=== PATIENT | male | born 1955 | race Caucasian/White ===

== ENCOUNTER 2020-06-08 10:58 | Observation (INO) | payer OTHER, SELFPAY ==
[2020-06-08] VITALS (17 sets, daily range): BP systolic 143–186; BP diastolic 96–122; PULSE 74–101; RESP 15–30; TEMP 35.9–36.4; O2SAT 100
--- NOTE | ~2020-06-08 | US_ITS ---
EXAMINATION: US carotid duplex BI DATE: 06/09/2020 14:24 INDICATION: Left frontal lobe infarct. TECHNIQUE: Grayscale, color Doppler, and pulsed Doppler images of the cervical carotid arteries were obtained. The degree of vessel stenosis is placed in one of the following categories: normal, <50%, 5 0-69%, >=70% but less than near-occlusion, near-occlusion, or total occlusion. Note that percent sten osis relative to normal distal artery lumen diameter is indirectly measured from velocity measurement s as described by Christopher, et al. Radiology 2003; 229:340-346. COMPARISON: Ultrasound 03/27/2013 FINDINGS: RIGHT: The right common carotid artery (CCA) peak systolic velocity (PSV) is 49 cm/s. The right internal car otid artery (ICA) PSV is 62 cm/s. The right ICA end-diastolic velocity (EDV) is 13 cm/s. The right IC A/CCA PSV ratio is 1.3. Grayscale and color Doppler images yield an estimate of <50% diameter reducti on from plaque in the ICA. There is antegrade flow in the right vertebral artery. LEFT: The left CCA PSV is 59 cm/s. The left ICA PSV is 51 cm/s. The left ICA EDV is 13 cm/s. The left ICA/C CA PSV ratio is 0.9. Grayscale and color Doppler images yield an estimate of <50% diameter reduction from plaque in the ICA. There is antegrade flow in the left vertebral artery. IMPRESSION: 1. <50% stenosis in the right internal carotid artery. 2. <50% stenosis in the left internal carotid artery. Reviewed, dictated and finalized at location A.
--- NOTE | ~2020-06-08 | XR_ITS ---
EXAMINATION: XR chest 1V portable INDICATION: Altered mental status TECHNIQUE: Portable AP chest at 1205 hours COMPARISON: 12/15/2015 FINDINGS: The lungs are free of acute opacities. There is a 3.6 cm right perihilar mass without signi ficant change since the comparison examination. There is no pleural effusion or pneumothorax. The car diomediastinal silhouette is normal. The visualized bones and soft tissues are unremarkable. Calcifie d left carotid artery atherosclerosis is noted. IMPRESSION: 1. No acute cardiopulmonary abnormality. 2. Right perihilar mass without significant change, consistent with treated metastatic disease. Reviewed, dictated and finalized at location B. IMPRESSION: 1. No acute cardiopulmonary abnormality. 2. Right perihilar mass without significant change, consistent with treated met astatic disease.
--- NOTE | ~2020-06-08 | US_ITS ---
EXAMINATION: US right upper quadrant DATE: 06/10/2020 09:05 INDICATION: Elevated liver function tests TECHNIQUE: Multiple grayscale and Doppler ultrasound images of the abdomen were obtained. COMPARISON: CT, 03/26/2015 FINDINGS: The head and body of the pancreas are normal. The pancreatic tail is obscured by bowel gas. The liver is normal with normal echogenicity and echotexture. No surface nodularity. Normal hepatope eduard flow in the main portal vein. The gallbladder is normal with no abnormal wall thickening, pericho lecystic fluid or stones. The normal common bile duct measures 5 mm. There was no sonographic Dean sign. IMPRESSION: 1. No sonographic correlate for the patient's symptoms. Reviewed, dictated and finalized at location B.
--- NOTE | ~2020-06-08 | CT_ITS ---
EXAMINATION: CT brain wo con DATE: 06/08/2020 12:16 INDICATION: Altered mental status. TECHNIQUE: Computed tomography (CT) of the head was performed without intravenous contrast. The mA wa s adjusted according to patient size. Iterative reconstruction technique was employed. The dose-lengt h product was 605.33 mGy-cm. COMPARISON: Head CT 10/01/2016 FINDINGS: There are scattered areas of low attenuation in the cerebral white matter. There are old la cunar infarcts in the bilateral basal ganglia. There is chronic encephalomalacia in the anterior-infe rior frontal lobes, left worse than right. There is chronic encephalomalacia in right frontal opercul um and right temporal lobe. There is no intracranial hemorrhage, acute infarction, or abnormal intrac ranial mass lesion. There is expected dilatation of temporal horn right lateral ventricle. There is m ild mucosal thickening in the ethmoid sinuses. The mastoid air cells are normal. The orbits are geena l. There are changes of right-sided craniotomy. IMPRESSION: 1. Chronic encephalomalacia involving the frontal lobes and right temporal lobe. 2. Old lacunar infarcts in the bilateral basal ganglia. 3. Worsened extensive nonspecific cerebral white matter disease, which likely represents chronic smal l vessel ischemic disease. Reviewed, dictated and finalized at location A. IMPRESSION: 1. Chronic encephalomalacia involving the frontal lobes and right temporal lobe . 2. Old lacunar infarcts in the bilateral basal ganglia. 3. Worsened extensive nonspecific cerebral white matter disease, which likely r epresents chronic small vessel ischemic disease.
--- NOTE | ~2020-06-08 | MR_ITS ---
EXAMINATION: MR brain/brain stem wo/w con EXAM DATE: 06/09/2020 13:53 INDICATION: History of lung cancer, brain surgery. Confusion. TECHNIQUE: Magnetic resonance imaging (MRI) of the brain/brain stem obtained without contrast. Sagit eduard T1, axial diffusion, gradient echo (T2*), T1, T2, FLAIR sequences obtained. Patient was then inj ected with 14 cc intravenous Multihance contrast. Axial and coronal postcontrast T1 weighted sequence s obtained. Comparison is made to prior examination from 03/24/2013. FINDINGS: Previous MRI 2013 had an enhancing lesion in the right temporal lobe, likely was resected g iven the overlying right temporal craniotomy with underlying encephalomalacia. The postcontrast image s have some limitations due to patient motion on the exam. There is diffuse thin-walled enhancement o f the resection bed without focal nodular region to specifically suggest recurrence. This could be no rmal postoperative enhancement but follow-up MR should be obtained to exclude local recurrence (kalli valenzuela likely has been having follow-up scans at the institution that treated him for this). There is an old small to moderate-sized left frontal lobe infarction. There are no areas of restricte d diffusion to suggest acute infarction. There is no acute hemorrhage seen on the T2*, a hemosiderin sensitive sequence. Significant interval progression in the extensive white matter hyperintensity, c ould be old brain radiation treatment related change an/or progression of microangiopathy. Could rojelio elate for history of radiation. There is moderate prominence of the sulci and ventricles related to c erebral atrophy. These age-related findings have progressed compared to 2014. There are no extra-axi al collections. Flow voids are seen in the cerebral arteries on the T2-weighted sequences consistent with their expected patency. The orbits are unremarkable. Soft tissue is unremarkable. IMPRESSION: 1. No acute intracranial findings. 2. Surgical changes from right temporal lesion resection with enhancement in the surgical bed which could be postoperative scarring but only follow-up MR can exclude recurrence. 3. Extensive white matter hyperintensity, whole brain radiation versus microangiopathy. 4. Small to moderate old left frontal lobe infarction. Reviewed, dictated and finalized at location A. IMPRESSION: 1. No acute intracranial findings. 2. Surgical changes from right temporal lesion resection with enhancement in t he surgical bed which could be postoperative scarring but only follow-up MR can exclude recurrence. 3. Extensive white matter hyperintensity, whole brain radiation versus microan giopathy. 4. Small to moderate old left frontal lobe infarction.
--- NOTE | 2020-06-08 11:06 | ECG_ITS ---
Measurements Intervals [place] Rate: 93 P: 52 [place]: 120 QRS: -13 QRSD: 101 T: 51 QT: 388 QTc: 483 Interpretive Statements SINUS RHYTHM BORDERLINE ST ABNORMALITY- ANTEROLAT/INF LEADS BASELINE ARTIFACT- I, II, III, AVR, AVL, AVF, V2-V6 BORDERLINE ECG Electronically Signed On 06-08-2020 16:50:01 CDT by Aman Kyle D.O.
--- NOTE | 2020-06-08 11:28 | ED.AMS ---
HPI - Altered Mental Status General Chief Complaint: Altered Mental Status Stated Complaint: altered mental status Time Seen by Provider: 06/08/20 11:09 History of Present Illness HPI narrative: Patient is a 65-year-old male who presents ER with altered mental status. Increased over the last 3 days and not moving at home. reports she had a fall on 21 April and since then he has had a significant decline in his function ability to walk and perform daily activities. Patient has history of lung cancer is in remission since 2013. He had had brain surgery as well. He also has history of CVA. She has not noticed any lateralizing weakness. 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 Denies any blood thinners but he does take a baby aspirin. Related Data Home Medications Medication Instructions Recorded Confirmed diltiazem HCl 120 mg 120 mg PO DAILY 01/06/19 capsule,extended release 24 hr rcbarn-flglzkgj-zefzarm 1 cap PO TID 01/06/19 24,000-76,000-120,000 unit capsule,delayed rel pregabalin 100 mg capsule 100 mg PO BID 01/06/19 tramadol 50 mg tablet 50 mg PO Q6H PRN 01/06/19 omega-3 fatty acids 1,000 mg 2,000 mg PO BID cap 01/20/19 capsule aspirin 81 mg tablet,delayed 81 mg PO DAILY 07/07/19 release mecobalamin (vitamin B12) 1,000 1,000 mcg SUBLINGUAL DAILY 07/07/19 mcg disintegrating tablet,sublingual Allergies Allergy/AdvReac Type Severity Reaction Status Date / Time No Known Allergies Allergy Verified 07/07/19 13:07 Review of Systems Review of Systems: ROS unobtainable: Yes unobtainable due to mental status [facility] Past Medical History Medical History (Updated 06/08/20 @ 16:02 by Alex Hong MD) Benign essential hypertension BMI 22.0-22.9, adult BMI 23.0-23.9, adult BPH (benign prostatic hyperplasia) Colon cancer screening COPD (chronic obstructive pulmonary disease) Encounter for routine adult health examination without abnormal findings Encounter for special screening examination for neoplasm of prostate GERD (gastroesophageal reflux disease) Hep C w/o coma, chronic History of CVA (cerebrovascular accident) Impaired functional mobility, balance, gait, and endurance Metastatic lung cancer (metastasis from lung to other site) Nicotine abuse 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 HEAD: Normocephalic, atraumatic. EYES: PERRL and EOMI. ENT: Dry mucous membranes. CHEST: Clear to auscultation. No respiratory distress. HEART: Tachycardic and regular. Normal peripheral pulses. ABDOMEN: Soft, nontender, nondistended. EXTREMITIES: Patient diffusely weak but moves all extremities. He has some scabbing over the knuckles of his fingers. SKIN: Warm, dry, no rash. NEURO: Alert and oriented x1-2. Course Course Emergency Course: There is no singular lab finding that explains patient's current condition. Seems to be a progressive debility that may have resulted from a CVA. He will be admitted to the hospital. You may obtain MRI. Patient will need fluid hydration and PT/OT. Vital Signs Vital signs: Vital Signs Temperature 97.6 F 06/08/20 10:58 Pulse Rate 96 06/08/20 10:58 Respiratory Rate 21 H 06/08/20 10:58 Blood Pressure 143/114 H 06/08/20 10:58 Pulse Oximetry 100 06/08/20 10:58 Temperature 97.6 F 06/08/20 10:58 Pulse Rate 75 06/08/20 14:46 Respiratory Rate 30 H 06/08/20 14:46 Blood Pressure 164/118 H 06/08/20 14:46 Pulse Oximetry 100 06/08/20 14:46 MDM - Altered Mental Status Lab Data Result diagrams: 06/08/20
[2020-06-08 11:53] LABS: Ammonia 14 umol/L (9-30)
[2020-06-08] MEDS: SODIUM CHLORIDE 0.9% IV 1,000 ML 999 ML IV CONT (12:05)
[2020-06-08 12:11] LABS: Basophils Absolute Auto 0.2 K/mm3 (0.0-0.1); Basophils Percent Auto 1.3 % (0.2-1.2); Eosinophils Absolute Auto 0.1 K/mm3 (0-0.3); Eosinophils Percent Auto 0.8 % (0-4.4); Hematocrit 51.3 % (42.0-52.0); Immature Granulocyte Absolute 0.07 K/mm3 (0.00-0.031); Immature Granulocyte Percent A 0.6 % (0-0.5); Lymphocytes Absolute Auto 1.37 K/mm3 (0.9-3.2); Lymphocytes Percent Auto 12.1 % (18.3-44.2); Mean Corpuscular HGB Conc 33.1 g/dl (32-36); Mean Corpuscular Hemoglobin 28.7 pg (26-34); Mean Corpuscular Volume 86.7 fl (80-100); Mean Platelet Volume 9.8 fl (7.4-10.4); Monocytes Absolute Auto 0.7 K/mm3 (0.1-0.6); Monocytes Percent Auto 6.4 % (2.6-8.5); Neutrophils Absolute Auto 8.9 K/mm3 (1.3-6.7); Neutrophils Percent Auto 78.8 % (45.5-73.1); Platelet Count Result 258 k/mm3 (150-375); Red Blood Count 5.92 M/mm3 (4.6-6.20); Red Cell Distribution Width 23.9 % (11.5-14.5); White Blood Count 11.3 K/mm3 (4.5-10.0)
[2020-06-08 12:21] LABS: INR 1.1; Partial Thromboplastin Time 28.6 SECONDS (22.3-36.8); Prothrombin Time 14.5 Seconds (11.1-14.7)
[2020-06-08 12:26] LABS: Lactic Acid Reflex 2.9 mmol/L (0.7-2.1)
[2020-06-08 12:29] LABS: Add Urine Microscopic? YES; Appearance Urine Clear (Clear); Bilirubin Urine Negative (Negative); Blood Urine Negative (Negative); Color Urine Amber (Yellow); Glucose Urine UA Negative (Negative); Ketones Urine Trace mg/dL (Negative); Leukocyte Esterase Ur Negative LEU/UL (Negative); Nitrate Urine Negative (Negative); Protein Urine 3+ mg/dL (Negative); RBC Urine 0-2 /hpf (0-2); Specific Grav Ur 1.026 (1.001-1.035); WBC Urine 0-3 /hpf
--- NOTE | 2020-06-08 12:49 | PC.NURSE ---
Reported to RN that blood hemolyzed. Tech on phlebotomy stuck pt, unsuccessful. RN to try.
[2020-06-08 14:14] LABS: Alanine Aminotransferase 111 U/L (4-50); Albumin Level 5.2 g/dL (3.5-5.1); Alkaline Phosphatase 101 U/L (38-126); Anion Gap 22 mmol/L (8-16); Aspartate Amino Transferase 115 U/L (17-59); Bilirubin,Total 1.3 mg/dL (0.2-1.3); Blood Urea Nitrogen 46 mg/dL (9-20); Calcium 11.2 mg/dL (8.4-10.2); Carbon Dioxide 14 mmol/L (22-30); Chloride 108 mmol/L (98-107); Creatine Kinase 28 U/L (55-170); Estimated Glomerular Filt Rate 36; Glucose 110 mg/dL (75-110); Potassium 4.4 mmol/L (3.4-5.0); Sodium 144 mmol/L (137-145)
[2020-06-08 14:24] LABS: Troponin I < 0.012 ng/mL (0.000-0.034)
[2020-06-08 15:09] LABS: Reflex Lactic Acid Yes or No Add Lactic
--- NOTE | 2020-06-08 16:19 | PC.NURSE ---
Report was called. Bed dirty. Floor will notify when clean and available.
--- NOTE | 2020-06-08 17:21 | PC.NURSE ---
Called floor to follow up with room for pt, still dirty per RN. Floor will reach out when room is clean.
--- NOTE | 2020-06-08 18:19 | ADMGEN ---
This patient, Jovany Robbins, was admitted to Medical Room 344-01. Patient/family oriented to hospital policies and general routines including ID bracelet, bed and alarms, visiting hours, pain management, procedures, bathroom and other care routines, personal items, smoking policy, room service/diet, and visiting hours. Information on how to activate the Rapid Response Team has been discussed. Patient/Family are encouraged to report perceived risks to care and to ask questions if they do not understand what they are told or what they should do.
--- NOTE | 2020-06-08 18:38 | PC.NURSE ---
stated patient is adopted and unaware of family history.
[2020-06-08] MEDS: SODIUM CHLORIDE 0.9% IV 1,000 ML 125 ML IV CONT (18:59)
--- NOTE | 2020-06-08 20:13 | PM.IMHP ---
H&P: HPI History of Present Illness Date/Time: 06/08/20 20:13Thiivan is a 65-year-old male patient who has had previous metastatic melanoma resection. He has also had a history of a CVA. He has a history of alcohol abuse. Has a history of chronic renal failure. The patient had a fall on April 21 and has scabbed up knuckles. The patient has not been back to his normal self since then. The patient has history of lung cancer and is in remission since 2013. He has had brain surgery as well. The patient denies any blood thinners but he does take a baby aspirin. The patient appears very dry and was started on IV fluids. Head CT was read as chronic encephalomalacia involving the frontal lobes and right temporal lobe. Old lacunar infarcts in the bilateral basal ganglia worsened extensive nonspecific cerebral white matter disease which likely represents chronic small vessel ischemic disease. Chest x-ray was read as no acute cardiopulmonary abnormality right perihilar mass without significant change consistent with treated metastatic disease. His PET scan 1 year ago showed that there is no recurrence of his cancer. It was felt that the patient's confusion weakness was related to his dehydration he was started on IV fluids. When I 1st question the patient he did not realize that he was in the hospital. He was answering the questions the best of his knowledge. Patient is being admitted to observation status on the date of service of 06/08/2020. Chief Complaint: Altered mental status Review of Systems Review of Systems: All systems reviewed & are unremarkable except as noted in HPI and below Constitutional: Constitutional: Reports as per HPI and Reports no additional constitutional complaints Eyes: Eyes: Reports as per HPI and Reports no additional eye complaints ENT: Reports system reviewed and no additional complaints, except as documented and Reports Normal hearing present Cardiovascular: Cardiovascular: Reports no additional cardiovascular complaints Respiratory: Respiratory: Reports no additional respiratory complaints and Reports no additional respiratory complaints Gastrointestinal: Gastrointestinal: Reports as per HPI and Reports no additional gastrointestinal complaints Musculoskeletal: Musculoskeletal: Reports no additional musculoskeletal complaints Integumentary/Breasts: Skin/Breast: Reports system reviewed and no additional complaints, except as docu and Reports as per HPI Neurologic: Reports system reviewed and no additional complaints, except as documented, Reports as per HPI and Reports Normal hearing present Psychiatric: Psychiatric: Reports no additional psychiatric complaints and Reports as per HPI Endocrine: Endocrine: Reports no additional endocrine complaints Hematologic/Lymphatic: Hematologic/Lymphatic: Reports no additional hematologic/lymphatic complaints Allergic/Immunologic: Allergic/Immunologic: Reports no additional allergic/immunologic complaints [facility] Past Medical History Medical History (Updated 06/08/20 @ 20:33 by Ramya Acosta NP) Anxiety Benign essential hypertension BMI 22.0-22.9, adult BMI 23.0-23.9, adult BPH (benign prostatic hyperplasia) Colon cancer screening COPD (chronic obstructive pulmonary disease) Encounter for routine adult health examination without abnormal findings Encounter for special screening examination for neoplasm of prostate GERD (gastroesophageal reflux disease) Hep C w/o coma, chronic History of CVA (cerebrovascular accident) Impaired functional mobility, balance, gait, and endurance Metastatic lung cancer (metastasis from lung to other site) Nicotine abuse 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
[2020-06-08 21:06] LABS: Lactic Acid 1.7 mmol/L (0.7-2.1)
[2020-06-08] MEDS: PANTOPRAZOLE 40 MG TABLET PO (23:16)
[2020-06-08] MEDS: levETIRAcetam 500 MG TABLET PO (23:16)
[2020-06-09] VITALS (10 sets, daily range): BP systolic 161–169; BP diastolic 88–96; PULSE 62–85; RESP 16–18; TEMP 35.8–36.4; O2SAT 98–100
--- NOTE | 2020-06-09 | ECHO_ITS ---
Patient Info Name: Jovany Robbins Age: 65 years : 1955 Gender: Male Ht: 72 in Wt: 155 lbs BSA: 1.88 m2 HR: 65 bpm BP: 155 / 76 mmHg Technical Quality: Fair Exam Date: 06/09/2020 11:27 AM Exam Location: [facility] Patient Status: Inpatient Admit Date: 06/08/2020 Staff Ordering Physician: Ramya Acosta NP Collator Hand: Davide Dean RDCS, RT Attending Provider: Jayesh Hernandez MD Referring Physician: Dave HASTINGS; Exam Type: CA echo doppler color flow Study Info Indications R27.8 - Other lack of coordination Complete two-dimensional, color flow and Doppler transthoracic echocardiogram is performed. Summary 1. Complete two-dimensional, color flow and Doppler transthoracic echocardiogram is performed. 2. Technically suboptimal study due to poor sonographic images. Parasternal images were obtain from subcostal probe position. 3. Left ventricular chamber dimension is normal. 4. Left ventricular systolic function is normal, estimated at 55-60%. 5. There is mildly increased left ventricular wall thickness. 6. The left ventricular diastolic function is grade I diastolic dysfunction. 7. E/e' 9 is minimally elevated. Left Ventricle E/e' 9 is minimally elevated. Technically suboptimal study due to poor sonographic images. Parasternal images were obtain from subcostal probe position. Left ventricular chamber dimension is normal. Left ventricular systolic function is normal, estimated at 55-60%. There is mildly increased left ventricular wall thickness. The left ventricular diastolic function is grade I diastolic dysfunction. Right Ventricle Right ventricular chamber dimension is normal. Right ventricular systolic function is normal. Left Atria Left atrial chamber dimension is normal. Right Atria Right atrial chamber dimension is normal. Aortic Valve The aortic valve is trileaflet. There is no aortic valve stenosis. There is no aortic valve regurgitation. Pulmonic Valve There is no pulmonic regurgitation. Mitral Valve There is no mitral valve stenosis. There is no mitral valve regurgitation. Tricuspid Valve There is no tricuspid valve regurgitation. Pericardium/Pleural There is no pericardial effusion. Inferior Vena Cava Normal inferior vena cava with >50% collapse upon inspiration consistent with normal right atrial pressure, 5 mmHg. Aorta The aortic root size at the sinus of Valsalva is normal. Left Ventricular Outflow Tract Name Value Normal LVOT 2D LVOT Diameter 2.0 cm LVOT Doppler LVOT Peak Gradient 1 mmHg LVOT Mean Gradient 1 mmHg LVOT VTI 12 cm LVOT VTI/AV VTI Ratio 0.9 LVOT Stroke Volume 35 ml LVOT CO 2.3 l/min LVOT CI 1.2 l/min/m2 Mitral Valve Name Value Normal
[2020-06-09] MEDS: SODIUM CHLORIDE 0.9% IV 1,000 ML 125 ML IV CONT (02:57)
[2020-06-09] MEDS: SUCRALFATE 1 GM TABLET 2 GM PO ×2 (05:32→16:44)
[2020-06-09 06:04] LABS: Basophils Absolute Auto 0.1 K/mm3 (0.0-0.1); Basophils Percent Auto 0.9 % (0.2-1.2); Eosinophils Absolute Auto 0.2 K/mm3 (0-0.3); Eosinophils Percent Auto 1.5 % (0-4.4); Hematocrit 52.2 % (42.0-52.0); Hemoglobin 16.3 g/dL (14.0-18.0); Immature Granulocyte Absolute 0.05 K/mm3 (0.00-0.031); Immature Granulocyte Percent A 0.5 % (0-0.5); Lymphocytes Absolute Auto 1.11 K/mm3 (0.9-3.2); Lymphocytes Percent Auto 11.2 % (18.3-44.2); Mean Corpuscular HGB Conc 31.2 g/dl (32-36); Mean Corpuscular Hemoglobin 28.7 pg (26-34); Mean Corpuscular Volume 91.9 fl (80-100); Mean Platelet Volume 10.2 fl (7.4-10.4); Monocytes Absolute Auto 0.6 K/mm3 (0.1-0.6); Monocytes Percent Auto 5.6 % (2.6-8.5); Neutrophils Percent Auto 80.3 % (45.5-73.1); Platelet Count Result 203 k/mm3 (150-375); Red Blood Count 5.68 M/mm3 (4.6-6.20); Red Cell Distribution Width 23.9 % (11.5-14.5); White Blood Count 9.9 K/mm3 (4.5-10.0)
[2020-06-09 07:26] LABS: Alanine Aminotransferase 86 U/L (4-50); Albumin Level 4.5 g/dL (3.5-5.1); Alkaline Phosphatase 76 U/L (38-126); Anion Gap 19 mmol/L (8-16); Aspartate Amino Transferase 86 U/L (17-59); Blood Urea Nitrogen 35 mg/dL (9-20); Calcium 9.7 mg/dL (8.4-10.2); Carbon Dioxide 13 mmol/L (22-30); Chloride 115 mmol/L (98-107); Estimated Glomerular Filt Rate 55; Glucose 80 mg/dL (75-110); Magnesium 1.8 mg/dL (1.6-2.3); Potassium 4.9 mmol/L (3.4-5.0); Sodium 147 mmol/L (137-145)
--- NOTE | 2020-06-09 07:53 | PC.NURSE ---
Phone calls to both numbers listed to get consent for MRI's as patient is confused and can't sign for himself. Will continue to try and reach Keila his spouse.
[2020-06-09] MEDS: CALCIUM CARBONATE (OSCAL) 500 MG TABLET PO (08:12)
[2020-06-09] MEDS: PANTOPRAZOLE 40 MG TABLET PO ×2 (08:12→20:20)
[2020-06-09] MEDS: levETIRAcetam 500 MG TABLET PO ×2 (08:12→20:21)
[2020-06-09] MEDS: TAMSULOSIN HCL 0.4 MG CAPSULE PO (08:12)
[2020-06-09] MEDS: OMEGA 3 POLYUNSAT FATTY ACIDS 1 GM CAP PO (08:12)
[2020-06-09] MEDS: ASPIRIN 81 MG ENTERIC TABLET PO (08:12)
[2020-06-09] MEDS: PREGABALIN (*CRX) 50 MG CAPSULE 100 MG PO (08:12)
--- NOTE | 2020-06-09 10:35 | PM.IMPN ---
Progress Note: A&P Assessment and Plan (1) Altered mental status: Code(s): R41.82 - Altered mental status, unspecified <SUSANNAH Webb - Last Filed: 06/09/20 12:07> Status: Acute <SUSANNAH Webb - Last Filed: 06/09/20 12:07> Assessment and Plan: Suspect 2/2 dehydration WBC improved Hx of lung ca with brain mets s/p surgery PET scan showed no recurrence of his cancer [address] scan as mentioned above shows chronic encephalomalacia and an old lacunar infarction CXR-->no acute changes Continue with IVF PT/OT to evaluate MRI of the brain pending Carotids pending ECHO pending <SUSANNAH Webb - Last Filed: 06/09/20 12:07> (2) VIVIANE (acute kidney injury): Code(s): N17.9 - Acute kidney failure, unspecified <SUSANNAH Webb - Last Filed: 06/09/20 12:07> Status: Acute <SUSANNAH Webb - Last Filed: 06/09/20 12:07> Assessment and Plan: Cr 1.9-->1.3 today, baseline is anywhere from 1.3-2.2 Avoid any nephrotoxic medications D/c IVF when po intake sufficinet <SUSANNAH Webb - Last Filed: 06/09/20 12:07> (3) History of CVA (cerebrovascular accident): Code(s): Z86.73 - Personal history of transient ischemic attack (TIA), and cerebral infarction without residual deficits <SUSANNAH Webb - Last Filed: 06/09/20 12:07> Status: Acute <SUSANNAH Webb - Last Filed: 06/09/20 12:07> Assessment and Plan: Patient has no residual effect Continue ASA <SUSANNAH Webb - Last Filed: 06/09/20 12:07> (4) Nicotine abuse: Code(s): Z72.0 - Tobacco use <SUSANNAH Webb - Last Filed: 06/09/20 12:07> Status: Acute <SUSANNAH Webb - Last Filed: 06/09/20 12:07> Assessment and Plan: Cessation advised Packet given, counseled <SUSANNAH Webb - Last Filed: 06/09/20 12:07> (5) COPD (chronic obstructive pulmonary disease): Qualifiers: COPD type: unspecified COPD Qualified Code(s): J44.9 - Chronic obstructive pulmonary disease, unspecified <SUSANNAH Webb - Last Filed: 06/09/20 12:07> Code(s): J44.9 - Chronic obstructive pulmonary disease, unspecified <SUSANNAH Webb - Last Filed: 06/09/20 12:07> Status: Acute <SUSANNAH Webb - Last Filed: 06/09/20 12:07> Assessment and Plan: Continue with rescue inhaler <SUSANNAH Webb - Last Filed: 06/09/20 12:07> (6) Hep C w/o coma, chronic: Code(s): B18.2 - Chronic viral hepatitis C <SUSANNAH Webb - Last Filed: 06/09/20 12:07> Status: Acute <SUSANNAH Webb - Last Filed: 06/09/20 12:07> (7) Benign essential hypertension: Code(s): I10 - Essential (primary) hypertension <SUSANNAH Webb - Last Filed: 06/09/20 12:07> Status: Acute <SUSANNAH Webb - Last Filed: 06/09/20 12:07> Assessment and Plan: continue with diltiazem <SUSANNAH Webb - Last Filed: 06/09/20 12:07> (8) Anxiety: Code(s): F41.9 - Anxiety disorder, unspecified <SUSANNAH Webb - Last Filed: 06/09/20 12:07> Status: Chronic <SUSANNAH Webb - Last Filed: 06/09/20 12:07> Assessment and Plan: continue with Xanax <SUSANNAH Webb - Last Filed: 06/09/20 12:07> Subjective Date/time seen: 06/09/20 10:35 Pt seen and evaluated; labs; VS and diagnostic results reviewed; pt is alert to self and states he's ready to go home; denies any complaints <SUSANNAH Webb - Last Filed: 06/09/20 12:07> Review of Systems Review of Systems: All systems reviewed & are unremarkable except as noted in HPI and below <SUSANNAH Webb - Last Filed:
--- NOTE | 2020-06-09 11:24 | PC.NURSE ---
Patient became unresponsive in chair while working with PT. This nurse was called into the room to assess the patient. Vital signs were 160/99 and oxygen was 100% on room air. Patient seemed alert and oriented and was able to answer questions and follow directions. Patient was able to raise both arms at the same time. Patient was able to squeeze my hands with both of his hands. Patient eyes rolled back and became unresponsive. Romelia stedy was used to place patient back in bed. Two attempts to call hospitalist were made by this nurse with no answer each time. Will continue to try and reach hospitalist to update on patient status.
--- NOTE | 2020-06-09 13:15 | PC.NURSE ---
Patient to MRI via hospital stretcher.
[2020-06-09 21:01] LABS: Alveolar/Arterial O2 Gradient 43.6 mmHg; Base Excess ABG -10.3 mEq/l (+/-2.0); Fractional Inspired Oxygen 21 %; HCO3 ABG 12.6 mEq/l (22.0-26.0); Oxygen Saturation ABG 95.8 % (95.0-100.0); Oxyhemoglobin 92.5 % THb (90.0-100.0); PO2 ABG 79.7 mmHg (80.0-100.0); Total Hemoglobin 14.6 g/dL (12.0-18.0); pH ABG 7.374 (7.350-7.450)
[2020-06-09 21:04] LABS: Device ROOM AIR; PCO2 ABG 22.1 mmHg (35.0-45.0); Site Drawn RIGHT BRACHIAL
[2020-06-09] MEDS: SODIUM BICARBONATE 8.4% 100 MEQ in DEXTROSE 5% 1,000 ML 1,000 ML IV CONT (21:25)
[2020-06-10] VITALS (9 sets, daily range): BP systolic 91–137; BP diastolic 64–97; PULSE 60–78; RESP 16; TEMP 35.3–36.4; O2SAT 99–100; BMI 22.2
[2020-06-10] MEDS: SUCRALFATE 1 GM TABLET 2 GM PO (05:38)
[2020-06-10 05:51] LABS: Alanine Aminotransferase 64 U/L (4-50); Alkaline Phosphatase 63 U/L (38-126); Anion Gap 11 mmol/L (8-16); Aspartate Amino Transferase 49 U/L (17-59); Bilirubin,Total 0.8 mg/dL (0.2-1.3); Blood Urea Nitrogen 20 mg/dL (9-20); Calcium 8.8 mg/dL (8.4-10.2); Carbon Dioxide 21 mmol/L (22-30); Chloride 110 mmol/L (98-107); Estimated Glomerular Filt Rate > 60; Glucose 145 mg/dL (75-110); Potassium 3.6 mmol/L (3.4-5.0); Sodium 142 mmol/L (137-145)
[2020-06-10] MEDS: SODIUM BICARBONATE 8.4% 100 MEQ in DEXTROSE 5% 1,000 ML 1,000 ML IV CONT (09:27)
[2020-06-10] MEDS: OMEGA 3 POLYUNSAT FATTY ACIDS 1 GM CAP PO (09:31)
[2020-06-10] MEDS: levETIRAcetam 500 MG TABLET PO ×2 (09:34→20:04)
[2020-06-10] MEDS: TAMSULOSIN HCL 0.4 MG CAPSULE PO (09:43)
[2020-06-10] MEDS: PANTOPRAZOLE 40 MG TABLET PO ×2 (09:43→20:04)
[2020-06-10] MEDS: CALCIUM CARBONATE (OSCAL) 500 MG TABLET PO (09:43)
[2020-06-10] MEDS: CYANOCOBALAMIN 250 MCG TABLET PO (09:43)
[2020-06-10] MEDS: ASPIRIN 81 MG ENTERIC TABLET PO (09:43)
[2020-06-10] MEDS: PREGABALIN (*CRX) 50 MG CAPSULE 100 MG PO (09:54)
--- NOTE | 2020-06-10 11:38 | PCDIET ---
Recommend liberalizing diet to regular. Agree with Ensure Clear (240kcal, 8g protein) BID. Patient may also benefit from multivitamin/minerals daily. Will continue to monitor and provide additional recommendations, as needed.
--- NOTE | 2020-06-10 12:40 | PM.IMPN ---
Progress Note: A&P Assessment and Plan (1) Altered mental status: Code(s): R41.82 - Altered mental status, unspecified Status: Acute Assessment and Plan: Suspect 2/2 dehydration WBC improved Hx of lung ca with brain mets s/p surgery PET scan showed no recurrence of his cancer [address] scan as mentioned above shows chronic encephalomalacia and an old lacunar infarction CXR-->no acute changes Continue with IVF PT/OT ST Will likely require rehab MRI with no acute findings Carotids-->. <50% stenosis in the right and left internal carotid artery ECHO pending-->preserved EF 55-60%;mildly increased left ventricular wall thickness;grade I diastolic dysfunction (2) VIVIANE (acute kidney injury): Code(s): N17.9 - Acute kidney failure, unspecified Status: Acute Assessment and Plan: Resolved Cr 1.9-->1.3-->1.1 today, baseline is anywhere from 1.3-2.2 Avoid any nephrotoxic medications S/p IVF Monitor (3) History of CVA (cerebrovascular accident): Code(s): Z86.73 - Personal history of transient ischemic attack (TIA), and cerebral infarction without residual deficits Status: Acute Assessment and Plan: Patient has no residual effect Continue ASA (4) Nicotine abuse: Code(s): Z72.0 - Tobacco use Status: Acute Assessment and Plan: Cessation advised Packet given, counseled (5) COPD (chronic obstructive pulmonary disease): Qualifiers: COPD type: unspecified COPD Qualified Code(s): J44.9 - Chronic obstructive pulmonary disease, unspecified Code(s): J44.9 - Chronic obstructive pulmonary disease, unspecified Status: Acute Assessment and Plan: Continue with rescue inhaler (6) Hep C w/o coma, chronic: Code(s): B18.2 - Chronic viral hepatitis C Status: Acute (7) Benign essential hypertension: Code(s): I10 - Essential (primary) hypertension Status: Acute Assessment and Plan: continue with diltiazem (8) Anxiety: Code(s): F41.9 - Anxiety disorder, unspecified Status: Chronic Assessment and Plan: continue with Xanax Subjective Date/time seen: 06/10/20 12:40 Pt states he feels find;alert to self; PT at the bedside; diagnostic results reviewed Review of Systems Review of Systems: All systems reviewed & are unremarkable except as noted in HPI and below Exam Const: General: cooperative, healthy appearing, comfortable, no acute distress, well developed, alert, awake and Physically active Nutritional Appearance: average body habitus and thin Orientation/consciousness: oriented to person Limitations: no limitations HENMT: Head: normal to inspection, No palpable skull fracture present, normocephalic, atraumatic and abrasion Ears: hearing grossly normal bilaterally and external ears normal General nose exam: Normal external nose present, Normal nares present and No nasal polyps present Mouth: Yes dry mucous membranes Throat: posterior oropharynx normal Eyes: General: appearance normal, both eyes and all related structures Alignment and Position: alignment normal Periorbital: periorbital findings normal Eyelids: eyelids normal Conjunctivae: conjunctivae normal Sclera: sclerae normal Cornea: corneas normal Pupils: Equal, round and reactive pupils present EOM: EOMs intact bilaterally Neck: Neck: normal visual inspection, full ROM and no lymphadenopathy Thyroid: thyroid normal Carotids: normal carotid upstroke Lymphatic: no lymphadenopathy noted Chest: Chest palpation & inspection: normal inspection of the chest Resp: Effort & Inspection: normal respiratory effort Auscultation: clear to auscultation bilaterally Percussion: percussion normal Cardio: Palpation: normal PMI Rate: regular rate Rhythm: regular rhythm Heart sounds: S1 normal heart sound present and S2 normal heart sound present Peripheral pulses: Peripheral pulses 2+ throughout GI: Inspection: no
--- NOTE | 2020-06-10 13:24 | PCSTNOTE ---
Please refer to the Bedside Swallow Evaluation in the EMR. Please note, silent aspiration cannot be ruled out at bedside.
--- NOTE | 2020-06-10 14:25 | PCOTNOTE ---
Attempted to see patient this pm, however patient was unable to be aroused. Per MEDICAL SAFETY DIRECTOR, patient did not wake for vitals or lunch.
[2020-06-10 18:34] LABS: Anion Gap 7 mmol/L (8-16); Blood Urea Nitrogen 16 mg/dL (9-20); Calcium 8.3 mg/dL (8.4-10.2); Carbon Dioxide 26 mmol/L (22-30); Chloride 103 mmol/L (98-107); Estimated CRCL calculation 64 ml/min; Estimated Glomerular Filt Rate > 60; Glucose 168 mg/dL (75-110); Potassium 2.8 mmol/L (3.4-5.0); Sodium 136 mmol/L (137-145)
[2020-06-10] MEDS: ONDANSETRON INJ 4 MG/2 ML VIAL IV PUSH (23:56)
[2020-06-11] VITALS: PULSE 63
[2020-06-11 04:00] VITALS: PULSE 64
[2020-06-11 05:51] VITALS: BP 113/67; PULSE 73; RESP 16; O2SAT 96
[2020-06-11 05:55] LABS: Hematocrit 38.2 % (42.0-52.0); Hemoglobin 12.5 g/dL (14.0-18.0); Mean Corpuscular HGB Conc 32.7 g/dl (32-36); Mean Corpuscular Volume 85.7 fl (80-100); Mean Platelet Volume 10.5 fl (7.4-10.4); Platelet Count Result 128 k/mm3 (150-375); Red Blood Count 4.46 M/mm3 (4.6-6.20); Red Cell Distribution Width 22.5 % (11.5-14.5); White Blood Count 10.3 K/mm3 (4.5-10.0)
[2020-06-11 06:10] LABS: Anion Gap 7 mmol/L (8-16); Blood Urea Nitrogen 14 mg/dL (9-20); Calcium 8.3 mg/dL (8.4-10.2); Carbon Dioxide 22 mmol/L (22-30); Chloride 105 mmol/L (98-107); Estimated CRCL calculation 64 ml/min; Estimated Glomerular Filt Rate > 60; Glucose 107 mg/dL (75-110); Potassium 3.3 mmol/L (3.4-5.0); Sodium 134 mmol/L (137-145)
[2020-06-11] MEDS: SUCRALFATE 1 GM TABLET 2 GM PO ×2 (06:17→16:25)
[2020-06-11 06:25] VITALS: TEMP 35.6
--- NOTE | 2020-06-11 06:35 | PC.NURSE ---
RN initially was told patient had not spoken to staff and was mostly unresponsive in the afternoon and evening yesterday (06/10/2020). Patient has been talking to RN and BIOMEDICAL MANAGER the entire night custodian. RN asked patient why he was not talking to day shift yesterday and he stated maybe I just like you guys more. RN had multiple talks with patient throughout the night where conversation flowed naturally and he was alert, oriented, and responsive.
[2020-06-11 08:00] VITALS: PULSE 65
[2020-06-11] MEDS: PREGABALIN (*CRX) 50 MG CAPSULE 100 MG PO (09:29)
[2020-06-11] MEDS: PANTOPRAZOLE 40 MG TABLET PO ×2 (09:30→20:12)
[2020-06-11] MEDS: TAMSULOSIN HCL 0.4 MG CAPSULE PO (09:30)
[2020-06-11] MEDS: levETIRAcetam 500 MG TABLET PO ×2 (09:30→20:12)
[2020-06-11] MEDS: OMEGA 3 POLYUNSAT FATTY ACIDS 1 GM CAP PO (09:30)
[2020-06-11] MEDS: ASPIRIN 81 MG ENTERIC TABLET PO (09:30)
[2020-06-11] MEDS: CALCIUM CARBONATE (OSCAL) 500 MG TABLET PO (09:30)
[2020-06-11] MEDS: CYANOCOBALAMIN 250 MCG TABLET PO (09:30)
--- NOTE | 2020-06-11 12:04 | PM.DS ---
DS: Admitting Diagnosis Admitting Diagnosis Admitting Diagnosis: altered mental status DS: Discharge Diagnosis Discharge Diagnosis (1) Altered mental status: Code(s): R41.82 - Altered mental status, unspecified Status: Acute (2) VIVIANE (acute kidney injury): Code(s): N17.9 - Acute kidney failure, unspecified Status: Acute (3) History of CVA (cerebrovascular accident): Code(s): Z86.73 - Personal history of transient ischemic attack (TIA), and cerebral infarction without residual deficits Status: Acute (4) Nicotine abuse: Code(s): Z72.0 - Tobacco use Status: Acute (5) COPD (chronic obstructive pulmonary disease): Qualifiers: COPD type: unspecified COPD Qualified Code(s): J44.9 - Chronic obstructive pulmonary disease, unspecified Code(s): J44.9 - Chronic obstructive pulmonary disease, unspecified Status: Acute (6) Hep C w/o coma, chronic: Code(s): B18.2 - Chronic viral hepatitis C Status: Acute (7) Benign essential hypertension: Code(s): I10 - Essential (primary) hypertension Status: Acute (8) Anxiety: Code(s): F41.9 - Anxiety disorder, unspecified Status: Chronic (9) Metastatic lung cancer (metastasis from lung to other site): Qualifiers: Laterality: unspecified laterality Qualified Code(s): C34.90 - Malignant neoplasm of unspecified part of unspecified bronchus or lung Code(s): C34.90 - Malignant neoplasm of unspecified part of unspecified bronchus or lung Status: Acute (10) Metabolic acidosis: Code(s): E87.2 - Acidosis Status: Acute (11) Elevated liver enzymes: Code(s): R74.8 - Abnormal levels of other serum enzymes Status: Acute (12) Hypercalcemia: Code(s): E83.52 - Hypercalcemia Status: Acute DS: Summary Hospital Course Reason for hospitalization: 65yo male with hx of seizure, CVA, lung cancer and brain surgery here for altered mental status. please see H&P for details Hospital Course: Patient presented to the ED with complaints of altered mental status for the past 3 days. Hemoglobin was elevated at 17. Lactic acid was 2.9. Chest x-ray showed right perihilar mass felt to be chronic from his previously treated lung cancer. Brain CT showed chronic encephalomalacia and old CVAs. His creatinine was 1.9. His calcium was 11.2. He has significant metabolic acidosis with an anion gap 22. His AST and ALT were elevated with a total protein of 10. Urinalysis was negative. Troponin was negative. EKG showed borderline anterior lateral ST T wave changes. patient was admitted started on IV fluids. IV fluids were changed to add bicarb. His metabolic acidosis improved. Anion gap closed. Echocardiogram showed EF of 55-60% with grade 1 diastolic dysfunction. Brain MRI showed no acute findings. Please see report for details. Carotid ultrasound showed less than 50% stenosis in the bilateral internal carotid arteries. Upper quadrant ultrasound showed no acute findings. He was maintained on telemetry without significant findings there either. As his biochemical markers improved, patient's mental status improved. Became more awake and alert. He is more talkative. His LFTs are trending downward. His kidney function has improved with a creatinine of 1.0 today. Hemoglobin is down to 12. Patient overall did well was a be discharged to a rehab facility on 06/11/2020. Status at Discharge Cognitive/behavioral status at discharge: Stable Time Spent with Patient Time attestation: Total time spent providing and/or coordinating discharge services: 35 minutes Time spent: Greater than 30 minutes Specific discharge activities: spoke with and she was updated with plan Exam Narrative: Exam Narrative: AF 96.0 113/67 73 16 96% ra Gen - NARD Chest - CTA bilaterally, nml RR CV - RRR S1/S2.Telemetry showing no significant dysrhythmias Abd - Soft,
[2020-06-11 14:00] VITALS: BP 108/60; PULSE 76; RESP 18; TEMP 36.1; O2SAT 99
[2020-06-11 19:39] LABS: SARS-CoV-2 RNA PCR Negative
--- NOTE | 2020-06-15 08:28 | PC.NURSE ---
COVID is negative. Dr. Avina aware.
== END 2020-06-11 20:38 ==
LOC: ANHED 11:43 → ANH3MED 16:02
PROVIDERS: Nurse Practitioner; Nurse Practitioner Adult Health; Admitting Provider Family Medicine; Emergency Provider Emergency Medicine; PCP Internal Medicine; Visit Provider Internal Medicine
DX: R41.82 Altered mental status, unspecified (principal); N17.9 Acute kidney failure, unspecified; E86.0 Dehydration; E83.52 Hypercalcemia; I65.23 Occlusion and stenosis of bilateral carotid arteries; R74.8 Abnormal levels of other serum enzymes; E87.2 Acidosis; E88.09 Other disorders of plasma-protein metabolism, not elsewhere classified; G93.89 Other specified disorders of brain; J44.9 Chronic obstructive pulmonary disease, unspecified; R27.8 Other lack of coordination; Z91.81 History of falling; G40.909 Epilepsy, unspecified, not intractable, without status epilepticus; I10 Essential (primary) hypertension; N40.0 Benign prostatic hyperplasia without lower urinary tract symptoms; K21.9 Gastro-esophageal reflux disease without esophagitis; B18.2 Chronic viral hepatitis C; R53.81 Other malaise; F41.9 Anxiety disorder, unspecified; F17.210 Nicotine dependence, cigarettes, uncomplicated; Z20.822 Contact with and (suspected) exposure to COVID-19; Z85.118 Personal history of other malignant neoplasm of bronchus and lung; Z79.51 Long term (current) use of inhaled steroids; Z85.820 Personal history of malignant melanoma of skin; Z86.73 Personal history of transient ischemic attack (TIA), and cerebral infarction without residual deficits; Z79.82 Long term (current) use of aspirin
CPT/HCPCS: 36415; 36600; 70450; 70553; 71045; 76705; 80048; 80053; 80076; 81001; 82140; 82550; 82805; 83605; 83735; 84443; 84484; 85025; 85027; 85610; 85730; 92610; 93005; 93306; 93880; 94762; 96360; 96361; 96365; 96366; 96367; 96375; 96376; 97110; 97162; 97166; 97530; 99285; A9270; A9577; C9803; G0378; J2405; J3480; J7030; J7070; U0003; U0005

== ENCOUNTER 2020-06-19 21:43 | Inpatient (IN) | payer MEDICARE, OTHER, SELFPAY ==
--- NOTE | ~2020-06-19 | XR_ITS ---
EXAMINATION: XR chest 1V portable EXAM DATE: 06/21/2020 11:00 INDICATION: Aspiration pneumonia. TECHNIQUE: Portable AP upright frontal chest x-ray was obtained. Comparison is made to prior examinat ion from 06/19/2020. FINDINGS: Patient is rotated to the right. There is been progression of right middle and lower lobe a cute airspace disease, now involving multiple segments, probably combination of infection and atelect asis. There has been development of small to moderate right pleural effusion. No pneumothorax. There are old left rib fractures. IMPRESSION: 1. Progression of multi segmental right basilar opacity likely atelectasis and infection. 2. Development of small to moderate right pleural effusion. Reviewed, dictated and finalized at location A.
--- NOTE | ~2020-06-19 | US_ITS ---
EXAMINATION: US abdomen limited EXAM DATE: 06/21/2020 11:34 INDICATION: Suspected pancreatitis. TECHNIQUE: Multiple grayscale and Doppler images of the abdomen right upper quadrant were obtained (mercy y a technologist who performed the scan) and subsequently reviewed. There is no prior study for nahid richardson. FINDINGS: The pancreatic head and body are normal in appearance. The pancreatic tail is not visualized. Please note uncomplicated pancreatitis typically does not have ultrasound findings. The liver has normal ec hogenicity and contour. There are no focal liver lesions identified. There is no evidence of intra hepatic biliary duct dilation. Portal venous flow was seen in the hepatopedal, normal direction and has normal Doppler waveform. No right-sided hydronephrosis. Common bile duct measures 4 mm, which is normal. Probable mild gallbladder wall thickening for amount of distention, measuring 3.3 mm. No sonographic evidence of pericholecystic fluid. There is no cho lelithiases. Technologist performing exam reports patient did not demonstrate sonographic Dean's si gn. Please note that this sign is less reliable in patients who have received pain medication. IMPRESSION: 1. Mildly thickened gallbladder wall, most likely reactive. Reviewed, dictated and finalized at location A.
--- NOTE | ~2020-06-19 | CT_ITS ---
EXAMINATION: CT brain wo con DATE: 06/19/2020 23:29 INDICATION: Confusion. Altered mental status. TECHNIQUE: Computed tomography (CT) of the head was performed without intravenous contrast. The mA wa s adjusted according to patient size. Iterative reconstruction technique was employed. The dose-lengt h product was 681.00 mGy-cm. COMPARISON: Head CT 06/08/2020 FINDINGS: There are scattered areas of low attenuation in the cerebral white matter. There are old la cunar infarcts in the bilateral basal ganglia. There is chronic encephalomalacia in the anteroinferio r frontal lobes, left worse than right. There is chronic encephalomalacia in right frontal operculum and right temporal lobe. There is no intracranial hemorrhage, acute infarction, or abnormal intracran ial mass lesion. There is ex vacuo dilatation of temporal horn of right lateral ventricle. Dental dis ease is noted. The mastoid air cells are normal. The orbits are normal. The paranasal sinuses are shannon ar. There are changes of right-sided craniotomy. IMPRESSION: 1. Chronic encephalomalacia involving the frontal lobes and right temporal lobe. 2. Old lacunar infarcts in the bilateral basal ganglia. 3. Stable extensive nonspecific cerebral white matter disease, which likely represents chronic small vessel ischemic disease. Reviewed, dictated and finalized at location A. IMPRESSION: 1. Chronic encephalomalacia involving the frontal lobes and right temporal lobe . 2. Old lacunar infarcts in the bilateral basal ganglia. 3. Stable extensive nonspecific cerebral white matter disease, which likely rep resents chronic small vessel ischemic disease.
--- NOTE | ~2020-06-19 | US_ITS ---
EXAMINATION:US venous doppler LE BI INDICATION:Leg pain TECHNIQUE: Multiple grayscale, color flow and Doppler images of the right and left lower extremity de ep venous systems were obtained and reviewed. COMPARISON:No prior studies for comparison. FINDINGS: The common femoral, superficial femoral and popliteal veins demonstrate normal respiratory variation, augmentation and compressibility. Color flow is also seen within the posterior tibial, pe roneal, greater saphenous and profunda veins. IMPRESSION: 1: No lower extremity deep venous thrombosis. Reviewed, dictated and finalized at location B.
--- NOTE | ~2020-06-19 | XR_ITS ---
EXAMINATION: XR chest 1V portable DATE: 06/19/2020 22:54 INDICATION: Cough. Transient alteration of awareness. TECHNIQUE: A single frontal view of the chest was obtained. COMPARISON: Chest single view 06/08/2020, CT abdomen and pelvis 06/19/2020, chest CT 03/26/2015 FINDINGS: There are patchy airspace opacities in right mid and lower lung zones and left lower lung z one. No pleural effusion or pneumothorax. The heart size is normal. IMPRESSION: 1. Patchy airspace opacities in right mid and lower lung zones and left lower lung zone, consistent w ith pneumonia and right middle lobe malignancy and treatment changes. Reviewed, dictated and finalized at location A. IMPRESSION: 1. Patchy airspace opacities in right mid and lower lung zones and left lower l shari zone, consistent with pneumonia and right middle lobe malignancy and treatm ent changes.
--- NOTE | ~2020-06-19 | XR_ITS ---
EXAMINATION: XR chest 1V portable DATE: 06/22/2020 05:45 INDICATION: Aspiration pneumonia. TECHNIQUE: A single frontal view of the chest was obtained. COMPARISON: Chest single view 06/21/2020, CT abdomen and pelvis 06/19/2020 FINDINGS: There are airspace opacities in right perihilar region and at the lung bases. No pleural ef fusion or pneumothorax. The heart size is normal. There are old healed left rib fractures. IMPRESSION: 1. Airspace opacities in right perihilar region and at the lung bases with improvement on the right, consistent with a perihilar malignancy and treatment changes and basilar atelectasis versus pneumonia . Reviewed, dictated and finalized at location A. IMPRESSION: 1. Airspace opacities in right perihilar region and at the lung bases with impr ovement on the right, consistent with a perihilar malignancy and treatment cardenas ges and basilar atelectasis versus pneumonia.
--- NOTE | ~2020-06-19 | XR_ITS ---
EXAMINATION: XR chest 1V portable DATE: 06/23/2020 05:52 INDICATION: Pneumonia. TECHNIQUE: A single frontal view of the chest was obtained. COMPARISON: Chest single view 06/22/2020 FINDINGS: The patient is rotated to his left. There are airspace opacities in right lower lung zone a nd right perihilar region. No pleural effusion or pneumothorax. The heart size is normal. IMPRESSION: 1. Stable airspace opacities in right lower lung zone and right perihilar region, consistent with per ihilar malignancy and treatment changes and basilar atelectasis versus pneumonia. Reviewed, dictated and finalized at location A. IMPRESSION: 1. Stable airspace opacities in right lower lung zone and right perihilar regio n, consistent with perihilar malignancy and treatment changes and basilar atele ctasis versus pneumonia.
--- NOTE | ~2020-06-19 | XR_ITS ---
EXAMINATION: XR barium swallow modified EXAM DATE: 06/23/2020 14:04 INDICATION: Dysphagia. TECHNIQUE: Modified barium esophagram was performed by speech pathologist with radiologist Dr. Doc Caputo present to administered fluoroscopy. Speech pathologist administered barium in varying consis tencies as per speech pathologist documentation. This was recorded on tape. There was total fluorosc opic time of 1.9. The DAP for this procedure was 1.3 Gycm2. A total of 2 images obtained for the ex am. FINDINGS: Oral stage: Uncoordinated. Delayed swallow trigger. Pharyngeal phase: Premature spillage into piriform sinus. Laryngeal penetration: Demonstrated. Aspiration: Demonstrated during solid trial. Laryngeal sensitivity: Inconsistent. IMPRESSION: Aspiration demonstrated; Please refer to speech pathologist findings and specific feedi ng recommendations. Reviewed, dictated and finalized at location A. IMPRESSION: Aspiration demonstrated; Please refer to speech pathologist findi ngs and specific feeding recommendations.
--- NOTE | ~2020-06-19 | MR_ITS ---
EXAMINATION: MR brain/brain stem wo con EXAM DATE: 06/23/2020 16:37 INDICATION: Altered mental status, dysphagia Seizure. History of lung cancer, brain surgery. TECHNIQUE: Magnetic resonance imaging (MRI) of the brain/brain stem obtained without contrast. Rk al T1, axial diffusion, gradient echo (T2*), T1, T2, FLAIR sequences obtained. Comparison is made to prior examination from 06/09/2020. FINDINGS: There is right temporal craniotomy with underlying encephalomalacia. There is an old small to moderate-sized left frontal lobe infarction. There are no areas of restricted diffusion to suggest acute infarction. There is no acute hemorrhage seen on the T2*, a hemosiderin sensitive sequence. There is extensive white matter hyperintensity, could be old brain radiation treatment related change and/or microangiopathy. Could correlate for history of radiation. There is moderate prominence of th e sulci and ventricles related to cerebral atrophy. There are no extra-axial collections. Flow void s are seen in the cerebral arteries on the T2-weighted sequences consistent with their expected paten cy. The orbits are unremarkable. Soft tissue is unremarkable. There is no significant interval mery nge compared to 2 weeks earlier exam. IMPRESSION: 1. No acute intracranial findings. 2. Surgical changes from right temporal lesion resection. 3. Extensive white matter hyperintensity, whole brain radiation versus microangiopathy. 4. Small to moderate old left frontal lobe infarction. Reviewed, dictated and finalized at location A. IMPRESSION: 1. No acute intracranial findings. 2. Surgical changes from right temporal lesion resection. 3. Extensive white matter hyperintensity, whole brain radiation versus microan giopathy. 4. Small to moderate old left frontal lobe infarction.
--- NOTE | ~2020-06-19 | CT_ITS ---
EXAMINATION: CT brain wo con DATE: 06/21/2020 11:13 INDICATION: Altered mental status. Seizure. TECHNIQUE: Computed tomography (CT) of the head was performed without intravenous contrast. The mA wa s adjusted according to patient size. Iterative reconstruction technique was employed. The dose-lengt h product was 605.33 mGy-cm. COMPARISON: Head CT 06/19/2020 FINDINGS: There is chronic encephalomalacia in the anteroinferior aspects of the frontal lobes. There is chronic encephalomalacia in right frontal operculum and right temporal lobe. There are scattered areas of low attenuation in the cerebral white matter. There are old lacunar infarcts in the bilatera l basal ganglia. There is no intracranial hemorrhage, acute infarction, or abnormal intracranial mass lesion. There is ex vacuo dilatation of temporal horn right lateral ventricle. There is mild mucosal thickening in the paranasal sinuses. The orbits are normal. The mastoid air cells are normal. There are changes of right-sided craniotomy. IMPRESSION: 1. Chronic encephalomalacia involving the frontal lobes and right temporal lobe. 2. Old lacunar infarcts in the bilateral basal ganglia. 3. Stable extensive nonspecific cerebral white matter disease, which likely represents chronic small vessel ischemic disease. Reviewed, dictated and finalized at location A. IMPRESSION: 1. Chronic encephalomalacia involving the frontal lobes and right temporal lobe . 2. Old lacunar infarcts in the bilateral basal ganglia. 3. Stable extensive nonspecific cerebral white matter disease, which likely rep resents chronic small vessel ischemic disease.
--- NOTE | ~2020-06-19 | CT_ITS ---
EXAMINATION: CT abdomen pelvis wo con DATE: 06/19/2020 23:29 INDICATION: Abdominal pain. Nausea and vomiting. TECHNIQUE: Computed tomography (CT) of the abdomen and pelvis was performed without intravenous contr ast. Automated exposure control and iterative reconstruction technique were employed. The dose-length product was 631.35 mGy-cm. COMPARISON: CT abdomen and pelvis 03/26/2015 FINDINGS: The visualized portions of the lung bases demonstrate airspace opacities in right perihilar region and right middle lobe with volume loss. There is an 8 mm nodule in anterior segment right upp er lobe, decreased from 18 mm on 03/26/2015. There are patchy groundglass opacities in the lower lobes , right worse than left. There is mucous plugging in left lower lobe. There are trace pleural effusio ns. The heart size is normal. There are coronary artery calcifications. No pericardial effusion. The liver demonstrates hypertrophy of left lateral segment and surface nodularity, consistent with cirrho sis. The gallbladder is normal in size. Gallbladder wall thickening is likely secondary to chronic li curry disease. There is fat stranding around the gallbladder and pancreas. The spleen, adrenal glands, and kidneys are normal. Stool distends the rectum. The appendix is normal. There is a small sliding h iatal hernia. There are no pathologically enlarged lymph nodes. There is no free intraperitoneal flui d. The bladder is distended. There is calcified atherosclerosis of the aorta and many of the other ar teries. There is severe lumbar spondylosis. IMPRESSION: 1. Patchy groundglass opacities in the lower lobes, consistent with pneumonia. 2. Improved right lung upper lobe nodule, consistent with metastatic disease. Right middle lobe airsp edmar opacities and volume loss, likely radiation pneumonitis. 3. Cirrhosis of the liver. 4. Fat stranding around the gallbladder and pancreas, which may be interstitial edema or inflammation such as acute interstitial pancreatitis. Correlate with lipase. 5. Stool distends the rectum. Reviewed, dictated and finalized at location A. IMPRESSION: 1. Patchy groundglass opacities in the lower lobes, consistent with pneumonia. 2. Improved right lung upper lobe nodule, consistent with metastatic disease. R ight middle lobe airspace opacities and volume loss, likely radiation pneumonit is. 3. Cirrhosis of the liver. 4. Fat stranding around the gallbladder and pancreas, which may be interstitial edema or inflammation such as acute interstitial pancreatitis. Correlate with lipase. 5. Stool distends the rectum.
[2020-06-19 21:41] VITALS: BP 131/92; PULSE 99; RESP 24; TEMP 36.4; O2SAT 92
[2020-06-19 21:47] VITALS: BP 136/87; PULSE 97; RESP 24; RESP 26; TEMP 36.5; O2SAT 95; O2SAT 96
--- NOTE | 2020-06-19 21:53 | ECG_ITS ---
Measurements Intervals [place] Rate: 89 P: 64 MA: 184 QRS: 50 QRSD: 78 T: 69 QT: 363 QTc: 443 Interpretive Statements SINUS RHYTHM LOW QRS VOLTAGE IN LIMB LEADS BORDERLINE ST-T WAVE ABNORMALITY- ANTEROLAT/INF LEADS BASELINE ARTIFACT- I, II, III, AVR, AVF, V4-V6 BORDERLINE ECG Electronically Signed On 06-20-2020 7:30:15 CDT by Aman Kyle D.O.
--- NOTE | 2020-06-19 21:53 | PC.NURSE ---
Pt presents to ED with EMS with complaints of AMS that onset earlier tonight. Pt noted to have x2 episode of emesis while in bed and became confused shortly after. Pt noted to be a/o x2 at baseline. Pt able to communicate with staff. Pt denies all pain and discomfort at this time. Pt noted to be having difficulty clearing secretions. Placed on 2 liters of O2 for support and tolerating well. O2 saturation improved from 91% on room air to 96% on 2liters. Pt arrived in a brief with an episode of incontinent urine and stool. Skin is dry and flaky, knuckles of 2nd, 3rd digit to left hand and third digit of right hand noted with large scabbed areas that are dry. Mild erythema noted to left lower extremity. Moderate swelling noted to bilateral feet. Pt alert and oriented to baseline x2. Vitals are stable and pt in no obvious distress. Per EMS, pt en route to ED.
[2020-06-19 22:11] LABS: Alveolar/Arterial O2 Gradient 82.2 mmHg; Base Excess ABG 0.1 mEq/l (+/-2.0); Fractional Inspired Oxygen 28 %; HCO3 ABG 22.9 mEq/l (22.0-26.0); Oxygen Content ABG 17.9 %vol (16.0-22.0); Oxygen Saturation ABG 96.6 % (95.0-100.0); PCO2 ABG 31.8 mmHg (35.0-45.0); PO2 ABG 79.9 mmHg (80.0-100.0); PO2 FiO2 Ratio Arterial Blood 2.85 %; Site Drawn LEFT RADIAL; Total Hemoglobin 13.4 g/dL (12.0-18.0); pH ABG 7.476 (7.350-7.450)
[2020-06-19 22:12] LABS: Device NASAL CANNULA; Modified Allen's Test Unable to perform
--- NOTE | 2020-06-19 22:35 | ED.GENADULT ---
HPI - General Adult General Chief complaint: Altered Mental Status Stated complaint: ams Time Seen by Provider: 06/19/20 21:51 History of Present Illness HPI narrative: Patient is 65-year-old gentleman who presents to emergency department with chief complaint of shortness of breath and altered mental status. The patient is a resident of a local group home and had an episode last night of nausea and vomiting. Afterwards the patient has had increasing shortness of breath and has had crackles and the family has noticed that she has more confused than normal. Patient normally is alert and oriented x2 per EMS patient is back to his baseline neurological status. Currently the patient has no complaints but does report that he is coughing. Related Data Home Medications Medication Instructions Recorded Confirmed diltiazem HCl 120 mg 120 mg PO DAILY 01/06/19 06/08/20 capsule,extended release 24 hr pregabalin 100 mg capsule 100 mg PO DAILY 01/06/19 06/08/20 omega-3 fatty acids 1,000 mg 2,000 mg PO BID cap 01/20/19 06/08/20 capsule aspirin 81 mg tablet,delayed 81 mg PO DAILY 07/07/19 06/08/20 release Fish Oil 1,000 mg PO DAILY 06/08/20 06/08/20 calcium carbonate 500 mg PO DAILY 06/08/20 06/08/20 cyanocobalamin (vitamin B-12) 100 mcg PO DAILY 06/08/20 06/08/20 ondansetron HCl 4 mg PO TID PRN 06/08/20 06/08/20 pantoprazole 40 mg PO BID 06/08/20 06/08/20 tamsulosin [Flomax] 0.4 mg PO DAILY 06/08/20 06/08/20 Allergies Allergy/AdvReac Type Severity Reaction Status Date / Time No Known Allergies Allergy Verified 06/08/20 18:39 Review of Systems Review of Systems: Narrative: A 10 system review of systems was completed on the patient and is negative except for what is stated in the HPI. Nursing and ancillary documentation was reviewed. [facility] Past Medical History Medical History (Updated 06/20/20 @ 07:02 by Dandy Faria MD) Anxiety Benign essential hypertension BMI 22.0-22.9, adult BMI 23.0-23.9, adult BPH (benign prostatic hyperplasia) Colon cancer screening COPD (chronic obstructive pulmonary disease) Encounter for routine adult health examination without abnormal findings Encounter for special screening examination for neoplasm of prostate GERD (gastroesophageal reflux disease) Hep C w/o coma, chronic History of CVA (cerebrovascular accident) Impaired functional mobility, balance, gait, and endurance Metastatic lung cancer (metastasis from lung to other site) Nicotine abuse On [facility] drug therapy Seizure disorder Testicular hypofunction Vitamin D deficiency Surgical History Surgical History H/O brain surgery Family History Family History Father Diabetes mellitus Mother Lung cancer Social History Social History Social History: the patient tells me that has no children. The patient stated that he was in the [place]. He states that he still smokes about 3/4 of a pack a cigarettes a day. 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 He is a full code. The patient is listed as disabled. Smoking packs per day: 1 Smoking cigarettes per day: 20.0 Years smoked: 40 Smoking pack-years: 40.00 Smoking status: Current every day smoker Tobacco type: cigarettes Alcohol intake: current Substance use: never Gender identity (if verbalized by the patient): Male Spiritual care concerns: No Exam Narrative: Exam Narrative: GENERAL: Well-appearing, well-nourished, and in no acute distress. HEAD: Normocephalic, atraumatic. EYES: PERRLA and EOMI. ENT: Nares clear, no rhinorrhea or epistaxis. Mucous membranes moist. NECK: Supple. CHEST: Crackles present bilaterally. No respiratory distress. HEART: Regular rate and rhythm. No murmur heard. Normal peripheral pulses. ABDOMEN: Soft, nontender, nondis
[2020-06-19 22:37] LABS: Hematocrit 40.6 % (42.0-52.0); Hemoglobin 13.5 g/dL (14.0-18.0); Immature Platelet Fraction Pct 9.8 % (0.9-11.2); Mean Corpuscular HGB Conc 33.3 g/dl (32-36); Mean Corpuscular Volume 87.3 fl (80-100); Platelet Count Result 140 k/mm3 (150-375); Red Blood Count 4.65 M/mm3 (4.6-6.20); Red Cell Distribution Width 24.2 % (11.5-14.5); White Blood Count 11.3 K/mm3 (4.5-10.0)
[2020-06-19 22:41] LABS: Alanine Aminotransferase 126 U/L (4-50); Albumin Level 3.7 g/dL (3.5-5.1); Alkaline Phosphatase 174 U/L (38-126); Anion Gap 8 mmol/L (8-16); Aspartate Amino Transferase 113 U/L (17-59); Bilirubin,Total 0.6 mg/dL (0.2-1.3); Blood Urea Nitrogen 28 mg/dL (9-20); Calcium 9.8 mg/dL (8.4-10.2); Carbon Dioxide 26 mmol/L (22-30); Chloride 111 mmol/L (98-107); Estimated CRCL calculation 47 ml/min; Estimated Glomerular Filt Rate 55; Glucose 94 mg/dL (75-110); Potassium 4.2 mmol/L (3.4-5.0); Sodium 145 mmol/L (137-145)
--- NOTE | 2020-06-19 22:47 | PC.NURSE ---
CXR completed at bedside.
[2020-06-19 22:52] LABS: Troponin I < 0.012 ng/mL (0.000-0.034)
[2020-06-19 22:58] LABS: Band Neutrophils Percent 12 % (0-6); Eosinophils Absolute Manual 0.11 K/mm3 (0.02-0.5); Eosinophils Percent Manual 1 % (0-4); Lymphocytes Absolute Manual 0.67 K/mm3 (1.1-4.5); Monocytes Absolute Manual 0.56 K/mm3 (0.1-0.90); Monocytes Percent Manual 5 % (3-9); Neutrophils Absolute Manual 9.94 K/mm3 (1.3-6.7); Neutrophils Percent Manual 76 % (46-73); Platelet Estimate Adequate (Adequate); Total Cells Counted 100
--- NOTE | 2020-06-19 23:04 | PC.NURSE ---
pt to radiology via cart.
--- NOTE | 2020-06-19 23:45 | PC.NURSE ---
Pt noted to soil himself and was incontinent of urine and stool. Laura area cleansed, linens changed and pt repositioned for comfort. Call button and personal items within reach. Pt advised to press call button for assistance. Oral cavity suction due to expelling of secretions.
[2020-06-20] VITALS (16 sets, daily range): BP systolic 112–148; BP diastolic 74–91; PULSE 67–90; RESP 16–34; TEMP 35.8–36.6; O2SAT 93–100; BMI 22.3
[2020-06-20 00:11] LABS: Add Urine Microscopic? YES; Appearance Urine Clear (Clear); Bilirubin Urine Negative (Negative); Blood Urine Negative (Negative); Color Urine Yellow (Yellow); Glucose Urine UA Negative (Negative); Ketones Urine Negative (Negative); Leukocyte Esterase Ur Negative LEU/UL (Negative); Nitrate Urine Negative (Negative); Protein Urine 1+ mg/dL (Negative); RBC Urine 0-2 /hpf (0-2); Specific Grav Ur 1.019 (1.001-1.035); Urobilinogen Urine Negative mg/dL (<2.0); WBC Urine 0-3 /hpf
[2020-06-20] MEDS: IPRATROPIUM BR 0.02% INH SOLN 0.5 MG/2.5 ML VIAL INHALATION ×4 (00:36→19:44)
[2020-06-20] MEDS: ALBUTEROL SULFATE NEB 2.5 MG/0.5 ML INH 5 MG INHALATION ×4 (00:36→19:43)
--- NOTE | 2020-06-20 02:10 | PM.IMHP ---
H&P: HPI History of Present Illness Date/Time: 06/20/20 02:10 Chief Complaint: acute altered mental status and shortness of breath Narrative: This is a 65 year old male with known history of metastatic melanoma, COPD, chronic dysphagia, seizure disorder, and previous CVA normally AO x 2 among many other comorbidities who [facility] the [facility] to acute altered mental status and shortness of breath. Apparently the patient had an episode of nausea and vomiting last night. The patient was sent to the hospital for evaluation after he was found to be more confused and short of breath. In the ER tonight the patient seems to only be oriented to himself and sounds gurgly. He has thick secretions and has been suctioned multiple times in the ER. The patient denies any recent nausea, vomiting, shortness of breath or other symptoms. He is clearly confused and not reliable to answer any of my questions. CXR obtained in the ER showed a R sided infiltrate. CT brain was unremarkable for acute pathology. The patient has been started on IV antibiotics and we have been asked to admit him for further care. Review of Systems Review of Systems: ROS unobtainable: Yes unobtainable due to medical condition and unobtainable due to mental status PMFSH Past Medical History Medical History Anxiety Benign essential hypertension BMI 22.0-22.9, adult BMI 23.0-23.9, adult BPH (benign prostatic hyperplasia) Colon cancer screening COPD (chronic obstructive pulmonary disease) Encounter for routine adult health examination without abnormal findings Encounter for special screening examination for neoplasm of prostate GERD (gastroesophageal reflux disease) Hep C w/o coma, chronic History of CVA (cerebrovascular accident) Impaired functional mobility, balance, gait, and endurance Metastatic lung cancer (metastasis from lung to other site) Nicotine abuse 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 The patient stated that he was in the [place]. He states that he still smokes about 3/4 of a pack a cigarettes a day. He tells me that his is the durable power transactional attorney for healthcare. He is a full code. The patient is listed as disabled. Smoking packs per day: 1 Smoking cigarettes per day: 20.0 Years smoked: 40 Smoking pack-years: 40.00 Smoking status: Current every day smoker Tobacco type: cigarettes Alcohol intake: current Substance use: never Gender identity (if verbalized by the patient): Male Spiritual care concerns: No Meds Home Medications and Allergies Home Medications Medication Instructions Recorded Confirmed Type diltiazem HCl 120 mg 120 mg PO DAILY 01/06/19 06/20/20 History capsule,extended release 24 hr pregabalin 100 mg capsule 100 mg PO DAILY 01/06/19 06/20/20 History omega-3 fatty acids 1,000 mg 2,000 mg PO BID cap 01/20/19 06/20/20 History capsule aspirin 81 mg tablet,delayed 81 mg PO DAILY 07/07/19 06/20/20 History release sucralfate 1 gram tablet 2 gm PO BID #120 tablet 08/28/19 06/20/20 Rx calcium carbonate 500 mg PO DAILY 06/08/20 06/20/20 History cyanocobalamin (vitamin B-12) 100 mcg PO DAILY 06/08/20 06/20/20 History ondansetron HCl 4 mg PO TID PRN 06/08/20 06/20/20 History pantoprazole 40 mg PO BID 06/08/20 06/20/20 History tamsulosin [Flomax] 0.4 mg PO DAILY 06/08/20 06/20/20 History acetaminophen [Mapap 650 mg PO Q4H PRN #10 tablet 06/11/20 06/20/20 Rx (acetaminophen)] alprazolam 0.25 mg PO T
[2020-06-20] MEDS: SODIUM CHLORIDE 0.9% IV 1,000 ML 125 ML IV CONT (02:25)
[2020-06-20] MEDS: AMPICILLIN SULB 3 GM/NS 100 ML 3 GM/100 ML VIAL IVPB ×4 (02:25→21:29)
--- NOTE | 2020-06-20 02:29 | PC.NURSE ---
Pt on cart resting persistently coughing up sputum and pt being suctioned to clear. Pt remains alert and responsive to baseline with stable vitals. Call button and personal items within reach.
--- NOTE | 2020-06-20 03:02 | PC.NURSE ---
Attempted to call report. Advised that nurse is in with another pt and will call back.
--- NOTE | 2020-06-20 03:16 | PC.NURSE ---
Report called to James. garcia to send pt to floor.
--- NOTE | 2020-06-20 04:41 | ADMGEN ---
This patient, Jovany Robbins, was admitted to [facility] Surg Room 317-01. Patient/family oriented to hospital policies and general routines including ID bracelet, bed and alarms, visiting hours, pain management, procedures, bathroom and other care routines, personal items, smoking policy, room service/diet, and visiting hours. Information on how to activate the Rapid Response Team has been discussed. Patient/Family are encouraged to report perceived risks to care and to ask questions if they do not understand what they are told or what they should do.
[2020-06-20] MEDS: ENOXAPARIN 40 MG/0.4 ML SYRINGE SUB-Q (07:59)
[2020-06-20] MEDS: PANTOPRAZOLE SODIUM IV 40 MG VIAL IV PUSH (07:59)
[2020-06-20] MEDS: levETIRAcetam 500MG/NACL 100ML 500 MG/100 ML BAG 400 MG IVPB ×2 (08:01→20:05)
[2020-06-20 11:28] LABS: Lipase 1914 U/L (23-300)
--- NOTE | 2020-06-20 11:36 | PM.IMPN ---
Progress Note: A&P Assessment and Plan (1) Aspiration pneumonia: Qualifiers: Aspiration pneumonia type: due to vomit Laterality: bilateral Lung location: unspecified part of lung Qualified Code(s): J69.0 - Pneumonitis due to inhalation of food and vomit Code(s): J69.0 - Pneumonitis due to inhalation of food and vomit Status: Acute Assessment and Plan: [facility], then sounded gurgly with increased shortness of breath and confusion. Imaging, history and exam consistent with pneumonia. Continue IV Unasyn (day 1) for coverage of aspiration, continue bronchodilators. He remains NPO for speech therapy bedside evaluation in addition to possible pancreatitis. (2) Acute respiratory failure with hypoxia: Code(s): J96.01 - Acute respiratory failure with hypoxia Status: Acute Assessment and Plan: Secondary to above. Tolerating 2 L today. Continue supplemental O2 and wean to keep oxygen saturations > 90%. (3) Acute pancreatitis: Qualifiers: Pancreatitis type: unspecified pancreatitis type Acute pancreatitis complication: unspecified Qualified Code(s): K85.90 - Acute pancreatitis without necrosis or infection, unspecified Code(s): K85.90 - Acute pancreatitis without necrosis or infection, unspecified Status: Acute Assessment and Plan: Suspected on the basis of Lipase 1914, fat stranding surrounding the gallbladder and pancreas on CT. Elevated LFTs similar to last admission seem to fluctuate, also with known history of liver disease. Monitor lipase and hepatic panel. NPO, IV fluids, analgesics as needed. (4) Altered mental status: Qualifiers: Altered mental status type: unspecified Qualified Code(s): R41.82 - Altered mental status, unspecified Code(s): R41.82 - Altered mental status, unspecified Status: Acute Assessment and Plan: Acute altered mental status may be related to acute conditions above superimposed on dementia. Reportedly baseline is A&Ox2. Oriented to self and knows he is in the hospital. CT brain without acute intracranial findings. Monitor. (5) Thrombocytopenia: Code(s): D69.6 - Thrombocytopenia, unspecified Status: Chronic Assessment and Plan: Likely secondary to known liver disease. The patient has a history of alcoholism. Monitor platelets. (6) Chronic anemia: Code(s): D64.9 - Anemia, unspecified Status: Chronic Assessment and Plan: Hgb low but stable. No evidence of acute bleeding. Monitor CBC. (7) COPD (chronic obstructive pulmonary disease): Qualifiers: COPD type: unspecified COPD Qualified Code(s): J44.9 - Chronic obstructive pulmonary disease, unspecified Code(s): J44.9 - Chronic obstructive pulmonary disease, unspecified Status: Chronic Assessment and Plan: No evidence of respiratory distress at present. Continue bronchodilators. (8) Benign essential hypertension: Code(s): I10 - Essential (primary) hypertension Status: Chronic Assessment and Plan: Stable, last 131/74. Monitor blood pressure. PRN IV hydralazine w/ parameters. (9) Hep C w/o coma, chronic: Code(s): B18.2 - Chronic viral hepatitis C Status: Chronic Assessment and Plan: Monitor LFTs. (10) Seizure disorder: Code(s): G40.909 - Epilepsy, unspecified, not intractable, without status epilepticus Status: Chronic Assessment and Plan: Keppra IV BID.
[2020-06-20] MEDS: SODIUM CHLORIDE 0.9% IV 1,000 ML 100 ML IV CONT (12:42)
--- NOTE | 2020-06-20 14:51 | PCSTNOTE ---
Please refer to the Bedside Swallow Evaluation in the EMR. Please note, silent aspiration cannot be ruled out at bedside.
[2020-06-20] MEDS: MORPHINE SULFATE (*CRX) 2 MG/ML INJ 1 MG IV PUSH (18:55)
[2020-06-21] VITALS (30 sets, daily range): BP systolic 110–147; BP diastolic 71–86; PULSE 72–102; RESP 16–33; TEMP 35.4–37.4; O2SAT 91–100
[2020-06-21] MEDS: ALBUTEROL SULFATE NEB 2.5 MG/0.5 ML INH 5 MG INHALATION ×4 (01:12→19:22)
[2020-06-21] MEDS: IPRATROPIUM BR 0.02% INH SOLN 0.5 MG/2.5 ML VIAL INHALATION ×4 (01:13→19:24)
[2020-06-21] MEDS: SODIUM CHLORIDE 0.9% IV 1,000 ML 100 ML IV CONT (01:25)
[2020-06-21] MEDS: AMPICILLIN SULB 3 GM/NS 100 ML 3 GM/100 ML VIAL IVPB ×3 (05:34→22:30)
[2020-06-21 06:18] LABS: Basophils Absolute Auto 0.1 K/mm3 (0.0-0.1); Basophils Percent Auto 0.5 % (0.2-1.2); Eosinophils Absolute Auto 0.1 K/mm3 (0-0.3); Eosinophils Percent Auto 1.2 % (0-4.4); Hematocrit 38.5 % (42.0-52.0); Hemoglobin 12.6 g/dL (14.0-18.0); Immature Granulocyte Absolute 0.04 K/mm3 (0.00-0.031); Immature Granulocyte Percent A 0.4 % (0-0.5); Immature Platelet Fraction Pct 7.5 % (0.9-11.2); Lymphocytes Absolute Auto 0.38 K/mm3 (0.9-3.2); Mean Corpuscular HGB Conc 32.7 g/dl (32-36); Mean Corpuscular Hemoglobin 28.4 pg (26-34); Mean Corpuscular Volume 86.9 fl (80-100); Mean Platelet Volume 10.5 fl (7.4-10.4); Monocytes Absolute Auto 0.5 K/mm3 (0.1-0.6); Monocytes Percent Auto 4.7 % (2.6-8.5); Neutrophils Absolute Auto 8.5 K/mm3 (1.3-6.7); Neutrophils Percent Auto 89.2 % (45.5-73.1); Platelet Count Result 112 k/mm3 (150-375); Red Blood Count 4.43 M/mm3 (4.6-6.20); Red Cell Distribution Width 24.6 % (11.5-14.5); White Blood Count 9.5 K/mm3 (4.5-10.0)
[2020-06-21 06:33] LABS: Alanine Aminotransferase 63 U/L (4-50); Albumin Level 3.2 g/dL (3.5-5.1); Alkaline Phosphatase 131 U/L (38-126); Anion Gap 10 mmol/L (8-16); Aspartate Amino Transferase 38 U/L (17-59); Bilirubin,Total 0.6 mg/dL (0.2-1.3); Blood Urea Nitrogen 26 mg/dL (9-20); Calcium 8.5 mg/dL (8.4-10.2); Carbon Dioxide 20 mmol/L (22-30); Chloride 117 mmol/L (98-107); Estimated CRCL calculation 49 ml/min; Estimated Glomerular Filt Rate > 60; Glucose 89 mg/dL (75-110); Lipase 744 U/L (23-300); Magnesium 1.6 mg/dL (1.6-2.3); Potassium 3.2 mmol/L (3.4-5.0); Sodium 147 mmol/L (137-145)
[2020-06-21] MEDS: levETIRAcetam 500MG/NACL 100ML 500 MG/100 ML BAG 400 MG IVPB (09:20)
[2020-06-21] MEDS: PANTOPRAZOLE SODIUM IV 40 MG VIAL IV PUSH (09:22)
[2020-06-21] MEDS: ENOXAPARIN 40 MG/0.4 ML SYRINGE SUB-Q (09:22)
[2020-06-21 09:30] LABS: Creatine Kinase 106 U/L (55-170); Lactate Dehydrogenase 336 U/L (313-618)
[2020-06-21 10:02] LABS: CRP 32.3 mg/dL (<1.0)
[2020-06-21 10:15] LABS: Alveolar/Arterial O2 Gradient 77.4 mmHg; Base Excess ABG -4.5 mEq/l (+/-2.0); Fractional Inspired Oxygen 28 %; HCO3 ABG 18.5 mEq/l (22.0-26.0); Methemoglobin ABG 0.1 %THb (0-1.5); Oxygen Content ABG 16.7 %vol (16.0-22.0); Oxygen Saturation ABG 97.2 % (95.0-100.0); Oxyhemoglobin 95.5 % THb (90.0-100.0); PCO2 ABG 28.2 mmHg (35.0-45.0); PO2 FiO2 Ratio Arterial Blood 3.18 %; Reduced Hemoglobin 4.4 %THb (0-5.0); Total Hemoglobin 12.4 g/dL (12.0-18.0); pH ABG 7.435 (7.350-7.450)
[2020-06-21 10:17] LABS: Device NASAL CANNULA; Modified Allen's Test Pass; Site Drawn RIGHT RADIAL
[2020-06-21] MEDS: NALOXONE HCL 0.4 MG/ML VIAL IV PUSH ×2 (10:21→10:35)
[2020-06-21] MEDS: DEXTROSE 5%/0.45% SOD CHL 1,000 ML 100 ML IV CONT (10:21)
[2020-06-21] MEDS: MAGNESIUM SULF 2 GM/WATER 50ML 2 GM/50 ML BAG IVPB (10:30)
--- NOTE | 2020-06-21 10:45 | PM.IMPN ---
Progress Note: A&P Assessment and Plan (1) Altered mental status: Qualifiers: Altered mental status type: unspecified Qualified Code(s): R41.82 - Altered mental status, unspecified <Swati Zapata PA-C - Last Filed: 06/21/20 16:34> Code(s): R41.82 - Altered mental status, unspecified <Swati Zapata PA-C - Last Filed: 06/21/20 16:34> Status: Acute <Swati Zapata PA-C - Last Filed: 06/21/20 16:34> Assessment and Plan: Patient with decreased responsiveness this morning compared to yesterday. Minimally responsive only to painful stimuli. 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 Ammonia normal. Lactic acid 1.6. ABG 7.435/28.2/89.0 on 2L NC. Differential includes postictal state from possible unwitnessed seizure, sepsis from pulmonary vs pancreatitis, pain medications. Narcan x 2 without much improvement. Only narcotic was 1mg morphine given around 7pm last night. Hold narcotics. Collaborating physician and [employer] present at the bedside for assessment. Appreciate [employer] consultation. Decision made to increase Keppra to 750mg q8 IV and move to ICU. <Swati Zapata PA-C - Last Filed: 06/21/20 16:34> (2) Aspiration pneumonia: Qualifiers: Aspiration pneumonia type: due to vomit Laterality: bilateral Lung location: unspecified part of lung Qualified Code(s): J69.0 - Pneumonitis due to inhalation of food and vomit <Swati Zapata PA-C - Last Filed: 06/21/20 16:34> Code(s): J69.0 - Pneumonitis due to inhalation of food and vomit <Swati Zapata PA-C - Last Filed: 06/21/20 16:34> Status: Acute <Swati Zapata PA-C - Last Filed: 06/21/20 16:34> Assessment and Plan: Patient was noted to have nausea/vomiting at the detention, then sounded gurgly with increased shortness of breath and confusion. Continue IV Unasyn (day 2) for coverage of aspiration, continue bronchodilators. NPO yesterday for ST eval and due to elevated lipase; keep NPO for now given mental status. <Swati Zapata PA-C - Last Filed: 06/21/20 16:34> (3) Acute respiratory failure with hypoxia: Code(s): J96.01 - Acute respiratory failure with hypoxia <Swati Zapata PA-C - Last Filed: 06/21/20 16:34> Status: Acute <Swati Zapata PA-C - Last Filed: 06/21/20 16:34> Assessment and Plan: Secondary to above. Tolerating 2 L today. Continue supplemental O2 and wean to keep oxygen saturations > 90%. <Swati Zapata PA-C - Last Filed: 06/21/20 16:34> (4) Acute pancreatitis: Qualifiers: Acute pancreatitis complication: unspecified Pancreatitis type: unspecified pancreatitis type Qualified Code(s): K85.90 - Acute pancreatitis without necrosis or infection, unspecified <Swati Zapata PA-C - Last Filed: 06/21/20 16:34> Code(s): K85.90 - Acute pancreatitis without necrosis or infection, unspecified <Swati Zapata PA-C - Last Filed: 06/21/20 16:34> Status: Acute <Swati Zapata PA-C - Last Filed: 06/21/20 16:34> Assessment and Plan: Suspected on the basis of Lipase 1914 (improved to 744 today), fat stranding surrounding the gallbladder and pancreas on CT. Elevated LFTs similar to last admission are improved today and seem to fluctuate - bili is normal, also with known history of liver disease. Monitor lipase and hepatic panel. NPO, IV fluids, analgesics as needed. <Swati Zapata PA-C - Last Filed: 06/21/20 16:34> (5) Seizure disorder: Code(s): G40.909 - Epilepsy, unspecified, not intractable, without status epilepticus <Swati Zapata PA-C - Last Filed: 06/21/20 16:34> Status:
[2020-06-21 10:51] LABS: Lactic Acid Reflex 1.6 mmol/L (0.7-2.1)
[2020-06-21 10:54] LABS: INR 1.4; Prothrombin Time 18.1 Seconds (11.1-14.7)
[2020-06-21 10:56] LABS: Partial Thromboplastin Time 82.5 SECONDS (22.3-36.8)
--- NOTE | 2020-06-21 10:56 | PC.NURSE ---
This patient, Jovany Robbins, was transferred to [facility] THEN [[facility]] on 06/21/20 at 1100. Personal belongings sent with patient. Report given to [Hallie]. Appropriate documentation sent with patient.
[2020-06-21 11:07] LABS: Ammonia < 9 umol/L (9-30)
--- NOTE | 2020-06-21 12:04 | PC.NURSE ---
This patient, Jovany Robbins, was received from [ [id number]] on 06/21/20 at 1130. Patient/family oriented to unit policies and routines
--- NOTE | 2020-06-21 12:33 | WPDCNINT ---
Assessment and Plan Assessment and plan (1) Altered mental status: Qualifiers: Altered mental status type: unspecified Qualified Code(s): R41.82 - Altered mental status, unspecified Code(s): R41.82 - Altered mental status, unspecified Status: Acute Assessment and Plan: Altered mental status could be multifactorial, seizures, sepsis from pancreatitis, pain medication, related to liver disease, -ammonia level < 9. -patient was given Narcan x2 with some improvement, will hold all opioids -will treat pain with Tylenol -lactic acid is 1.6 -CT scan of the brain did not show any acute intracranial abnormality (2) Acute pancreatitis: Qualifiers: Pancreatitis type: unspecified pancreatitis type Acute pancreatitis complication: unspecified Qualified Code(s): K85.90 - Acute pancreatitis without necrosis or infection, unspecified Code(s): K85.90 - Acute pancreatitis without necrosis or infection, unspecified Status: Acute Assessment and Plan: Patient with acute pancreatitis, head nausea, vomiting. Lipase levels have been elevated and trending down -continue maintenance IV fluids -trend lipase -continue antiemetics -blood cultures negative x2 (3) Aspiration pneumonia: Qualifiers: Aspiration pneumonia type: unspecified Laterality: right Lung location: unspecified part of lung Qualified Code(s): J69.0 - Pneumonitis due to inhalation of food and vomit Code(s): J69.0 - Pneumonitis due to inhalation of food and vomit Status: Acute Assessment and Plan: Patient with chronic dysphagia, [facility] and vomiting at the [facility], likely aspiration -continue Unasyn (4) Seizure disorder: Code(s): G40.909 - Epilepsy, unspecified, not intractable, without status epilepticus Status: Chronic Assessment and Plan: Altered mental started could be seizure activity, -increased Keppra to 750 mg IV q.8 hours -will have Neurology evaluate the patient -he was in all the episode of decreased responsiveness would obtain EEG Additional Plan Code status: Full code Critical care time spent: 47 minutes This dictation may have been done utilizing a voice recognition system. Attempts have been made to correct errors. However, there may be uncorrected grammatical, spelling, and recognition errors present. Due to a high probability of clinically significant, life threatening deterioration, the patient required my highest level of preparedness to intervene emergently and I personally spent this critical care time directly and personally managing the patient. This critical care time included obtaining a history; examining the patient; pulse oximetry; ordering and review of studies; arranging urgent treatment with development of a management plan; evaluation of patient's response to treatment; frequent reassessment; and discussions with other providers. It was exclusive of separately billable procedures and treating other patients and teaching time. Please see Assessment and Plan section and the rest of the note for further information on patient assessment and treatment Crime Scene Analyst Consult Note Consult date: 06/21/20 Time Seen: 10:35 Reason for consult: Encephalopathy, decreased responsiveness, acute pancreatitis, aspiration pneumonia HPI: Jovany Robbins is a 65 year old male essential hypertension, BPH, COPD, GERD, hepatitis C, history of CVA, metastatic lung cancer, nicotine abuse, seizure disorder, chronic dysphagia presented [facility] with episodes of nausea and vomiting after which he had increasing shortness of breath along with confusion which was more than his normal. Patient is normally alert and oriented x2 per medical records. Patient is also complaining of some cough. Chest x-ray showed right-sided infiltrates, CT scan of the brain was unremarkable for acute pathology. Patient was started on antibiotics and transferred to the [facility]
--- NOTE | 2020-06-21 14:32 | PCOTNOTE ---
Patient from [facility] to ICU. Hold today per nursing. Check with RN/Physician tomorrow. Patient will need to be re-assessed by OT prior to continuing skilled therapy services
--- NOTE | 2020-06-21 14:56 | PCPTNOTE ---
Pt transferred to ICU. RN stated to hold therapy today. Will check w/ Dr tomorrow regarding resume therapy.
[2020-06-21] MEDS: levETIRAcetam IV 750 MG in DEXTROSE 5% 100 ML 430 MG IVPB (17:36)
[2020-06-22] VITALS (19 sets, daily range): BP systolic 126–153; BP diastolic 68–85; PULSE 76–95; RESP 18–32; TEMP 35.9–37; O2SAT 91–100
[2020-06-22] MEDS: IPRATROPIUM BR 0.02% INH SOLN 0.5 MG/2.5 ML VIAL INHALATION ×4 (01:47→20:28)
[2020-06-22] MEDS: ALBUTEROL SULFATE NEB 2.5 MG/0.5 ML INH 5 MG INHALATION ×4 (01:47→20:28)
[2020-06-22] MEDS: levETIRAcetam IV 750 MG in DEXTROSE 5% 100 ML 430 MG IVPB ×3 (02:30→17:36)
[2020-06-22 04:32] LABS: Alveolar/Arterial O2 Gradient 55.9 mmHg; Base Excess ABG -2.9 mEq/l (+/-2.0); Fractional Inspired Oxygen 21 %; HCO3 ABG 19.4 mEq/l (22.0-26.0); Oxygen Saturation ABG 92.9 % (95.0-100.0); PCO2 ABG 27.8 mmHg (35.0-45.0); PO2 ABG 60.5 mmHg (80.0-100.0); PO2 FiO2 Ratio Arterial Blood 2.88 %; pH ABG 7.461 (7.350-7.450)
[2020-06-22 04:33] LABS: Device ROOM AIR; Modified Allen's Test Pass; Site Drawn LEFT RADIAL
[2020-06-22 04:57] LABS: Basophils Absolute Auto 0.1 K/mm3 (0.0-0.1); Basophils Percent Auto 0.7 % (0.2-1.2); Eosinophils Absolute Auto 0.2 K/mm3 (0-0.3); Eosinophils Percent Auto 1.9 % (0-4.4); Hematocrit 34.3 % (42.0-52.0); Hemoglobin 11.2 g/dL (14.0-18.0); Immature Granulocyte Absolute 0.06 K/mm3 (0.00-0.031); Immature Granulocyte Percent A 0.7 % (0-0.5); Immature Platelet Fraction Pct 7.7 % (0.9-11.2); Mean Corpuscular HGB Conc 32.7 g/dl (32-36); Mean Corpuscular Volume 85.8 fl (80-100); Mean Platelet Volume 11.3 fl (7.4-10.4); Monocytes Absolute Auto 0.3 K/mm3 (0.1-0.6); Monocytes Percent Auto 3.2 % (2.6-8.5); Neutrophils Absolute Auto 7.3 K/mm3 (1.3-6.7); Neutrophils Percent Auto 87.5 % (45.5-73.1); Platelet Count Result 98 k/mm3 (150-375); Red Cell Distribution Width 24.7 % (11.5-14.5); White Blood Count 8.4 K/mm3 (4.5-10.0)
[2020-06-22 05:10] LABS: Lactic Acid Reflex 1.7 mmol/L (0.7-2.1)
[2020-06-22 05:14] LABS: Alanine Aminotransferase 48 U/L (4-50); Alkaline Phosphatase 135 U/L (38-126); Anion Gap 8 mmol/L (8-16); Aspartate Amino Transferase 30 U/L (17-59); Bilirubin,Total 0.6 mg/dL (0.2-1.3); Blood Urea Nitrogen 19 mg/dL (9-20); Calcium 8.4 mg/dL (8.4-10.2); Carbon Dioxide 20 mmol/L (22-30); Chloride 116 mmol/L (98-107); Estimated CRCL calculation 46 ml/min; Estimated Glomerular Filt Rate 55; Glucose 128 mg/dL (75-110); Lipase 439 U/L (23-300); Magnesium 1.8 mg/dL (1.6-2.3); Potassium 3.1 mmol/L (3.4-5.0); Sodium 144 mmol/L (137-145)
[2020-06-22 05:41] LABS: CRP 32.8 mg/dL (<1.0)
[2020-06-22] MEDS: DEXTROSE 5%/0.45% SOD CHL 1,000 ML 100 ML IV CONT ×2 (06:28→13:54)
[2020-06-22] MEDS: AMPICILLIN SULB 3 GM/NS 100 ML 3 GM/100 ML VIAL IVPB ×3 (06:30→22:10)
[2020-06-22] MEDS: MAGNESIUM SULF 2 GM/WATER 50ML 2 GM/50 ML BAG IVPB (08:06)
[2020-06-22] MEDS: PANTOPRAZOLE SODIUM IV 40 MG VIAL IV PUSH (08:07)
--- NOTE | 2020-06-22 08:43 | WPDINTPN ---
Progress Note: A&P Assessment and Plan (1) Altered mental status: Qualifiers: Altered mental status type: unspecified Qualified Code(s): R41.82 - Altered mental status, unspecified Code(s): R41.82 - Altered mental status, unspecified Status: Acute Assessment and Plan: -mental status much improved this morning as compared to 06/21 when he was admitted to the ICU -Altered mental status could be multifactorial, seizures, sepsis from pancreatitis, pain medication, related to liver disease, -ammonia level < 9. -patient was given Narcan x2 with some improvement, opioids on hold -will treat pain with Tylenol -lactic acid is 1.7 -CT scan of the brain did not show any acute intracranial abnormality (2) Acute pancreatitis: Qualifiers: Pancreatitis type: unspecified pancreatitis type Acute pancreatitis complication: unspecified Qualified Code(s): K85.90 - Acute pancreatitis without necrosis or infection, unspecified Code(s): K85.90 - Acute pancreatitis without necrosis or infection, unspecified Status: Acute Assessment and Plan: Patient with acute pancreatitis, head nausea, vomiting. Lipase levels have been elevated and trending down -continue maintenance IV fluids Lipase down to 439 (1914 on admission) -continue antiemetics -blood cultures negative x2 (3) Aspiration pneumonia: Qualifiers: Aspiration pneumonia type: unspecified Laterality: right Lung location: unspecified part of lung Qualified Code(s): J69.0 - Pneumonitis due to inhalation of food and vomit Code(s): J69.0 - Pneumonitis due to inhalation of food and vomit Status: Acute Assessment and Plan: Patient with chronic dysphagia, nausea and vomiting at the halfway, likely aspiration -continue Unasyn -will obtain sputum cultures (4) Seizure disorder: Code(s): G40.909 - Epilepsy, unspecified, not intractable, without status epilepticus Status: Chronic Assessment and Plan: Altered mental started could be seizure activity, -increased Keppra to 750 mg IV q.8 hours -will have Neurology evaluate the patient -EEG was performed on 06/21, await results Additional Plan Discussed with and updated with patient's condition and plan of care. Code status: No intubation, okay with CPR Critical care time spent: 34 minutes This dictation may have been done utilizing a voice recognition system. Attempts have been made to correct errors. However, there may be uncorrected grammatical, spelling, and recognition errors present. Due to a high probability of clinically significant, life threatening deterioration, the patient required my highest level of preparedness to intervene emergently and I personally spent this critical care time directly and personally managing the patient. This critical care time included obtaining a history; examining the patient; pulse oximetry; ordering and review of studies; arranging urgent treatment with development of a management plan; evaluation of patient's response to treatment; frequent reassessment; and discussions with other providers. It was exclusive of separately billable procedures and treating other patients and teaching time. Please see Assessment and Plan section and the rest of the note for further information on patient assessment and treatment Subjective Date/time seen: 06/22/20 08:43 Interval history: Reason for consult: Encephalopathy, decreased responsiveness, acute pancreatitis, aspiration pneumonia 06/22/2020: Patient more awake this morning. Oriented to his name and place. Did not know the ER on the natural resource officer. Patient denies any chest pain, shortness of breath, abdominal pain, nausea vomiting. He does complain of bilateral lower extremity pain Review of Systems Review of Systems: All systems reviewed & are unremarkable except as noted in HPI and below Exam Const: General: comfortable and no a
--- NOTE | 2020-06-22 08:52 | PCPTNOTE ---
Spoke w/ Dr Sandoval. He stated to hold therapy on pt.
--- NOTE | 2020-06-22 09:50 | WPDNEUROLOGY ---
Neurology EEG Report General Information Date of Study: 06/21/20 TEST eeg DIAGNOSIS Altered mental status and seizures CONDITION OF RECORDING drowsy and sleep EEG NUMBER [id number] CLINICAL HISTORY no particular history was available at the time of tracing but patient was brought to the hospital with change in the mental status and history of seizure. EEG DESCRIPTION Background rhythm consists of medium to high-voltage 3 to 4 hertz per 2nd delta admixed with 5 to 7 hertz per 2nd theta activity bilateral symmetrical sleep activity seen admixed with medium voltage 3 to 4 hertz per 2nd delta activity bilaterally. Hyperventilation not done. Photic stimulation not done. Non paroxysmal. Nonfocal. Nonlateralizing. IMPRESSION Abnormal record due to the presence of bihemispheric theta and delta activity and absence of the normal background rhythm. This tracing is compatible with organic or metabolic encephalopathy or postictal state. Clinical correlation recommended
--- NOTE | 2020-06-22 11:10 | WPDNEURCNPN ---
Assessment and Plan Assessment and plan (1) Seizure disorder: Code(s): G40.909 - Epilepsy, unspecified, not intractable, without status epilepticus Status: Chronic Additional Plan documented chronic encephalomalacia, with abnormal EEG but no evidence of paroxysmal activity to account for the unresponsiveness but the damage is self from the CT scan is quite consistent with the neurological deficit but we are finding on the clinical examination on supportive care will be suggest the family has any question I will be glad to discuss with Consult date: 06/22/20 Time Seen: 11:00 HPI: Jovany Robbins is a 65 year old male has been admitted to the hospital for the complaints of change in the mental status CT scan of the brain did not reveal any intracranial abnormalities. Patient does have underlying acute pancreatitis with aspiration pneumonia and the family has given the information not to intubate except the CPR neurology consultation has been obtained for the change in the mental status. Pertinent investigations include the CT scan of the head on 06/21 which documented chronic encephalomalacia involving the frontal lobes and right temporal lobe in addition to old lacunar infarct and bilateral basal ganglia carotid Doppler studies on 06/09 were negative with less than 50% stenosis and closure CT scan was also abnormal Review of Systems Review of Systems: All systems reviewed & are unremarkable except as noted in HPI and below PMFSH Past Medical History Medical History Anxiety Benign essential hypertension BMI 22.0-22.9, adult BMI 23.0-23.9, adult BPH (benign prostatic hyperplasia) Colon cancer screening COPD (chronic obstructive pulmonary disease) Encounter for routine adult health examination without abnormal findings Encounter for special screening examination for neoplasm of prostate GERD (gastroesophageal reflux disease) Hep C w/o coma, chronic History of CVA (cerebrovascular accident) Impaired functional mobility, balance, gait, and endurance Metastatic lung cancer (metastasis from lung to other site) Nicotine abuse 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 The patient stated that he was in the [place]. He states that he still smokes about 3/4 of a pack a cigarettes a day. He tells me that his is the durable power erisa attorney for healthcare. He is a full code. The patient is listed as disabled. Smoking packs per day: 1 Smoking cigarettes per day: 20.0 Years smoked: 40 Smoking pack-years: 40.00 Smoking status: Current every day smoker Tobacco type: cigarettes Alcohol intake: current Substance use: never Gender identity (if verbalized by the patient): Male Spiritual care concerns: No Meds Home Medications and Allergies Home Medications Medication Instructions Recorded Confirmed Type diltiazem HCl 120 mg 120 mg PO DAILY 01/06/19 06/20/20 History capsule,extended release 24 hr pregabalin 100 mg capsule 100 mg PO DAILY 01/06/19 06/20/20 History omega-3 fatty acids 1,000 mg 2,000 mg PO BID cap 01/20/19 06/20/20 History capsule aspirin 81 mg tablet,delayed 81 mg PO DAILY 07/07/19 06/20/20 History release sucralfate 1 gram tablet 2 gm PO BID #120 tablet 08/28/19 06/20/20 Rx calcium carbonate 500 mg PO DAILY 06/08/20 06/20/20 History cyanocobalamin (vitamin B-12) 100 mcg PO DAILY 06/08/20 06/20/20 History ondansetron HCl 4 mg PO TID PRN 06/08/20 06/20/20 History pantoprazole 40 mg PO BID 06/08/20 06/20/20 History
--- NOTE | 2020-06-22 11:46 | P.PNIM_ITS ---
Progress Note: A&P Assessment and Plan (1) Altered mental status: Qualifiers: Altered mental status type: unspecified Qualified Code(s): R41.82 - Altered mental status, unspecified Code(s): R41.82 - Altered mental status, unspecified Status: Acute Assessment and Plan: * Patient with decreased responsiveness from baseline. 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 Ammonia normal. Lactic acid 1.6. * Differential includes postictal state from possible unwitnessed seizure, sepsis from pulmonary vs pancreatitis; Pain medications as the etiology less likely. * EEG showing abnormal record due to the presence of bihemispheric theta and delta activity and absence of the normal background rhythm. This tracing is compatible with organic or metabolic encephalopathy or postictal state. * Appreciate scraper meat and neurologist input. Spoke with by phone and she was updated. (2) Aspiration pneumonia: Qualifiers: Aspiration pneumonia type: due to vomit Laterality: bilateral Lung location: unspecified part of lung Qualified Code(s): J69.0 - Pneumonitis due to inhalation of food and vomit Code(s): J69.0 - Pneumonitis due to inhalation of food and vomit Status: Acute Assessment and Plan: * Patient was noted to have nausea/vomiting at the skilled nursing, then sounded gurgly with increased shortness of breath and confusion. * No fevers and WBC normal but CRP 33 which could be from the pancretitis. * Continue IV Unasyn (day 3) for coverage of aspiration. Continue bronchodilators. Patient remains NPO (3) Acute respiratory failure with hypoxia: Code(s): J96.01 - Acute respiratory failure with hypoxia Status: Acute Assessment and Plan: * Secondary to above. Weaned to room air * Continue nebulizer treatments and use supplemental O2 to keep oxygen saturations > 90%. (4) Acute pancreatitis: Qualifiers: Acute pancreatitis complication: unspecified Pancreatitis type: unspecified pancreatitis type Qualified Code(s): K85.90 - Acute pancreatitis without necrosis or infection, unspecified Code(s): K85.90 - Acute pancreatitis without necrosis or infection, unspecified Status: Acute Assessment and Plan: * Suspected on the basis of Lipase [address] scan showing fat stranding surrounding the gallbladder and pancreas. Passed stone? * Elevated LFTs similar to last admission. LFTs normal now. * Monitor lipase and hepatic panel. * NPO, IV fluids, analgesics as needed. Check TG. Consider HIDA. (5) Seizure disorder: Code(s): G40.909 - Epilepsy, unspecified, not intractable, without status epilepticus Status: Chronic Assessment and Plan: * Has been on his home dose of Keppra 500mg Q12H. Given his change in status, Keppra increased to 750mg q8hr IV per scraper meat recommendation. * EEG as mentioned above. * Appreciate Neurology and intensivst input (6) Thrombocytopenia: Code(s): D69.6 - Thrombocytopenia, unspecified Status: Chronic Assessment and Plan: * Likely secondary to known liver disease/Cirrhosis. The patient has a history of alcoholism. Monitor platelets. (7) Chronic anemia: Code(s): D64.9 - Anemia, unspecified Status: Chronic
--- NOTE | 2020-06-22 11:46 | PM.IMPN ---
Progress Note: A&P Assessment and Plan (1) Altered mental status: Qualifiers: Altered mental status type: unspecified Qualified Code(s): R41.82 - Altered mental status, unspecified Code(s): R41.82 - Altered mental status, unspecified Status: Acute Assessment and Plan: Patient with decreased responsiveness from baseline. 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 Ammonia normal. Lactic acid 1.6. Differential includes postictal state from possible unwitnessed seizure, sepsis from pulmonary vs pancreatitis; Pain medications as the etiology less likely. EEG showing abnormal record due to the presence of bihemispheric theta and delta activity and absence of the normal background rhythm. This tracing is compatible with organic or metabolic encephalopathy or postictal state. Appreciate cloth layer and neurologist input. Spoke with by phone and she was updated. (2) Aspiration pneumonia: Qualifiers: Aspiration pneumonia type: due to vomit Laterality: bilateral Lung location: unspecified part of lung Qualified Code(s): J69.0 - Pneumonitis due to inhalation of food and vomit Code(s): J69.0 - Pneumonitis due to inhalation of food and vomit Status: Acute Assessment and Plan: Patient was noted to have nausea/vomiting at the [facility], then sounded gurgly with increased shortness of breath and confusion. No fevers and WBC normal but CRP 33 which could be from the pancretitis. Continue IV Unasyn (day 3) for coverage of aspiration. Continue bronchodilators. Patient remains NPO (3) Acute respiratory failure with hypoxia: Code(s): J96.01 - Acute respiratory failure with hypoxia Status: Acute Assessment and Plan: Secondary to above. Weaned to room air Continue nebulizer treatments and use supplemental O2 to keep oxygen saturations > 90%. (4) Acute pancreatitis: Qualifiers: Acute pancreatitis complication: unspecified Pancreatitis type: unspecified pancreatitis type Qualified Code(s): K85.90 - Acute pancreatitis without necrosis or infection, unspecified Code(s): K85.90 - Acute pancreatitis without necrosis or infection, unspecified Status: Acute Assessment and Plan: Suspected on the basis of Lipase [address] scan showing fat stranding surrounding the gallbladder and pancreas. Passed stone? Elevated LFTs similar to last admission. LFTs normal now. Monitor lipase and hepatic panel. NPO, IV fluids, analgesics as needed. Check TG. Consider HIDA. (5) Seizure disorder: Code(s): G40.909 - Epilepsy, unspecified, not intractable, without status epilepticus Status: Chronic Assessment and Plan: Has been on his home dose of Keppra 500mg Q12H. Given his change in status, Keppra increased to 750mg q8hr IV per cloth layer recommendation. EEG as mentioned above. Appreciate Neurology and intensivst input (6) Thrombocytopenia: Code(s): D69.6 - Thrombocytopenia, unspecified Status: Chronic Assessment and Plan: Likely secondary to known liver disease/Cirrhosis. The patient has a history of alcoholism. Monitor platelets. (7) Chronic anemia: Code(s): D64.9 - Anemia, unspecified Status: Chronic Assessment and Plan: Hgb low but stable. No evidence of acute bleeding. Monitor CBC. (8) COPD (chronic obstructive pulmonary disease): Qualifiers: COPD type: unspecified COPD Qualified Code(s): J44.9 - Chronic obstructive pulmonary disease, unspecified Code(s): J44.9 - Chronic obstructive pulmonary disease, unspe
--- NOTE | 2020-06-22 13:01 | PCOTNOTE ---
Patient held for therapy today, will re-assess tomorrow and continue plan of care.
[2020-06-23] VITALS (21 sets, daily range): BP systolic 127–169; BP diastolic 64–91; PULSE 79–103; RESP 20–36; TEMP 36.1–37; O2SAT 91–100
[2020-06-23] MEDS: IPRATROPIUM BR 0.02% INH SOLN 0.5 MG/2.5 ML VIAL INHALATION ×4 (01:33→20:35)
[2020-06-23] MEDS: ALBUTEROL SULFATE NEB 2.5 MG/0.5 ML INH 5 MG INHALATION ×4 (01:33→20:35)
[2020-06-23] MEDS: DEXTROSE 5%/0.45% SOD CHL 1,000 ML 100 ML IV CONT (02:00)
[2020-06-23] MEDS: levETIRAcetam IV 750 MG in DEXTROSE 5% 100 ML 100 MG IVPB (02:15)
[2020-06-23 04:43] LABS: Basophils Absolute Auto 0.1 K/mm3 (0.0-0.1); Eosinophils Absolute Auto 0.2 K/mm3 (0-0.3); Eosinophils Percent Auto 2.4 % (0-4.4); Hematocrit 35.7 % (42.0-52.0); Hemoglobin 11.4 g/dL (14.0-18.0); Immature Granulocyte Absolute 0.17 K/mm3 (0.00-0.031); Immature Granulocyte Percent A 2.2 % (0-0.5); Immature Platelet Fraction Pct 6.2 % (0.9-11.2); Lymphocytes Absolute Auto 0.46 K/mm3 (0.9-3.2); Lymphocytes Percent Auto 5.8 % (18.3-44.2); Mean Corpuscular HGB Conc 31.9 g/dl (32-36); Mean Corpuscular Hemoglobin 29.1 pg (26-34); Mean Corpuscular Volume 91.1 fl (80-100); Mean Platelet Volume 10.9 fl (7.4-10.4); Monocytes Absolute Auto 0.3 K/mm3 (0.1-0.6); Monocytes Percent Auto 4.1 % (2.6-8.5); Neutrophils Absolute Auto 6.7 K/mm3 (1.3-6.7); Neutrophils Percent Auto 84.5 % (45.5-73.1); Platelet Count Result 95 k/mm3 (150-375); Red Blood Count 3.92 M/mm3 (4.6-6.20); White Blood Count 7.9 K/mm3 (4.5-10.0)
[2020-06-23] MEDS: hydrALAZINE HCL 20 MG/ML VIAL 10 MG IV PUSH (05:01)
[2020-06-23 05:07] LABS: LDL Cholesterol Direct 47 mg/dL
[2020-06-23 05:14] LABS: Alanine Aminotransferase 41 U/L (4-50); Alkaline Phosphatase 146 U/L (38-126); Anion Gap 7 mmol/L (8-16); Aspartate Amino Transferase 37 U/L (17-59); Bilirubin,Total 0.7 mg/dL (0.2-1.3); Blood Urea Nitrogen 13 mg/dL (9-20); CRP 23.8 mg/dL (<1.0); Calcium 8.3 mg/dL (8.4-10.2); Carbon Dioxide 15 mmol/L (22-30); Chloride 118 mmol/L (98-107); Cholesterol 105 mg/dL (0-200); Estimated CRCL calculation 46 ml/min; Estimated Glomerular Filt Rate 55; Glucose 122 mg/dL (75-110); HDL Direct 30 mg/dL; Magnesium 2.3 mg/dL (1.6-2.3); Potassium 3.7 mmol/L (3.4-5.0); Sodium 140 mmol/L (137-145); Triglycerides 82 mg/dL (<150)
[2020-06-23] MEDS: AMPICILLIN SULB 3 GM/NS 100 ML 3 GM/100 ML VIAL IVPB ×3 (05:45→21:15)
[2020-06-23] MEDS: ENOXAPARIN 40 MG/0.4 ML SYRINGE SUB-Q (08:09)
[2020-06-23] MEDS: PANTOPRAZOLE SODIUM IV 40 MG VIAL IV PUSH (08:10)
--- NOTE | 2020-06-23 08:59 | PM.IMPN ---
Progress Note: A&P Assessment and Plan (1) Altered mental status: Qualifiers: Altered mental status type: unspecified Qualified Code(s): R41.82 - Altered mental status, unspecified Code(s): R41.82 - Altered mental status, unspecified Status: Acute Assessment and Plan: Patient with decreased responsiveness from baseline. 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 Ammonia normal. Lactic acid 1.6. Differential includes postictal state from possible unwitnessed seizure, sepsis from pulmonary and/or pancreatitis; Pain medications as the etiology less likely. EEG showing abnormal record due to the presence of bihemispheric theta and delta activity and absence of the normal background rhythm. This tracing is compatible with organic or metabolic encephalopathy or postictal state. Check MRI brain. No with metabolic nongap acidosis. No diarrhea. Check lactic acid and urine ketones. Change fluids to add bicarb but consider PPN today if unable to swallow safely. (2) Aspiration pneumonia: Qualifiers: Aspiration pneumonia type: due to vomit Laterality: bilateral Lung location: unspecified part of lung Qualified Code(s): J69.0 - Pneumonitis due to inhalation of food and vomit Code(s): J69.0 - Pneumonitis due to inhalation of food and vomit Status: Acute Assessment and Plan: Patient was noted to have nausea/vomiting at the group home, then sounded gurgly with increased shortness of breath and confusion. No fevers and WBC normal but CRP trending down which could be from the pancreatitis and/or PNA. Continue IV Unasyn (day 4) for coverage of aspiration. Continue bronchodilators. Patient remains NPO Patient more alert so will check swallow evaluation. Remove nasal trumpet ST stated patient had aspirated with solids and abnormally holds contents in his mouth and required maximum verbal cues to swallow. Did not aspirate with thin liquids. Recommended puree diet and regular liquids. (3) Acute respiratory failure with hypoxia: Code(s): J96.01 - Acute respiratory failure with hypoxia Status: Acute Assessment and Plan: Secondary to above. Weaned to room air Continue nebulizer treatments and use supplemental O2 to keep oxygen saturations > 90%. (4) Acute pancreatitis: Qualifiers: Acute pancreatitis complication: unspecified Pancreatitis type: unspecified pancreatitis type Qualified Code(s): K85.90 - Acute pancreatitis without necrosis or infection, unspecified Code(s): K85.90 - Acute pancreatitis without necrosis or infection, unspecified Status: Acute Assessment and Plan: Suspected on the basis of Lipase [address] scan showing fat stranding surrounding the gallbladder and pancreas. Right UQ US showing mildly thickened GB wall most likely reactive but no cholelithiasis. Passed stone? LFTs normal now and Lipase trending down. TG normal. Monitor lipase and hepatic panel. NPO, IV fluids, analgesics as needed. HIDA scan? Will consult GenSurg to see if CCY would be appropriate. Also may need feeding tube (5) Seizure disorder: Code(s): G40.909 - Epilepsy, unspecified, not intractable, without status epilepticus Status: Chronic Assessment and Plan: Has been on his home dose of Keppra 500mg Q12H. Given his change in status, Keppra increased to 750mg q8hr IV. EEG as mentioned above. Appreciate Neurology input (6) Thrombocytopenia: Code(s): D69.6 - Thrombocytopenia, unspecified Status: Chronic Assessment and Plan: Likely secondary to known liver disease/Cirrhosis. The patient has a history of alcoholism as well. Plt coun
[2020-06-23 10:43] LABS: Lactic Acid Reflex 1.4 mmol/L (0.7-2.1)
[2020-06-23] MEDS: SODIUM BICARBONATE 8.4% 100 MEQ in DEXTROSE 5% 1,000 ML 1,000 ML 50 MEQ IV CONT (11:13)
[2020-06-23] MEDS: levETIRAcetam IV 750 MG in DEXTROSE 5% 100 ML 430 MG IVPB ×2 (11:18→17:43)
[2020-06-23 11:30] LABS: Add Urine Microscopic? YES; Appearance Urine Clear (Clear); Bacteria Urine Trace /hpf; Bilirubin Urine Negative (Negative); Blood Urine 2+ (Negative); Color Urine Straw (Yellow); Glucose Urine UA Negative (Negative); Ketones Urine Negative (Negative); Leukocyte Esterase Ur Negative LEU/UL (NEGATIVE); Mucus Urine Rare /lpf; Nitrate Urine Negative (Negative); Protein Urine Negative (Negative); RBC Urine 51-75 /hpf (0-2); Specific Grav Ur 1.009 (1.001-1.035); Urobilinogen Urine Negative mg/dL (<2.0)
--- NOTE | 2020-06-23 14:55 | PM.CNGS ---
Assessment and Plan Assessment and plan (1) Acute pancreatitis: Qualifiers: Pancreatitis type: unspecified pancreatitis type Acute pancreatitis complication: unspecified Qualified Code(s): K85.90 - Acute pancreatitis without necrosis or infection, unspecified Code(s): K85.90 - Acute pancreatitis without necrosis or infection, unspecified Status: Acute Assessment and Plan: Findings of interstitial pancreatitis on the CT scan that was supported by an elevated lipase. This has been managed medically with IV fluids and bowel rest. He seems to have clinically improved and his lipase yesterday was down in the 400's. The etiology of his pancreatitis is unclear. Triglycerides are normal. Both the CT and ultrasound of the abdomen do not have any evidence of cholelithiasis or biliary ductal dilatation. He has a significant history of alcohol abuse up until 4 weeks ago (I gathered this information from his ). This could be a potential cause. LFTs are nearly normal and his WBC count is normal. He is no longer having any abdominal pain or tenderness. He does not have any evidence of acute cholecystitis and seems to be clinically improving with the current treatment. No need to further evaluate his gallbladder with a HIDA scan at this point. Due to the patient's multiple co-morbidities, liver cirrhosis, and other acute issues, he would be a high risk surgical candidate. Without clear evidence of cholelithiasis being the cause for his pancreatitis, we would not recommend proceeding with a cholecystectomy at this time. If he had any issues with recurrent pancreatitis in the future, then we could re-evaluate at that time. For now, we would closely monitor the patient and continue to treat his interstitial pancreatitis with supportive medical treatment. I discussed this with the patient and also his over the phone. All questions were answered. Thank you for allowing us to see the patient in consultation and we will continue to follow along with you. (2) Dysphagia: Code(s): R13.10 - Dysphagia, unspecified Status: Acute Assessment and Plan: Patient presented with aspiration pneumonia and concern of dysphagia, which may be chronic. Modified Barium Swallow study today, which showed he was able to tolerate pureed food and regular liquids. He had difficulty with swallowing solids. Therefore, he will be started on a diet per the Hospitalist. Okay from our standpoint to initiate a diet at this point. (3) Aspiration pneumonia: Qualifiers: Aspiration pneumonia type: unspecified Laterality: right Lung location: unspecified part of lung Qualified Code(s): J69.0 - Pneumonitis due to inhalation of food and vomit Code(s): J69.0 - Pneumonitis due to inhalation of food and vomit Status: Acute Assessment and Plan: Continue IV antibiotics and management per Hospitalist. (4) Elevated liver enzymes: Code(s): R74.8 - Abnormal levels of other serum enzymes Status: Chronic Assessment and Plan: Could be related to his liver cirrhosis. All LFTs nearly normal today with the exception of a slightly elevated alk phos. Low suspicion that his elevated LFTs were from biliary obstruction or passing of one single stone. (5) Altered mental status: Qualifiers: Altered mental status type: unspecified Qualified Code(s): R41.82 - Altered mental status, unspecified Code(s): R41.82 - Altered mental status, unspecified Status: Acute (6) Seizure disorder: Code(s): G40.909 - Epilepsy, unspecified, not intractable, without status epilepticus Status: Chronic (7) History of CVA (cerebrovascular accident): Code(s): Z86.73 - Personal history of transient ischemic attack (TIA), and cerebral infarction without residual deficits Status: Acute (8) COPD (chronic obstructive pulmonary disease): Qualifiers: COPD type: unspecified COPD Qualified Code(s
--- NOTE | 2020-06-23 15:17 | PC.NURSE ---
Notified [facility] of Speech therapy that Dr. lira would like patient to continue to be followed by speech therapy.
[2020-06-24] VITALS (21 sets, daily range): BP systolic 134–139; BP diastolic 58–86; PULSE 62–98; RESP 16–22; TEMP 36.3–37.7; O2SAT 94–99
[2020-06-24] MEDS: levETIRAcetam IV 750 MG in DEXTROSE 5% 100 ML 430 MG IVPB ×2 (01:22→08:56)
[2020-06-24] MEDS: IPRATROPIUM BR 0.02% INH SOLN 0.5 MG/2.5 ML VIAL INHALATION ×4 (02:33→20:20)
[2020-06-24] MEDS: ALBUTEROL SULFATE NEB 2.5 MG/0.5 ML INH 5 MG INHALATION ×4 (02:33→20:20)
[2020-06-24] MEDS: AMPICILLIN SULB 3 GM/NS 100 ML 3 GM/100 ML VIAL IVPB (05:16)
[2020-06-24 06:22] LABS: Hematocrit 34.5 % (42.0-52.0); Hemoglobin 11.4 g/dL (14.0-18.0); Immature Platelet Fraction Pct 8.1 % (0.9-11.2); Mean Corpuscular Hemoglobin 28.7 pg (26-34); Mean Corpuscular Volume 86.9 fl (80-100); Mean Platelet Volume 10.3 fl (7.4-10.4); Platelet Count Result 80 k/mm3 (150-375); Red Blood Count 3.97 M/mm3 (4.6-6.20); Red Cell Distribution Width 24.4 % (11.5-14.5); White Blood Count 9.4 K/mm3 (4.5-10.0)
[2020-06-24 06:49] LABS: Anion Gap 10 mmol/L (8-16); Blood Urea Nitrogen 12 mg/dL (9-20); Calcium 8.4 mg/dL (8.4-10.2); Carbon Dioxide 19 mmol/L (22-30); Chloride 115 mmol/L (98-107); Estimated CRCL calculation 43 ml/min; Estimated Glomerular Filt Rate 51; Glucose 90 mg/dL (75-110); Potassium 3.6 mmol/L (3.4-5.0); Sodium 144 mmol/L (137-145)
[2020-06-24] MEDS: SODIUM BICARBONATE 8.4% 100 MEQ in DEXTROSE 5% 1,000 ML 1,000 ML 50 MEQ IV CONT (08:55)
[2020-06-24] MEDS: PANTOPRAZOLE SODIUM IV 40 MG VIAL IV PUSH (08:56)
[2020-06-24] MEDS: levoFLOXacin 500 MG/D5W 100 ML 500 MG/100 ML BAG 100 MG IVPB (10:26)
--- NOTE | 2020-06-24 10:56 | PM.PNGS ---
Progress Note: A&P Assessment and Plan (1) Acute pancreatitis: Qualifiers: Pancreatitis type: unspecified pancreatitis type Acute pancreatitis complication: unspecified Qualified Code(s): K85.90 - Acute pancreatitis without necrosis or infection, unspecified Code(s): K85.90 - Acute pancreatitis without necrosis or infection, unspecified Status: Acute Assessment and Plan: [place] that this was most likely caused by his chronic alcohol abuse. No evidence of gallstones on any imaging. Clinically improving with medical treatment. Tolerating a diet. No abdominal pain and abdominal exam is benign. Lipase repeated today, and if this continues to trend towards normal, then we will plan on signing off. Only follow-up as needed. If there are any surgical needs in the future, please let us know. (2) Dysphagia: Code(s): R13.10 - Dysphagia, unspecified Status: Acute Assessment and Plan: Patient presented with aspiration pneumonia and concern of dysphagia. Modified Barium Swallow showed difficulty with solids, now on pureed diet and thin liquids. He seems to be tolerating this well. (3) Aspiration pneumonia: Qualifiers: Aspiration pneumonia type: unspecified Laterality: right Lung location: unspecified part of lung Qualified Code(s): J69.0 - Pneumonitis due to inhalation of food and vomit Code(s): J69.0 - Pneumonitis due to inhalation of food and vomit Status: Acute Assessment and Plan: Continue IV antibiotics and management per Hospitalist. (4) Altered mental status: Qualifiers: Altered mental status type: unspecified Qualified Code(s): R41.82 - Altered mental status, unspecified Code(s): R41.82 - Altered mental status, unspecified Status: Acute Assessment and Plan: More alert and able to converse some today. (5) Seizure disorder: Code(s): G40.909 - Epilepsy, unspecified, not intractable, without status epilepticus Status: Chronic (6) COPD (chronic obstructive pulmonary disease): Qualifiers: COPD type: unspecified COPD Qualified Code(s): J44.9 - Chronic obstructive pulmonary disease, unspecified Code(s): J44.9 - Chronic obstructive pulmonary disease, unspecified Status: Chronic (7) Hep C w/o coma, chronic: Code(s): B18.2 - Chronic viral hepatitis C Status: Chronic (8) Metastatic melanoma: Code(s): C79.9 - Secondary malignant neoplasm of unspecified site Status: Acute Additional Plan Discussed the plan with Dr. Silverio. Subjective Subjective Date/Time Seen: 06/24/20 10:56 Patient reports: no new complaints Interval history: More alert today and answers my questions. He denies abdominal pain or nausea. He is sitting up eating a tray on my exam this morning and seems to be doing well with this. No vomiting per the nurse. Lipase pending. Review of Systems Constitutional: Constitutional: Reports no additional constitutional complaints and Denies fever(s) Gastrointestinal: Gastrointestinal: Reports as per HPI, Reports no additional gastrointestinal complaints, Denies abdominal pain and Denies vomiting Exam Const: General: comfortable, no acute distress and alert Orientation/consciousness: No oriented to place and No oriented to time GI: Inspection: normal to inspection and non-distended GI Palp: Yes Soft to palpation, No Tenderness to palpation present (GI), No Guarding due to palpation present (GI) and No Rebound tenderness present Auscultation: normal bowel sounds Psych: Insight: Poor insight present (Psych) Judgement: Limited judgement present (Psych) Objective Data Vital Signs Vital Signs: Vital Signs - 24 hr 06/23/20 12:00 06/23/20 14:00 06/23/20 14:19 Temperature 96.9 F L Pulse Rate 87 102 H 96 Respiratory Rate 24 H 20 Blood Pressure 127/64 Pulse Oximetry 91 06/23/20 14:41 06/23/20 16:00 06/23/20 18:07 Temperature 97.5 F L P
[2020-06-24 11:40] LABS: Lipase 365 U/L (23-300)
--- NOTE | 2020-06-24 12:11 | P.PNIM_ITS ---
Progress Note: A&P Assessment and Plan (1) Altered mental status: Qualifiers: Altered mental status type: unspecified Qualified Code(s): R41.82 - Altered mental status, unspecified Code(s): R41.82 - Altered mental status, unspecified Status: Acute Assessment and Plan: * Patient with decreased responsiveness from baseline. 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 Ammonia normal. Lactic acid 1.6. * Differential includes postictal state from possible unwitnessed seizure, sepsis from pulmonary and/or pancreatitis; Pain medications as the etiology less likely. * EEG showing abnormal record due to the presence of bihemispheric theta and delta activity and absence of the normal background rhythm. This tracing is compatible with organic or metabolic encephalopathy or postictal state. * MRI brain showing no acute intracranial findings. * Now with metabolic nongap acidosis. No diarrhea. Repeat lactic acid level normal. Urine ketones negative. Bicarb in IVF added. Bicarb better today (2) Aspiration pneumonia: Qualifiers: Aspiration pneumonia type: due to vomit Laterality: bilateral Lung location: unspecified part of lung Qualified Code(s): J69.0 - Pneumonitis due to inhalation of food and vomit Code(s): J69.0 - Pneumonitis due to inhalation of food and vomit Status: Acute Assessment and Plan: * Patient was noted to have nausea/vomiting at the fpc, then sounded gurgly with increased shortness of breath and confusion. * No fevers and WBC normal but CRP elevated which could be from the pancreatitis and/or PNA; CRP trending down * Currently on IV Unasyn (day 5) for coverage of aspiration but sputum growing EColi. Continue bronchodilators. Change to Levaquin. * Swallow evaluation by ST stated patient had aspiration with solids and abnormally holds contents in his mouth and required maximum verbal cues to swallow. Did not aspirate with thin liquids. Recommended puree diet and regular liquids which was stared. (3) Acute respiratory failure with hypoxia: Code(s): J96.01 - Acute respiratory failure with hypoxia Status: Acute Assessment and Plan: * Secondary to above. Weaned to room air * Continue nebulizer treatments and use supplemental O2 to keep oxygen saturations > 90%. (4) Acute pancreatitis: Qualifiers: Acute pancreatitis complication: unspecified Pancreatitis type: unspecified pancreatitis type Qualified Code(s): K85.90 - Acute pancreatitis without necrosis or infection, unspecified Code(s): K85.90 - Acute pancreatitis without necrosis or infection, unspecified Status: Acute Assessment and Plan: * Suspected on the basis of Lipase [address] scan showing fat stranding surrounding the gallbladder and pancreas. * Right UQ US showing mildly thickened GB wall most likely reactive but no cholelithiasis. * LFTs normal now and Lipase trending down. TG normal. * Monitor lipase and hepatic panel periodically. * Appreciate GenSurg input. Patient toelratinjosep current diet (5) Seizure disorder: Code(s): G40.909 - Epilepsy, unspecified, not intractable, without status epilepticus Status: Chronic Assessment and Plan: * Has been on his home dose of Keppra 500mg Q12H. Given his change in status, Keppra increased to 750mg q8hr IV. * EEG as mentioned above. *
--- NOTE | 2020-06-24 12:11 | PM.IMPN ---
Progress Note: A&P Assessment and Plan (1) Altered mental status: Qualifiers: Altered mental status type: unspecified Qualified Code(s): R41.82 - Altered mental status, unspecified Code(s): R41.82 - Altered mental status, unspecified Status: Acute Assessment and Plan: Patient with decreased responsiveness from baseline. 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 Ammonia normal. Lactic acid 1.6. Differential includes postictal state from possible unwitnessed seizure, sepsis from pulmonary and/or pancreatitis; Pain medications as the etiology less likely. EEG showing abnormal record due to the presence of bihemispheric theta and delta activity and absence of the normal background rhythm. This tracing is compatible with organic or metabolic encephalopathy or postictal state. MRI brain showing no acute intracranial findings. Now with metabolic nongap acidosis. No diarrhea. Repeat lactic acid level normal. Urine ketones negative. Bicarb in IVF added. Bicarb better today (2) Aspiration pneumonia: Qualifiers: Aspiration pneumonia type: due to vomit Laterality: bilateral Lung location: unspecified part of lung Qualified Code(s): J69.0 - Pneumonitis due to inhalation of food and vomit Code(s): J69.0 - Pneumonitis due to inhalation of food and vomit Status: Acute Assessment and Plan: Patient was noted to have nausea/vomiting at the long term, then sounded gurgly with increased shortness of breath and confusion. No fevers and WBC normal but CRP elevated which could be from the pancreatitis and/or PNA; CRP trending down Currently on IV Unasyn (day 5) for coverage of aspiration but sputum growing EColi. Continue bronchodilators. Change to Levaquin. Swallow evaluation by ST stated patient had aspiration with solids and abnormally holds contents in his mouth and required maximum verbal cues to swallow. Did not aspirate with thin liquids. Recommended puree diet and regular liquids which was stared. (3) Acute respiratory failure with hypoxia: Code(s): J96.01 - Acute respiratory failure with hypoxia Status: Acute Assessment and Plan: Secondary to above. Weaned to room air Continue nebulizer treatments and use supplemental O2 to keep oxygen saturations > 90%. (4) Acute pancreatitis: Qualifiers: Acute pancreatitis complication: unspecified Pancreatitis type: unspecified pancreatitis type Qualified Code(s): K85.90 - Acute pancreatitis without necrosis or infection, unspecified Code(s): K85.90 - Acute pancreatitis without necrosis or infection, unspecified Status: Acute Assessment and Plan: Suspected on the basis of Lipase [address] scan showing fat stranding surrounding the gallbladder and pancreas. Right UQ US showing mildly thickened GB wall most likely reactive but no cholelithiasis. LFTs normal now and Lipase trending down. TG normal. Monitor lipase and hepatic panel periodically. Appreciate GenSurg input. Patient toelratinig current diet (5) Seizure disorder: Code(s): G40.909 - Epilepsy, unspecified, not intractable, without status epilepticus Status: Chronic Assessment and Plan: Has been on his home dose of Keppra 500mg Q12H. Given his change in status, Keppra increased to 750mg q8hr IV. EEG as mentioned above. Appreciate Neurology input After discussing with neuro, will change to oral Keppra 750mg Q12 (6) Thrombocytopenia: Code(s): D69.6 - Thrombocytopenia, unspecified Status: Chronic Assessment and Plan: Likely secondary to known liver disease/Cirrhosis. The patient has a history of alcoholism as well
[2020-06-24] MEDS: TAMSULOSIN HCL 0.4 MG CAPSULE PO (15:03)
[2020-06-24 16:21] LABS: Add Urine Microscopic? YES; Appearance Urine Clear (Clear); Bilirubin Urine Negative (Negative); Blood Urine 2+ (Negative); Color Urine Yellow (Yellow); Glucose Urine UA Negative (Negative); Ketones Urine Negative (Negative); Leukocyte Esterase Ur Negative LEU/UL (NEGATIVE); Mucus Urine Rare /lpf; Nitrate Urine Negative (Negative); Protein Urine 1+ mg/dL (Negative); RBC Urine 21-50 /hpf (0-2); Specific Grav Ur 1.009 (1.001-1.035); Urobilinogen Urine Negative mg/dL (<2.0)
[2020-06-24] MEDS: levETIRAcetam ORAL SOL 500 MG/5 ML UDC 750 MG PO (21:42)
[2020-06-25] VITALS (20 sets, daily range): BP systolic 104–161; BP diastolic 52–103; PULSE 73–99; RESP 18–24; TEMP 35.7–37.1; O2SAT 93–100
[2020-06-25 01:26] LABS: IFOB Positive Control Positive; Immunochemical Fecal Occult Bl Positive (N)
[2020-06-25] MEDS: IPRATROPIUM BR 0.02% INH SOLN 0.5 MG/2.5 ML VIAL INHALATION ×4 (02:26→19:51)
[2020-06-25] MEDS: ALBUTEROL SULFATE NEB 2.5 MG/0.5 ML INH 5 MG INHALATION ×4 (02:26→19:51)
[2020-06-25 08:06] LABS: Hematocrit 34.4 % (42.0-52.0); Hemoglobin 11.2 g/dL (14.0-18.0); Immature Platelet Fraction Pct 9.9 % (0.9-11.2); Mean Corpuscular HGB Conc 32.6 g/dl (32-36); Mean Corpuscular Hemoglobin 28.8 pg (26-34); Mean Corpuscular Volume 88.4 fl (80-100); Mean Platelet Volume 10.8 fl (7.4-10.4); Platelet Count Result 79 k/mm3 (150-375); Red Blood Count 3.89 M/mm3 (4.6-6.20); Red Cell Distribution Width 23.9 % (11.5-14.5); White Blood Count 8.7 K/mm3 (4.5-10.0)
[2020-06-25] MEDS: SODIUM BICARBONATE 8.4% 100 MEQ in DEXTROSE 5% 1,000 ML 1,000 ML 50 MEQ IV CONT (08:06)
[2020-06-25] MEDS: TAMSULOSIN HCL 0.4 MG CAPSULE PO (08:06)
[2020-06-25] MEDS: ASPIRIN 81 MG ENTERIC TABLET PO (08:06)
[2020-06-25] MEDS: levETIRAcetam ORAL SOL 500 MG/5 ML UDC 750 MG PO (08:06)
[2020-06-25] MEDS: PANTOPRAZOLE SODIUM IV 40 MG VIAL IV PUSH (08:07)
[2020-06-25] MEDS: levoFLOXacin 500 MG/D5W 100 ML 500 MG/100 ML BAG 100 MG IVPB (08:08)
--- NOTE | 2020-06-25 08:40 | PCCCNOTE ---
Per Care Coordination: pt will need a Covid test within 48 hours of discharge.
[2020-06-25 08:49] LABS: Anion Gap 9 mmol/L (8-16); Blood Urea Nitrogen 10 mg/dL (9-20); Carbon Dioxide 24 mmol/L (22-30); Chloride 112 mmol/L (98-107); Estimated CRCL calculation 43 ml/min; Estimated Glomerular Filt Rate 51; Glucose 81 mg/dL (75-110); Potassium 3.4 mmol/L (3.4-5.0); Sodium 145 mmol/L (137-145)
[2020-06-25 09:14] LABS: CRP 19.8 mg/dL (<1.0)
--- NOTE | 2020-06-25 12:58 | P.PNIM_ITS ---
Progress Note: A&P Assessment and Plan (1) Altered mental status: Qualifiers: Altered mental status type: unspecified Qualified Code(s): R41.82 - Altered mental status, unspecified Code(s): R41.82 - Altered mental status, unspecified Status: Acute Assessment and Plan: * Patient with decreased responsiveness from baseline. 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 Ammonia normal. Lactic acid 1.6. * Differential includes postictal state from possible unwitnessed seizure, sepsis from pulmonary and/or pancreatitis; Pain medications as the etiology less likely. * EEG showing abnormal record due to the presence of bihemispheric theta and delta activity and absence of the normal background rhythm. This tracing is compatible with organic or metabolic encephalopathy or postictal state. * MRI brain showing no acute intracranial findings. * Now with metabolic nongap acidosis for unclear reasons treated with IV fluids with bicarb. No diarrhea. Repeat lactic acid level normal. Urine ketones negative. Serum Bicarb better today. Change to oral bicarb. (2) Aspiration pneumonia: Qualifiers: Aspiration pneumonia type: due to vomit Laterality: bilateral Lung location: unspecified part of lung Qualified Code(s): J69.0 - Pneumonitis due to inhalation of food and vomit Code(s): J69.0 - Pneumonitis due to inhalation of food and vomit Status: Acute Assessment and Plan: * Patient was noted to have nausea/vomiting at the [facility], then sounded gurgly with increased shortness of breath and confusion. * No fevers and WBC normal but CRP elevated which could be from the pancreatitis and/or PNA; CRP trending down * Treated with IV Unasyn but sputum growing EColi so changed to Levaquin (Abx Day 6). Continue bronchodilators but decrease frequency. * Swallow evaluation by ST stated patient had aspiration with solids and abnormally holds contents in his mouth and required maximum verbal cues to swallow. Did not aspirate with thin liquids. Recommended puree diet and regular liquids which was stared. (3) Acute respiratory failure with hypoxia: Code(s): J96.01 - Acute respiratory failure with hypoxia Status: Acute Assessment and Plan: * Secondary to above. Weaned to room air * Continue nebulizer treatments but begin to wean; use supplemental O2 to keep oxygen saturations > 90%. (4) Acute pancreatitis: Qualifiers: Acute pancreatitis complication: unspecified Pancreatitis type: unspecified pancreatitis type Qualified Code(s): K85.90 - Acute pancreatitis without necrosis or infection, unspecified Code(s): K85.90 - Acute pancreatitis without necrosis or infection, unspecified Status: Acute Assessment and Plan: * Suspected on the basis of Lipase [address] scan showing fat stranding surrounding the gallbladder and pancreas. * Right UQ US showing mildly thickened GB wall most likely reactive but no cholelithiasis. * LFTs normal now and Lipase trending down. TG normal. * Monitor lipase and hepatic panel periodically. * Appreciate GenSurg input. Patient toelratinig current diet (5) Seizure disorder: Code(s): G40.909 - Epilepsy, unspecified, not intractable, without status epilepticus Status: Chronic Assessment and Plan: * Has been on his home dose of Keppra 500mg Q12H. Given his change i
--- NOTE | 2020-06-25 12:58 | PM.IMPN ---
Progress Note: A&P Assessment and Plan (1) Altered mental status: Qualifiers: Altered mental status type: unspecified Qualified Code(s): R41.82 - Altered mental status, unspecified Code(s): R41.82 - Altered mental status, unspecified Status: Acute Assessment and Plan: Patient with decreased responsiveness from baseline. 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 Ammonia normal. Lactic acid 1.6. Differential includes postictal state from possible unwitnessed seizure, sepsis from pulmonary and/or pancreatitis; Pain medications as the etiology less likely. EEG showing abnormal record due to the presence of bihemispheric theta and delta activity and absence of the normal background rhythm. This tracing is compatible with organic or metabolic encephalopathy or postictal state. MRI brain showing no acute intracranial findings. Now with metabolic nongap acidosis for unclear reasons treated with IV fluids with bicarb. No diarrhea. Repeat lactic acid level normal. Urine ketones negative. Serum Bicarb better today. Change to oral bicarb. (2) Aspiration pneumonia: Qualifiers: Aspiration pneumonia type: due to vomit Laterality: bilateral Lung location: unspecified part of lung Qualified Code(s): J69.0 - Pneumonitis due to inhalation of food and vomit Code(s): J69.0 - Pneumonitis due to inhalation of food and vomit Status: Acute Assessment and Plan: Patient was noted to have nausea/vomiting at the custodial, then sounded gurgly with increased shortness of breath and confusion. No fevers and WBC normal but CRP elevated which could be from the pancreatitis and/or PNA; CRP trending down Treated with IV Unasyn but sputum growing EColi so changed to Levaquin (Abx Day 6). Continue bronchodilators but decrease frequency. Swallow evaluation by ST stated patient had aspiration with solids and abnormally holds contents in his mouth and required maximum verbal cues to swallow. Did not aspirate with thin liquids. Recommended puree diet and regular liquids which was stared. (3) Acute respiratory failure with hypoxia: Code(s): J96.01 - Acute respiratory failure with hypoxia Status: Acute Assessment and Plan: Secondary to above. Weaned to room air Continue nebulizer treatments but begin to wean; use supplemental O2 to keep oxygen saturations > 90%. (4) Acute pancreatitis: Qualifiers: Acute pancreatitis complication: unspecified Pancreatitis type: unspecified pancreatitis type Qualified Code(s): K85.90 - Acute pancreatitis without necrosis or infection, unspecified Code(s): K85.90 - Acute pancreatitis without necrosis or infection, unspecified Status: Acute Assessment and Plan: Suspected on the basis of Lipase [address] scan showing fat stranding surrounding the gallbladder and pancreas. Right UQ US showing mildly thickened GB wall most likely reactive but no cholelithiasis. LFTs normal now and Lipase trending down. TG normal. Monitor lipase and hepatic panel periodically. Appreciate GenSurg input. Patient toelratinig current diet (5) Seizure disorder: Code(s): G40.909 - Epilepsy, unspecified, not intractable, without status epilepticus Status: Chronic Assessment and Plan: Has been on his home dose of Keppra 500mg Q12H. Given his change in status, Keppra increased to 750mg q8hr IV. EEG as mentioned above. Appreciate Neurology input After discussing with neuro, we changed to oral Keppra 750mg Q12 (6) Thrombocytopenia: Code(s): D69.6 - Thrombocytopenia, unspecified Status: Chronic Assessment and Plan: Likely secondary
--- NOTE | 2020-06-25 15:24 | PC.NURSE ---
This patient, Jovany Robbins, was transferred to [ [id number]] on 06/25/20 at 1524. Personal belongings sent with patient. Report given to [MEHRDAD Betancourt @ [phone] ]. Appropriate documentation sent with patient.
--- NOTE | 2020-06-25 15:53 | PC.NURSE ---
This patient, Jovany Robbins, was received from [imu] on 06/25/20 at 1535. Patient/family oriented to unit policies and routines
[2020-06-25] MEDS: SODIUM BICARBONATE TAB 325 MG TABLET PO (17:59)
[2020-06-25] MEDS: ALPRAZolam (*CRX) 0.25 MG TABLET PO (20:21)
[2020-06-25] MEDS: levETIRAcetam Tablet 250 MG, levETIRAcetam Tablet 500 MG 750 MG PO (20:21)
[2020-06-26 06:00] VITALS: BP 159/95; PULSE 95; RESP 20; TEMP 36.5; O2SAT 95
[2020-06-26 06:20] LABS: Hematocrit 33.9 % (42.0-52.0); Hemoglobin 11.1 g/dL (14.0-18.0); Immature Platelet Fraction Pct 10.7 % (0.9-11.2); Mean Corpuscular HGB Conc 32.7 g/dl (32-36); Mean Corpuscular Hemoglobin 28.2 pg (26-34); Mean Corpuscular Volume 86.3 fl (80-100); Mean Platelet Volume 11.4 fl (7.4-10.4); Platelet Count Result 80 k/mm3 (150-375); Red Blood Count 3.93 M/mm3 (4.6-6.20); Red Cell Distribution Width 23.2 % (11.5-14.5); White Blood Count 8.7 K/mm3 (4.5-10.0)
[2020-06-26 06:30] LABS: Anion Gap 12 mmol/L (8-16); Blood Urea Nitrogen 9 mg/dL (9-20); Calcium 9.1 mg/dL (8.4-10.2); Carbon Dioxide 19 mmol/L (22-30); Chloride 111 mmol/L (98-107); Estimated CRCL calculation 33 ml/min; Estimated Glomerular Filt Rate 47; Glucose 63 mg/dL (75-110); Potassium 3.2 mmol/L (3.4-5.0); Sodium 142 mmol/L (137-145)
[2020-06-26] MEDS: levoFLOXacin 500 MG/D5W 100 ML 500 MG/100 ML BAG 100 MG IVPB (08:17)
[2020-06-26] MEDS: ASPIRIN 81 MG ENTERIC TABLET PO (08:18)
[2020-06-26] MEDS: BACITRACIN OINTMENT 15 GM TUBE 1 APPLIC TOPICAL (08:19)
[2020-06-26] MEDS: CYANOCOBALAMIN 1,000 MCG TABLET 1000 MCG PO (08:19)
[2020-06-26] MEDS: POTASSIUM CHLORIDE 20 MEQ TABLET 40 MEQ PO (08:19)
[2020-06-26] MEDS: PANTOPRAZOLE SODIUM IV 40 MG VIAL IV PUSH (08:20)
[2020-06-26] MEDS: levETIRAcetam Tablet 250 MG, levETIRAcetam Tablet 500 MG 750 MG PO (08:20)
[2020-06-26] MEDS: TAMSULOSIN HCL 0.4 MG CAPSULE PO (08:20)
[2020-06-26 08:24] VITALS: PULSE 80; RESP 18; O2SAT 97
[2020-06-26] MEDS: IPRATROPIUM BR 0.02% INH SOLN 0.5 MG/2.5 ML VIAL INHALATION ×2 (08:24→13:47)
[2020-06-26] MEDS: ALBUTEROL SULFATE NEB 2.5 MG/0.5 ML INH 5 MG INHALATION ×2 (08:24→13:46)
[2020-06-26 08:35] VITALS: PULSE 84; RESP 20
[2020-06-26] MEDS: SODIUM BICARBONATE TAB 650 MG TABLET PO (08:52)
[2020-06-26 13:47] VITALS: PULSE 80; RESP 18
--- NOTE | 2020-06-26 13:53 | P.DS_ITS ---
DS: Admitting Diagnosis Admitting Diagnosis Admitting Diagnosis: altered mental status DS: Discharge Diagnosis Discharge Diagnosis (1) Altered mental status: Qualifiers: Altered mental status type: unspecified Qualified Code(s): R41.82 - Altered mental status, unspecified Code(s): R41.82 - Altered mental status, unspecified Status: Acute Assessment and Plan: * Patient presented with decreased responsiveness from baseline. 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 Ammonia normal. Lactic acid 1.6. * Differential includes postictal state from possible unwitnessed seizure, sepsis from pulmonary and/or pancreatitis; Pain medications as the etiology less likely. * Neurology consulted; EEG showing abnormal record due to the presence of bihemispheric theta and delta activity and absence of the normal background rhythm. This tracing is compatible with organic or metabolic encephalopathy or postictal state. * MRI brain showing no acute intracranial findings. * Now with metabolic nongap acidosis for unclear reasons possibly related to his CKD; treated with bicarb. (2) Aspiration pneumonia: Qualifiers: Aspiration pneumonia type: due to vomit Laterality: bilateral Lung location: unspecified part of lung Qualified Code(s): J69.0 - Pneumonitis due to inhalation of food and vomit Code(s): J69.0 - Pneumonitis due to inhalation of food and vomit Status: Acute Assessment and Plan: * Patient was noted to have nausea/vomiting at the [facility], then sounded gurgly with increased shortness of breath and confusion. * No fevers and WBC normal but CRP elevated which could be from the pancreatitis and/or PNA; CRP trended down * Treated with IV Unasyn but sputum growing EColi so changed to Levaquin. * Swallow evaluation by ST stated patient had aspiration with solids and abnormally holds contents in his mouth and required maximum verbal cues to swallow. Did not aspirate with thin liquids. Recommended puree diet and regular liquids which was stared. (3) Acute respiratory failure with hypoxia: Code(s): J96.01 - Acute respiratory failure with hypoxia Status: Acute Assessment and Plan: * Secondary to above. He was weaned to room air * Use supplemental O2 to keep oxygen saturations > 90%. (4) Acute pancreatitis: Qualifiers: Pancreatitis type: unspecified pancreatitis type Acute pancreatitis complication: unspecified Qualified Code(s): K85.90 - Acute pancreatitis without necrosis or infection, unspecified Code(s): K85.90 - Acute pancreatitis without necrosis or infection, unspecified Status: Acute Assessment and Plan: * Suspected on the basis of Lipase [address] scan showing fat stranding surrounding the gallbladder and pancreas. * Right UQ US showing mildly thickened GB wall most likely reactive but no cholelithiasis. * LFTs normal now and Lipase trending down. TG normal. * GenSurg did not have any further recommendations. Patient started on oral intake and he toelrated this well (5) Seizure disorder: Code(s): G40.909 - Epilepsy, unspecified, not intractable, without status epilepticus Status: Chronic Assessment and Plan: * Has been on his home dose of Keppra 500mg Q12H. Given his change in status, Keppra increased to 750mg q8hr IV. * EEG as mentione
--- NOTE | 2020-06-26 13:53 | PM.DS ---
DS: Admitting Diagnosis Admitting Diagnosis Admitting Diagnosis: altered mental status DS: Discharge Diagnosis Discharge Diagnosis (1) Altered mental status: Qualifiers: Altered mental status type: unspecified Qualified Code(s): R41.82 - Altered mental status, unspecified Code(s): R41.82 - Altered mental status, unspecified Status: Acute Assessment and Plan: Patient presented with decreased responsiveness from baseline. 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 Ammonia normal. Lactic acid 1.6. Differential includes postictal state from possible unwitnessed seizure, sepsis from pulmonary and/or pancreatitis; Pain medications as the etiology less likely. Neurology consulted; EEG showing abnormal record due to the presence of bihemispheric theta and delta activity and absence of the normal background rhythm. This tracing is compatible with organic or metabolic encephalopathy or postictal state. MRI brain showing no acute intracranial findings. Now with metabolic nongap acidosis for unclear reasons possibly related to his CKD; treated with bicarb. (2) Aspiration pneumonia: Qualifiers: Aspiration pneumonia type: due to vomit Laterality: bilateral Lung location: unspecified part of lung Qualified Code(s): J69.0 - Pneumonitis due to inhalation of food and vomit Code(s): J69.0 - Pneumonitis due to inhalation of food and vomit Status: Acute Assessment and Plan: Patient was noted to have nausea/vomiting at the [facility], then sounded gurgly with increased shortness of breath and confusion. No fevers and WBC normal but CRP elevated which could be from the pancreatitis and/or PNA; CRP trended down Treated with IV Unasyn but sputum growing EColi so changed to Levaquin. Swallow evaluation by ST stated patient had aspiration with solids and abnormally holds contents in his mouth and required maximum verbal cues to swallow. Did not aspirate with thin liquids. Recommended puree diet and regular liquids which was stared. (3) Acute respiratory failure with hypoxia: Code(s): J96.01 - Acute respiratory failure with hypoxia Status: Acute Assessment and Plan: Secondary to above. He was weaned to room air Use supplemental O2 to keep oxygen saturations > 90%. (4) Acute pancreatitis: Qualifiers: Pancreatitis type: unspecified pancreatitis type Acute pancreatitis complication: unspecified Qualified Code(s): K85.90 - Acute pancreatitis without necrosis or infection, unspecified Code(s): K85.90 - Acute pancreatitis without necrosis or infection, unspecified Status: Acute Assessment and Plan: Suspected on the basis of Lipase [address] scan showing fat stranding surrounding the gallbladder and pancreas. Right UQ US showing mildly thickened GB wall most likely reactive but no cholelithiasis. LFTs normal now and Lipase trending down. TG normal. GenSurg did not have any further recommendations. Patient started on oral intake and he toelrated this well (5) Seizure disorder: Code(s): G40.909 - Epilepsy, unspecified, not intractable, without status epilepticus Status: Chronic Assessment and Plan: Has been on his home dose of Keppra 500mg Q12H. Given his change in status, Keppra increased to 750mg q8hr IV. EEG as mentioned above. Appreciate Neurology input After discussing with neuro, we changed to oral Keppra 750mg Q12h (6) Thrombocytopenia: Code(s): D69.6 - Thrombocytopenia, unspecified Status: Chronic Assessment and Plan: Likely secondary to known liver disease/Cirrhosis. The patient has a history of alcoholism as well
[2020-06-26 13:57] VITALS: PULSE 76; RESP 20
[2020-06-26 14:00] VITALS: BP 143/72; PULSE 82; RESP 20; TEMP 36.2; O2SAT 100
[2020-06-26 14:30] VITALS: BMI 10.0
--- NOTE | 2020-06-26 16:18 | PCOTNOTE ---
Pt unable to be seen today for OT session. Will continue per POC duration/frequency tomorrow.
== END 2020-06-26 18:19 | DRG 177 ==
LOC: ANHED 06-20 01:28 → ANH3MEDSUR 06-20 02:17 → ANHICU 06-21 13:38 → ANH3MEDSUR 06-26 14:11 → ANHICU 07-01 09:51 → ANHIMU 07-01 09:51
PROVIDERS: Internal Medicine; Nurse Practitioner Family; Physician Assistant; Admitting Provider Family Medicine; Emergency Provider Emergency Medicine; PCP Internal Medicine; Visit Provider Internal Medicine
DX: J69.0 Pneumonitis due to inhalation of food and vomit (principal); J96.01 Acute respiratory failure with hypoxia; G93.41 Metabolic encephalopathy; K85.80 Other acute pancreatitis without necrosis or infection; B96.20 Unspecified Escherichia coli [E. coli] as the cause of diseases classified elsewhere; G40.909 Epilepsy, unspecified, not intractable, without status epilepticus; D69.59 Other secondary thrombocytopenia; J44.9 Chronic obstructive pulmonary disease, unspecified; I12.9 Hypertensive chronic kidney disease with stage 1 through stage 4 chronic kidney disease, or unspecified chronic kidney disease; N18.9 Chronic kidney disease, unspecified; B18.2 Chronic viral hepatitis C; R13.10 Dysphagia, unspecified; N40.0 Benign prostatic hyperplasia without lower urinary tract symptoms; I69.398 Other sequelae of cerebral infarction; R26.89 Other abnormalities of gait and mobility; F41.9 Anxiety disorder, unspecified; D63.8 Anemia in other chronic diseases classified elsewhere; K21.9 Gastro-esophageal reflux disease without esophagitis; E55.9 Vitamin D deficiency, unspecified; F17.210 Nicotine dependence, cigarettes, uncomplicated; Z85.820 Personal history of malignant melanoma of skin; Z85.118 Personal history of other malignant neoplasm of bronchus and lung
CPT/HCPCS: 36415; 36600; 70450; 70551; 71045; 74176; 76705; 80048; 80053; 80061; 81001; 82140; 82274; 82375; 82550; 82728; 82805; 83050; 83605; 83615; 83690; 83735; 84100; 84484; 85025; 85027; 85055; 85610; 85730; 86140; 87040; 87070; 87077; 87186; 87205; 92526; 92610; 92611; 93005; 93970; 94640; 95816; 96361; 96365; 97110; 97161; 97166; 97530; 99285; A9270; C9113; G0378; J0131; J0295; J0360; J1650; J1953; J1956; J2270; J2310; J3475; J3480; J7030; J7070

== ENCOUNTER 2020-06-30 15:13 | Inpatient (IN) | payer MEDICARE, OTHER, SELFPAY ==
[2020-06-30] VITALS (16 sets, daily range): BP systolic 129–156; BP diastolic 80–106; PULSE 89–104; RESP 16–20; TEMP 36.1–36.9; O2SAT 95–100; BMI 18.3
--- NOTE | ~2020-06-30 | XR_ITS ---
MODIFIED ESOPHAGRAM HISTORY: Dysphagia. TECHNIQUE: Modified barium esophagram was performed on 07/12/2020. I administered fluoroscopy and perf ormed the exam with speech pathologist. Patient was seated for lateral fluoroscopic imaging for hetal stion of thin liquids, pudding, solids and quantified amounts, followed by thin liquids in uncontroll ed amounts. This was recorded on tape. A single fluoroscopic spot image was also recorded. The DAP fo r this procedure was 4.077 Gycm2. The amount of fluoroscopy time used during this procedure was 4.9 m inutes. FINDINGS: Oral stage: Adequate function. Pharyngeal stage: Oropharyngeal dysphagia with reduced dorsal elevation and abduction, reduced tongue base retraction and reduced pharyngeal squeeze. Laryngeal penetration and aspiration was noted with thin liquids which elicited a cough reflex. Cervical/esophageal stage: Adequate function. IMPRESSION: Oropharyngeal dysphagia with laryngeal penetration and aspiration with thin liquids. Ple ase correlate with speech pathologist findings and specific feeding recommendations. Reviewed, dictated and finalized at location A. IMPRESSION: Oropharyngeal dysphagia with laryngeal penetration and aspiration w ith thin liquids. Please correlate with speech pathologist findings and specif ic feeding recommendations.
--- NOTE | ~2020-06-30 | CT_ITS ---
EXAMINATION: CT diagnostic chest wo con EXAM DATE: 07/01/2020 12:13 INDICATION: Pneumonia, mass . TECHNIQUE: Spiral CT of the chest without contrast. Axial, coronal and sagittal images of the chest were reviewed. Coronal maximum intensity pixel images of chest reviewed. The dose-length product ( DLP) for this examination was 173.00 mGy-cm. The exposure was tailored according to patient size (au to mA exposure control), and iterative reconstruction (ASIR) was used as additional dose reduction te chnique. Comparison is made to prior examination from 03/26/2015. FINDINGS: There is right middle lobe bronchiectasis, with perihilar volume loss, partial collapse li chely treated lung cancer. There was large amount of soft tissue density on prior exam, and volume los s is new. Decrease in size or resolution of most of the previously seen pulmonary nodules likely meta static disease. Largest discrete residual is in the left upper lobe, with punctate calcification, eloise suring 8 mm. Suspect that patient had superimposed acute pneumonia on chest x-ray from 06/21/2020, which has since resolved. There are no pleural or pericardial effusions. Tracheobronchial tree is patent. There i s no mediastinal, hilar or axillary lymphadenopathy. There is no pneumothorax. Heart normal in si ze. There is moderate coronary arterial calcification, arterial sclerosis. There is moderate emphys billy and hyperinflation. Liver surface undulations, possible cirrhosis. There is mild thoracic spond ylosis without osteoblastic or osteolytic lesions identified. There are old left rib fractures. IMPRESSION: 1. Resolution of pneumonia identified last month on chest x-ray. 2. Right middle lobe, perihilar bronchiectasis, scarring, likely treated cancer. 3. Scattered nodules likely treated pulmonary metastases. 4. Moderate emphysema and hyperinflation. Reviewed, dictated and finalized at location B. IMPRESSION: 1. Resolution of pneumonia identified last month on chest x-ray. 2. Right middle lobe, perihilar bronchiectasis, scarring, likely treated cance r. 3. Scattered nodules likely treated pulmonary metastases. 4. Moderate emphysema and hyperinflation.
--- NOTE | ~2020-06-30 | XR_ITS ---
EXAMINATION: XR chest 1V portable DATE: 06/30/2020 16:14 INDICATION: Cough. TECHNIQUE: A single frontal view of the chest was obtained on 2 radiographs. COMPARISON: Chest single view 06/23/2020, CT abdomen and pelvis 06/19/2020, chest CT 03/26/2015 FINDINGS: There is a chronic mass in right perihilar region. No pleural effusion or pneumothorax. The heart size is normal. There are old healed left rib fractures. IMPRESSION: 1. Chronic mass in right perihilar region, likely malignancy and treatment changes. Reviewed, dictated and finalized at location A. IMPRESSION: 1. Chronic mass in right perihilar region, likely malignancy and treatment cardenas ges.
--- NOTE | 2020-06-30 15:18 | ECG_ITS ---
Measurements Intervals [place] Rate: 101 P: 5 AR: 107 QRS: 30 QRSD: 86 T: 70 QT: 411 QTc: 535 Interpretive Statements SINUS TACHYCARDIA WITH SHORT AR INTERVAL BORDERLINE ST-T WAVE ABNORMALITY- DIFFUSE LEADS ABNORMAL ECG Electronically Signed On 06-30-2020 15:59:59 CDT by Aman Kyle D.O.
--- NOTE | 2020-06-30 15:38 | ED.GENADULT ---
HPI - General Adult General Chief complaint: Unspecified Stated complaint: Wont take his pills for his pneumonia Time Seen by Provider: 06/30/20 15:26 Source: RN notes reviewed History of Present Illness HPI narrative: Patient presents emergency department from [facility] for refusing to take his medications. Patient recently been admitted to the hospital and discharged with aspiration pneumonia was possibly starting his first day of oral Levaquin today per the med nursing staff the patient has been refusing to eat or drink and had has not been taking his medication patient currently is awake alert and states he does not know why he is at the emergency department he denies any chest pain shortness of breath or abdominal pain at this time. Related Data Home Medications Medication Instructions Recorded Confirmed aspirin 81 mg tablet,delayed 81 mg PO DAILY 07/07/19 06/20/20 release cyanocobalamin (vitamin B-12) 100 mcg PO DAILY 06/08/20 06/20/20 ondansetron HCl 4 mg PO TID PRN 06/08/20 06/20/20 pantoprazole 40 mg PO BID 06/08/20 06/20/20 tamsulosin [Flomax] 0.4 mg PO DAILY 06/08/20 06/20/20 Allergies Allergy/AdvReac Type Severity Reaction Status Date / Time No Known Allergies Allergy Unverified 06/30/20 15:09 Review of Systems Review of Systems: Narrative: Gen.: Denies fevers or chills ENT: Denies congestion Respiratory: Reports aspiration pneumonia CV: Denies chest pain or palpitations GI: Denies abdominal pain nausea, emesis or diarrhea Musculoskeletal: Denies back pain or muscle pain Neuro: Denies numbness, tingling, weakness or focal weakness Skin: Denies rash Except as documented, all other systems reviewed and negative [facility] Past Medical History Medical History Anxiety Benign essential hypertension BPH (benign prostatic hyperplasia) Colon cancer screening COPD (chronic obstructive pulmonary disease) GERD (gastroesophageal reflux disease) Hep C w/o coma, chronic History of CVA (cerebrovascular accident) Impaired functional mobility, balance, gait, and endurance Following CVA Metastatic lung cancer (metastasis from lung to other site) Nicotine abuse 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 The patient stated that he was in the [place]. He states that he still smokes about 3/4 of a pack a cigarettes a day. He tells me that his is the durable power commonwealth attorney for healthcare. He is a full code. The patient is listed as disabled. Smoking packs per day: 1 Smoking cigarettes per day: 20.0 Years smoked: 40 Smoking pack-years: 40.00 Smoking status: Current every day smoker Tobacco type: cigarettes Alcohol intake: current Substance use: never Gender identity (if verbalized by the patient): Male Spiritual care concerns: No Exam Narrative: Exam Narrative: APPEARANCE: No acute distress, nontoxic, resting in bed EYES: EOMI HEENT: Normocephalic, atraumatic, oral mucosa dry RESPIRATORY: No respiratory distress Clear to auscultation bilaterally with no rhonchi wheezing or rales. CARDIOVASCULAR: Regular rate and rhythm without murmurs rubs or gallops. ABDOMINAL: Soft, nontender, nondistended, no rebound or guarding MUSCULOSKELETAl: No clubbing, cyanosis or edema. NEURO: Awake and alert. Following commands, speech normal, no focal deficits SKIN:: Warm, dry. No rashes lesions or abrasions PSYCHIATRIC: Normal affect/mood, Course Course Emergency Course: Reviewed old records.
[2020-06-30 15:52] LABS: Basophils Absolute Auto 0.1 K/mm3 (0.0-0.1); Basophils Percent Auto 0.5 % (0.2-1.2); Eosinophils Absolute Auto 0.1 K/mm3 (0-0.3); Eosinophils Percent Auto 0.6 % (0-4.4); Hematocrit 43.5 % (42.0-52.0); Hemoglobin 14.1 g/dL (14.0-18.0); Immature Granulocyte Absolute 0.11 K/mm3 (0.00-0.031); Immature Granulocyte Percent A 0.6 % (0-0.5); Lymphocytes Absolute Auto 0.88 K/mm3 (0.9-3.2); Lymphocytes Percent Auto 4.9 % (18.3-44.2); Mean Corpuscular HGB Conc 32.4 g/dl (32-36); Mean Corpuscular Hemoglobin 28.8 pg (26-34); Mean Platelet Volume 9.8 fl (7.4-10.4); Monocytes Absolute Auto 0.9 K/mm3 (0.1-0.6); Monocytes Percent Auto 5.1 % (2.6-8.5); Neutrophils Absolute Auto 15.8 K/mm3 (1.3-6.7); Neutrophils Percent Auto 88.3 % (45.5-73.1); Platelet Count Result 300 k/mm3 (150-375); Red Blood Count 4.89 M/mm3 (4.6-6.20); Red Cell Distribution Width 22.9 % (11.5-14.5); White Blood Count 17.8 K/mm3 (4.5-10.0)
[2020-06-30 16:01] LABS: Lactic Acid Reflex 1.3 mmol/L (0.7-2.1)
[2020-06-30 16:02] LABS: INR 1.1; Potassium 3.7 mmol/L (3.4-5.0); Prothrombin Time 14.7 Seconds (11.1-14.7)
[2020-06-30 16:03] LABS: Partial Thromboplastin Time 29.4 SECONDS (22.3-36.8)
[2020-06-30 16:08] LABS: Alanine Aminotransferase 52 U/L (4-50); Albumin Level 4.1 g/dL (3.5-5.1); Alkaline Phosphatase 170 U/L (38-126); Anion Gap 15 mmol/L (8-16); Aspartate Amino Transferase 83 U/L (17-59); Blood Urea Nitrogen 26 mg/dL (9-20); Calcium 10.6 mg/dL (8.4-10.2); Carbon Dioxide 21 mmol/L (22-30); Chloride 112 mmol/L (98-107); Estimated CRCL calculation 29 ml/min; Estimated Glomerular Filt Rate 29; Glucose 117 mg/dL (75-110); Lipase 316 U/L (23-300); Sodium 148 mmol/L (137-145)
[2020-06-30 16:13] LABS: Add Urine Microscopic? YES; Appearance Urine Cloudy (Clear); Bilirubin Urine Negative (Negative); Blood Urine 2+ (Negative); Color Urine Amber (Yellow); Glucose Urine UA Negative (Negative); Ketones Urine Trace mg/dL (Negative); Leukocyte Esterase Ur Negative LEU/UL (Negative); Mucus Urine Rare /lpf; Nitrate Urine Negative (Negative); Protein Urine 2+ mg/dL (Negative); RBC Urine 0-2 /hpf (0-2); Specific Grav Ur 1.021 (1.001-1.035); Urobilinogen Urine Negative mg/dL (<2.0); WBC Urine 0-3 /hpf
[2020-06-30 16:17] LABS: CRP 13.1 mg/dL (<1.0)
[2020-06-30] MEDS: SODIUM CHLORIDE 0.9% IV 1,000 ML 999 ML IV CONT (16:46)
[2020-06-30 17:12] LABS: Creatine Kinase 680 U/L (55-170)
[2020-06-30] MEDS: SODIUM CHLORIDE 0.9% IV 1,000 ML 125 ML IV CONT (18:24)
--- NOTE | 2020-06-30 19:50 | ADMGEN ---
This patient, Jovany Robbins, was admitted to Medical Room 245-. Patient/family oriented to hospital policies and general routines including ID bracelet, bed and alarms, visiting hours, pain management, procedures, bathroom and other care routines, personal items, smoking policy, room service/diet, and visiting hours. Information on how to activate the Rapid Response Team has been discussed. Patient/Family are encouraged to report perceived risks to care and to ask questions if they do not understand what they are told or what they should do.
--- NOTE | 2020-06-30 20:17 | PM.IMHP ---
H&P: HPI History of Present Illness Date/Time: 06/30/20 20:17 patient was recently discahrged with diagnosis of aspiration pneumonia, altered mental status, back as patient has been refusing to take his medications or eat anything and has been coughing more. there is no reports of fever, chills. he was supposed to be startting his oral levaquin that was ordered. he is awake but non verbal, answers some questions. He is brought into the ED for further evaluation. NO furher history could be obtained from him due to his clnical condition. Chief Complaint: confusion Review of Systems Review of Systems: ROS unobtainable: Yes unobtainable due to medical condition and unobtainable due to mental status PMFSH Past Medical History Medical History Anxiety Benign essential hypertension BPH (benign prostatic hyperplasia) Colon cancer screening COPD (chronic obstructive pulmonary disease) GERD (gastroesophageal reflux disease) Hep C w/o coma, chronic History of CVA (cerebrovascular accident) Impaired functional mobility, balance, gait, and endurance Following CVA Metastatic lung cancer (metastasis from lung to other site) Nicotine abuse 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 The patient stated that he was in the [place]. He states that he still smokes about 3/4 of a pack a cigarettes a day. He tells me that his is the durable power staff attorney for healthcare. He is a full code. The patient is listed as disabled. Smoking packs per day: 1 Smoking cigarettes per day: 20.0 Years smoked: 40 Smoking pack-years: 40.00 Smoking status: Current every day smoker Alcohol intake: former Drinks per week: 42 Substance use: never Gender identity (if verbalized by the patient): Male Spiritual care concerns: No Meds Home Medications and Allergies Home Medications Medication Instructions Recorded Confirmed Type aspirin 81 mg tablet,delayed 81 mg PO DAILY 07/07/19 06/30/20 History release cyanocobalamin (vitamin B-12) 100 mcg PO DAILY 06/08/20 06/30/20 History ondansetron HCl 4 mg PO TID PRN 06/08/20 06/30/20 History pantoprazole 40 mg PO BID 06/08/20 06/30/20 History tamsulosin [Flomax] 0.4 mg PO DAILY 06/08/20 06/30/20 History acetaminophen [Mapap 650 mg PO Q4H PRN #10 tablet 06/11/20 06/30/20 Rx (acetaminophen)] alprazolam 0.25 mg PO TID PRN #10 tablet 06/26/20 06/30/20 Rx bacitracin 1 applic TOPICAL Q12HR #14 g 06/26/20 06/30/20 Rx levetiracetam 750 mg PO Q12HR #60 tablet 06/26/20 06/30/20 Rx levofloxacin 500 mg PO DAILY #3 tablet 06/26/20 06/30/20 Rx sodium bicarbonate 650 mg PO BID #30 tablet 06/26/20 06/30/20 Rx Allergies Allergy/AdvReac Type Severity Reaction Status Date / Time No Known Allergies Allergy Unverified 06/30/20 15:09 Vital Signs Vital Signs - 24 hr 06/30/20 15:02 06/30/20 15:08 06/30/20 16:26 Temperature 98.5 F Pulse Rate 103 H 104 H Respiratory Rate 17 20 Blood Pressure 153/98 H Pulse Oximetry 97 98 06/30/20 16:30 06/30/20 16:31 06/30/20 16:55 Temperature Pulse Rate 104 H 103 H 100 Respiratory Rate Blood Pressure 147/106 H Pulse Oximetry 99 97 99 06/30/20 17:00 06/30/20 17:01 06/30/20 17:15 Temperature Pulse Rate 103 H 98 98 Respiratory Rate Blood Pressure 144/101 H Pulse Oximetry 95 99 06/30/20 17:30 06/30/20 17:31 06/30/20 17:45 Temperature Pulse Rate 92 90 89 Respiratory Rate Blood Pressure 156/9
[2020-06-30] MEDS: SODIUM CHLORIDE 0.45% 1,000 ML 100 ML IV CONT (21:18)
[2020-06-30 21:23] LABS: Alveolar/Arterial O2 Gradient 49.5 mmHg; Base Excess ABG -6.7 mEq/l (+/-2.0); Fractional Inspired Oxygen 21 %; Oxygen Saturation ABG 94.8 % (95.0-100.0); Oxyhemoglobin 92.4 % THb (90.0-100.0); PCO2 ABG 25.1 mmHg (35.0-45.0); PO2 ABG 70.2 mmHg (80.0-100.0); PO2 FiO2 Ratio Arterial Blood 3.34 %; Total Hemoglobin 13.1 g/dL (12.0-18.0); pH ABG 7.423 (7.350-7.450)
[2020-06-30 21:25] LABS: Device ROOM AIR; Modified Allen's Test Pass; Site Drawn RIGHT RADIAL
[2020-06-30] MEDS: HEPARIN SODIUM 5,000 UNITS/ML VIAL 5000 UNITS SUB-Q (21:28)
[2020-06-30] MEDS: levETIRAcetam IV 750 MG in DEXTROSE 5% 100 ML 430 MG IVPB (21:32)
[2020-06-30] MEDS: BACITRACIN OINTMENT 15 GM TUBE 1 APPLIC TOPICAL (22:07)
[2020-06-30 22:47] LABS: Ammonia < 9 umol/L (9-30)
[2020-06-30 22:49] LABS: Glucose Point of Care 91 (65-105)
[2020-06-30 22:56] LABS: Anion Gap 17 mmol/L (8-16); Blood Urea Nitrogen 25 mg/dL (9-20); Carbon Dioxide 18 mmol/L (22-30); Chloride 114 mmol/L (98-107); Estimated CRCL calculation 24 ml/min; Estimated Glomerular Filt Rate 30; Glucose 106 mg/dL (75-110); Magnesium 1.7 mg/dL (1.6-2.3); Potassium 3.7 mmol/L (3.4-5.0); Sodium 149 mmol/L (137-145)
[2020-07-01] VITALS (14 sets, daily range): BP systolic 123–144; BP diastolic 60–71; PULSE 70–95; RESP 16–20; TEMP 36–36.6; O2SAT 95–100; BMI 18.3
[2020-07-01 01:36] LABS: Reflex Lactic Acid Yes or No Add Lactic
[2020-07-01 02:08] LABS: Lactic Acid 2.6 mmol/L (0.7-2.1)
[2020-07-01 05:54] LABS: Basophils Absolute Auto 0.1 K/mm3 (0.0-0.1); Basophils Percent Auto 0.6 % (0.2-1.2); Eosinophils Absolute Auto 0.1 K/mm3 (0-0.3); Eosinophils Percent Auto 0.5 % (0-4.4); Hematocrit 37.1 % (42.0-52.0); Hemoglobin 11.8 g/dL (14.0-18.0); Immature Granulocyte Absolute 0.12 K/mm3 (0.00-0.031); Immature Granulocyte Percent A 0.8 % (0-0.5); Lymphocytes Absolute Auto 0.81 K/mm3 (0.9-3.2); Lymphocytes Percent Auto 5.7 % (18.3-44.2); Mean Corpuscular HGB Conc 31.8 g/dl (32-36); Mean Corpuscular Hemoglobin 28.7 pg (26-34); Mean Corpuscular Volume 90.3 fl (80-100); Mean Platelet Volume 10.2 fl (7.4-10.4); Monocytes Absolute Auto 0.9 K/mm3 (0.1-0.6); Monocytes Percent Auto 6.4 % (2.6-8.5); Neutrophils Absolute Auto 12.2 K/mm3 (1.3-6.7); Platelet Count Result 239 k/mm3 (150-375); Red Blood Count 4.11 M/mm3 (4.6-6.20); Red Cell Distribution Width 22.5 % (11.5-14.5); White Blood Count 14.2 K/mm3 (4.5-10.0)
[2020-07-01 06:02] LABS: Potassium 3.1 mmol/L (3.4-5.0)
[2020-07-01 06:09] LABS: Alanine Aminotransferase 40 U/L (4-50); Albumin Level 3.6 g/dL (3.5-5.1); Alkaline Phosphatase 125 U/L (38-126); Anion Gap 13 mmol/L (8-16); Aspartate Amino Transferase 56 U/L (17-59); Bilirubin,Total 0.7 mg/dL (0.2-1.3); Blood Urea Nitrogen 23 mg/dL (9-20); Calcium 9.5 mg/dL (8.4-10.2); Carbon Dioxide 18 mmol/L (22-30); Chloride 117 mmol/L (98-107); Estimated CRCL calculation 24 ml/min; Estimated Glomerular Filt Rate 30; Glucose 82 mg/dL (75-110); Sodium 148 mmol/L (137-145)
[2020-07-01] MEDS: SODIUM CHLORIDE 0.45% 1,000 ML 100 ML IV CONT ×2 (07:37→23:45)
[2020-07-01] MEDS: BACITRACIN OINTMENT 15 GM TUBE 1 APPLIC TOPICAL ×2 (09:18→20:34)
[2020-07-01] MEDS: SODIUM BICARBONATE TAB 650 MG TABLET PO (09:18)
[2020-07-01] MEDS: PANTOPRAZOLE 40 MG TABLET PO (09:18)
[2020-07-01] MEDS: HEPARIN SODIUM 5,000 UNITS/ML VIAL 5000 UNITS SUB-Q ×2 (09:18→20:33)
[2020-07-01] MEDS: ASPIRIN 81 MG ENTERIC TABLET PO (09:18)
[2020-07-01] MEDS: TAMSULOSIN HCL 0.4 MG CAPSULE PO (09:19)
[2020-07-01] MEDS: levETIRAcetam IV 750 MG in DEXTROSE 5% 100 ML 430 MG IVPB ×2 (10:53→20:32)
[2020-07-01] MEDS: CYANOCOBALAMIN 250 MCG TABLET PO (12:21)
--- NOTE | 2020-07-01 13:13 | PM.IMPN ---
Progress Note: A&P Additional Plan # Altered sensorium: ?unclear etiology, recent admission with the same symptoms Seems to be improving Lactate improved has elevated wbc crp level hx of seizures as well noted refused to take any medications in the [place] EEG recently with organic or metabolic encephalopathy brain MRI recently with no acute stroke workup was done recently cxr with mass/pneumonia ct chest showed resolved pna # VIVIANE on CKD stage III baseline cr around ,currently in 2.3 continue IVF with 1/2 ns Monitor sodium level closely # Hypernatremia fluids changed to 1/2 NS monitor na leve # Recent aspiration pneumonia CXR with patchy opacities on the bases with elevated wbc count recent sputum culture positive for E coli pansensitive continue ceftriaxone for now ct chest Follow BC # elevated lipase recent pancreatitis no reports of abdominal pain or nausea, vomiting # seizure disorder Keppra 750 mg po bid switched to iv # hx of thrombocytopenia currently normal Monitor # Chronic anemia currently normal suggestive of hemoconcentration iv hydration and monitor counts # Acute COPD exacerbation Solumedrol, to taper Duo nebs Monitor r # HTN home meds # Hepatitis C check ammonia level # elevated liver enzymes recheck and monitor. check ammonia level # DVT ppx heparin sq Subjective Date/time seen: 07/01/20 13:13 Pt seen and evaluated; he's AOX2-3;+cough; he denies any GARCIA, dizziness, chills, CP, SOB, N/V/D or abdominal pain Review of Systems Review of Systems: All systems reviewed & are unremarkable except as noted in HPI and below Exam Narrative: Exam Narrative: Gen - NARD lying semi-recumbent in bed, opens eyes to verbal commands, follows some verbal commands, non verbal Chest - clear anteriorly and in the flanks, nml RR CV - RRR S1/S2; tele showing no significant dysrhythmias Abd - Soft, NT/ND, Positive BS Ext - no significant edema, no cyanosis or clubbing Neuro - awake, alert , non verbal, right arm with weakness and spastic upper extremity, aphasic Skin -warm and dry Objective Data Vital Signs Vital Signs: Vital Signs - 24 hr 06/30/20 15:02 06/30/20 15:08 06/30/20 16:26 Temperature 36.9 C Pulse Rate 103 H 104 H Respiratory Rate 17 20 Blood Pressure 153/98 H Pulse Oximetry 97 98 06/30/20 16:30 06/30/20 16:31 06/30/20 16:55 Temperature Pulse Rate 104 H 103 H 100 Respiratory Rate Blood Pressure 147/106 H Pulse Oximetry 99 97 99 06/30/20 17:00 06/30/20 17:01 06/30/20 17:15 Temperature Pulse Rate 103 H 98 98 Respiratory Rate Blood Pressure 144/101 H Pulse Oximetry 95 99 06/30/20 17:30 06/30/20 17:31 06/30/20 17:45 Temperature Pulse Rate 92 90 89 Respiratory Rate Blood Pressure 156/90 H Pulse Oximetry 06/30/20 18:07 06/30/20 19:25 06/30/20 20:00 Temperature 36.1 C L Pulse Rate 93 98 99 Respiratory Rate 18 16 Blood Pressure 132/80 129/88 Pulse Oximetry 99 100 06/30/20 22:12 07/01/20 00:00 07/01/20 02:34 Temperature 36.1 C L Pulse Rate 94 88 Respiratory Rate 16 Blood Pressure 131/86 134/61 Pulse Oximetry 100 100 07/01/20 04:00 07/01/20 05:54 07/01/20 08:00 Temperature 36.0 C L 36.6 C Pulse Rate 84 80 76 Respiratory Rate 16 20 Blood Pressure 128/62 135/70 Pulse Oximetry 100 100 07/01/20 10:43 Temperature Pulse Rate Respiratory Rate Blood Pressure Pulse Oximetry 98 Intake/Output Intake/Output: Intake & Output 06/28/20 06/29/20 06/30/20 07/01/20 23:59 23:59 23:59 23:59 Intake Total 157.5 1157.5 Balance 157.5 1157.5 Meds/Results Medications: Active Medications Generic Name Dose Route Start Last Admin Trade Name Freq PRN Reason Stop Dose Admin Acetaminophen 650 mg 06/30/20 20:23 Acetaminophen 325 Mg Tablet PO Q4H PRN Mild Pain (1-3) or Fever Alprazolam 0.25 mg 06/30/20 20:24 A
[2020-07-01] MEDS: IPRATROPIUM BR 0.02% INH SOLN 0.5 MG/2.5 ML VIAL INHALATION ×2 (15:16→19:56)
--- NOTE | 2020-07-01 15:19 | PCSTNOTE ---
Please refer to the Bedside Swallow Evaluation in the EMR. Please note, silent aspiration cannot be ruled out at bedside.
[2020-07-01] MEDS: methylPREDNISolone SOD SUCC 125 MG VIAL 80 MG IV PUSH ×2 (15:51→20:33)
[2020-07-02] VITALS (18 sets, daily range): BP systolic 114–142; BP diastolic 60–77; PULSE 69–92; RESP 14–20; TEMP 35.8–36.6; O2SAT 95–100
[2020-07-02] MEDS: IPRATROPIUM BR 0.02% INH SOLN 0.5 MG/2.5 ML VIAL INHALATION ×6 (01:00→20:21)
[2020-07-02] MEDS: ALBUTEROL SULFATE NEB 2.5 MG/3 ML INH 1.25 MG INHALATION ×2 (01:00→04:52)
[2020-07-02] MEDS: methylPREDNISolone SOD SUCC 125 MG VIAL 80 MG IV PUSH ×3 (05:59→19:59)
[2020-07-02] MEDS: ALBUTEROL SULFATE NEB 2.5 MG/0.5 ML INH INHALATION ×4 (07:31→20:21)
[2020-07-02] MEDS: SODIUM CHLORIDE 0.45% 1,000 ML 100 ML IV CONT ×2 (09:50→19:56)
[2020-07-02] MEDS: levETIRAcetam IV 750 MG in DEXTROSE 5% 100 ML 430 MG IVPB ×2 (09:51→19:57)
[2020-07-02] MEDS: HEPARIN SODIUM 5,000 UNITS/ML VIAL 5000 UNITS SUB-Q ×2 (09:51→19:59)
[2020-07-02] MEDS: BACITRACIN OINTMENT 15 GM TUBE 1 APPLIC TOPICAL ×2 (09:56→19:59)
[2020-07-02 10:21] LABS: Basophils Percent Auto 0.1 % (0.2-1.2); Hematocrit 29.4 % (42.0-52.0); Hemoglobin 9.7 g/dL (14.0-18.0); Immature Granulocyte Absolute 0.08 K/mm3 (0.00-0.031); Immature Granulocyte Percent A 0.9 % (0-0.5); Lymphocytes Absolute Auto 0.46 K/mm3 (0.9-3.2); Lymphocytes Percent Auto 5.1 % (18.3-44.2); Monocytes Absolute Auto 0.2 K/mm3 (0.1-0.6); Monocytes Percent Auto 1.7 % (2.6-8.5); Neutrophils Absolute Auto 8.4 K/mm3 (1.3-6.7); Neutrophils Percent Auto 92.2 % (45.5-73.1); Platelet Count Result 226 k/mm3 (150-375); Red Blood Count 3.34 M/mm3 (4.6-6.20); Red Cell Distribution Width 21.9 % (11.5-14.5); White Blood Count 9.1 K/mm3 (4.5-10.0)
[2020-07-02 10:33] LABS: Anion Gap 11 mmol/L (8-16); Blood Urea Nitrogen 19 mg/dL (9-20); Calcium 8.6 mg/dL (8.4-10.2); Carbon Dioxide 17 mmol/L (22-30); Chloride 115 mmol/L (98-107); Estimated CRCL calculation 31 ml/min; Estimated Glomerular Filt Rate 41; Glucose 122 mg/dL (75-110); Potassium 3.5 mmol/L (3.4-5.0); Sodium 143 mmol/L (137-145)
--- NOTE | 2020-07-02 12:52 | PCSTNOTE ---
Please refer to the Modified Barium Swallow Evaluation in the EMR.
--- NOTE | 2020-07-02 12:54 | PM.IMPN ---
Progress Note: A&P Assessment and Plan (1) Dysphagia: Code(s): R13.10 - Dysphagia, unspecified Status: Acute Additional Plan # Altered sensorium: ?unclear etiology, recent admission with the same symptoms Seems to be improving Lactate improved has elevated wbc crp level hx of seizures as well noted refused to take any medications in the [place] EEG recently with organic or metabolic encephalopathy brain MRI recently with no acute stroke workup was done recently cxr with mass/pneumonia ct chest showed resolved pna # VIVIANE on CKD stage III baseline cr appears to be around 1.3 ,2.3-->1.7-->today continue IVF with 1/2 ns Monitor sodium level closely # Hypernatremia Resolved Continue IVF for now Monitor na level # Recent aspiration pneumonia CXR with patchy opacities on the bases with elevated wbc count recent sputum culture positive for E coli pansensitive continue ceftriaxone for now ct chest Follow BC Check sputum culutre COVID results pending # elevated lipase recent pancreatitis no reports of abdominal pain or nausea, vomiting # dysphagia ST following, recommendations appreciated minced/moist diet Thickened liquids level 3 # seizure disorder Keppra 750 mg po bid switched to iv # hx of thrombocytopenia currently normal Monitor # Chronic anemia currently normal suggestive of hemoconcentration iv hydration and monitor counts # Acute COPD exacerbation Solumedrol, to taper Duo nebs Monitor # HTN home meds # Hepatitis C check ammonia level # elevated liver enzymes recheck and monitor. check ammonia level # DVT ppx heparin sq Subjective Date/time seen: 07/02/20 12:54 Pt seen and evaluated; denies any new complaints; continues with productive cough Exam Narrative: Exam Narrative: Gen - NARD lying semi-recumbent in bed, opens eyes to verbal commands, follows some verbal commands, non verbal Chest - clear anteriorly and in the flanks, nml RR CV - RRR S1/S2; tele showing no significant dysrhythmias Abd - Soft, NT/ND, Positive BS Ext - no significant edema, no cyanosis or clubbing Neuro - awake, alert , non verbal, right arm with weakness and spastic upper extremity, aphasic Skin -warm and dry Objective Data Vital Signs Vital Signs: Vital Signs - 24 hr 07/01/20 15:17 07/01/20 15:27 07/01/20 16:00 Temperature 36.4 C L Pulse Rate 84 91 80 Respiratory Rate 18 18 18 Blood Pressure 123/71 Pulse Oximetry 99 07/01/20 19:56 07/01/20 19:59 07/01/20 20:00 Temperature 36.6 C Pulse Rate 82 83 Respiratory Rate 18 16 Blood Pressure 144/60 H Pulse Oximetry 97 95 07/01/20 20:05 07/02/20 00:00 07/02/20 01:00 Temperature 36.5 C Pulse Rate 87 69 85 Respiratory Rate 18 18 18 Blood Pressure 142/66 H Pulse Oximetry 99 07/02/20 01:10 07/02/20 04:00 07/02/20 04:53 Temperature Pulse Rate 88 71 82 Respiratory Rate 18 20 Blood Pressure Pulse Oximetry 07/02/20 05:00 07/02/20 07:32 07/02/20 07:39 Temperature 36.6 C Pulse Rate 83 78 77 Respiratory Rate 14 18 16 Blood Pressure 114/66 Pulse Oximetry 100 07/02/20 08:00 07/02/20 12:00 Temperature 36.1 C L 35.8 C L Pulse Rate 80 86 Respiratory Rate 16 16 Blood Pressure 119/61 118/60 Pulse Oximetry 95 99 Intake/Output Intake/Output: Intake & Output 06/29/20 06/30/20 07/01/20 07/02/20 23:59 23:59 23:59 23:59 Intake Total 157.5 2415.0 1000 Balance 157.5 2415.0 1000 Meds/Results Medications: Active Medications Generic Name Dose Route Start Last Admin Trade Name Julioq PRN Reason Stop Dose Admin Acetaminophen 650 mg 06/30/20 20:23 Acetaminophen 325 Mg Tablet PO Q4H PRN Mild Pain (1-3) or Fever Albuterol 2.5 mg 07/02/20 08:00 07/02/20 07:31 Albuterol Sulfate Neb 2.5 Mg/0.5 Ml Inh INHALATION 2.5 mg Q4HRT BASILIA Administration Alprazolam 0.25 mg 06/30/20 20:24 Alprazolam (*Crx) 0.25 M
--- NOTE | 2020-07-02 13:07 | PCNFU ---
Nutrition Follow-Up Complete: Swallowing Difficulties as related to Dysphagia as evidenced by Speech eval. Goal: Meet estimated nutritional needs Progressing towards goal. We will continue current goal. Pt current nutrition is Minced and Moist, Level 5, Easy to Chew, Level 7 with Moderately Thick liquids, Level 3 Last recorded weight is 56.5 kg, no new weight to report. Bowel Motility: +BM reported 07/01 Labs Reviewed: 07/01 Na 148,BUN 23,Cr 2.2,K 3.1 Meds Noted:Rocephin,Heparin,Protonix,SoluMedrol,B12,Flomax Additional Notes: Nutrition follow up. Patient had MBS today recommending Minced and Moist, Level 5 with Moderately Thick liquids, Level 3. MD orders for Frozen Nutritional Treat providing an additional 300 kcals and 9 gms protein. Will continue to monitor po intake. Monitoring: Will monitor every 3 days.
[2020-07-02] MEDS: PANTOPRAZOLE 40 MG TABLET PO ×2 (14:50→17:27)
[2020-07-02] MEDS: SODIUM BICARBONATE TAB 650 MG TABLET PO ×2 (14:50→17:27)
[2020-07-02] MEDS: TAMSULOSIN HCL 0.4 MG CAPSULE PO (14:51)
[2020-07-02 18:42] LABS: SARS-CoV-2 RNA PCR Negative
[2020-07-03] VITALS (21 sets, daily range): BP systolic 102–132; BP diastolic 47–84; PULSE 63–87; RESP 16–20; TEMP 35.9–36.5; O2SAT 93–99
[2020-07-03] MEDS: IPRATROPIUM BR 0.02% INH SOLN 0.5 MG/2.5 ML VIAL INHALATION ×5 (04:20→20:07)
[2020-07-03] MEDS: ALBUTEROL SULFATE NEB 2.5 MG/0.5 ML INH INHALATION ×5 (04:20→20:07)
[2020-07-03 05:41] LABS: Anion Gap 9 mmol/L (8-16); Blood Urea Nitrogen 18 mg/dL (9-20); Calcium 8.5 mg/dL (8.4-10.2); Carbon Dioxide 19 mmol/L (22-30); Chloride 116 mmol/L (98-107); Estimated CRCL calculation 33 ml/min; Estimated Glomerular Filt Rate 43; Glucose 134 mg/dL (75-110); Potassium 2.9 mmol/L (3.4-5.0); Sodium 144 mmol/L (137-145)
[2020-07-03 05:53] LABS: Basophils Percent Auto 0.1 % (0.2-1.2); Hematocrit 28.1 % (42.0-52.0); Hemoglobin 9.1 g/dL (14.0-18.0); Immature Granulocyte Absolute 0.12 K/mm3 (0.00-0.031); Immature Granulocyte Percent A 1.7 % (0-0.5); Lymphocytes Absolute Auto 0.49 K/mm3 (0.9-3.2); Lymphocytes Percent Auto 7.1 % (18.3-44.2); Mean Corpuscular HGB Conc 32.4 g/dl (32-36); Mean Corpuscular Hemoglobin 28.9 pg (26-34); Mean Corpuscular Volume 89.2 fl (80-100); Mean Platelet Volume 10.2 fl (7.4-10.4); Monocytes Absolute Auto 0.2 K/mm3 (0.1-0.6); Monocytes Percent Auto 3.5 % (2.6-8.5); Neutrophils Percent Auto 87.6 % (45.5-73.1); Platelet Count Result 254 k/mm3 (150-375); Red Blood Count 3.15 M/mm3 (4.6-6.20); Red Cell Distribution Width 21.8 % (11.5-14.5); White Blood Count 6.9 K/mm3 (4.5-10.0)
[2020-07-03] MEDS: methylPREDNISolone SOD SUCC 125 MG VIAL 80 MG IV PUSH (06:01)
[2020-07-03] MEDS: SODIUM CHLORIDE 0.45% 1,000 ML 100 ML IV CONT ×2 (06:02→21:28)
[2020-07-03] MEDS: ASPIRIN 81 MG ENTERIC TABLET PO (08:42)
[2020-07-03] MEDS: CYANOCOBALAMIN 250 MCG TABLET PO (08:42)
[2020-07-03] MEDS: TAMSULOSIN HCL 0.4 MG CAPSULE PO (08:42)
[2020-07-03] MEDS: BACITRACIN OINTMENT 15 GM TUBE 1 APPLIC TOPICAL ×2 (08:42→20:43)
[2020-07-03] MEDS: SODIUM BICARBONATE TAB 650 MG TABLET PO ×2 (08:43→16:16)
[2020-07-03] MEDS: levETIRAcetam IV 750 MG in DEXTROSE 5% 100 ML 430 MG IVPB ×2 (08:43→20:43)
[2020-07-03] MEDS: PANTOPRAZOLE 40 MG TABLET PO ×2 (08:43→16:16)
[2020-07-03] MEDS: HEPARIN SODIUM 5,000 UNITS/ML VIAL 5000 UNITS SUB-Q ×2 (08:44→20:43)
--- NOTE | 2020-07-03 11:20 | PM.IMPN ---
Progress Note: A&P Assessment and Plan (1) Dysphagia: Code(s): R13.10 - Dysphagia, unspecified Status: Acute Additional Plan # Altered sensorium: ?unclear etiology, recent admission with the same symptoms Seems to be improving Lactate improved has elevated wbc crp level hx of seizures as well noted refused to take any medications in the [place] EEG recently with organic or metabolic encephalopathy brain MRI recently with no acute stroke workup was done recently cxr with mass/pneumonia ct chest showed resolved pna # VIVIANE on CKD stage III baseline cr appears to be around 1.3 ,2.3-->1.7-->today continue IVF with 1/2 ns Monitor sodium level closely # Hypernatremia Resolved Continue IVF for now Monitor na level # Recent aspiration pneumonia CXR with patchy opacities on the bases with elevated wbc count recent sputum culture positive for E coli pansensitive continue ceftriaxone for now ct chest Follow BC Sputum culture pending COVID results negative # elevated lipase recent pancreatitis no reports of abdominal pain or nausea, vomiting # dysphagia ST following, recommendations appreciated minced/moist diet Thickened liquids level 3 # seizure disorder Keppra 750 mg po bid switched to iv # hx of thrombocytopenia currently normal Monitor # Chronic anemia currently normal suggestive of hemoconcentration iv hydration and monitor counts # Acute COPD exacerbation Solumedrol, to taper Duo nebs Monitor # HTN home meds # Hepatitis C check ammonia level # elevated liver enzymes recheck and monitor. check ammonia level # DVT ppx heparin sq Subjective Date/time seen: 07/03/20 11:20 Altered sensorium Pt appears to be improving Review of Systems Review of Systems: All systems reviewed & are unremarkable except as noted in HPI and below ROS unobtainable: Yes unobtainable due to medical condition and unobtainable due to mental status Exam Narrative: Exam Narrative: Gen - NARD lying semi-recumbent in bed, opens eyes to verbal commands, follows some verbal commands, non verbal Chest - clear anteriorly and in the flanks, nml RR CV - RRR S1/S2; tele showing no significant dysrhythmias Abd - Soft, NT/ND, Positive BS Ext - no significant edema, no cyanosis or clubbing Neuro - awake, alert , non verbal, right arm with weakness and spastic upper extremity, aphasic Skin -warm and dry Objective Data Vital Signs Vital Signs: Vital Signs - 24 hr 07/02/20 12:00 07/02/20 13:11 07/02/20 13:17 Temperature 35.8 C L Pulse Rate 92 87 77 Respiratory Rate 16 18 18 Blood Pressure 118/60 Pulse Oximetry 99 07/02/20 15:39 07/02/20 15:44 07/02/20 16:00 Temperature 36.2 C L Pulse Rate 79 83 85 Respiratory Rate 18 18 16 Blood Pressure 122/67 Pulse Oximetry 98 07/02/20 20:00 07/02/20 20:21 07/02/20 20:30 Temperature 36.2 C L Pulse Rate 73 80 88 Respiratory Rate 18 18 18 Blood Pressure 123/77 Pulse Oximetry 100 07/03/20 00:00 07/03/20 01:32 07/03/20 04:00 Temperature 36.1 C L 35.9 C L Pulse Rate 82 86 86 Respiratory Rate 16 18 Blood Pressure 121/75 119/84 Pulse Oximetry 99 97 07/03/20 04:20 07/03/20 04:28 07/03/20 09:46 Temperature Pulse Rate 71 74 76 Respiratory Rate 18 18 18 Blood Pressure Pulse Oximetry 07/03/20 09:56 07/03/20 09:57 07/03/20 10:00 Temperature 36.4 C Pulse Rate 76 83 Respiratory Rate 18 16 Blood Pressure 132/69 Pulse Oximetry 97 97 Intake/Output Intake/Output: Intake & Output 06/30/20 07/01/20 07/02/20 07/03/20 23:59 23:59 23:59 23:59 Intake Total 157.5 2415.0 2385.0 1307.5 Output Total 0 Balance 157.5 2415.0 2385.0 1307.5 Meds/Results Medications: Active Medications Generic Name Dose Route Start Last Admin Trade Name Delon PRN Reason Stop Dose Admin Acetaminophen 650 mg 06/30/20 20:23 Acetaminophen 325 Mg Tablet PO Q4H P
[2020-07-03] MEDS: methylPREDNISolone SOD SUCC 125 MG VIAL 60 MG IV PUSH ×2 (13:16→21:26)
[2020-07-04] VITALS (19 sets, daily range): BP systolic 125–152; BP diastolic 49–89; PULSE 63–86; RESP 16–20; TEMP 36.3–36.8; O2SAT 93–99
[2020-07-04] MEDS: ALBUTEROL SULFATE NEB 2.5 MG/0.5 ML INH INHALATION ×5 (01:15→20:00)
[2020-07-04] MEDS: IPRATROPIUM BR 0.02% INH SOLN 0.5 MG/2.5 ML VIAL INHALATION ×5 (01:15→20:00)
[2020-07-04] MEDS: methylPREDNISolone SOD SUCC 125 MG VIAL 60 MG IV PUSH ×2 (05:18→13:17)
[2020-07-04 05:48] LABS: Basophils Percent Auto 0.1 % (0.2-1.2); Hematocrit 27.5 % (42.0-52.0); Immature Granulocyte Absolute 0.38 K/mm3 (0.00-0.031); Immature Granulocyte Percent A 5.5 % (0-0.5); Lymphocytes Absolute Auto 0.45 K/mm3 (0.9-3.2); Lymphocytes Percent Auto 6.5 % (18.3-44.2); Mean Corpuscular HGB Conc 32.7 g/dl (32-36); Mean Corpuscular Volume 85.7 fl (80-100); Mean Platelet Volume 10.3 fl (7.4-10.4); Monocytes Absolute Auto 0.4 K/mm3 (0.1-0.6); Monocytes Percent Auto 5.1 % (2.6-8.5); Neutrophils Absolute Auto 5.7 K/mm3 (1.3-6.7); Neutrophils Percent Auto 82.8 % (45.5-73.1); Platelet Count Result 291 k/mm3 (150-375); Red Blood Count 3.21 M/mm3 (4.6-6.20); Red Cell Distribution Width 21.3 % (11.5-14.5); White Blood Count 6.9 K/mm3 (4.5-10.0)
[2020-07-04 06:21] LABS: Anion Gap 7 mmol/L (8-16); Blood Urea Nitrogen 18 mg/dL (9-20); Calcium 8.5 mg/dL (8.4-10.2); Carbon Dioxide 21 mmol/L (22-30); Chloride 116 mmol/L (98-107); Estimated CRCL calculation 35 ml/min; Estimated Glomerular Filt Rate 47; Glucose 98 mg/dL (75-110); Potassium 3.3 mmol/L (3.4-5.0); Sodium 144 mmol/L (137-145)
[2020-07-04] MEDS: SODIUM CHLORIDE 0.45% 1,000 ML 100 ML IV CONT ×2 (08:10→17:47)
[2020-07-04] MEDS: levETIRAcetam IV 750 MG in DEXTROSE 5% 100 ML 430 MG IVPB ×2 (08:14→21:17)
[2020-07-04] MEDS: ASPIRIN 81 MG ENTERIC TABLET PO (08:16)
[2020-07-04] MEDS: BACITRACIN OINTMENT 15 GM TUBE 1 APPLIC TOPICAL ×2 (08:17→21:16)
[2020-07-04] MEDS: TAMSULOSIN HCL 0.4 MG CAPSULE PO (08:17)
[2020-07-04] MEDS: PANTOPRAZOLE 40 MG TABLET PO ×2 (08:17→21:16)
[2020-07-04] MEDS: SODIUM BICARBONATE TAB 650 MG TABLET PO ×2 (08:17→21:16)
[2020-07-04] MEDS: HEPARIN SODIUM 5,000 UNITS/ML VIAL 5000 UNITS SUB-Q ×2 (08:19→21:16)
--- NOTE | 2020-07-04 13:10 | P.PNIM_ITS ---
Progress Note: A&P Assessment and Plan (1) Acute hypernatremia: Code(s): E87.0 - Hyperosmolality and hypernatremia Status: Acute Assessment and Plan: * Problem is corrected * Sodium was within range of 144 * Patient on half-normal saline 50 an hour (2) Aspiration pneumonia: Code(s): J69.0 - Pneumonitis due to inhalation of food and vomit Status: Acute Assessment and Plan: * White blood cell count is 6.9 * No growth indicated on blood cultures * Will DC antibiotics for now (3) Acute dehydration: Code(s): E86.0 - Dehydration Status: Acute Assessment and Plan: * Patient has been NPO * Speech therapy evaluated and gave recommendations * Half-normal saline going at 50 an hour * Encourage p.o. intake (4) Elevated liver enzymes: Code(s): R74.8 - Abnormal levels of other serum enzymes Status: Chronic Assessment and Plan: * Problem has resolved * AST is 56 and ALT is 40 * Will repeat liver enzymes tomorrow (5) Altered mental status: Qualifiers: Altered mental status type: unspecified Qualified Code(s): R41.82 - Altered mental status, unspecified Code(s): R41.82 - Altered mental status, unspecified Status: Acute Assessment and Plan: * Came in with altered mental status * Ammonia less than 9 * Sodium today was 144 * Patient seen to answer questions appropriately * Will continue to trend symptoms (6) Physical debility: Code(s): R53.81 - Other malaise Status: Acute Assessment and Plan: * Patient seems to be contracted * Will order PT/OT (7) Seizure disorder: Code(s): G40.909 - Epilepsy, unspecified, not intractable, without status epilepticus Status: Chronic Assessment and Plan: * Keppra 750mg PO BID * Seizure precautions Time Spent With Patient Time with patient: 25 - 35 minutes Subjective Date/time seen: 07/04/20 13:10 Patient is 65-year-old male who came to the emergency room for aspiration pneumonia altered mental status and noncompliance. Patient has been put on IV antibiotics and steroids. He has also had a speech eval provided recommendations for intake. At present time patient denies chest pain shortness of breath nausea vomiting abdominal pain numbness tingling or weakness fatigue. Patient is apprehensive to respond and only responds only wants to when asked about how he feels he said he feels pretty good however asking him certain symptoms he would not respond. Patient denies having any pain. When asked about Eating he stated well that we should eat. Explained to patient that I would look over his care of plan and let him know the plan for today no questions for the patient patient verbalized understanding. Review of Systems Review of Systems: ROS unobtainable: Yes unobtainable due to medical condition and unobtainable due to mental status Exam Const: General: no acute distress, alert, awake and ill appearing Nutritional Appearance: cachectic, malnourished and thin Orientation/consciousness: Other orientation findings (Unable to assess due to mental status) Limitations: no limitations HENMT: Ears: TM's normal bilaterally Eyes: General: appearance normal, both eyes and all related structures Visual Peck: normal visual peck by confrontation Eyelids: eyelids normal Conjunctiva
--- NOTE | 2020-07-04 13:10 | PM.IMPN ---
Progress Note: A&P Assessment and Plan (1) Acute hypernatremia: Code(s): E87.0 - Hyperosmolality and hypernatremia Status: Acute Assessment and Plan: Problem is corrected Sodium was within range of 144 Patient on half-normal saline 50 an hour (2) Aspiration pneumonia: Code(s): J69.0 - Pneumonitis due to inhalation of food and vomit Status: Acute Assessment and Plan: White blood cell count is 6.9 No growth indicated on blood cultures Will DC antibiotics for now (3) Acute dehydration: Code(s): E86.0 - Dehydration Status: Acute Assessment and Plan: Patient has been NPO Speech therapy evaluated and gave recommendations Half-normal saline going at 50 an hour Encourage p.o. intake (4) Elevated liver enzymes: Code(s): R74.8 - Abnormal levels of other serum enzymes Status: Chronic Assessment and Plan: Problem has resolved AST is 56 and ALT is 40 Will repeat liver enzymes tomorrow (5) Altered mental status: Qualifiers: Altered mental status type: unspecified Qualified Code(s): R41.82 - Altered mental status, unspecified Code(s): R41.82 - Altered mental status, unspecified Status: Acute Assessment and Plan: Came in with altered mental status Ammonia less than 9 Sodium today was 144 Patient seen to answer questions appropriately Will continue to trend symptoms (6) Physical debility: Code(s): R53.81 - Other malaise Status: Acute Assessment and Plan: Patient seems to be contracted Will order PT/OT (7) Seizure disorder: Code(s): G40.909 - Epilepsy, unspecified, not intractable, without status epilepticus Status: Chronic Assessment and Plan: Keppra 750mg PO BID Seizure precautions Time Spent With Patient Time with patient: 25 - 35 minutes Subjective Date/time seen: 07/04/20 13:10 Patient is 65-year-old male who came to the emergency room for aspiration pneumonia altered mental status and noncompliance. Patient has been put on IV antibiotics and steroids. He has also had a speech eval provided recommendations for intake. At present time patient denies chest pain shortness of breath nausea vomiting abdominal pain numbness tingling or weakness fatigue. Patient is apprehensive to respond and only responds only wants to when asked about how he feels he said he feels pretty good however asking him certain symptoms he would not respond. Patient denies having any pain. When asked about Eating he stated well that we should eat. Explained to patient that I would look over his care of plan and let him know the plan for today no questions for the patient patient verbalized understanding. Review of Systems Review of Systems: ROS unobtainable: Yes unobtainable due to medical condition and unobtainable due to mental status Exam Const: General: no acute distress, alert, awake and ill appearing Nutritional Appearance: cachectic, malnourished and thin Orientation/consciousness: Other orientation findings (Unable to assess due to mental status) Limitations: no limitations HENMT: Ears: TM's normal bilaterally Eyes: General: appearance normal, both eyes and all related structures Visual Peck: normal visual peck by confrontation Eyelids: eyelids normal Conjunctivae: conjunctivae normal EOM: EOMs intact bilaterally Neck: Neck: normal visual inspection, full ROM, trachea midline, supple and no JVD Thyroid: thyroid normal Carotids: normal carotid upstroke Lymphatic: no lymphadenopathy noted Resp: Effort & Inspection: able to speak in complete sentences and symmetric chest movement Auscultation: diminished lung sounds Cardio: Rate: regular rate Rhythm: regular rhythm GI: Inspection: non-distended GI Palp: Yes Soft to palpation and No Tenderness to palpation present (GI) Auscultation: Hypoactive bowel so
[2020-07-04] MEDS: POTASSIUM CHLORIDE 20 MEQ PACKET (FOR LIQUID) 40 MEQ PO (13:16)
--- NOTE | 2020-07-04 17:53 | PC.NURSE ---
at bedside, pt is refusing to wake up and take PO meds at this time, will continue to monitor
[2020-07-04] MEDS: methylPREDNISolone SOD SUCC 40 MG VIAL IV PUSH (21:16)
[2020-07-05] VITALS (7 sets, daily range): BP systolic 110–147; BP diastolic 66–72; PULSE 50–71; RESP 18–24; TEMP 36–36.6; O2SAT 97–100
[2020-07-05] MEDS: IPRATROPIUM BR 0.02% INH SOLN 0.5 MG/2.5 ML VIAL INHALATION ×2 (01:58→07:58)
[2020-07-05] MEDS: ALBUTEROL SULFATE NEB 2.5 MG/0.5 ML INH INHALATION ×2 (01:58→07:58)
[2020-07-05] MEDS: SODIUM CHLORIDE 0.45% 1,000 ML 50 ML IV CONT (04:04)
[2020-07-05 05:35] LABS: Hematocrit 29.5 % (42.0-52.0); Hemoglobin 9.4 g/dL (14.0-18.0); Mean Corpuscular HGB Conc 31.9 g/dl (32-36); Mean Corpuscular Hemoglobin 28.5 pg (26-34); Mean Corpuscular Volume 89.4 fl (80-100); Mean Platelet Volume 10.2 fl (7.4-10.4); Platelet Count Result 249 k/mm3 (150-375); Red Cell Distribution Width 21.3 % (11.5-14.5); White Blood Count 8.5 K/mm3 (4.5-10.0)
[2020-07-05 05:48] LABS: Alanine Aminotransferase 55 U/L (4-50); Albumin Level 3.2 g/dL (3.5-5.1); Alkaline Phosphatase 82 U/L (38-126); Anion Gap 6 mmol/L (8-16); Aspartate Amino Transferase 61 U/L (17-59); Bilirubin,Total 0.4 mg/dL (0.2-1.3); Blood Urea Nitrogen 17 mg/dL (9-20); Calcium 8.3 mg/dL (8.4-10.2); Carbon Dioxide 22 mmol/L (22-30); Chloride 114 mmol/L (98-107); Estimated CRCL calculation 37 ml/min; Estimated Glomerular Filt Rate 51; Glucose 98 mg/dL (75-110); Magnesium 1.4 mg/dL (1.6-2.3); Phosphorus 2.6 mg/dL (2.5-4.5); Potassium 3.4 mmol/L (3.4-5.0); Sodium 142 mmol/L (137-145)
[2020-07-05] MEDS: MAGNESIUM SULF 2 GM/WATER 50ML 2 GM/50 ML BAG IVPB (08:14)
[2020-07-05] MEDS: POTASSIUM CHLORIDE 20 MEQ PACKET (FOR LIQUID) 40 MEQ PO (08:14)
[2020-07-05] MEDS: methylPREDNISolone SOD SUCC 40 MG VIAL IV PUSH (08:25)
[2020-07-05] MEDS: PANTOPRAZOLE 40 MG TABLET PO (08:26)
[2020-07-05] MEDS: ASPIRIN 81 MG ENTERIC TABLET PO (08:26)
[2020-07-05] MEDS: TAMSULOSIN HCL 0.4 MG CAPSULE PO (08:26)
[2020-07-05] MEDS: BACITRACIN OINTMENT 15 GM TUBE 1 APPLIC TOPICAL (08:26)
[2020-07-05] MEDS: HEPARIN SODIUM 5,000 UNITS/ML VIAL 5000 UNITS SUB-Q (08:26)
[2020-07-05] MEDS: CYANOCOBALAMIN 250 MCG TABLET PO (08:26)
[2020-07-05] MEDS: SODIUM BICARBONATE TAB 650 MG TABLET PO (08:26)
--- NOTE | 2020-07-05 09:40 | PM.IMPN ---
Subjective Date/time seen: 07/05/20 09:40 Patient is 65-year-old male who originally came in for altered mental status and aspiration pneumonia. Since then patient was on ceftriaxone which was DC'd yesterday. Initial exam yesterday patient was still confused and would only answer certain questions. Patient was rejected the afternoon patient was a lot better responsive talking and answering questions. Per nursing staff patient was very active and aggressively verbal. Today patient was smiling he knew his name. Patient denied chest pain, shortness of breath, nausea vomiting, numbness and tingling, diarrhea, constipation, lightheadedness, fatigue, or any generalized pain. Patient did say that he was eating and felt a whole lot better. Patient also seems to be at baseline with interaction in conversation. Currently patient is on a thickened liquid and minced moist a diet. Patient is able to sit up and upon exiting was watching TV. Patient is admitted to a productive cough which he states is normal. Labs a.m. showed low magnesium and potassium which were both replaced. WBC had a slight elevation to 8.6. Sodium remains stable at 142 to half-normal saline was turned off. PT and OT is scheduled to work with this patient. Talk to case management today about possible discharge and placement. Will follow-up with them. Review of Systems Review of Systems: All systems reviewed & are unremarkable except as noted in HPI and below Exam Const: General: cooperative, no acute distress, alert, awake, Physically active and other (smily and appropiate) Nutritional Appearance: cachectic, malnourished and thin Orientation/consciousness: oriented to person and Other orientation findings (Unable to assess due to mental status) Limitations: no limitations HENMT: Head: normal to inspection Ears: TM's normal bilaterally General nose exam: Normal external nose present Teeth and gingiva: abnormal tooth and associated gingiva and poor dentition Eyes: General: appearance normal, both eyes and all related structures Eyelids: eyelids normal Conjunctivae: conjunctivae normal EOM: EOMs intact bilaterally Neck: Neck: no JVD Resp: Effort & Inspection: able to speak in complete sentences, Actively coughing productive and symmetric chest movement Auscultation: rhonchi Cardio: Rate: regular rate Rhythm: regular rhythm GI: Inspection: non-distended GI Palp: Yes Soft to palpation and No Tenderness to palpation present (GI) Auscultation: normal bowel sounds Skin: General skin exam: pallor Lesions: no lesions Rashes: no rashes Trauma: no lacerations or abrasions Wounds: no wounds Hair: brittle, general thinning and male pattern alopecia Nails: normal Neuro: General: oriented to person and CN's II-XI intact bilaterally Cranial nerves: Yes CN's II-XII intact bilaterally Speech: normal speech Gait exam (Neuro): Unable to assess gait and Ataxic gait present Extrem: General: normal to inspection and full ROM Right upper extremity: normal to inspection, full ROM and normal capillary refill Left upper extremity: normal to inspection, full ROM and normal capillary refill Right lower extremity: normal to inspection and full ROM Left lower extremity: normal to inspection, full ROM and normal capillary refill Psych: Appearance: grossly normal Mental Status: mental status grossly normal Speech and movement: Normal speech and movement present Affect: normal affect Attitude: cooperative Objective Data Vital Signs Vital Signs: Vital Signs - 24 hr 07/04/20 10:00 07/04/20 12:00 07/04/20 14:00 Temperature 36.8 C 36.3 C L Pulse Rate 71 75 77 Respiratory Rate 18 18 Blood Pressure 125/50 L 150/89 H Pulse Oximetry 96 96 07/04/20 14:13 07/04/20 16:00 07/04/20 19:40 Temperature 36.8 C 36.7 C Pulse Rate 76 85 73 Respiratory Rate 18 18 20 Blood Pressure 152/89 H 143/49 H Pulse Oximetry 96 99 07/04/20 20:00 07/04/20 20:03 07/04/20 20:09 Temperature
[2020-07-05] MEDS: levETIRAcetam IV 750 MG in DEXTROSE 5% 100 ML 430 MG IVPB (10:03)
--- NOTE | 2020-07-05 11:32 | PM.DS ---
DS: Admitting Diagnosis Admitting Diagnosis Admitting Diagnosis: Altered mental status DS: Discharge Diagnosis Discharge Diagnosis (1) Seizure disorder: Code(s): G40.909 - Epilepsy, unspecified, not intractable, without status epilepticus Status: Chronic Assessment and Plan: Keppra 750mg PO BID Seizure precautions (2) Aspiration pneumonia: Code(s): J69.0 - Pneumonitis due to inhalation of food and vomit Status: Acute Assessment and Plan: White blood cell count is 8.5 No growth indicated on blood cultures Ceftriaxone for 3 days (3) Acute hypernatremia: Code(s): E87.0 - Hyperosmolality and hypernatremia Status: Acute Assessment and Plan: Problem is corrected Sodium was within range of 142 Stop half-normal saline 50 ml/hr (4) Acute dehydration: Code(s): E86.0 - Dehydration Status: Acute Assessment and Plan: Patient has been NPO Speech therapy evaluated and gave recommendations Encourage p.o. intake (5) Elevated liver enzymes: Code(s): R74.8 - Abnormal levels of other serum enzymes Status: Chronic Assessment and Plan: Problem has resolved AST is 61 and ALT is 55 which appears to be better than baseline (6) Altered mental status: Qualifiers: Altered mental status type: unspecified Qualified Code(s): R41.82 - Altered mental status, unspecified Code(s): R41.82 - Altered mental status, unspecified Status: Acute Assessment and Plan: Came in with altered mental status Ammonia less than 9 Sodium today was 142 Patient seen and answered questions appropriately Patient up in chair. Talks in complete symptoms. Feeds self. (7) Physical debility: Code(s): R53.81 - Other malaise Status: Acute Assessment and Plan: Patient is up to chair PT/OT DS: Summary Hospital Course Reason for hospitalization: Altered mental status Hospital Course: Patient is 65-year-old male with a past medical history of aspiration PNA, seizures, and HTN who originally came in for altered mental status and aspiration pneumonia. Since then patient was on ceftriaxone which was DC'd yesterday. Initial exam yesterday patient was still confused and would only answer certain questions. Patient was re-examined in the afternoon which patient was a lot better responsive talking and answering questions. Per nursing staff patient was very active and aggressively verbal. Today patient was smiling up in a chair feeding himself. Patient denied chest pain, shortness of breath, nausea vomiting, numbness and tingling, diarrhea, constipation, lightheadedness, fatigue, or any generalized pain. Patient did say that he felt a whole lot better. Patient also seems to be at baseline with interaction in conversation. Currently patient is on a thickened liquid and minced moist a diet. Patient is able to sit up and upon exiting was watching TV. Patient admitted to a productive cough which he states is normal. Time spent discussing smoking cessation with patient: 3 to 10 minutes Status at Discharge Cognitive/behavioral status at discharge: Pleasant Functional status at discharge: wheelchair bound Overall status at discharge: patient is progressing back to baseline Time Spent with Patient Time attestation: Total time spent providing and/or coordinating discharge services: 46 minutes Greater than 30 minutes for care coordination, nursing updates, and family discussion. Time spent: Greater than 30 minutes Exam Const: General: cooperative, healthy appearing, comfortable, no acute distress, alert, awake, Physically active and other (smily and appropiate) Nutritional Appearance: average body habitus, cachectic, malnourished and thin Orientation/consciousness: oriented to person and Other orientation findings (Unable to assess due to mental status) [place]
== END 2020-07-05 13:38 | DRG 178 ==
LOC: ANHED 18:06 → ANH2MED 18:13
PROVIDERS: Emergency Medicine Emergency Medical Services; Internal Medicine; Nurse Practitioner Adult Health; Admitting Provider Hospitalist; Emergency Provider Emergency Medicine; PCP Internal Medicine; Visit Provider Nurse Practitioner
DX: J69.0 Pneumonitis due to inhalation of food and vomit (principal); E87.0 Hyperosmolality and hypernatremia; N17.9 Acute kidney failure, unspecified; J44.1 Chronic obstructive pulmonary disease with (acute) exacerbation; E86.0 Dehydration; I12.9 Hypertensive chronic kidney disease with stage 1 through stage 4 chronic kidney disease, or unspecified chronic kidney disease; N18.30 Chronic kidney disease, stage 3 unspecified; G40.909 Epilepsy, unspecified, not intractable, without status epilepticus; D64.9 Anemia, unspecified; R13.10 Dysphagia, unspecified; Z20.822 Contact with and (suspected) exposure to COVID-19
CPT/HCPCS: 36415; 36600; 71045; 71250; 80048; 80053; 80076; 81001; 82140; 82550; 82805; 82948; 83605; 83690; 83735; 84100; 85025; 85027; 85610; 85730; 86140; 87040; 92526; 92610; 92611; 93005; 94640; 96361; 96365; 96366; 96367; 96372; 96375; 96376; 97161; 97165; 99285; A9270; C9803; G0378; J0696; J1644; J1953; J2920; J2930; J3475; J3480; J7030; U0003; U0005

== ENCOUNTER 2020-12-13 18:44 | Emergency (ER) | payer OTHER, SELFPAY ==
--- NOTE | ~2020-12-13 | CT_ITS ---
EXAMINATION: CT brain wo con INDICATION: Head injury COMPARISON: 06/21/2020 TECHNIQUE: Standard unenhanced head CT. The dose-length product (DLP) was 605.33 mGy-cm. The mA was a djusted according to patient size. Iterative reconstruction technique was employed. FINDINGS: There are punctate foci of acute hemorrhage in the right temporal lobe.. No evidence of mas s lesion. No evidence of acute infarction. There is chronic encephalomalacia in the frontal lobes and the right temporal lobe. There is mild periventricular and subcortical hypodensity probably related to small vessel ischemic disease. There is mild prominence of the sulci and ventricles related to cer ebral atrophy. Intracranial calcified cerebral atherosclerosis is noted. There are no extra-axial col lections. There is no mass effect or midline shift. Changes of right temporal craniotomy are noted. T he orbits and soft tissues are unremarkable. The visualized sinuses and mastoid air cells are well ae rated. IMPRESSION: 1. Acute intraparenchymal hemorrhage in the right temporal lobe. These findings were discussed with Saroj Long DO in the Emergency Department at 2215 hours on 12/13/2020. 2. Age related findings. Reviewed, dictated and finalized at location A. IMPRESSION: 1. Acute intraparenchymal hemorrhage in the right temporal lobe. These findings were discussed with Dr. Louie Long DO in the Emergency Department at 2 215 hours on 12/13/2020. 2. Age related findings.
--- NOTE | ~2020-12-13 | XR_ITS ---
EXAMINATION: XR chest 1V portable INDICATION: Transient alteration of awareness TECHNIQUE: Portable AP chest at 2133 hours COMPARISON: 06/30/2020 FINDINGS: The lungs are free of acute opacities. There is no pleural effusion or pneumothorax. There is mild elevation of the right hemidiaphragm. The cardiomediastinal silhouette is normal. IMPRESSION: 1. No acute cardiopulmonary abnormality. Reviewed, dictated and finalized at location A.
--- NOTE | ~2020-12-13 | CT_ITS ---
EXAMINATION: CT cervical spine wo con DATE: 12/13/2020 22:06 INDICATION: Head injury TECHNIQUE: Computed tomography (CT) of the cervical spine was performed without intravenous contrast. The dose-length product (DLP) was 197.86 mGy-cm. Automated exposure control and iterative reconstruc tion technique were employed. COMPARISON: None FINDINGS: No fracture is identified. The vertebral body heights and alignment are maintained. There i s moderate loss of intervertebral disc space height from C3-4 through C5-6. The odontoid is intact. T he prevertebral soft tissues are normal. Small degenerative osteophytes project from the anterior end plates of multiple vertebral bodies. There is moderate multilevel facet and uncovertebral joint osteo arthritis. There is fibrous union of the posterior C1 ring. Mild emphysema is noted. IMPRESSION: 1. Moderate to severe cervical spondylosis without acute findings. Reviewed, dictated and finalized at location A.
[2020-12-13 18:49] VITALS: BP 184/88; PULSE 75; RESP 18; TEMP 36.8; O2SAT 100
[2020-12-13 19:29] VITALS: BP 146/86; PULSE 80; RESP 13; O2SAT 100
[2020-12-13 22:29] VITALS: BP 141/86; PULSE 70; RESP 18; O2SAT 100
--- NOTE | 2020-12-13 22:36 | ED.FALL ---
HPI - Fall General Chief Complaint: Fall Stated Complaint: glf Time Seen by Provider: 12/13/20 21:03 Source: RN notes reviewed History of Present Illness HPI Narrative: Patient presents emergency department from [facility] via EMS for a fall. History is per the patient as well as ECF. Per ECF the patient had had an unwitnessed fall. States that he crawled back into bed when they got into his room and told him he had fallen. Patient currently denies any complaints he denies any headaches chest pain shortness of breath abdominal pain or any extremity pain. Patient is a poor historian Related Data Home Medications Medication Instructions Recorded Confirmed aspirin 81 mg tablet,delayed 81 mg PO DAILY 07/07/19 06/30/20 release cyanocobalamin (vitamin B-12) 100 mcg PO DAILY 06/08/20 06/30/20 ondansetron HCl 4 mg PO TID PRN 06/08/20 06/30/20 pantoprazole 40 mg PO BID 06/08/20 06/30/20 tamsulosin [Flomax] 0.4 mg PO DAILY 06/08/20 06/30/20 magnesium hydroxide 30 ml PO HS PRN 07/01/20 07/01/20 Allergies Allergy/AdvReac Type Severity Reaction Status Date / Time No Known Allergies Allergy Verified 12/13/20 18:57 Review of Systems Review of Systems: Gen.: Denies fevers or chills Eyes: Denies eye pain or visual change ENT: Denies congestion Respiratory: Denies shortness of breath or cough CV: Denies chest pain GI: Denies abdominal pain nausea, emesis Musculoskeletal: Denies back pain or extremity pain Neuro: Denies numbness, tingling, weakness or focal weakness Skin: Denies rash Except as documented, all other systems reviewed and negative [facility] Past Medical History Medical History Anxiety Benign essential hypertension BPH (benign prostatic hyperplasia) Colon cancer screening COPD (chronic obstructive pulmonary disease) GERD (gastroesophageal reflux disease) Hep C w/o coma, chronic History of CVA (cerebrovascular accident) Impaired functional mobility, balance, gait, and endurance Following CVA Metastatic lung cancer (metastasis from lung to other site) Nicotine abuse 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 The patient stated that he was in the [place]. He states that he still smokes about 3/4 of a pack a cigarettes a day. 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 He is a full code. The patient is listed as disabled. Smoking packs per day: 1 Smoking cigarettes per day: 20.0 Years smoked: 40 Smoking pack-years: 40.00 Smoking status: Current every day smoker Alcohol intake: former Drinks per week: 42 Substance use: never Gender identity (if verbalized by the patient): Male Spiritual care concerns: No Exam Narrative: APPEARANCE: No acute distress, nontoxic, resting in bed HEENT: Normocephalic, atraumatic, OMM EYES: PERRL, EOMI NECK: Supple, nontender, full range of motion without pain, RESPIRATORY: No respiratory distress, clear to auscultation bilaterally with no rhonchi wheezing or rales CARDIOVASCULAR: RRR s murmur ABDOMINAL: Soft, nontender, nondistended MUSCULOSKELETAL: Moves all extremities. No clubbing, cyanosis or edema. NEURO: A and O ?3, following commands, speech normal, no facial droop, muscle strength 5 out of 5 bilateral upper and lower extremities SKIN:: Warm, dry. Normal Color PSYCHIATRIC: Normal affect/mood Course Course Emergency Course: Called and discussed with patient's Keila states the patient is a full code discu
[2020-12-13 22:47] LABS: Basophils Absolute Auto 0.1 K/mm3 (0.0-0.1); Basophils Percent Auto 0.9 % (0.2-1.2); Eosinophils Absolute Auto 0.5 K/mm3 (0-0.3); Eosinophils Percent Auto 5.2 % (0-4.4); Hemoglobin 13.2 g/dL (14.0-18.0); Immature Granulocyte Absolute 0.03 K/mm3 (0.00-0.031); Immature Granulocyte Percent A 0.3 % (0-0.5); Immature Platelet Fraction Pct 8.9 % (0.9-11.2); Lymphocytes Absolute Auto 1.61 K/mm3 (0.9-3.2); Lymphocytes Percent Auto 18.2 % (18.3-44.2); Mean Corpuscular HGB Conc 33.8 g/dl (32-36); Mean Corpuscular Hemoglobin 30.7 pg (26-34); Mean Corpuscular Volume 90.7 fl (80-100); Mean Platelet Volume 11.4 fl (7.4-10.4); Monocytes Absolute Auto 0.8 K/mm3 (0.1-0.6); Monocytes Percent Auto 8.7 % (2.6-8.5); Neutrophils Absolute Auto 5.9 K/mm3 (1.3-6.7); Neutrophils Percent Auto 66.7 % (45.5-73.1); Platelet Count Result 177 k/mm3 (150-375); Red Cell Distribution Width 12.4 % (11.5-14.5); White Blood Count 8.8 K/mm3 (4.5-10.0)
[2020-12-13] MEDS: levETIRAcetam IV 750 MG in DEXTROSE 5% 100 ML 430 MG IVPB (22:47)
[2020-12-13 22:50] VITALS: BP 149/84; PULSE 72; RESP 16; O2SAT 100
[2020-12-13 22:50] LABS: Prothrombin Time 12.7 Seconds (11.1-14.7)
[2020-12-13 23:02] LABS: Alanine Aminotransferase 18 U/L (4-50); Albumin Level 4.9 g/dL (3.5-5.1); Alkaline Phosphatase 70 U/L (38-126); Aspartate Amino Transferase 28 U/L (17-59); Bilirubin,Total 0.4 mg/dL (0.2-1.3); Blood Urea Nitrogen 23 mg/dL (9-20); Carbon Dioxide 24 mmol/L (22-30); Estimated CRCL calculation 48 ml/min; Estimated Glomerular Filt Rate 51; Glucose 95 mg/dL (65-110)
[2020-12-13 23:03] LABS: Anion Gap 12 mmol/L (8-16); Chloride 105 mmol/L (98-107); Potassium 4.5 mmol/L (3.4-5.0); Sodium 141 mmol/L (137-145)
== END 2020-12-13 22:55 | disposition short-term general hospital (02) ==
PROVIDERS: Emergency Provider Emergency Medicine; PCP Internal Medicine
DX: S06.360A Traumatic hemorrhage of cerebrum, unspecified, without loss of consciousness, initial encounter (principal); I69.998 Other sequelae following unspecified cerebrovascular disease; R26.89 Other abnormalities of gait and mobility; N40.0 Benign prostatic hyperplasia without lower urinary tract symptoms; J44.9 Chronic obstructive pulmonary disease, unspecified; K21.9 Gastro-esophageal reflux disease without esophagitis; G40.909 Epilepsy, unspecified, not intractable, without status epilepticus; E55.9 Vitamin D deficiency, unspecified; Z79.82 Long term (current) use of aspirin; F17.210 Nicotine dependence, cigarettes, uncomplicated; M47.812 Spondylosis without myelopathy or radiculopathy, cervical region; W19.XXXA Unspecified fall, initial encounter
CPT/HCPCS: 36415; 70450; 71045; 72125; 80053; 85025; 85055; 85610; 96365; 99291; J1953

== ENCOUNTER 2020-12-20 10:56 | Outpatient (CLI) | payer OTHER, SELFPAY ==
--- NOTE | ~2020-12-20 | XR_ITS ---
EXAMINATION: XR barium swallow modified DATE: 12/20/2020 12:23 INDICATION: Dysphagia, oropharyngeal phase TECHNIQUE: Modified barium esophagram was performed by myself to administered fluoroscopy, in conjun ction with speech pathologist who administered barium in varying consistencies as per speech patholog ist documentation. This was recorded on tape. A single fluoroscopic spot image was recorded. The DAP for this procedure was 2.559 Gycm2. Fluoroscopy exposure time was 3.3 minutes. FINDINGS: Oral stage: Premature spillage of the laryngeal vestibule with solids. Pharyngeal phase: Adequate function. Laryngeal penetration: Present with thin liquids. Aspiration: None. Laryngeal sensitivity: Present. IMPRESSION: Abnormal modified barium swallow as described above. Please refer to speech pathologist f indings and specific feeding recommendations. Reviewed, dictated and finalized at location A. IMPRESSION: Abnormal modified barium swallow as described above. Please refer t o speech pathologist findings and specific feeding recommendations.
--- NOTE | 2020-12-22 16:31 | STOPEVAL ---
MODIFIED BARIUM SWALLOW EVALAUTION: Thank you for referring Jovany Robbins to [facility].? Attending Provider: Jadiel Garcia MD Prior Level of Function Prior Swallow Level Prior Intake Method Oral Prior Diet Minced and Moist (Level 5 Diet ) Prior Liquid Consistency Moderately Thick (Level 3 Diet ) Prior Cognition/Communication Prior Cognitive Function Memory Impaired,Orientation Impaired Modified Barium Swallow Evaluation Recent Swallowing History Reports Dysphagia Yes History of Dysphagia Yes Duration of Dysphagia 6-7 months History of Pneumonia Yes: aspiration Reported Difficult Consistencies Thin Liquids,Solids Intake Method Prior to Swallow Oral Evaluation Diet Prior to Swallow Evaluation Minced and Moist, Level 5 Liquid Consistency Prior to Swallow Moderately Thick (3) Evaluation Consistency Thin Other Amount cup and straw Oral Preparatory Symptoms Within Functional Limits Oral Phase Symptoms Within Functional Limits Pharyngeal Phase Symptoms Within Functional Limits, Laryngeal Penetration Severity of Vallecular Residue None - 0% No Residue Severity of Pyriform Sinus Residue None - 0% No Residue 8 Point Laryngeal Penetration-Aspiration Material Enters the Airway, Scale Remains Above Vocal Folds, is Ejected Pharyngeal Phase Comments Flash laryngeal penetration: shallow and cleared. No aspiration Cervical/Esophageal Symptoms Within Functional Limits Solid Consistency Other Amount cracker Method of Presentation Spoon Oral Phase Symptoms Premature Spillage Oral Phase Comments excessive premature spill which entered the laryngeal vestibule before the swallow; pt aspirated a trace/mild amount before the swallow which was silent Pharyngeal Phase Symptoms Aspiration Severity of Vallecular Residue None - 0% No Residue Severity of Pyriform Sinus Residue None - 0% No Residue 8 Point Laryngeal Penetration-Aspiration Material Enters Airway, Scale Remains Above Vocal Folds, and is Not Ejected Aspiration Timing Before the Swallow Aspiration Severity Mild Pharyngeal Phase Comments with use of the chin tuck, no laryngeal penetration or aspiration occurred; however, based on pt's altered mental status and
== END 2020-12-20 10:57 | disposition home or self-care (01) ==
PROVIDERS: PCP Family Medicine; Visit Provider Family Medicine
DX: R13.12 Dysphagia, oropharyngeal phase (principal); R93.3 Abnormal findings on diagnostic imaging of other parts of digestive tract
CPT/HCPCS: 92611

== ENCOUNTER 2021-05-26 17:41 | Emergency (ER) | payer OTHER, SELFPAY ==
[2021-05-26] VITALS (7 sets, daily range): BP systolic 122–152; BP diastolic 80–97; PULSE 68–101; RESP 15–23; TEMP 36.3; O2SAT 98–100
--- NOTE | ~2021-05-26 | XR_ITS ---
EXAMINATION: XR chest 1V portable DATE: 05/26/2021 18:46 INDICATION: Seizure. Cough. TECHNIQUE: A single frontal view of the chest was obtained. COMPARISON: Chest single view 12/13/2020, chest CT 07/01/2020 FINDINGS: The patient is rotated to his right. There are lucencies in the lungs, consistent with emph ysema. There are airspace opacities in right mid and lower lung zones and left lower lung zone. No pl eural effusion or pneumothorax. The heart size is normal. IMPRESSION: 1. 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 2. Emphysema. Reviewed, dictated and finalized at location A. IMPRESSION: 1. 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 2. Emphysema.
--- NOTE | 2021-05-26 17:52 | ECG_ITS ---
Measurements Intervals [place] Rate: 95 P: 58 [place]: 163 QRS: 28 QRSD: 90 T: 75 QT: 384 QTc: 484 Interpretive Statements SINUS RHYTHM NONSPECIFIC ST ABNORMALITY BORDERLINE ECG COMPARED TO ECG 06/30/2020 15:35:22 SINUS RHYTHM NOW PRESENT [place] INTERVAL HAS LENGTHENED Electronically Signed On 05-27-2021 17:02:31 CDT by Klaus Yañez M.D.
--- NOTE | 2021-05-26 18:06 | ED.SEIZURE ---
HPI - Seizure General Chief Complaint: Seizure Stated Complaint: seizure Time Seen by Provider: 05/26/21 18:05 Source: family and EMS Mode of arrival: EMS Limitations: altered mental status History of Present Illness HPI Narrative: The patient is a 66-year-old male with a history of seizure disorder, COPD, hypertension, intracranial hemorrhage, metastatic lung cancer, metastatic melanoma, presenting to the emergency department for evaluation of seizure. Patient had prolonged seizure at his memory care facility today, patient was given a milligram of Ativan which did not resolve the seizure, then EMS gave the patient Versed. Patient presented to the emergency department somnolent, no further seizure activity. is at bedside. He states that he has been taking Keppra, prescribed many years ago, has been seizure-free for many years. She cannot recall the date of his last seizure. She is unaware of any recent medication changes or missed medication doses. No recent illnesses. No known history of Covid. He has not been reporting any headache, neck pain, cough, shortness of breath, fever, abdominal pain, nausea or vomiting. No history of recurrent urinary tract infection. States that patient has been without active lung cancer for several years, is not currently undergoing any chemotherapy. He is DNR/DNI. Patient quite somnolent at time of arrival, intermittent response to painful stimuli. Patient in the past has followed with Dr. Pineda at [facility] with neurosurgery, Dr. Maldonado at [facility] heme/onc. Seizure History: Yes Related Data Home Medications Medication Instructions Recorded Confirmed aspirin 81 mg tablet,delayed 81 mg PO DAILY 07/07/19 06/30/20 release cyanocobalamin (vitamin B-12) 100 mcg PO DAILY 06/08/20 06/30/20 ondansetron HCl 4 mg PO TID PRN 06/08/20 06/30/20 pantoprazole 40 mg PO BID 06/08/20 06/30/20 tamsulosin [Flomax] 0.4 mg PO DAILY 06/08/20 06/30/20 magnesium hydroxide 30 ml PO HS PRN 07/01/20 07/01/20 Allergies Allergy/AdvReac Type Severity Reaction Status Date / Time No Known Allergies Allergy Verified 12/13/20 18:57 Review of Systems Review of Systems: ROS unobtainable: Yes unobtainable due to mental status PMFSH Past Medical History Medical History Anxiety Benign essential hypertension BPH (benign prostatic hyperplasia) Colon cancer screening COPD (chronic obstructive pulmonary disease) GERD (gastroesophageal reflux disease) Hep C w/o coma, chronic History of CVA (cerebrovascular accident) Impaired functional mobility, balance, gait, and endurance Following CVA Metastatic lung cancer (metastasis from lung to other site) Nicotine abuse On senior care drug therapy Seizure disorder Testicular hypofunction Vitamin D deficiency Surgical History Surgical History H/O brain surgery x 2 to remove metastatic tumors Family History Family History Father Diabetes mellitus Mother Lung cancer Social History Social History Social History: the patient tells me that has no children. The patient stated that he was in the [employer]. He states that he still smokes about 3/4 of a pack a cigarettes a day. 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 He is a full code. The patient is listed as disabled. Smoking packs per day: 1 Smoking cigarettes per day: 20.0 Years smoked: 40 Smoking pack-years: 40.00 Smoking status: Current every day smoker Alcohol intake: former Drinks per week: 42 Substance use: never Gender identity (if verbalized by the patient): Male Spiritual care concerns: No Exam Narrative: GENERAL: Somnolent HEAD: Normocephalic, atraumatic. EYES: 2+ PERRLA, cannot assess EOMS ENT: Nares cl
[2021-05-26] MEDS: SODIUM CHLORIDE 0.9% IV 1,000 ML 999 ML IV CONT (19:26)
[2021-05-26 19:30] LABS: Alveolar/Arterial O2 Gradient 39.3 mmHg; Base Excess ABG 0.6 mEq/l (+/-2.0); Carboxyhemoglobin 0.3 % THb (0-2.0); Fractional Inspired Oxygen 21 %; HCO3 ABG 24.3 mEq/l (22.0-26.0); Oxygen Saturation ABG 94.2 % (95.0-100.0); Oxyhemoglobin 92.3 % THb (90.0-100.0); PCO2 ABG 36.1 mmHg (35.0-45.0); PO2 ABG 67.2 mmHg (80.0-100.0); Reduced Hemoglobin 7.4 %THb (0-5.0); Total Hemoglobin 12.3 g/dL (12.0-18.0); pH ABG 7.446 (7.350-7.450)
[2021-05-26 19:31] LABS: Device ROOM AIR; Site Drawn LEFT BRACHIAL
--- NOTE | 2021-05-26 19:39 | PC.NURSE ---
Pt to imaging at this time.
[2021-05-26 21:20] LABS: Basophils Absolute Auto 0.1 K/mm3 (0.0-0.1); Basophils Percent Auto 0.5 % (0.2-1.2); Eosinophils Absolute Auto 0.3 K/mm3 (0-0.3); Eosinophils Percent Auto 2.2 % (0-4.4); Hematocrit 35.3 % (42.0-52.0); Hemoglobin 11.1 g/dL (14.0-18.0); Immature Granulocyte Absolute 0.07 K/mm3 (0.00-0.031); Immature Granulocyte Percent A 0.5 % (0-0.5); Lymphocytes Absolute Auto 1.08 K/mm3 (0.9-3.2); Lymphocytes Percent Auto 7.6 % (18.3-44.2); Mean Corpuscular HGB Conc 31.4 g/dl (32-36); Mean Corpuscular Hemoglobin 29.3 pg (26-34); Mean Corpuscular Volume 93.1 fl (80-100); Mean Platelet Volume 10.3 fl (7.4-10.4); Monocytes Absolute Auto 0.9 K/mm3 (0.1-0.6); Monocytes Percent Auto 6.1 % (2.6-8.5); Neutrophils Absolute Auto 11.9 K/mm3 (1.3-6.7); Neutrophils Percent Auto 83.1 % (45.5-73.1); Platelet Count Result 212 k/mm3 (150-375); Red Blood Count 3.79 M/mm3 (4.6-6.20); Red Cell Distribution Width 14.8 % (11.5-14.5); White Blood Count 14.3 K/mm3 (4.5-10.0)
[2021-05-26 21:33] LABS: Alanine Aminotransferase 15 U/L (4-50); Albumin Level 4.2 g/dL (3.5-5.1); Alkaline Phosphatase 72 U/L (38-126); Anion Gap 10 mmol/L (8-16); Aspartate Amino Transferase 25 U/L (17-59); Bilirubin,Total 0.3 mg/dL (0.2-1.3); Blood Urea Nitrogen 25 mg/dL (9-20); Calcium 8.9 mg/dL (8.4-10.2); Carbon Dioxide 26 mmol/L (22-30); Chloride 105 mmol/L (98-107); Estimated CRCL calculation 41 ml/min; Estimated Glomerular Filt Rate 47; Glucose 118 mg/dL (65-110); Potassium 4.3 mmol/L (3.4-5.0); Sodium 141 mmol/L (137-145)
[2021-05-26 21:38] LABS: Amphetamine Screen Urine Negative (Negative); Barbiturate Screen Urine Negative (Negative); Benzodiazepines Screen Urine Positive (Negative); Cannabinoid Screen Urine Negative (Negative); Cocaine Screen Urine Negative (Negative); Methadone Screen Urine Negative (Negative); Opiate Screen Urine Negative (Negative); Phencyclidine Screen Urine Negative (Negative)
[2021-05-26 21:39] LABS: Lactic Acid Reflex < 0.5 mmol/L (0.7-2.1)
[2021-05-26 21:43] LABS: Add Urine Microscopic? YES; Amorphous Sediment Urine Few; Appearance Urine Cloudy (Clear); Bacteria Urine Trace /hpf; Bilirubin Urine Negative (Negative); Blood Urine Negative (Negative); Color Urine Yellow (Yellow); Glucose Urine UA Negative (Negative); Ketones Urine Negative (Negative); Leukocyte Esterase Ur Negative LEU/UL (Negative); Mucus Urine Rare /lpf; Nitrate Urine Negative (Negative); Protein Urine 1+ mg/dL (Negative); RBC Urine 0-2 /hpf (0-2); Specific Grav Ur 1.014 (1.001-1.035); Urobilinogen Urine Negative mg/dL (<2.0); WBC Urine 0-3 /hpf
[2021-05-26] MEDS: levETIRAcetam 1000MG/NACL100ML 1,000 MG/100 ML BAG 400 MG IVPB (21:48)
--- NOTE | 2021-05-26 22:00 | PC.NURSE ---
Report given to MEHRDAD Ly at [facility] ED by this RN.
[2021-05-31 08:30] LABS: Levetiracetam Keppra 36.1 mcg/mL (12.0-46.0)
== END 2021-05-26 22:15 | disposition short-term general hospital (02) ==
PROVIDERS: Emergency Provider Emergency Medicine; PCP Family Medicine
DX: I62.9 Nontraumatic intracranial hemorrhage, unspecified (principal); G40.909 Epilepsy, unspecified, not intractable, without status epilepticus; I10 Essential (primary) hypertension; K21.9 Gastro-esophageal reflux disease without esophagitis; B18.2 Chronic viral hepatitis C; J43.9 Emphysema, unspecified; E55.9 Vitamin D deficiency, unspecified; Z86.73 Personal history of transient ischemic attack (TIA), and cerebral infarction without residual deficits; Z85.118 Personal history of other malignant neoplasm of bronchus and lung; Z85.820 Personal history of malignant melanoma of skin; Z79.82 Long term (current) use of aspirin; F17.210 Nicotine dependence, cigarettes, uncomplicated
CPT/HCPCS: 36415; 36600; 51701; 71045; 80053; 80177; 80307; 81001; 82375; 82805; 83050; 83605; 85025; 87040; 93005; 96361; 96365; 99285; J1953; J7030

== ENCOUNTER 2021-06-10 11:13 | Emergency (ER) | payer OTHER, SELFPAY ==
--- NOTE | ~2021-06-10 | XR_ITS ---
EXAMINATION: XR chest 1V portable INDICATION: Cough TECHNIQUE: Portable AP chest at 1139 hours COMPARISON: 05/26/2021 FINDINGS: The lungs are hyperinflated but free of acute opacities. There is no effusion or pneumothor ax. The cardiomediastinal silhouette is normal. Healed left-sided rib fractures are noted. IMPRESSION: 1. No acute cardiopulmonary abnormality. Reviewed, dictated and finalized at location A.
--- NOTE | ~2021-06-10 | CT_ITS ---
EXAMINATION: CTA chest PE abdomen pel DATE: 06/10/2021 13:38 INDICATION: Chest pain. Low abdominal pain. Nausea. TECHNIQUE: Computed tomography angiography (CTA) of the chest was performed with 100 mL Omnipaque-350 intravenous contrast timed to evaluate the pulmonary arteries. Coronal maximum intensity projection 3D-reconstructions were created by the technologist. Computed tomography (CT) of the abdomen and pelv is was performed with intravenous contrast. Automated exposure control and iterative reconstruction t echnique were employed. The dose-length product was 456.20 mGy-cm. COMPARISON: Chest CT 07/01/2020, 08/12/12, CT abdomen and pelvis 06/19/2020 FINDINGS: CTA chest: There is moderate emphysema. There are perihilar airspace opacities in right middle lobe w ith volume loss and bronchiectasis, likely changes of radiation therapy. There is a 9 mm nodule in ri ght middle lobe. There is mild scarring at the lung apices. There is a 7 mm nodule in left lower lobe . There is a 5 mm nodule in left upper lobe. There is a small right pleural effusion. The heart size is normal. There are coronary artery calcifications. No pericardial effusion. There is chronic occlus ion of the right middle lobe pulmonary artery. No acute pulmonary embolus. There is mild thoracic spo ndylosis. There is mild chronic anterior wedging of multiple vertebral bodies. CT abdomen and pelvis: There is a small sliding hiatal hernia. There is wall thickening of the esopha mague, consistent with esophagitis. The liver demonstrates a nodular surface contour, consistent with c irrhosis. There are cysts in the liver measuring up to 6 mm. The gallbladder, spleen, pancreas, and a drenal glands are normal. There is cortical thinning of the kidneys. A stool ball distends the rectum . The prostate is mildly enlarged. The appendix is normal. There are no pathologically enlarged lymph nodes. There is no free intraperitoneal fluid. There is severe lumbar spondylosis. IMPRESSION: 1. No pulmonary embolus. 2. Stable pulmonary nodules, consistent with treated metastatic disease. 3. Small right pleural effusion. 4. Wall thickening of the soft tissues, consistent with esophagitis. 5. Cirrhosis of the liver. 6. Stool distends the rectum. Reviewed, dictated and finalized at location A.
[2021-06-10 11:15] VITALS: BP 157/93; PULSE 76; RESP 20; TEMP 36.6; O2SAT 100
--- NOTE | 2021-06-10 11:33 | ECG_ITS ---
Measurements Intervals [place] Rate: 74 P: 53 [place]: 144 QRS: -20 QRSD: 88 T: 75 QT: 392 QTc: 436 Interpretive Statements SINUS RHYTHM INDETERMINATE AXIS NONSPECIFIC ST AND T-WAVE ABNORMALITIES ABNORMAL ECG Electronically Signed On 06-10-2021 15:51:12 CDT by Justin Castillo M.D.
[2021-06-10 12:33] VITALS: PULSE 74
[2021-06-10 12:36] LABS: SARS-CoV-2 RNA PCR Negative
[2021-06-10 12:39] LABS: Basophils Absolute Auto 0.1 K/mm3 (0.0-0.1); Basophils Percent Auto 0.3 % (0.2-1.2); Eosinophils Absolute Auto 0.1 K/mm3 (0-0.3); Eosinophils Percent Auto 0.3 % (0-4.4); Hematocrit 43.2 % (42.0-52.0); Hemoglobin 13.8 g/dL (14.0-18.0); Immature Granulocyte Absolute 0.11 K/mm3 (0.00-0.031); Immature Granulocyte Percent A 0.5 % (0-0.5); Lymphocytes Absolute Auto 0.93 K/mm3 (0.9-3.2); Lymphocytes Percent Auto 4.6 % (18.3-44.2); Mean Corpuscular HGB Conc 31.9 g/dl (32-36); Mean Corpuscular Hemoglobin 29.5 pg (26-34); Mean Corpuscular Volume 92.3 fl (80-100); Monocytes Absolute Auto 0.8 K/mm3 (0.1-0.6); Monocytes Percent Auto 4.1 % (2.6-8.5); Neutrophils Absolute Auto 18.3 K/mm3 (1.3-6.7); Neutrophils Percent Auto 90.2 % (45.5-73.1); Platelet Count Result 263 k/mm3 (150-375); Red Blood Count 4.68 M/mm3 (4.6-6.20); Red Cell Distribution Width 14.7 % (11.5-14.5); White Blood Count 20.3 K/mm3 (4.5-10.0)
[2021-06-10 12:41] LABS: INR 1.1; Prothrombin Time 13.4 Seconds (11.1-14.7)
[2021-06-10 12:44] LABS: Alanine Aminotransferase 23 U/L (4-50); Albumin Level 4.8 g/dL (3.5-5.1); Alkaline Phosphatase 99 U/L (38-126); Anion Gap 12 mmol/L (8-16); Aspartate Amino Transferase 27 U/L (17-59); Bilirubin,Total 0.5 mg/dL (0.2-1.3); Blood Urea Nitrogen 26 mg/dL (9-20); Calcium 9.5 mg/dL (8.4-10.2); Carbon Dioxide 32 mmol/L (22-30); Chloride 102 mmol/L (98-107); Estimated CRCL calculation 34 ml/min; Estimated Glomerular Filt Rate 43; Glucose 134 mg/dL (65-110); Lipase 120 U/L (23-300); Potassium 3.9 mmol/L (3.4-5.0); Sodium 146 mmol/L (137-145)
--- NOTE | 2021-06-10 12:49 | ED.CHESTPAIN ---
HPI - Chest Pain General Chief Complaint: Chest Pain Stated Complaint: chest pain Time Seen by Provider: 06/10/21 11:17 Source: patient, EMS and RN notes reviewed Mode of arrival: EMS History of Present Illness HPI narrative: Thisis a 66 year old male with history of multiple medical problems who presents for evaluation of chest pain. It was reported patient had chest pain last night and it resolved after he was given nitroglycerin. He was complaining of nausea this morning so EMS was called. Patient's chest had resolved but he stated that it returned on EMS arrival. Patient states pain is located across his upper chest pain. It is nonradiating and he describes pain has sharp. He thinks his pain is worse with breathing. HE has cough with clear phlegm, but he denies shortness of breath. He denies nausea now but he states he has nausea with emesis x 2 last night. HE denies diarrhea. He is unsure of cardiac disease. He states he has bowel movement yesterday. He denies abdominal pain. Related Data Home Medications Medication Instructions Recorded Confirmed aspirin 81 mg tablet,delayed 81 mg PO DAILY 07/07/19 06/10/21 release tamsulosin [Flomax] 0.4 mg PO DAILY 06/08/20 06/10/21 magnesium hydroxide 30 ml PO HS PRN 07/01/20 06/10/21 folic acid 1 mg PO DAILY 06/10/21 06/10/21 magnesium citrate [Citroma] 300 ml PO DAILY PRN 06/10/21 06/10/21 nitroglycerin 0.4 mg SUBLINGUAL Q5-15M PRN 06/10/21 06/10/21 ondansetron HCl [Zofran] 4 mg PO Q8H PRN 06/10/21 06/10/21 sertraline 100 mg PO DAILY 06/10/21 06/10/21 sodium phosphates [Fleet Enema] 197 ml RECTAL ONCE 06/10/21 06/10/21 thiamine HCl (vitamin B1) 100 mg PO DAILY 06/10/21 06/10/21 vitamin B complex [B Complex 1 tablet PO DAILY 06/10/21 06/10/21 Vitamin] Allergies Allergy/AdvReac Type Severity Reaction Status Date / Time No Known Allergies Allergy Verified 12/13/20 18:57 Review of Systems Review of Systems: All systems reviewed & are unremarkable except as noted in HPI and below PMFSH Past Medical History Medical History Anxiety Benign essential hypertension BPH (benign prostatic hyperplasia) Colon cancer screening COPD (chronic obstructive pulmonary disease) GERD (gastroesophageal reflux disease) Hep C w/o coma, chronic History of CVA (cerebrovascular accident) Impaired functional mobility, balance, gait, and endurance Following CVA Metastatic lung cancer (metastasis from lung to other site) Nicotine abuse On detention drug therapy Seizure disorder Testicular hypofunction Vitamin D deficiency Surgical History Surgical History H/O brain surgery x 2 to remove metastatic tumors Family History Family History Father Diabetes mellitus Mother Lung cancer Social History Social History Social History: the patient tells me that has no children. The patient stated that he was in the [employer]. He states that he still smokes about 3/4 of a pack a cigarettes a day. 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 He is a full code. The patient is listed as disabled. Smoking packs per day: 1 Smoking cigarettes per day: 20.0 Years smoked: 40 Smoking pack-years: 40.00 Smoking status: Current every day smoker Alcohol intake: former Drinks per week: 42 Substance use: never Gender identity (if verbalized by the patient): Male Spiritual care concerns: No Exam Const: General: no acute distress and alert Orientation/consciousness: patient oriented x3 Eyes: EOM: EOMs intact bilaterally Chest: Chest palpation & inspection: normal inspection of the chest Resp: Effort & Inspection: normal respiratory effort and no retractions Auscultation: clear to auscultation bilaterally Cardio: Rate:
[2021-06-10 12:56] LABS: Troponin I < 0.012 ng/mL (0.000-0.034)
[2021-06-10] MEDS: SODIUM CHLORIDE 0.9% IV 1,000 ML 999 ML IV CONT (13:44)
[2021-06-10 13:52] VITALS: BP 148/84; PULSE 73; RESP 16; O2SAT 100
[2021-06-10 14:09] LABS: D Dimer 1.79 ug/mL (<0.48)
[2021-06-10 14:35] LABS: Bilirubin Urine Negative (Negative); Blood Urine Negative (Negative); Color Urine Yellow (Yellow); Glucose Urine UA Negative (Negative); Ketones Urine Negative (Negative); Leukocyte Esterase Ur Negative LEU/UL (Negative); Nitrate Urine Negative (Negative); Protein Urine 2+ mg/dL (Negative); Urobilinogen Urine 0.2 mg/dL (<2.0); pH Urine 8.5 (5.0-9.0)
[2021-06-10 14:36] LABS: Add Urine Microscopic? YES; Appearance Urine Sl Cloudy (Clear)
[2021-06-10 14:40] LABS: RBC Urine 0-2 /hpf (0-2); Squamous Epithelial Cell Urine Rare /hpf (Few); WBC Urine 0-3 /hpf
[2021-06-10 15:00] VITALS: BP 185/93; PULSE 70; RESP 18; O2SAT 98
[2021-06-10 15:35] LABS: Troponin I < 0.012 ng/mL (0.000-0.034)
--- NOTE | 2021-06-10 16:12 | PC.NURSE ---
pt going back to [facility] via em[facility]. Eta of 1700 for ems arrival
--- NOTE | 2021-06-10 16:15 | PC.NURSE ---
isi ems accepted return to [facility] eta [phone] trip#[id number]
== END 2021-06-10 18:49 ==
PROVIDERS: Emergency Provider General Practice; PCP Family Medicine
DX: R07.89 Other chest pain (principal); K20.90 Esophagitis, unspecified without bleeding; D72.829 Elevated white blood cell count, unspecified; K59.00 Constipation, unspecified; Z20.822 Contact with and (suspected) exposure to COVID-19; N40.0 Benign prostatic hyperplasia without lower urinary tract symptoms; I10 Essential (primary) hypertension; J44.9 Chronic obstructive pulmonary disease, unspecified; K21.9 Gastro-esophageal reflux disease without esophagitis; B18.2 Chronic viral hepatitis C; G40.909 Epilepsy, unspecified, not intractable, without status epilepticus; I69.998 Other sequelae following unspecified cerebrovascular disease; R26.89 Other abnormalities of gait and mobility; E55.9 Vitamin D deficiency, unspecified; F41.9 Anxiety disorder, unspecified; K74.60 Unspecified cirrhosis of liver; Z85.118 Personal history of other malignant neoplasm of bronchus and lung; F17.210 Nicotine dependence, cigarettes, uncomplicated; Z79.82 Long term (current) use of aspirin; R94.31 Abnormal electrocardiogram [ECG] [EKG]
CPT/HCPCS: 36415; 71045; 71275; 74177; 80053; 81001; 83690; 84484; 85025; 85380; 85610; 85730; 93005; 96360; 99284; C9803; J7030; Q9967; U0003; U0005

== ENCOUNTER 2021-06-26 07:41 | Inpatient (IN) | payer MEDICARE, OTHER, SELFPAY ==
[2021-06-26] VITALS (31 sets, daily range): BP systolic 120–167; BP diastolic 82–101; PULSE 66–121; RESP 14–27; TEMP 35.9–36.8; O2SAT 93–100
--- NOTE | ~2021-06-26 | CT_ITS ---
EXAMINATION: CT brain wo con DATE: 06/26/2021 08:10 INDICATION: Seizure TECHNIQUE: Computed tomography (CT) of the head was performed without intravenous contrast. The mA wa s adjusted according to patient size. Iterative reconstruction technique was employed. Exam dose: 68 1.00 mGy-cm total exam DLP. COMPARISON: 10/26/2021 CT brain 12/13/2020 CT brain / MRI brain /07/2020 CT brain FINDINGS: There are 2 hyperdense lesions in the right temporal area along the lateral aspect of the r ight temporal horn; one is circumscribed, measuring 7.5 x 10.5 mm, the other less well-defined, terrie uring approximately 6 x 8 mm. These appear relatively stable since 05/26/2021. There is an overlying b one flap secured by plates and screws. Primary or metastatic malignant masses are suspected consideri ng the lack of significant change in one month. Consider MR evaluation. Again noted are bilateral chronic basal ganglia lacunar infarcts and chronic encephalomalacia in the right temporal lobe and frontal lobes. There is prominent diminished attenuation of the cerebral white matter, which may be due to chronic s mall vessel ischemic changes and/or postoperative radiation change. Prominent bilateral carotid sipho n internal carotid artery calcifications are noted. No subdural or epidural hematoma. Moderate cerebellar and cerebral atrophy. The paranasal sinuses and mastoid air cells are normally developed and aerated. IMPRESSION: 2 hyperdense right temporal masses appear stable since 05/27/2019, suggesting primary or metastatic malignant lesions; consider MRI brain examination Status post right temporal parietal craniotomy Chronic right temporal and bilateral frontal encephalomalacia and bilateral chronic basal ganglia lac unar infarcts Cerebral atherosclerosis and probable chronic small vessel ischemic changes of cerebral white matter. Possible postoperative radiation change of the cerebral white matter Reviewed, dictated and finalized at [facility]. Reviewed, dictated and finalized at [facility]. IMPRESSION: 2 hyperdense right temporal masses appear stable since 05/27/2019, suggesting primary or metastatic malignant lesions; consider MRI brain examinat ion Status post right temporal parietal craniotomy Chronic right temporal and bilateral frontal encephalomalacia and bilateral chr onic basal ganglia lacunar infarcts Cerebral atherosclerosis and probable chronic small vessel ischemic changes of cerebral white matter. Possible postoperative radiation change of the cerebral white matter
--- NOTE | ~2021-06-26 | XR_ITS ---
XR chest 1V portable DATE: 06/26/2021 09:37 INDICATION: Cough TECHNIQUE: Portable AP views on 06/26/2021 at 0932 hours COMPARISON: 06/10/2021 CT pulmonary scan 06/10/2021 portable AP chest FINDINGS: There is mild elevation of the right leaf of the diaphragm and mild infiltrate, atelectasis and/or scarring at the right lung base. The lungs otherwise appear clear. Normal heart size. No hilar or mediastinal enlargement. Diffuse osteopenia. IMPRESSION: Mild elevation right diaphragm and mild infiltrate, atelectasis and/or [facility]ring [facility] Reviewed, dictated and finalized at [facility]. IMPRESSION: Mild elevation right diaphragm and mild infiltrate, atelectasis and /or scarring at the right lung base
--- NOTE | ~2021-06-26 | XR_ITS ---
EXAMINATION: XR barium swallow modified DATE: 06/28/2021 09:24 INDICATION: Aspiration TECHNIQUE: Modified barium esophagram was performed by myself to administered fluoroscopy, in conjun ction with speech pathologist who administered barium in varying consistencies as per speech patholog ist documentation. This was recorded on tape. A single fluoroscopic spot image was recorded. The DAP for this procedure was 4.5 Gycm2. Fluoroscopy exposure time was 3.112 minutes. FINDINGS: Oral stage: Adequate function. Pharyngeal phase: Adequate function. Laryngeal penetration: None. Aspiration: Present with pudding and thin liquids. Laryngeal sensitivity: Absent. IMPRESSION: Silent aspiration. Please refer to speech pathologist findings and specific feeding recom mendations. Reviewed, dictated and finalized at [facility]. IMPRESSION: Silent aspiration. Please refer to speech pathologist findings and specific feeding recommendations.
[2021-06-26] MEDS: levETIRAcetam 1000MG/NACL100ML 1,000 MG/100 ML BAG 400 MG IVPB (07:50)
--- NOTE | 2021-06-26 07:50 | ED.GENADULT ---
HPI - General Adult General Chief complaint: Seizure Stated complaint: sz Time Seen by Provider: 06/26/21 07:45 Source: EMS and RN notes reviewed Mode of arrival: EMS Limitations: altered mental status History of Present Illness HPI narrative: 66-year-old male with history of seizure disorder, COPD, hypertension, intracranial hemorrhage, metastatic lung cancer, metastatic melanoma, DNI/DNR on comfort care presents to the emergency department from a local alf for evaluation of seizure. Patient was apparently having a seizure for approximately 20 minutes prior to EMS being called. No rescue antiepileptic medications have been given. When EMS arrived to the scene patient was still having seizures where they described him as having all extremities clenched. Patient was treated with 3 mg of IM Versed and an additional milligram of IV Versed. They state that the seizure activity did improve. When the patient arrived to the emergency department he still has leftward gaze and decreased responsiveness. Patient was treated with 2 mg of IV Ativan and 1 g of IV Keppra and the seizure activity stopped. Patient does have a signed DNR and comfort care. Related Data Home Medications Medication Instructions Recorded Confirmed aspirin 81 mg tablet,delayed 81 mg PO DAILY 07/07/19 06/26/21 release tamsulosin [Flomax] 0.4 mg PO DAILY 06/08/20 06/26/21 magnesium hydroxide 30 ml PO HS PRN 07/01/20 06/26/21 folic acid 1 mg PO DAILY 06/10/21 06/26/21 magnesium citrate [Citroma] 296 ml PO DAILY PRN 06/10/21 06/26/21 nitroglycerin 0.4 mg SUBLINGUAL Q5-15M PRN 06/10/21 06/26/21 ondansetron HCl [Zofran] 4 mg PO Q8H PRN 06/10/21 06/26/21 sertraline 100 mg PO DAILY 06/10/21 06/26/21 thiamine HCl (vitamin B1) 100 mg PO DAILY 06/10/21 06/26/21 vitamin B complex [B Complex 1 tablet PO DAILY 06/10/21 06/26/21 Vitamin] acetaminophen 650 mg PO Q4H PRN 06/26/21 06/26/21 bisacodyl 10 mg RECTAL DAILY PRN 06/26/21 06/26/21 hydrocortisone 1 applic TOPICAL BID 06/26/21 06/26/21 levetiracetam [Keppra] 750 mg PO Q12H 06/26/21 06/26/21 magnesium citrate [Citroma] 06/26/21 sodium phosphates [Fleet Enema] 118 ml RECTAL DAILY PRN 06/26/21 06/26/21 Allergies Allergy/AdvReac Type Severity Reaction Status Date / Time No Known Allergies Allergy Verified 12/13/20 18:57 Review of Systems Review of Systems: ROS unobtainable: Yes unobtainable due to medical condition [facility] Past Medical History Medical History (Updated 06/26/21 @ 14:11 by Neena Gurrola PA-C) Anxiety Benign essential hypertension Benign prostatic hyperplasia Cerebrovascular accident Chronic anemia Chronic back pain Chronic obstructive pulmonary disease Gastroesophageal reflux disease Hepatitis C Metastatic malignant melanoma (2012) Nicotine abuse Osteoarthritis Pancreatitis Seizure disorder Vitamin D deficiency Surgical History Surgical History (Updated 06/26/21 @ 13:48 by Neena Gurrola PA-C) History of craniotomy Resection of metastatic melanoma x2 at [facility]. History of endoscopic retrograde cholangiopancreatography With insertion and subsequent removal of a biliary stent. History of hemorrhoidectomy History of vasectomy Family History Family History Father Diabetes mellitus Mother Lung cancer Social History Social History (Updated 06/26/21 @ 13:50 by Neena Gurrola PA-C) Social History: Surrogate decision maker: Code status: Do not resuscitate. 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 In the [employer]
[2021-06-26] MEDS: LORazepam INJ (*CRX) 2 MG/ML VIAL IV PUSH (07:52)
[2021-06-26] MEDS: SODIUM CHLORIDE 0.9% IV 1,000 ML 250 ML IV CONT (07:52)
--- NOTE | 2021-06-26 07:52 | ECG_ITS ---
Measurements Intervals [place] Rate: 114 P: 48 [place]: 162 QRS: -4 QRSD: 86 T: 65 QT: 386 QTc: 533 Interpretive Statements SINUS TACHYCARDIA DELAYED PRECORDIAL R/S TRANSITION BORDERLINE ST-T WAVE ABNORMALITY- ANTEROLAT/HIGH LAT LEADS ABNORMAL ECG Electronically Signed On 06-28-2021 12:47:17 CDT by Aman Kyle D.O.
[2021-06-26 08:45] LABS: Basophils Absolute Auto 0.1 K/mm3 (0.0-0.1); Basophils Percent Auto 0.6 % (0.2-1.2); Eosinophils Absolute Auto 0.3 K/mm3 (0-0.3); Eosinophils Percent Auto 2.5 % (0-4.4); Hematocrit 39.9 % (42.0-52.0); Immature Granulocyte Absolute 0.04 K/mm3 (0.00-0.031); Immature Granulocyte Percent A 0.4 % (0-0.5); Mean Corpuscular HGB Conc 32.6 g/dl (32-36); Mean Corpuscular Hemoglobin 29.8 pg (26-34); Mean Corpuscular Volume 91.5 fl (80-100); Mean Platelet Volume 9.4 fl (7.4-10.4); Monocytes Absolute Auto 0.6 K/mm3 (0.1-0.6); Monocytes Percent Auto 6.4 % (2.6-8.5); Neutrophils Absolute Auto 8.4 K/mm3 (1.3-6.7); Neutrophils Percent Auto 83.1 % (45.5-73.1); Platelet Count Result 247 k/mm3 (150-375); Red Blood Count 4.36 M/mm3 (4.6-6.20); Red Cell Distribution Width 13.7 % (11.5-14.5); White Blood Count 10.1 K/mm3 (4.5-10.0)
[2021-06-26 08:55] LABS: Alanine Aminotransferase 13 U/L (4-50); Albumin Level 4.5 g/dL (3.5-5.1); Alkaline Phosphatase 81 U/L (38-126); Anion Gap 8 mmol/L (8-16); Aspartate Amino Transferase 25 U/L (17-59); Bilirubin,Total 0.3 mg/dL (0.2-1.3); Blood Urea Nitrogen 20 mg/dL (9-20); Calcium 9.3 mg/dL (8.4-10.2); Carbon Dioxide 26 mmol/L (22-30); Chloride 109 mmol/L (98-107); Estimated Glomerular Filt Rate 43; Glucose 106 mg/dL (65-110); Potassium 4.5 mmol/L (3.4-5.0); Sodium 143 mmol/L (137-145)
[2021-06-26 09:04] LABS: Add Urine Microscopic? YES; Appearance Urine Cloudy (Clear); Bilirubin Urine Negative (Negative); Blood Urine Negative (Negative); Color Urine Yellow (Yellow); Glucose Urine UA Negative (Negative); Ketones Urine Negative (Negative); Leukocyte Esterase Ur 3+ LEU/UL (Negative); Mucus Urine Rare /lpf; Nitrate Urine Negative (Negative); Protein Urine 2+ mg/dL (Negative); Specific Grav Ur 1.017 (1.001-1.035); Urobilinogen Urine Negative mg/dL (<2.0); WBC Clumps Urine Present /HPF; WBC Urine >75 /hpf
--- NOTE | 2021-06-26 10:42 | PM.IMHP ---
H&P: HPI History of Present Illness Date/Time: 06/26/21 10:42 [facility] Past Medical History Medical History (Updated 06/26/21 @ 14:11 by Neena Gurrola PA-C) Anxiety Benign essential hypertension Benign prostatic hyperplasia Cerebrovascular accident Chronic anemia Chronic back pain Chronic obstructive pulmonary disease Gastroesophageal reflux disease Hepatitis C Metastatic malignant melanoma (2012) Nicotine abuse Osteoarthritis Pancreatitis Seizure disorder Vitamin D deficiency Surgical History Surgical History (Updated 06/26/21 @ 13:48 by Nenea Gurrola PA-C) History of craniotomy Resection of metastatic melanoma x2 at [facility]. History of endoscopic retrograde cholangiopancreatography With insertion and subsequent removal of a biliary stent. History of hemorrhoidectomy History of vasectomy Family History Family History Father Diabetes mellitus Mother Lung cancer Social History Social History (Updated 06/26/21 @ 13:50 by Neena Gurrola PA-C) Social History: Surrogate decision maker: Code status: Do not resuscitate. 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 In the [place] as a younger man. Spiritual care concerns: No Meds Home Medications and Allergies Home Medications Medication Instructions Recorded Confirmed Type aspirin 81 mg tablet,delayed 81 mg PO DAILY 07/07/19 06/26/21 History release tamsulosin [Flomax] 0.4 mg PO DAILY 06/08/20 06/26/21 History alprazolam 0.25 mg PO TID PRN #10 tablet 06/26/20 06/26/21 Rx magnesium hydroxide 30 ml PO HS PRN 07/01/20 06/26/21 History folic acid 1 mg PO DAILY 06/10/21 06/26/21 History magnesium citrate [Citroma] 296 ml PO DAILY PRN 06/10/21 06/26/21 History nitroglycerin 0.4 mg SUBLINGUAL Q5-15M PRN 06/10/21 06/26/21 History ondansetron HCl [Zofran] 4 mg PO Q8H PRN 06/10/21 06/26/21 History pantoprazole [Protonix] 40 mg PO QAM 28 Days #28 tablet 06/10/21 06/26/21 Rx sertraline 100 mg PO DAILY 06/10/21 06/26/21 History thiamine HCl (vitamin B1) 100 mg PO DAILY 06/10/21 06/26/21 History vitamin B complex [B Complex 1 tablet PO DAILY 06/10/21 06/26/21 History Vitamin] acetaminophen 650 mg PO Q4H PRN 06/26/21 06/26/21 History bisacodyl 10 mg RECTAL DAILY PRN 06/26/21 06/26/21 History hydrocortisone 1 applic TOPICAL BID 06/26/21 06/26/21 History levetiracetam [Keppra] 750 mg PO Q12H 06/26/21 06/26/21 History magnesium citrate [Citroma] 06/26/21 History sodium phosphates [Fleet Enema] 118 ml RECTAL DAILY PRN 06/26/21 06/26/21 History Allergies Allergy/AdvReac Type Severity Reaction Status Date / Time No Known Allergies Allergy Verified 12/13/20 18:57 Vital Signs Vital Signs - 24 hr 06/26/21 07:43 06/26/21 07:48 06/26/21 08:00 Temperature 98.3 F Pulse Rate 120 H 121 H Respiratory Rate 27 H 26 H Blood Pressure 120/85 Pulse Oximetry 96 96 94 06/26/21 08:17 06/26/21 08:30 06/26/21 08:45 Temperature Pulse Rate 96 86 78 Respiratory Rate 20 18 17 Blood Pressure 128/90 Pulse Oximetry 95 100 100 06/26/21 08:46 06/26/21 08:56 06/26/21 09:00 Temperature Pulse Rate 74 76 77 Respiratory Rate 17 14 Blood Pressure 151/101 H Pulse Oximetry 100 100 06/26/21 09:01 06/26/21 09:02 06/26/21 09:15 Temperature Pulse Rate 76 75 74 Respiratory Rate 21 H 17 16 Blood Pressure 147/92 H Pulse Oximetry 100 100 100 06/26/21 09:17 06/26/21 09:30 06/26/21 09:32 Temperature Pulse Rate 77 72 75 Respiratory Rate 15 18 21 H Blood Pressure 147/82 H Pul
[2021-06-26 10:55] LABS: Creatine Kinase 36 U/L (55-170)
[2021-06-26] MEDS: SODIUM CHLORIDE 0.9% IV 1,000 ML 125 ML IV CONT ×2 (12:51→21:08)
--- NOTE | 2021-06-26 13:45 | PM.IMHP ---
H&P: HPI History of Present Illness Date/Time: 06/26/21 13:45 Chief Complaint: Seizures. Narrative: This is an unfortunate 66-year-old male with history of seizures, dementia, metastatic melanoma, cerebrovascular accident, and hypertension who presented to the emergency department via EMS from [facility] for evaluation of breakthrough seizures. He is a poor historian and as such a majority of the following is obtained via a review of his electronic medical records as well as discussions with his . He has been at the halfway for approximately 1 year and he is essentially wheelchair-bound. He is very mobile in his wheelchair and is very interactive with staff and residents at the halfway though he does have periods of confusion. According to the patient's , he has been doing quite well and was deemed to be cancer free in January 2021. He was hospitalized at [facility] just about a month ago with recurrent seizures and postictal paresis at which time the patient claimed he was weaning himself off of his seizure medications however that was not ever confirmed. A brain MRI demonstrated interval increase enhancement since 2018 to the right temporal lobe region with a small nearby nodule of the right inferior gyrus concerning for interval progression over radiation necrosis. Recommendations were made for outpatient follow-up and repeat imaging on July 12. This morning he reportedly had continuous seizure activity for about 20 minutes prior to activating emergency services. It is my understanding that no rescue medications had been given and on EMS arrival he was still seizing. In route to the ER he received 4 mg of Versed though on arrival he was still unresponsive with a leftward gaze and his seizure activity stopped after he was given Ativan 2 mg IV and Keppra 1 g IV. At the time my evaluation he is groggy but alert and does attempt answer some questions and follow commands. He complains of discomfort at the side of the IV in his left hand and of being sleepy. He denies headache, chest pain, shortness breast, nausea, and abdominal pain. Review of Systems Review of Systems: A review of systems is very limited as he did not answer all my questions and he does have cognitive deficits and thus the reliability of his history is questionable. denies recent illness. Patient is incontinent but is able to feed himself and has no issues with eating. [facility] Past Medical History Medical History (Updated 06/26/21 @ 22:16 by Neena Gurrola PA-C) Alcohol-induced pancreatitis (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 Chronic obstructive pulmonary disease Dementia Gastroesophageal reflux disease Hepatitis C History of alcohol abuse Metastatic malignant melanoma (2012) Status post resection of brain metastases x2 with adjuvant CyberKnife therapy. He had immunotherapy for an endobronchial lesion in 2014 in addition to radiation. is unsure if he has primary melanoma of the lung though she reports no skin lesions were found. Nicotine abuse Osteoarthritis Seizure disorder Vitamin D deficiency Surgical History Surgical History (Updated 06/26/21 @ 13:48 by Neena Gurrola PA-C) History of craniotomy Resection of metastatic melanoma x2 at [facility]. History of endoscopic retrograde cholangiopancreatography With insertion and subsequent removal of a biliary stent. History of hemorrhoidectomy History of vasectomy Family History Family History Father Diabetes mellitus Mother Lung cancer Social History Social History (Updated 06/26/21 @ 22:09 by Neena Gurrola PA-C) Social History: Surrogate decision maker: Keila Robbins, . Code status: Do not resuscitate.
[2021-06-27] VITALS (10 sets, daily range): BP systolic 144–151; BP diastolic 65–98; PULSE 58–85; RESP 14–22; TEMP 36.2–36.7; O2SAT 96–100
--- NOTE | 2021-06-27 | ECHOL_ITS ---
Patient Info Name: Jovany Robbins Age: 66 years : 1955 Gender: Male Ht: 68 in Wt: 131 lbs BSA: 1.68 m2 HR: 67 bpm BP: 144 / 65 mmHg Technical Quality: Poor Exam Date: 06/27/2021 3:11 PM Exam Location: [facility] Patient Status: Inpatient Admit Date: 06/26/2021 Staff Ordering Physician: Dandy Avina MD Dispensing And Measuring Optician: Radha Lynn RDCS Attending Provider: Brigida Guerrero DO Exam Type: CA echo limited Study Info Indications R07.9 - Chest pain, unspecified Limited two-dimensional transthoracic echocardiogram is performed. Reason for Poor Study: poor echocardiographic windows Summary 1. Limited echo with only subcostal images obtained. 2. Technically suboptimal study due to poor sonographic images. 3. Left ventricular chamber dimension is normal. 4. Left ventricular systolic function is normal, estimated at 55-60%. No obvious segmental wall motion abnormalities in only limited views from subcostal images. 5. The left ventricular diastolic function is indeterminate. Left Ventricle Technically suboptimal study due to poor sonographic images. Limited echo with only subcostal images obtained. Left ventricular chamber dimension is normal. Left ventricular systolic function is normal, estimated at 55-60%. No obvious segmental wall motion abnormalities in only limited views from subcostal images. The left ventricular diastolic function is indeterminate. Pulmonic Valve Name Value Normal RVOT Doppler RVOT Peak Gradient 2 mmHg PV Doppler PV Peak Gradient 2 mmHg Report Signatures
[2021-06-27 06:19] LABS: Hematocrit 34.9 % (42.0-52.0); Hemoglobin 11.5 g/dL (14.0-18.0); Mean Corpuscular Hemoglobin 29.5 pg (26-34); Mean Corpuscular Volume 89.5 fl (80-100); Mean Platelet Volume 9.2 fl (7.4-10.4); Platelet Count Result 218 k/mm3 (150-375); Red Cell Distribution Width 13.7 % (11.5-14.5); White Blood Count 9.3 K/mm3 (4.5-10.0)
[2021-06-27 06:33] LABS: Alanine Aminotransferase 12 U/L (4-50); Albumin Level 3.8 g/dL (3.5-5.1); Alkaline Phosphatase 71 U/L (38-126); Anion Gap 5 mmol/L (8-16); Aspartate Amino Transferase 27 U/L (17-59); Bilirubin,Total 0.2 mg/dL (0.2-1.3); Blood Urea Nitrogen 13 mg/dL (9-20); Calcium 8.3 mg/dL (8.4-10.2); Carbon Dioxide 21 mmol/L (22-30); Chloride 112 mmol/L (98-107); Estimated Glomerular Filt Rate 55; Glucose 108 mg/dL (65-110); Magnesium 1.6 mg/dL (1.6-2.3); Potassium 3.5 mmol/L (3.4-5.0); Sodium 138 mmol/L (137-145)
[2021-06-27] MEDS: SODIUM CHLORIDE 0.9% IV 1,000 ML 75 ML IV CONT (09:09)
[2021-06-27] MEDS: levETIRAcetam ORAL SOL 500 MG/5 ML UDC 750 MG PO (09:16)
[2021-06-27] MEDS: HYDROCORTISONE 2.5% CREAM 30 GM TUBE 1 APPLIC TOPICAL ×2 (09:16→15:52)
[2021-06-27] MEDS: PANTOPRAZOLE 40 MG TABLET PO (09:17)
[2021-06-27] MEDS: THIAMINE HCL 100 MG TABLET PO (09:17)
[2021-06-27] MEDS: VITAMIN B COMPLEX CAPSULE 1 CAP PO (09:18)
[2021-06-27] MEDS: SERTRALINE HCL 50 MG TABLET 100 MG PO (09:18)
[2021-06-27] MEDS: ASPIRIN 81 MG ENTERIC TABLET PO (09:18)
[2021-06-27] MEDS: FOLIC ACID 1 MG TABLET PO (09:18)
[2021-06-27] MEDS: ALPRAZolam (*CRX) 0.25 MG TABLET PO (09:18)
[2021-06-27] MEDS: TAMSULOSIN HCL 0.4 MG CAPSULE PO (09:18)
--- NOTE | 2021-06-27 09:34 | WPDNEURCNPN ---
Assessment and Plan Additional Plan breakthrough seizures with history of intractable epilepsy but also with the history of having had no recurrent seizure most recent he has been loaded with all the medications accordingly which will be continued as such and if necessary will be readjusted. Patient obviously has significantly abnormal CT scan which is indicate he was a previous insults Consult date: 06/27/21 HPI: Jovany Robbins is a 66 year old male has been admitted to [facility] through the emergency room for the complaints of change in mental status in addition to the ongoing history of 1. Seizure disorder 2. COPD 3. Hypertension 4. History of intracranial hemorrhage 5. History of metastatic carcinoma of the lung 6. History of metastatic melanoma and also carrying the instruction for the DNR only, on comfort, he was transferred to the ER from local longterm evaluation of a seizure which lasted for [id number] prior to EMS being called no rescue antiepileptic medication were given when EMS arrived patient was still having seizure of all 4 extremities he was treated with 3 mg of IM Versed and H 10 mg of intravenous Versed which improved the seizure like activity but still his gaze was towards the left side and he had decreased responsiveness subsequently Ativan 2 mg IV was given in addition to1g of IV Keppra and the seizure activity completely stopped, patient had been taking multiple medication including aspirin 81 mg daily sertraline 100 mg daily levetiracetam 750 mg q.12 hours and he is not known to be allergic to any medication, he smokes 1 pack per day has been smoking for the last 40 years and used to be former alcohol intake, the CT scan of the head revealed 2 hyperdense right temporal masses which were stable since May 27, 2019 suggesting primary or metastatic malignant lesion for which MRI was suggested in addition is chronic temporal and bilateral frontal encephalomalacia along with bilateral chronic basal ganglia lacunar infarcts patient. Review of Systems Review of Systems: All systems reviewed & are unremarkable except as noted in HPI and below PMFSH Past Medical History Medical History Alcohol-induced pancreatitis (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 Chronic obstructive pulmonary disease Dementia Gastroesophageal reflux disease Hepatitis C History of alcohol abuse Metastatic malignant melanoma (2012) Status post resection of brain metastases x2 with adjuvant CyberKnife therapy. He had immunotherapy for an endobronchial lesion in 2015 in addition to radiation. is unsure if he has primary melanoma of the lung though she reports no skin lesions were found. Nicotine abuse Osteoarthritis Seizure disorder Vitamin D deficiency Surgical History Surgical History History of craniotomy Resection of metastatic melanoma x2 at [facility]. History of endoscopic retrograde cholangiopancreatography With insertion and subsequent removal of a biliary stent. History of hemorrhoidectomy History of vasectomy Family History Family History Father Diabetes mellitus Mother Lung cancer Social History Social History Social History: Surrogate decision maker: Keila Robbins, . Code status: Do not resuscitate. Smoking packs per day: 1 Smoking cigarettes per day: 20.0 Years smoked: 40 Smoking pack-years: 40.00 Smoking status: Current every day smoker Alcohol intake: former Drinks per week: 42 Substance use: never Living arrangements: longterm Additional living arrangements comments: [facility]
--- NOTE | 2021-06-27 11:19 | PC.NURSE ---
pt's , Keila, called wanting an update. When pt's condition was explained to Keila (particularly that he is not NPO due to vomiting and inability to swallow), she began trying to blame various staff members for his condition and current state of health including but not limited to the CNAs and motel food service supervisor by making comments about they should not have cleaned him up, it was their fault because the should have cleaned him up, I'm not a bed crop adjuster [motel food service supervisor] should have sat him up and fed him, etc. I attempted to remind her that I was with pt yesterday, that I sat him up, and witnessed her feeding him despite having been told that he needs to be sitting up. Additionally, I explained that when an incontinent person has a bowel movement, we do not leave them sitting in it and cleaning up an incontinent person does not impair his ability to swallow or cause him to begin vomiting. Keila continued to argue concluding with I will come up there and fix him.
--- NOTE | 2021-06-27 11:42 | PM.IMPN ---
Progress Note: A&P Assessment and Plan (1) Breakthrough seizure: Code(s): G40.919 - Epilepsy, unspecified, intractable, without status epilepticus Status: Acute Assessment and Plan: Patient brought to the emergency room after sustaining a seizure for about 20 minutes. Patient presumably receiving his medications at the senior living. There was concern for recurrence of his metastatic melanoma. The increasing seizure activity may be related to the abnormal findings noted on imaging vs from UTI. He received a total of 4 mg Versed, 2 mg Ativan, and 1 g of Keppra on admission. No further seizures. Will continue with his anti seizure medications. Neurology consulted and appreciate their recommendations. Continue fall and seizure precautions. Oral medications were held. Keppra was changed to IV. Also order PT and OT. (2) Chest pain: Code(s): R07.9 - Chest pain, unspecified Status: Acute Assessment and Plan: Patient complaining of chest pain. History is unreliable. We will check EKG and troponins to exclude acute coronary syndrome. (3) Dysphagia: Code(s): R13.10 - Dysphagia, unspecified Status: Acute Assessment and Plan: He has been having witnessed choking episodes. CXR showing mild elevation of the right hemidiaphragm with a mild infiltrate the right lung base possibly atelectasis. Will order speech therapy. (4) Abnormal brain CT: Code(s): R90.89 - Other abnormal findings on diagnostic imaging of central nervous system Status: Acute Assessment and Plan: Recent brain MR at [facility] demonstrated interval increase enhancement since 2019 to the right temporal lobe region with a small nearby nodule of the right inferior gyrus concerning for interval progression over radiation necrosis. He is to have a repeat MR on 07/12/21. Will hold off on further neurologic imaging unless there is a change in his status. (5) Urinary tract infection: Code(s): N39.0 - Urinary tract infection, site not specified Status: Acute Assessment and Plan: UA noted. UCx pending. Continue ceftriaxone. Follow-up urine culture. (6) Chronic kidney disease: Code(s): N18.9 - Chronic kidney disease, unspecified Status: Acute Assessment and Plan: Creatinine was normal 1 year ago in May. Baseline creatinine has climbed to 1.4-1.6 range. Creatinine is stable on admission at 1.6 but improved to 1.3. Will continue to follow. (7) Dementia: Code(s): F03.90 - Unspecified dementia without behavioral disturbance Status: Acute Assessment and Plan: Patient alert but confused. reports cognitive decline since his diagnosis several years ago. Continue fall precautions (8) Benign essential hypertension: Code(s): I10 - Essential (primary) hypertension Status: Chronic Assessment and Plan: Diet controlled. Does not appear to be on antihypertensive medications on admission. Blood pressure elevated at times but overall stable. Will continue to follow. (9) Metastatic melanoma: Code(s): C79.9 - Secondary malignant neoplasm of unspecified site Status: Acute Assessment and Plan: Recent brain MRI at [facility] concerning for possible progression as detailed above. (10) DVT prophylaxis: Code(s): Z29.9 - Encounter for prophylactic measures, unspecified Status: Acute Assessment and Plan: SCDs Subjective Date/time seen: 06/27/21 11:42 Interval history: 66yo female with hx of seizures, dementia, metastatic melanoma,CVA, and HTN who presents for evaluation of breakthrough seizures. Patient is alert but confused so hx is suspect. He does complain of chest pain as sharp and occasionally pleuritic that radiates to the jaw. The chest pain has been since admission. He is also having nausea/vomiting. He feels 'better' today. He has mostly nonproductive cough. Review of Systems
--- NOTE | 2021-06-27 11:46 | ECG_ITS ---
Measurements Intervals [place] Rate: 62 P: 21 [place]: 147 QRS: 25 QRSD: 88 T: 65 QT: 419 QTc: 428 Interpretive Statements SINUS RHYTHM LOW QRS VOLTAGE IN LIMB LEADS BORDERLINE T WAVE ABNORMALITY- ANT/HIGH LAT LEADS BASELINE ARTIFACT- III, AVF, V3 BORDERLINE ECG Electronically Signed On 06-27-2021 12:05:53 CDT by Aman Kyle D.O.
[2021-06-27 12:44] LABS: Troponin I 0.052 ng/mL (0.000-0.034)
--- NOTE | 2021-06-27 13:04 | PC.NURSE ---
pt's arrived to visit pt and stopped by the nurses' station. She asked me what she should do about her /pt. I stated that I cannot tell her what she should do. I also stated that while it may be difficult she should consider her 's wishes, his current state of health, his prognosis, and his comfort level. She then stated that she would like to talk to someone about inpatient hospice. I contacted care coordination and asked for them to come talk to her about her options.
--- NOTE | 2021-06-27 15:27 | PC.NURSE ---
Pt was receiving an echocardiogram when the fleet technician called for me to come assist her. Pt appeared to be having a seizure including decorticate posturing resulting in pt biting his tongue which bled for a brief period of time. The seizure-like incident last approximately 1 minute. Hospitalist, Dr. Bryatn Avina, was called and made aware of this incident.
[2021-06-27] MEDS: ASPIRIN 300 MG SUPPOSITORY RECTAL (15:50)
--- NOTE | 2021-06-27 16:22 | PCSTNOTE ---
MBS will be attempted in the morning of 06/28.
[2021-06-27 18:27] LABS: Troponin I 0.043 ng/mL (0.000-0.034)
[2021-06-27] MEDS: levETIRAcetam 1000MG/NACL100ML 1,000 MG/100 ML BAG 390.88 MG IVPB (20:38)
[2021-06-28] VITALS (9 sets, daily range): BP systolic 143–171; BP diastolic 85–91; PULSE 66–79; RESP 16–19; TEMP 36.2–37.3; O2SAT 96–100
[2021-06-28 06:13] LABS: Hematocrit 37.1 % (42.0-52.0); Hemoglobin 12.3 g/dL (14.0-18.0); Mean Corpuscular HGB Conc 33.2 g/dl (32-36); Mean Corpuscular Hemoglobin 29.2 pg (26-34); Mean Corpuscular Volume 88.1 fl (80-100); Mean Platelet Volume 9.5 fl (7.4-10.4); Platelet Count Result 254 k/mm3 (150-375); Red Blood Count 4.21 M/mm3 (4.6-6.20); Red Cell Distribution Width 13.6 % (11.5-14.5); White Blood Count 7.6 K/mm3 (4.5-10.0)
[2021-06-28 06:41] LABS: Alanine Aminotransferase 12 U/L (4-50); Albumin Level 4.1 g/dL (3.5-5.1); Alkaline Phosphatase 73 U/L (38-126); Anion Gap 11 mmol/L (8-16); Aspartate Amino Transferase 29 U/L (17-59); Bilirubin,Total 0.5 mg/dL (0.2-1.3); Blood Urea Nitrogen 13 mg/dL (9-20); Calcium 8.9 mg/dL (8.4-10.2); Carbon Dioxide 19 mmol/L (22-30); Chloride 110 mmol/L (98-107); Estimated Glomerular Filt Rate 55; Glucose 85 mg/dL (65-110); Magnesium 1.8 mg/dL (1.6-2.3); Phosphorus 3.5 mg/dL (2.5-4.5); Potassium 3.2 mmol/L (3.4-5.0); Sodium 140 mmol/L (137-145)
[2021-06-28 07:46] LABS: Free T4 Free Thyroxine Reflex 0.83 ng/dL (0.78-2.19)
[2021-06-28] MEDS: levETIRAcetam 1000MG/NACL100ML 1,000 MG/100 ML BAG 390.88 MG IVPB ×2 (07:54→20:43)
[2021-06-28] MEDS: HYDROCORTISONE 2.5% CREAM 30 GM TUBE 1 APPLIC TOPICAL ×2 (07:55→17:08)
[2021-06-28] MEDS: ENOXAPARIN 40 MG/0.4 ML SYRINGE SUB-Q (09:36)
[2021-06-28] MEDS: KCL 20 MEQ/D5/0.9% SOD CHL 1,000 ML 70 ML IV CONT ×2 (10:19→23:17)
--- NOTE | 2021-06-28 12:24 | WPDNEUROPN ---
Subjective Date/time seen: 06/28/21 12:24 breakthrough seizure with history of intractable epilepsy being treated with Keppra, head CT scan documented right temporal lobe mass unchanged from previous evaluation consistent with metastatic disease in addition to chronic encephalomalacia in the right temporal lobe and alexis inferior aspect of the frontal lobe along with the subcortical basal ganglia stroke repeat CT of the head on 06/26 again documented the temporal masses which were stable since May 27, 2019 and also temporal lobe and frontal lobe encephalomalacia, patient has been receiving levetiracetam 1000 mg q.12 hours in addition to all his other medications and remains is stable medications will be continued as such in case his seizures recur they can always increase the levetiracetam he has ongoing findings suggestive of underlying dementia as well which is obviously related to his intracranial pathology Objective Data Vital Signs Vital Signs: Vital Signs - 24 hr 06/27/21 14:00 06/27/21 16:00 06/27/21 20:00 Temperature 36.7 C Pulse Rate 67 85 73 Respiratory Rate 22 H Blood Pressure 146/98 H Pulse Oximetry 99 06/27/21 20:08 06/27/21 22:00 06/28/21 00:00 Temperature 36.2 C L Pulse Rate 71 79 Respiratory Rate 14 Blood Pressure 151/79 H Pulse Oximetry 96 99 06/28/21 04:00 06/28/21 06:00 06/28/21 08:00 Temperature 36.2 C L Pulse Rate 66 71 69 Respiratory Rate 16 Blood Pressure 171/90 H Pulse Oximetry 100 06/28/21 08:04 Temperature Pulse Rate Respiratory Rate Blood Pressure Pulse Oximetry 96 Intake/Output Intake/Output: Intake & Output 06/25/21 06/26/21 06/27/21 06/28/21 23:59 23:59 23:59 23:59 Intake Total 2590 1150 350 Output Total 200 Balance 2390 1150 350 Meds/Results Medications: Active Medications Generic Name Dose Route Start Last Admin Trade Name Freq PRN Reason Stop Dose Admin Acetaminophen 650 mg 06/27/21 07:48 Acetaminophen 325 Mg Tablet PO Q4H PRN Pain, Mild Alprazolam 0.25 mg 06/27/21 07:40 06/27/21 09:18 Alprazolam (*Crx) 0.25 Mg Tablet PO 0.25 mg TID PRN Administration anxiety Aspirin 81 mg 06/27/21 09:00 06/27/21 09:18 Aspirin 81 Mg Enteric Tablet PO 81 mg DAILY BASILIA Administration Bisacodyl 10 mg 06/27/21 07:40 Bisacodyl 10 Mg Suppository RECTAL DAILY PRN Constipation Enoxaparin Sodium 40 mg 06/28/21 09:00 06/28/21 09:36 Enoxaparin 40 Mg/0.4 Ml Syringe SUB-Q 40 mg DAILY BASILIA Administration Folic Acid 1 mg 06/27/21 09:00 06/27/21 09:18 Folic Acid 1 Mg Tablet PO 1 mg DAILY BASILIA Administration Hydrocortisone 1 applic 06/27/21 09:00 06/28/21 07:55 Hydrocortisone 2.5% Cream 30 Gm Tube TOPICAL 1 applic BID BASILIA Administration Ceftriaxone Sodium/Dextrose 1 gm in 50 mls @ 100 mls/hr 06/27/21 09:00 06/28/21 09:34 Rocephin 1 Gm/D5w 50 Ml IVPB 100 mls/hr Q24H BASILIA Administration Levetiracetam 1,000 mg in 100 mls @ 390.879 mls/hr 06/27/21 21:00 06/28/21 08:10 Keppra Iv IVPB Infused Q12HR BASILIA Infusion Potassium Chloride/Dextrose/Sod Cl 1,000 mls @ 70 mls/hr 06/28/21 07:05 06/28/21 10:19 Kcl 20 Meq/D5/0.9% Sod Chl IV CONT 70 mls/hr .[id number] BASILIA Administration Vancomycin HCl 1,000 mg in 250 mls @ 250 mls/hr 06/28/21 08:00 06/28/21 09:22 Vancomycin 1,000 Mg/D5w 250 Ml IVPB Infused Q24H BASILIA Infusion Lorazepam 1 mg 06/27/21 15:27 Lorazepam Inj (*Crx) 2 Mg/Ml Vial IV PUSH Q6H PRN Seizure Activity Magnesium Citrate 296 ml 06/27/21 07:40 Magnesium Citrate 300 Ml Btl PO DAILY PRN Constipation Magnesium Hydroxide 30 ml 06/27/21 07:40 Magnesium Hydroxide Susp 30 Ml Udc PO HS PRN Constipation Nitroglycerin 0.4 mg 06/27/21 07:40 Nitroglycerin Sl 0.4 Mg Tablet SUBLINGUAL Q5M PRN Chest Pain Non-Formulary Medication 118 ml 06/27/21 07:40 Sodium Phosphates
--- NOTE | 2021-06-28 13:46 | PCSTNOTE ---
Please refer to the Modified Barium Swallow Evaluation in the EMR.
--- NOTE | 2021-06-28 14:43 | PM.IMPN ---
Progress Note: A&P Assessment and Plan (1) Breakthrough seizure: Code(s): G40.919 - Epilepsy, unspecified, intractable, without status epilepticus Status: Acute Assessment and Plan: Patient brought to the emergency room after sustaining a seizure for about 20 minutes. Patient presumably receiving his medications at the long term. There was concern for recurrence of his metastatic melanoma. The increasing seizure activity may be related to the abnormal findings noted on MR imaging vs from UTI. He received a total of 4 mg Versed, 2 mg Ativan, and 1 g of Keppra on admission. He had one further seizure since admission. Keppra increased to 1gm IV Q12h. Neurology consulted and appreciate their recommendations. Continue fall and seizure precautions. Continue PT/OT (2) Chest pain: Code(s): R07.9 - Chest pain, unspecified Status: Acute Assessment and Plan: Patient was complaining of chest pain on 06/28 but his history was unreliable. We checked EKG which showed normal sinus rhythm and borderline T-wave changes. Troponin was elevated to 0.05 but flat and probably more likely related to the prolonged seizure then from cardiac etiology. Echocardiogram was suboptimal but no obvious segmental wall motion abnormalities. EF was 55-60%. Will continue monitor. Okay to stop tele. (3) Dysphagia: Code(s): R13.10 - Dysphagia, unspecified Status: Acute Assessment and Plan: He was witnessed having choking episodes. CXR showing mild elevation of the right hemidiaphragm with a mild infiltrate the right lung base possibly atelectasis. Modified barium swallow showed intermittent silent aspiration with thin liquids and pureed trials. Patient was kept NPO. IV fluids were started. Speech therapy was concerned that the patient's overall swallow ability could potentially be even worse outside of controlled testing. Spoke with patient's about choices. She is discussing this with her about next steps. She understands that patient is confused and cannot make informed decisions at this time. (4) Abnormal brain CT: Code(s): R90.89 - Other abnormal findings on diagnostic imaging of central nervous system Status: Acute Assessment and Plan: Recent brain MR at [facility] demonstrated interval increase enhancement since 2019 to the right temporal lobe region with a small nearby nodule of the right inferior gyrus concerning for interval progression over radiation necrosis. He is to have a repeat MR on 07/12/21 to further evaluate. Will hold off on further neurologic imaging unless there is a change in his status. (5) Urinary tract infection: Code(s): N39.0 - Urinary tract infection, site not specified Status: Acute Assessment and Plan: UA noted. UCx growing Enterococcus. Was started on vancomycin. Sensitivities have returned showing sensitive to ampicillin so will change to ampicillin. (6) Chronic kidney disease: Code(s): N18.9 - Chronic kidney disease, unspecified Status: Acute Assessment and Plan: Creatinine was normal 1 year ago in May. Baseline creatinine has climbed to 1.4-1.6 range. Creatinine is stable on admission at 1.6 but improved to 1.3 and stable. Will continue to follow. (7) Dementia: Code(s): F03.90 - Unspecified dementia without behavioral disturbance Status: Acute Assessment and Plan: Patient alert but confused. reports cognitive decline since his diagnosis several years ago. Continue fall precautions (8) Benign essential hypertension: Code(s): I10 - Essential (primary) hypertension Status: Chronic Assessment and Plan: Diet controlled. Does not appear to be on antihypertensive medications on admission. Blood pressure elevated at times but overall stable. Will continue to follow. May need a patch if persistent HTN. (9) Metastatic melanoma: Code(s): C79.9
[2021-06-28] MEDS: AMPICILLIN 1 GM/NS 50 ML 1 GM/50 ML BAG IVPB (17:08)
[2021-06-29] MEDS: AMPICILLIN 1 GM/NS 50 ML 1 GM/50 ML BAG IVPB ×4 (00:02→17:07)
[2021-06-29 04:51] VITALS: BP 165/94; PULSE 64; RESP 18; TEMP 36.4; O2SAT 98
[2021-06-29 07:07] LABS: Anion Gap 9 mmol/L (8-16); Blood Urea Nitrogen 11 mg/dL (9-20); Calcium 8.8 mg/dL (8.4-10.2); Carbon Dioxide 22 mmol/L (22-30); Chloride 110 mmol/L (98-107); Estimated Glomerular Filt Rate 60; Glucose 100 mg/dL (65-110); Magnesium 1.6 mg/dL (1.6-2.3); Potassium 3.7 mmol/L (3.4-5.0); Sodium 141 mmol/L (137-145)
[2021-06-29 07:57] VITALS: O2SAT 96
[2021-06-29 08:00] VITALS: PULSE 64; RESP 18; O2SAT 96
[2021-06-29] MEDS: levETIRAcetam 1000MG/NACL100ML 1,000 MG/100 ML BAG 390.88 MG IVPB ×2 (09:49→20:36)
[2021-06-29] MEDS: HYDROCORTISONE 2.5% CREAM 30 GM TUBE 1 APPLIC TOPICAL ×2 (09:49→17:07)
--- NOTE | 2021-06-29 10:20 | PM.IMPN ---
Progress Note: A&P Assessment and Plan (1) Breakthrough seizure: Code(s): G40.919 - Epilepsy, unspecified, intractable, without status epilepticus Status: Acute Assessment and Plan: Patient brought to the ED after sustaining a seizure for about 20 minutes. Patient presumably receiving his medications at the alf. There was concern for recurrence of his metastatic melanoma. The increasing seizure activity may be related to the abnormal findings noted on recent MR imaging and/or from UTI. He received a total of 2 mg Ativan and 1 g of Keppra on admission (don't see Versed). He had one further seizure since admission. Neurology consulted and appreciate their recommendations. Keppra increased to 1gm IV Q12h. Continue fall and seizure precautions. Continue PT/OT. (2) Chest pain: Code(s): R07.9 - Chest pain, unspecified Status: Acute Assessment and Plan: Patient was complaining of chest pain on 06/28 but his history was unreliable. We checked EKG which showed normal sinus rhythm and borderline T-wave changes. Troponin was elevated to 0.05 but flat and probably more likely related to the prolonged seizure then from cardiac etiology. Echo was suboptimal but no obvious segmental wall motion abnormalities. EF was 55-60%. Will continue monitor. Tele has been stopped. (3) Dysphagia: Code(s): R13.10 - Dysphagia, unspecified Status: Acute Assessment and Plan: He was witnessed having choking episodes. CXR showing mild elevation of the right hemidiaphragm with a mild infiltrate the right lung base possibly atelectasis. Modified barium swallow showed intermittent silent aspiration with thin liquids and pureed trials. Patient was kept NPO. IV fluids were started. Speech therapy was concerned that the patient's overall swallow ability could potentially be even worse outside of controlled testing. Probably related to recent changes noted by MR and/or worsening dementia. Spoke with patient's about choices. NGT feeding was offered but, given his current condition, that his dysphagia would be more long standing and would recommend PEG placement. has decided to proceed with feeding tube. GI consulted. Lovenox held. (4) Abnormal brain CT: Code(s): R90.89 - Other abnormal findings on diagnostic imaging of central nervous system Status: Acute Assessment and Plan: CT brain here showing stable findings but recent brain MR at [facility] demonstrated interval increase enhancement since 2019 to the right temporal lobe region with a small nearby nodule of the right inferior gyrus concerning for interval progression over radiation necrosis. He is to have a repeat MR on 07/12/21 to further evaluate. Will hold off on further neurologic imaging unless there is a change in his status. (5) Urinary tract infection: Code(s): N39.0 - Urinary tract infection, site not specified Status: Acute Assessment and Plan: UA noted. UCx growing Enterococcus. Was started on vancomycin but sensitive to ampicillin so changed to ampicillin. (6) Chronic kidney disease: Code(s): N18.9 - Chronic kidney disease, unspecified Status: Acute Assessment and Plan: Creatinine was normal 1 year ago in May. Baseline creatinine has climbed to 1.4-1.6 range. Creatinine on admission was 1.6 but improved to 1.2 and stable. Will continue to follow. (7) Dementia: Code(s): F03.90 - Unspecified dementia without behavioral disturbance Status: Acute Assessment and Plan: Patient alert but confused. reports cognitive decline since his diagnosis several years ago. Continue fall precautions. (8) Benign essential hypertension: Code(s): I10 - Essential (primary) hypertension Status: Chronic Assessment and Plan: Diet controlled. Does not appear to be on antihypertensive medications on admission. Blood pressure elevated at times but over
[2021-06-29] MEDS: KCL 20 MEQ/D5/0.9% SOD CHL 1,000 ML 70 ML IV CONT (12:16)
[2021-06-29 13:38] VITALS: BP 154/90; PULSE 64; RESP 16; TEMP 37; O2SAT 100
--- NOTE | 2021-06-29 16:47 | WPDGICN ---
Assessment and Plan Assessment and plan (1) Breakthrough seizure: Code(s): G40.919 - Epilepsy, unspecified, intractable, without status epilepticus Status: Acute Assessment and Plan: reason of admission medical management optimized by neurology abnormal findings in CT scan brain (2) Silent aspiration: Code(s): T17.900A - Unspecified foreign body in respiratory tract, part unspecified causing asphyxiation, initial encounter Status: Acute Assessment and Plan: confirmed by speech therapy and imaging will talk to primary and if willing to have G-tube, nurse told me that asked for possible transfer to his oncologist in [facility] (3) Metastatic melanoma: Code(s): C79.9 - Secondary malignant neoplasm of unspecified site Status: Acute Assessment and Plan: he is seeing oncologist in [facility] (4) History of CVA (cerebrovascular accident): Code(s): Z86.73 - Personal history of transient ischemic attack (TIA), and cerebral infarction without residual deficits Status: Acute (5) Dementia: Code(s): F03.90 - Unspecified dementia without behavioral disturbance Status: Acute (6) Urinary tract infection: Code(s): N39.0 - Urinary tract infection, site not specified Status: Acute Assessment and Plan: on treatment (7) Chronic kidney disease: Code(s): N18.9 - Chronic kidney disease, unspecified Status: Acute GI Consult Note Consult date/time: 06/29/21 16:47 Reason for consult: dysphagia HPI: Jovany Robbins is a 66 year old male with history of dementia, metastatic melanoma, history of brain radiation, CVA, seizures and residential resident who was brought to the emergency room after sustaining a seizure for about 20 minutes. There was concern for recurrence of his metastatic melanoma for which is supposed to get new MRI brain and follow-up with his physician in [facility]. He has breakthrough seizure with history of intractable epilepsy being treated with Keppra. He had head CT that was reviewed and showed hyperdense right temporal masses appear stable since 05/27/2019, suggesting primary or metastatic malignant lesions; status post right temporal parietal craniotomy, chronic right temporal and bilateral frontal encephalomalacia, also previous small stroke. At baseline he is very mobile in his wheelchair and interactive with staff and residents at the residential though he does have periods of confusion. History has been obtained from medical records. I am called because speech therapy found that he has silent aspiration. Patient is confused as he told me that today for breakfast had scramble eggs with ross but clearly he is npo status. Review of Systems Constitutional: Constitutional: Denies chills Eyes: Eyes: Reports no additional eye complaints ENT: Reports Normal hearing present Cardiovascular: Cardiovascular: Denies chest pain Respiratory: Respiratory: Denies dyspnea Gastrointestinal: Gastrointestinal: Denies abdominal pain Genitourinary: Genitourinary: Denies dysuria Musculoskeletal: Musculoskeletal: Denies arthralgias Integumentary/Breasts: Skin/Breast: Denies dry skin Neurologic: Reports confusion Comments: seizures Psychiatric: Psychiatric: Reports confusion [facility] Past Medical History Medical History (Updated 06/29/21 @ 16:56 by Miguel Goff MD) Alcohol-induced pancreatitis (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 Chronic obstructive pulmonary disease Dementia Gastroesophageal reflux disease Hepatitis C History of alcohol abuse Metastatic malignant melanoma (2012) Status post resection of brain metastases x2 with adjuvant CyberKnife therapy. He had immunotherapy for an endobronchial lesion in 2014 in addition to radiation
[2021-06-29 20:00] VITALS: PULSE 64; RESP 16; O2SAT 100
[2021-06-29 22:00] VITALS: BP 158/92; PULSE 62; RESP 18; TEMP 36.3; O2SAT 97
[2021-06-29 22:04] LABS: SARS-CoV-2 RNA PCR Negative
[2021-06-30] MEDS: AMPICILLIN 1 GM/NS 50 ML 1 GM/50 ML BAG IVPB ×4 (00:15→17:25)
[2021-06-30] MEDS: KCL 20 MEQ/D5/0.9% SOD CHL 1,000 ML 70 ML IV CONT (05:04)
[2021-06-30 06:00] VITALS: BP 156/85; PULSE 67; RESP 18; TEMP 36; O2SAT 100
[2021-06-30 06:19] LABS: Basophils Absolute Auto 0.1 K/mm3 (0.0-0.1); Basophils Percent Auto 0.7 % (0.2-1.2); Eosinophils Absolute Auto 0.4 K/mm3 (0-0.3); Hemoglobin 12.6 g/dL (14.0-18.0); Immature Granulocyte Absolute 0.05 K/mm3 (0.00-0.031); Immature Granulocyte Percent A 0.7 % (0-0.5); Lymphocytes Absolute Auto 0.66 K/mm3 (0.9-3.2); Lymphocytes Percent Auto 9.6 % (18.3-44.2); Mean Corpuscular HGB Conc 33.2 g/dl (32-36); Mean Corpuscular Hemoglobin 29.1 pg (26-34); Mean Corpuscular Volume 87.8 fl (80-100); Mean Platelet Volume 9.6 fl (7.4-10.4); Monocytes Absolute Auto 0.6 K/mm3 (0.1-0.6); Monocytes Percent Auto 9.3 % (2.6-8.5); Neutrophils Absolute Auto 5.1 K/mm3 (1.3-6.7); Neutrophils Percent Auto 73.7 % (45.5-73.1); Platelet Count Result 263 k/mm3 (150-375); Red Blood Count 4.33 M/mm3 (4.6-6.20); Red Cell Distribution Width 13.6 % (11.5-14.5); White Blood Count 6.9 K/mm3 (4.5-10.0)
[2021-06-30 06:40] LABS: Albumin Level 3.8 g/dL (3.5-5.1); Anion Gap 11 mmol/L (8-16); Blood Urea Nitrogen 9 mg/dL (9-20); Calcium 8.7 mg/dL (8.4-10.2); Carbon Dioxide 19 mmol/L (22-30); Chloride 111 mmol/L (98-107); Estimated Glomerular Filt Rate 60; Glucose 93 mg/dL (65-110); Magnesium 1.5 mg/dL (1.6-2.3); Phosphorus 3.2 mg/dL (2.5-4.5); Potassium 3.4 mmol/L (3.4-5.0); Sodium 141 mmol/L (137-145)
[2021-06-30] MEDS: MAGNESIUM SULF 2 GM/WATER 50ML 2 GM/50 ML BAG IVPB (09:19)
[2021-06-30] MEDS: HYDROCORTISONE 2.5% CREAM 30 GM TUBE 1 APPLIC TOPICAL ×2 (09:20→17:25)
[2021-06-30] MEDS: levETIRAcetam 1000MG/NACL100ML 1,000 MG/100 ML BAG 390.88 MG IVPB ×2 (10:16→19:58)
[2021-06-30] MEDS: PANTOPRAZOLE SODIUM IV 40 MG VIAL IV PUSH (10:37)
--- NOTE | 2021-06-30 12:23 | PM.IMPN ---
Progress Note: A&P Assessment and Plan (1) Breakthrough seizure: Code(s): G40.919 - Epilepsy, unspecified, intractable, without status epilepticus Status: Acute Assessment and Plan: Patient brought to the ED after sustaining a seizure for about 20 minutes. Patient presumably receiving his medications at the retirement. There was concern for recurrence of his metastatic melanoma. The increasing seizure activity may be related to the abnormal findings noted on recent MR imaging and/or from UTI. He received a total of 2 mg Ativan and 1 g of Keppra on admission (don't see Versed). He had one further seizure since admission. Neurology consulted and appreciate their recommendations. Keppra increased to 1gm IV Q12h. Continue fall and seizure precautions. Continue PT/OT (patient refusing though). (2) Chest pain: Code(s): R07.9 - Chest pain, unspecified Status: Acute Assessment and Plan: Patient was complaining of chest pain on 06/28 but his history was unreliable. We checked EKG which showed normal sinus rhythm and borderline T-wave changes. Troponin was elevated to 0.05 but flat and probably more likely related to the prolonged seizure then from cardiac etiology. Echo was suboptimal but no obvious segmental wall motion abnormalities. EF was 55-60%. Will continue monitor. Add aspirin once he has PEG (3) Dysphagia: Code(s): R13.10 - Dysphagia, unspecified Status: Acute Assessment and Plan: He was witnessed having choking episodes. CXR showing mild elevation of the right hemidiaphragm with a mild infiltrate the right lung base possibly atelectasis. Modified barium swallow showed intermittent silent aspiration with thin liquids and pureed trials. Patient was kept NPO. IV fluids were started. Speech therapy was concerned that the patient's overall swallow ability could potentially be even worse outside of controlled testing. Probably related to recent changes noted by MR and/or worsening dementia. Spoke with patient's about choices. NGT feeding was offered but, given his current condition, that his dysphagia would be more long standing and would recommend PEG placement. has decided to proceed with PEG feeding tube. GI consulted and appreciate their input. Lovenox remains on hold. Elevated HOB. (4) Abnormal brain CT: Code(s): R90.89 - Other abnormal findings on diagnostic imaging of central nervous system Status: Acute Assessment and Plan: CT brain here showing stable findings but recent brain MR at [facility] demonstrated interval increase enhancement since 2019 to the right temporal lobe region with a small nearby nodule of the right inferior gyrus concerning for interval progression over radiation necrosis. He is to have a repeat MR on 07/12/21 to further evaluate. Will hold off on further neurologic imaging unless there is a change in his status. I have called and left message with Dr Lou, his oncologist. (5) Urinary tract infection: Code(s): N39.0 - Urinary tract infection, site not specified Status: Acute Assessment and Plan: UA noted. UCx growing Enterococcus. Was started on vancomycin but sensitive to ampicillin so changed to ampicillin. (6) Chronic kidney disease: Code(s): N18.9 - Chronic kidney disease, unspecified Status: Acute Assessment and Plan: Creatinine was normal 1 year ago in May. Baseline creatinine has climbed to 1.4-1.6 range. Creatinine on admission was 1.6 but improved to 1.2 and stable. Will continue to follow. Continue maintenance fluids. (7) Dementia: Code(s): F03.90 - Unspecified dementia without behavioral disturbance Status: Acute Assessment and Plan: Patient alert but confused. reports cognitive decline since his diagnosis several years ago. Continue fall precautions. (8) Benign essential hypertension: Code(s): I10 - Essential (primary) hypertensi
[2021-06-30 14:00] VITALS: BP 173/94; PULSE 73; RESP 18; TEMP 36.8; O2SAT 98
--- NOTE | 2021-06-30 17:38 | WPDGIPROGNO ---
Progress Note: A&P Assessment and Plan (1) Silent aspiration: Code(s): T17.900A - Unspecified foreign body in respiratory tract, part unspecified causing asphyxiation, initial encounter Status: Acute Assessment and Plan: I talked to and she is ok to move forward with peg placement tomorrow he has neurological changes and brain abnormality- neurology on board (2) Dementia: Code(s): F03.90 - Unspecified dementia without behavioral disturbance Status: Acute (3) Abnormal brain CT: Code(s): R90.89 - Other abnormal findings on diagnostic imaging of central nervous system Status: Acute (4) Breakthrough seizure: Code(s): G40.919 - Epilepsy, unspecified, intractable, without status epilepticus Status: Acute Assessment and Plan: on meds (5) Metastatic melanoma: Code(s): C79.9 - Secondary malignant neoplasm of unspecified site Status: Acute Assessment and Plan: seeing oncology in [facility] Date/time seen: 06/30/21 17:38 Interval history: he is talking but gets confused, noted that he has been having more hallucinations. Still npo because found to have silent aspiration. Review of Systems Review of Systems: All systems reviewed & are unremarkable except as noted in HPI and below Exam Const: General: comfortable and no acute distress HENMT: General nose exam: Normal nares present Eyes: General: appearance normal, both eyes and all related structures Neck: Neck: no JVD Resp: Auscultation: clear to auscultation bilaterally Cardio: Rate: regular rate Rhythm: regular rhythm GI: Inspection: non-distended GI Palp: Yes Soft to palpation Skin: General skin exam: normal color Neuro: Speech: normal speech Motor exam (neuro): Normal motor muscle tone present throughout Other: alert but confused, he is talking Extrem: General: normal to inspection Psych: Attitude: not belligerent Objective Data Vital Signs Vital Signs: Vital Signs - 24 hr 06/29/21 20:00 06/29/21 22:00 06/30/21 06:00 Temperature 97.4 F L 96.8 F L Pulse Rate 64 62 67 Respiratory Rate 16 18 18 Blood Pressure 158/92 H 156/85 H Pulse Oximetry 100 97 100 06/30/21 14:00 Temperature 98.2 F Pulse Rate 73 Respiratory Rate 18 Blood Pressure 173/94 H Pulse Oximetry 98 Intake/Output Intake/Output: Intake & Output 06/27/21 06/28/21 06/29/21 06/30/21 23:59 23:59 23:59 23:59 Intake Total 1150 1500 1400 1300 Balance 1150 1500 1400 1300 Meds/Results Medications: Active Medications Generic Name Dose Route Start Last Admin Trade Name Freq PRN Reason Stop Dose Admin Acetaminophen 650 mg 06/27/21 07:48 Acetaminophen 325 Mg Tablet PO Q4H PRN Pain, Mild Alprazolam 0.25 mg 06/27/21 07:40 06/27/21 09:18 Alprazolam (*Crx) 0.25 Mg Tablet PO 0.25 mg TID PRN Administration anxiety Aspirin 81 mg 06/27/21 09:00 06/27/21 09:18 Aspirin 81 Mg Enteric Tablet PO 81 mg DAILY BASILIA Administration Bisacodyl 10 mg 06/27/21 07:40 Bisacodyl 10 Mg Suppository RECTAL DAILY PRN Constipation Enoxaparin Sodium 40 mg 06/28/21 09:00 06/28/21 09:36 Enoxaparin 40 Mg/0.4 Ml Syringe SUB-Q 40 mg DAILY BASILIA Administration Folic Acid 1 mg 06/27/21 09:00 06/27/21 09:18 Folic Acid 1 Mg Tablet PO 1 mg DAILY BASILIA Administration Hydralazine HCl 10 mg 06/29/21 10:40 Hydralazine Hcl 20 Mg/Ml Vial IV PUSH Q8H PRN Blood Pressure - High Hydrocortisone 1 applic 06/27/21 09:00 06/30/21 17:25 Hydrocortisone 2.5% Cream 30 Gm Tube TOPICAL 1 applic BID BASILIA Administration Levetiracetam 1,000 mg in 100 mls @ 390.879 mls/hr 06/27/21 21:00 06/30/21 10:32 Keppra Iv IVPB Infused Q12HR BASILIA Infusion Potassium Chloride/Dextrose/Sod Cl 1,000 mls @ 70 mls/hr 06/28/21 07:05 06/30/21 05:04 Kcl 20 Meq/D5/0.9% Sod Chl IV CONT 70 mls/hr .[id number] BASILIA Administration
[2021-06-30 22:00] VITALS: BP 127/87; PULSE 70; RESP 18; TEMP 37.1; O2SAT 98
[2021-07-01] VITALS (7 sets, daily range): BP systolic 160–175; BP diastolic 87–99; PULSE 54–70; RESP 16–30; TEMP 35.8–36.7; O2SAT 96–100; BMI 19.9
[2021-07-01] MEDS: AMPICILLIN 1 GM/NS 50 ML 1 GM/50 ML BAG IVPB ×4 (00:08→23:35)
[2021-07-01] MEDS: KCL 20 MEQ/D5/0.9% SOD CHL 1,000 ML 70 ML IV CONT ×2 (01:39→17:14)
[2021-07-01 07:24] LABS: Albumin Level 4.2 g/dL (3.5-5.1); Anion Gap 13 mmol/L (8-16); Blood Urea Nitrogen 7 mg/dL (9-20); Calcium 8.8 mg/dL (8.4-10.2); Carbon Dioxide 18 mmol/L (22-30); Chloride 110 mmol/L (98-107); Estimated Glomerular Filt Rate 60; Glucose 88 mg/dL (65-110); Magnesium 1.9 mg/dL (1.6-2.3); Phosphorus 3.1 mg/dL (2.5-4.5); Potassium 3.5 mmol/L (3.4-5.0); Sodium 141 mmol/L (137-145)
[2021-07-01] MEDS: PANTOPRAZOLE SODIUM IV 40 MG VIAL IV PUSH (08:35)
[2021-07-01] MEDS: levETIRAcetam 1000MG/NACL100ML 1,000 MG/100 ML BAG 390.88 MG IVPB ×2 (08:35→21:13)
[2021-07-01] MEDS: HYDROCORTISONE 2.5% CREAM 30 GM TUBE 1 APPLIC TOPICAL ×2 (08:36→16:39)
[2021-07-01] MEDS: LACTATED RINGERS 1,000 ML 150 ML IV CONT (13:21)
--- NOTE | 2021-07-01 13:28 | WPDANESEPPF ---
Anes - Initial Pre Proc Eval Procedure: Operation Date: 07/01/21 16:15 Proposed Procedures p Esophagogastroduodenoscopy - Miguel Goff MD s Percutaneous Endoscopic Gastrostomy - Miguel Goff MD Date/Time: 07/01/21 13:28 Surgeon: Brigida Guerrero DO Pre Op Diagnosis: Seizure/urinary tract infection Patient Data Age: 66 Gender: M Height: Weight: 57.8 kg Last Vital Signs Temp 35.8 C L 07/01/21 13:17 Pulse 54 L 07/01/21 13:17 Resp 16 07/01/21 13:17 BP 175/87 H 07/01/21 13:17 Pulse Ox 100 07/01/21 13:17 Allergies Allergy/AdvReac Type Severity Reaction Status Date / Time No Known Allergies Allergy Verified 07/01/21 13:14 Home Medications Medication Instructions Recorded Confirmed Type aspirin 81 mg tablet,delayed 81 mg PO DAILY 07/07/19 06/26/21 History release tamsulosin [Flomax] 0.4 mg PO DAILY 06/08/20 06/26/21 History alprazolam 0.25 mg PO TID PRN #10 tablet 06/26/20 06/26/21 Rx magnesium hydroxide 30 ml PO HS PRN 07/01/20 06/26/21 History folic acid 1 mg PO DAILY 06/10/21 06/26/21 History magnesium citrate [Citroma] 296 ml PO DAILY PRN 06/10/21 06/26/21 History nitroglycerin 0.4 mg SUBLINGUAL Q5-15M PRN 06/10/21 06/26/21 History ondansetron HCl [Zofran] 4 mg PO Q8H PRN 06/10/21 06/26/21 History pantoprazole [Protonix] 40 mg PO QAM 28 Days #28 tablet 06/10/21 06/26/21 Rx sertraline 100 mg PO DAILY 06/10/21 06/26/21 History thiamine HCl (vitamin B1) 100 mg PO DAILY 06/10/21 06/26/21 History vitamin B complex [B Complex 1 tablet PO DAILY 06/10/21 06/26/21 History Vitamin] acetaminophen 650 mg PO Q4H PRN 06/26/21 06/26/21 History bisacodyl 10 mg RECTAL DAILY PRN 06/26/21 06/26/21 History hydrocortisone 1 applic TOPICAL BID 06/26/21 06/26/21 History levetiracetam [Keppra] 750 mg PO Q12H 06/26/21 06/26/21 History magnesium citrate [Citroma] 06/26/21 History sodium phosphates [Fleet Enema] 118 ml RECTAL DAILY PRN 06/26/21 06/26/21 History Laboratory Tests 07/01/21 05:52 Sodium 141 mmol/L mmol/L (137-145) Potassium 3.5 mmol/L mmol/L (3.4-5.0) Chloride 110 mmol/L H mmol/L (98-107) Carbon Dioxide 18 mmol/L L mmol/L (22-30) Anion Gap 13 mmol/L mmol/L (8-16) BUN 7 mg/dL L mg/dL (9-20) Creatinine 1.20 mg/dL mg/dL (0.7-1.3) Estim Creat Clear Calc Not Reportable Estimated GFR 60 (59 - ) Glucose 88 mg/dL mg/dL (65-110) Calcium 8.8 mg/dL mg/dL (8.4-10.2) Phosphorus 3.1 mg/dL mg/dL (2.5-4.5) Magnesium 1.9 mg/dL mg/dL (1.6-2.3) Albumin 4.2 g/dL g/dL (3.5-5.1) Patient hx anesthesia problems: none Family hx anesthesia problems: none Results Review: All pre-operative results and documents have been reviewed as part of the pre-operative evaluation. [facility] Past Medical History Medical History Alcohol-induced pancreatitis (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 Chronic obstructive pulmonary disease Dementia Gastroesophageal reflux disease Hepatitis C History of alcohol abuse Metastatic malignant melanoma (2012) Status post resection of brain metastases x2 with adjuvant CyberKnife therapy. He had immunotherapy for an endobronchial lesion in 2014 in addition to radiation. is unsure if he has primary melanoma of the lung though she reports no skin lesions were found. Nicotine abuse Osteoarthritis Seizure disorder Silent aspiration Vitamin D deficiency Surgical History Surgical History History of craniotomy Resection of metastatic melanoma x2 at [facility]. History of endoscopic retrograde cholangiopancreatography With insertion and subsequent removal of a biliary stent. Hi
--- NOTE | 2021-07-01 15:27 | PCDIET ---
Dietitian consult for Tube feeding start in 6 hours. Tube feeding recommendations: Jevity 1.2 at 20 ml/hr advance by 10 ml/hr q 4 hours to goal rate of 70 ml/hr. Goal rate of tube feeding is providing 1848 kcals/85 gms protein/1243 ml water. Free water flush 30 ml q 4 hours.
--- NOTE | 2021-07-01 15:46 | PM.IMPN ---
Progress Note: A&P Assessment and Plan (1) Breakthrough seizure: Code(s): G40.919 - Epilepsy, unspecified, intractable, without status epilepticus Status: Acute Assessment and Plan: Patient brought to the ED after sustaining a seizure for about 20 minutes. Patient presumably receiving his medications at the correction. There was concern for recurrence of his metastatic melanoma. The increasing seizure activity may be related to the abnormal findings noted on recent MR imaging and/or from UTI. He received a total of 2 mg Ativan and 1 g of Keppra on admission (don't see Versed). He had one further seizure since admission. Neurology consulted and appreciate their recommendations. Keppra increased to 1gm IV Q12h. Continue fall and seizure precautions. Continue PT/OT but patient refusing therapy. (2) Chest pain: Code(s): R07.9 - Chest pain, unspecified Status: Acute Assessment and Plan: Patient was complaining of chest pain on 06/28 but his history was unreliable. We checked EKG which showed normal sinus rhythm and borderline T-wave changes. Troponin was elevated to 0.05 but flat and probably more likely related to the prolonged seizure then from cardiac etiology. Echo was suboptimal but no obvious segmental wall motion abnormalities. EF was 55-60%. Will continue monitor. (3) Dysphagia: Code(s): R13.10 - Dysphagia, unspecified Status: Acute Assessment and Plan: He was witnessed having choking episodes. CXR showing mild elevation of the right hemidiaphragm with a mild infiltrate the right lung base possibly atelectasis. Modified barium swallow showed intermittent silent aspiration with thin liquids and pureed trials. Patient was kept NPO. IV fluids were started. Speech therapy was concerned that the patient's overall swallow ability could potentially be even worse outside of controlled testing. Probably related to recent changes noted by MR and/or worsening dementia. Spoke with patient's about choices. NGT feeding was offered but, given his current condition, that his dysphagia would be more long standing and would recommend PEG placement. has decided to proceed with PEG feeding tube. GI was consulted and appreciate their input. [place] underwent PEG placement earlier today. Start TF per GI recommendations. (4) Abnormal brain CT: Code(s): R90.89 - Other abnormal findings on diagnostic imaging of central nervous system Status: Acute Assessment and Plan: CT brain here showing stable findings but recent brain MR at [facility] demonstrated interval increase enhancement since 2019 to the right temporal lobe region with a small nearby nodule of the right inferior gyrus concerning for interval progression over radiation necrosis. He is to have a repeat MR on 07/12/21 to further evaluate. Will hold off on further neurologic imaging unless there is a change in his status. I have called and left message with Dr Lou, his oncologist. (5) Urinary tract infection: Code(s): N39.0 - Urinary tract infection, site not specified Status: Acute Assessment and Plan: UA noted. UCx growing Enterococcus. Was started on vancomycin 06/28 but sensitive to ampicillin so changed to ampicillin. Day 4 of IV abx. (6) Chronic kidney disease: Code(s): N18.9 - Chronic kidney disease, unspecified Status: Acute Assessment and Plan: Creatinine was normal 1 year ago in May. Baseline creatinine has climbed to 1.4-1.6 range. Creatinine on admission was 1.6 but improved to 1.2 and stable. Will continue to follow. Continue maintenance fluids. (7) Dementia: Code(s): F03.90 - Unspecified dementia without behavioral disturbance Status: Acute Assessment and Plan: Patient alert but confused. reports cognitive decline since his diagnosis several years ago. Continue fall precautions. (8) Benign essential hypertension: Co
[2021-07-01] MEDS: ACETAMINOPHEN 325 MG TABLET 650 MG FEED TUBE (23:03)
[2021-07-01] MEDS: ALPRAZolam (*CRX) 0.25 MG TABLET FEED TUBE (23:03)
[2021-07-02 01:50] LABS: Glucose Point of Care 110 mg/dl (65-105)
[2021-07-02] MEDS: AMPICILLIN 1 GM/NS 50 ML 1 GM/50 ML BAG IVPB ×4 (05:18→23:29)
[2021-07-02 05:59] LABS: Glucose Point of Care 93 mg/dl (65-105)
[2021-07-02 06:00] VITALS: BP 159/89; PULSE 64; RESP 16; TEMP 36.1; O2SAT 100
[2021-07-02 07:23] LABS: Anion Gap 11 mmol/L (8-16); Blood Urea Nitrogen 7 mg/dL (9-20); Calcium 9.1 mg/dL (8.4-10.2); Carbon Dioxide 22 mmol/L (22-30); Chloride 110 mmol/L (98-107); Estimated CRCL calculation 45 ml/min; Estimated Glomerular Filt Rate 60; Glucose 94 mg/dL (65-110); Potassium 3.7 mmol/L (3.4-5.0); Sodium 143 mmol/L (137-145)
[2021-07-02 08:00] VITALS: PULSE 64; RESP 16; O2SAT 100
--- NOTE | 2021-07-02 09:42 | WPDANESPN ---
Anes - Prog Note Post-Op Date/Time: 07/02/21 09:42 Cardiovascular status: normal Respiratory status: normal Airway patency: baseline Mental status: baseline Post-Op hydration status: normal Vital Signs: Last Vital Signs Temp 96.9 F L 07/02/21 06:00 Pulse 64 07/02/21 06:00 Resp 16 07/02/21 06:00 BP 159/89 H 07/02/21 06:00 Pulse Ox 100 07/02/21 06:00 Pain Score (VAS): 03/07 I/O: Intake & Output 07/01/21 07/02/21 07/02/21 23:59 07:59 15:59 Intake Total 150 50 Balance 150 50 Laboratory Tests 06/30/21 05:37 07/02/21 06:22 07/02/21 07/02/21 07/02/21 00:55 05:54 06:22 Sodium 143 Potassium 3.7 Chloride 110 H Carbon Dioxide 22 Anion Gap 11 BUN 7 L Creatinine 1.20 Estim Creat Clear Calc 45 Estimated GFR 60 Glucose 94 POC Capillary Glucose 110 H 93 Calcium 9.1 Post-procedural complaints: none Patient Feedback: Patient satisfied with anesthetic care.
[2021-07-02] MEDS: ACETAMINOPHEN 325 MG TABLET 650 MG FEED TUBE ×2 (10:22→21:29)
[2021-07-02] MEDS: levETIRAcetam 1000MG/NACL100ML 1,000 MG/100 ML BAG 390.88 MG IVPB ×2 (10:22→22:20)
[2021-07-02] MEDS: PANTOPRAZOLE SODIUM IV 40 MG VIAL IV PUSH (10:23)
[2021-07-02] MEDS: amLODIPine BESYLATE 2.5 MG TABLET FEED TUBE (10:24)
[2021-07-02] MEDS: HYDROCORTISONE 2.5% CREAM 30 GM TUBE 1 APPLIC TOPICAL ×2 (10:24→17:47)
[2021-07-02] MEDS: SERTRALINE HCL 50 MG TABLET 100 MG FEED TUBE (10:24)
[2021-07-02 12:32] LABS: Glucose Point of Care 94 mg/dl (65-105)
--- NOTE | 2021-07-02 12:42 | PM.IMPN ---
Progress Note: A&P Assessment and Plan (1) Chest pain: Code(s): R07.9 - Chest pain, unspecified Status: Acute (2) Dementia: Code(s): F03.90 - Unspecified dementia without behavioral disturbance Status: Acute (3) Silent aspiration: Code(s): T17.900A - Unspecified foreign body in respiratory tract, part unspecified causing asphyxiation, initial encounter Status: Acute (4) Chronic kidney disease: Code(s): N18.9 - Chronic kidney disease, unspecified Status: Acute (5) Urinary tract infection: Code(s): N39.0 - Urinary tract infection, site not specified Status: Acute (6) Abnormal brain CT: Code(s): R90.89 - Other abnormal findings on diagnostic imaging of central nervous system Status: Acute (7) Breakthrough seizure: Code(s): G40.919 - Epilepsy, unspecified, intractable, without status epilepticus Status: Acute Additional Plan # breakthrough seizure -unclear etiology of seizure may be from brain lesion -outpatient MRI scheduled for 07/12/2021 -continue Keppra 1 g q.12 hours # failure to thrive -PEG tube placed 07/01/2021 -silent aspiration and failure to thrive, continue tube feeds -goal tube feeds 70 cc/hour, currently at 40 cc/hour, continue up titrating -IV fluids KCl 20 mEq in D5 normal saline -continue Unasyn for aspiration # essential hypertension -patient started on Norvasc 2.5 mg daily # other chronic conditions -anxiety/depression: Continue sertraline, Xanax -Flomax held -supplements held -GERD: Protonix -constipation: P.r.n. Fleet enema, milk of magnesium, Mag citrate, Dulcolax -continue aspirin Diet: NPO, tube feeds DVT prophylaxis: Lovenox Code status: Do not resuscitate Disposition: Likely back to [facility] in 2-4 days Social: Keila updated 07/02 Time Spent With Patient Time with patient: 25 - 35 minutes Subjective Date/time seen: 07/02/21 12:42 Patient seen and examined. Is very lethargic and soft-spoken otherwise responding appropriately with head nodding. Patient has no new complaints. Patient appears not to have any more seizure activity with the increase Keppra dose 1 g b.i.d.. Peg tube is functioning with tube feeds at 40 cc/hour, goal 70 cc/hour. Discussed with nurse to continue titrating up tube feeds. Patient is undergoing treatment for Enterococcus UTI as well. Plan for the brain tumor versus radiation necrosis follow-up is MRI next week which had been scheduled outpatient. Family updated. Review of Systems Review of Systems: Limited due to patient's physical status. Patient nodded appropriately to head nods. Patient denies fever, chills, nausea, vomiting, diarrhea. Exam Narrative: - GENERAL: Pleasant chronically ill-appearing man - EYES: EOMI. Anicteric. - HENT: Moist mucous membranes. - LUNGS: Clear to auscultation bilaterally, no wheezing, rhonchi, or rales. - CARDIOVASCULAR: Regular rate and rhythm. No murmur. No JVD. - ABDOMEN: Soft, non-tender and non-distended. No palpable masses. Peg tube in place with tube feeds at 40 cc/hour - EXTREMITIES: No edema. Peripheral pulses 2+. Non-tender. - NEUROLOGIC: No obvious focal neurological deficits. CN II-XII grossly intact. - PSYCHIATRIC: Awake alert, nodding appropriately. Flat affect. - SKIN: No rashes or lesions. Warm. - LYMPH: No cervical lymphadenopathy. Objective Data Vital Signs Vital Signs: Vital Signs - 24 hr 07/01/21 13:17 07/01/21 14:35 07/01/21 14:45 Temperature 35.8 C L Pulse Rate 54 L 70 62 Respiratory Rate 16 30 H 24 H Blood Pressure 175/87 H 174/98 H 171/92 H Pulse Oximetry 100 100 96 07/01/21 14:55 07/01/21 21:57 07/02/21 06:00 Temperature 36.1 C L 36.1 C L Pulse Rate 67 63 64 Respiratory Rate 22 H 16 16 Blood Pressure 160/99 H 174/88 H 159/89 H Pulse Oximetry 96 100 100 07/02/21 08:00 Temperature Pulse Rate 64 Respiratory Rate 16 Blood Pressure Pulse Oximetry 100 Intake/Output Int
[2021-07-02] MEDS: ALPRAZolam (*CRX) 0.25 MG TABLET FEED TUBE ×2 (13:55→21:29)
[2021-07-02 14:00] VITALS: BP 164/83; PULSE 56; RESP 14; TEMP 36.4; O2SAT 100
[2021-07-02 18:16] LABS: Glucose Point of Care 106 mg/dl (65-105)
[2021-07-02 21:58] VITALS: BP 173/87; PULSE 61; RESP 16; TEMP 36; O2SAT 100
[2021-07-02] MEDS: KCL 20 MEQ/D5/0.9% SOD CHL 1,000 ML 70 ML IV CONT (22:19)
[2021-07-02 23:40] LABS: Glucose Point of Care 124 mg/dl (65-105)
[2021-07-03] MEDS: ACETAMINOPHEN 325 MG TABLET 650 MG FEED TUBE (02:43)
[2021-07-03] MEDS: AMPICILLIN 1 GM/NS 50 ML 1 GM/50 ML BAG IVPB ×4 (05:40→23:28)
[2021-07-03 06:00] VITALS: BP 150/88; PULSE 60; RESP 16; TEMP 36.1; O2SAT 99
[2021-07-03 06:51] LABS: Glucose Point of Care 149 mg/dl (65-105)
[2021-07-03 07:24] LABS: Hematocrit 38.2 % (42.0-52.0); Hemoglobin 12.1 g/dL (14.0-18.0); Mean Corpuscular HGB Conc 31.7 g/dl (32-36); Mean Corpuscular Hemoglobin 29.7 pg (26-34); Mean Corpuscular Volume 93.9 fl (80-100); Mean Platelet Volume 9.7 fl (7.4-10.4); Platelet Count Result 266 k/mm3 (150-375); Red Blood Count 4.07 M/mm3 (4.6-6.20); Red Cell Distribution Width 13.8 % (11.5-14.5); White Blood Count 6.9 K/mm3 (4.5-10.0)
[2021-07-03 07:33] LABS: Anion Gap 9 mmol/L (8-16); Blood Urea Nitrogen 12 mg/dL (9-20); Calcium 8.5 mg/dL (8.4-10.2); Carbon Dioxide 19 mmol/L (22-30); Chloride 112 mmol/L (98-107); Estimated CRCL calculation 45 ml/min; Estimated Glomerular Filt Rate 60; Glucose 119 mg/dL (65-110); Potassium 4.2 mmol/L (3.4-5.0); Sodium 140 mmol/L (137-145)
[2021-07-03 08:00] VITALS: PULSE 60; RESP 16; O2SAT 99
[2021-07-03] MEDS: levETIRAcetam 1000MG/NACL100ML 1,000 MG/100 ML BAG 390.88 MG IVPB ×2 (10:19→20:40)
[2021-07-03] MEDS: HYDROCORTISONE 2.5% CREAM 30 GM TUBE 1 APPLIC TOPICAL ×2 (10:19→18:31)
[2021-07-03] MEDS: SERTRALINE HCL 50 MG TABLET 100 MG FEED TUBE (10:20)
[2021-07-03] MEDS: PANTOPRAZOLE SODIUM IV 40 MG VIAL IV PUSH (10:20)
[2021-07-03] MEDS: FOLIC ACID 1 MG TABLET FEED TUBE (10:21)
[2021-07-03] MEDS: amLODIPine BESYLATE 5 MG TABLET FEED TUBE (10:21)
[2021-07-03] MEDS: ENOXAPARIN 40 MG/0.4 ML SYRINGE SUB-Q (10:21)
[2021-07-03] MEDS: THIAMINE HCL 100 MG TABLET FEED TUBE (10:21)
[2021-07-03] MEDS: VITAMIN B COMPLEX CAPSULE 1 CAP FEED TUBE (10:22)
[2021-07-03 11:50] LABS: Glucose Point of Care 105 mg/dl (65-105)
[2021-07-03 14:00] VITALS: BP 149/84; PULSE 60; RESP 20; TEMP 36.5; O2SAT 97
--- NOTE | 2021-07-03 15:19 | PM.IMPN ---
Progress Note: A&P Assessment and Plan (1) Silent aspiration: Code(s): T17.900A - Unspecified foreign body in respiratory tract, part unspecified causing asphyxiation, initial encounter Status: Acute (2) Chest pain: Code(s): R07.9 - Chest pain, unspecified Status: Acute (3) Dementia: Code(s): F03.90 - Unspecified dementia without behavioral disturbance Status: Acute (4) Urinary tract infection: Code(s): N39.0 - Urinary tract infection, site not specified Status: Acute (5) Abnormal brain CT: Code(s): R90.89 - Other abnormal findings on diagnostic imaging of central nervous system Status: Acute (6) Chronic kidney disease: Code(s): N18.9 - Chronic kidney disease, unspecified Status: Acute Additional Plan # breakthrough seizure -unclear etiology of seizure may be from brain lesion -outpatient MRI scheduled for 07/12/2021 -continue Keppra 1 g q.12 hours, will discharge on this dose #Enterococcus UTI -day 6 of unasyn # failure to thrive -PEG tube placed 07/01/2021 -silent aspiration and failure to thrive, continue tube feeds -tube feeds at goal -stop IVF # essential hypertension -patient started on norvasc, increasing from 2.5mg to 5mg # other chronic conditions -anxiety/depression: Continue sertraline, Xanax -Flomax held -supplements held -GERD: Protonix -constipation: P.r.n. Fleet enema, milk of magnesium, Mag citrate, Dulcolax -continue aspirin Diet: NPO, tube feeds DVT prophylaxis: restarted Lovenox Code status: Do not resuscitate Disposition: Likely back to [facility] maybe tomorrow Social: Keila updated 07/02 Time Spent With Patient Time with patient: 15 - 25 minutes Subjective Date/time seen: 07/03/21 15:19 Patient seen and examined. He is clinically improving, more conversative today. Will continue IV Abx unasyn. No seizure activity on current regimen which we will keep for discharge. TF are at goal and he is tolerating with minimal residuals 30cc. Increasing norvasc to 5mg daily for HTN. Awaiting placement at [facility] being tomorrow. He denies fever, chills, N/V/D, chest pain, abdominal pain. Review of Systems Review of Systems: All systems reviewed & are unremarkable except as noted in HPI and below Exam Narrative: - GENERAL: Pleasant chronically ill-appearing man - EYES: EOMI. Anicteric. - HENT: Moist mucous membranes. - LUNGS: Clear to auscultation bilaterally, no wheezing, rhonchi, or rales. - CARDIOVASCULAR: Regular rate and rhythm. No murmur. No JVD. - ABDOMEN: Soft, non-tender and non-distended. No palpable masses. Peg tube in place with tube feeds at goal - NEUROLOGIC: No obvious focal neurological deficits. CN II-XII grossly intact. - PSYCHIATRIC: Awake alert, oriented to self but is aware he is in hospital. Speaking in sentences today. Flat affect. - SKIN: No rashes or lesions. Warm. - LYMPH: No cervical lymphadenopathy. Objective Data Vital Signs Vital Signs: Vital Signs - 24 hr 07/02/21 21:58 07/03/21 06:00 07/03/21 08:00 Temperature 36.0 C L 36.1 C L Pulse Rate 61 60 60 Respiratory Rate 16 16 16 Blood Pressure 173/87 H 150/88 H Pulse Oximetry 100 99 99 07/03/21 14:00 Temperature 36.5 C Pulse Rate 60 Respiratory Rate 20 Blood Pressure 149/84 H Pulse Oximetry 97 Intake/Output Intake/Output: Intake & Output 06/30/21 07/01/21 07/02/21 07/03/21 23:59 23:59 23:59 23:59 Intake Total 2450 1450 1450 50 Output Total 1 Balance 2450 1449 1450 50 Meds/Results Medications: Active Medications Generic Name Dose Route Start Last Admin Trade Name Freq PRN Reason Stop Dose Admin Acetaminophen 650 mg 07/01/21 17:07/03/21 02:43 Acetaminophen 325 Mg Tablet FEED TUBE 650 mg Q4H PRN Administration Pain, Mild Alprazolam 0.25 mg 07/01/21 17:07/02/21 21:29 Alprazolam (*Crx) 0.25 Mg Tablet FEED TUBE 0.25 mg TID PRN Administration anxi
[2021-07-03 17:17] LABS: Glucose Point of Care 109 mg/dl (65-105)
[2021-07-03 22:00] VITALS: BP 140/97; PULSE 59; RESP 16; TEMP 36.4; O2SAT 99
[2021-07-04 00:18] LABS: Glucose Point of Care 109 mg/dl (65-105)
[2021-07-04 01:31] VITALS: O2SAT 98
[2021-07-04] MEDS: AMPICILLIN 1 GM/NS 50 ML 1 GM/50 ML BAG IVPB ×2 (05:29→13:13)
[2021-07-04 06:00] VITALS: BP 168/88; PULSE 66; RESP 16; TEMP 36.8; O2SAT 99
[2021-07-04 07:26] LABS: Hematocrit 37.9 % (42.0-52.0); Hemoglobin 12.8 g/dL (14.0-18.0); Mean Corpuscular HGB Conc 33.8 g/dl (32-36); Mean Corpuscular Hemoglobin 29.4 pg (26-34); Mean Corpuscular Volume 87.1 fl (80-100); Mean Platelet Volume 10.1 fl (7.4-10.4); Platelet Count Result 281 k/mm3 (150-375); Red Blood Count 4.35 M/mm3 (4.6-6.20); Red Cell Distribution Width 13.6 % (11.5-14.5); White Blood Count 7.9 K/mm3 (4.5-10.0)
[2021-07-04 07:43] LABS: Anion Gap 11 mmol/L (8-16); Blood Urea Nitrogen 17 mg/dL (9-20); Calcium 8.8 mg/dL (8.4-10.2); Carbon Dioxide 21 mmol/L (22-30); Chloride 108 mmol/L (98-107); Estimated CRCL calculation 45 ml/min; Estimated Glomerular Filt Rate 60; Glucose 102 mg/dL (65-110); Sodium 140 mmol/L (137-145)
[2021-07-04 08:00] VITALS: PULSE 66; RESP 16; O2SAT 99
[2021-07-04] MEDS: levETIRAcetam ORAL SOL 500 MG/5 ML UDC 1000 MG FEED TUBE (09:28)
[2021-07-04] MEDS: LANSOPRAZOLE ORAL SUSP 30 MG/10 ML ORAL.SUSP FEED TUBE (09:28)
[2021-07-04] MEDS: ENOXAPARIN 40 MG/0.4 ML SYRINGE SUB-Q (09:28)
[2021-07-04] MEDS: amLODIPine BESYLATE 5 MG TABLET FEED TUBE (09:29)
[2021-07-04] MEDS: FOLIC ACID 1 MG TABLET FEED TUBE (09:29)
[2021-07-04] MEDS: ASPIRIN 81 MG ENTERIC TABLET PO (09:29)
[2021-07-04] MEDS: VITAMIN B COMPLEX CAPSULE 1 CAP FEED TUBE (09:29)
[2021-07-04] MEDS: THIAMINE HCL 100 MG TABLET FEED TUBE (09:29)
[2021-07-04] MEDS: HYDROCORTISONE 2.5% CREAM 30 GM TUBE 1 APPLIC TOPICAL (09:29)
[2021-07-04] MEDS: SERTRALINE HCL 50 MG TABLET 100 MG FEED TUBE (09:29)
[2021-07-04 12:12] LABS: Glucose Point of Care 117 mg/dl (65-105)
--- NOTE | 2021-07-04 12:59 | WPDNEUROPN ---
Subjective Date/time seen: 07/04/21 12:59 66 years old male has been admitted to [facility] through the emergency room for the ongoing history of intractable epilepsy for which he is receiving Keppra and documented Anais abnormal CT scan with right temporal lobe mass, consistent with metastatic disease initial chronic encephalomalacia in the right temporal lobe and anterior inferior aspect of the frontal lobe and also subcortical basal ganglia stroke patient has been receiving anticonvulsant regularly on examination today he was awake alert responsive when trying to follow the verbal commands appropriately neurological deficit was unchanged and treatment will be continued as such Objective Data Vital Signs Vital Signs: Vital Signs - 24 hr 07/03/21 14:00 07/03/21 22:00 07/04/21 01:31 Temperature 36.5 C 36.4 C Pulse Rate 60 59 L Respiratory Rate 20 16 Blood Pressure 149/84 H 140/97 H Pulse Oximetry 97 99 98 07/04/21 06:00 07/04/21 08:00 Temperature 36.8 C Pulse Rate 66 66 Respiratory Rate 16 16 Blood Pressure 168/88 H Pulse Oximetry 99 99 Intake/Output Intake/Output: Intake & Output 07/01/21 07/02/21 07/03/21 07/04/21 23:59 23:59 23:59 23:59 Intake Total 1450 1450 300 0 Output Total 1 1 Balance 1449 1450 300 -1 Meds/Results Medications: Active Medications Generic Name Dose Route Start Last Admin Trade Name Freq PRN Reason Stop Dose Admin Acetaminophen 650 mg 07/01/21 17:05 07/03/21 02:43 Acetaminophen 325 Mg Tablet FEED TUBE 650 mg Q4H PRN Administration Pain, Mild Alprazolam 0.25 mg 07/01/21 17:05 07/02/21 21:29 Alprazolam (*Crx) 0.25 Mg Tablet FEED TUBE 0.25 mg TID PRN Administration anxiety Amlodipine Besylate 5 mg 07/03/21 09:00 07/04/21 09:29 Amlodipine Besylate 5 Mg Tablet FEED TUBE 5 mg QAM BASILIA Administration Aspirin 81 mg 06/27/21 09:00 07/04/21 09:29 Aspirin 81 Mg Enteric Tablet PO 81 mg DAILY BASILIA Administration Bisacodyl 10 mg 06/27/21 07:40 Bisacodyl 10 Mg Suppository RECTAL DAILY PRN Constipation Enoxaparin Sodium 40 mg 06/28/21 09:00 07/04/21 09:28 Enoxaparin 40 Mg/0.4 Ml Syringe SUB-Q 40 mg DAILY BASILIA Administration Folic Acid 1 mg 07/03/21 09:00 07/04/21 09:29 Folic Acid 1 Mg Tablet FEED TUBE 1 mg DAILY BASILIA Administration Hydralazine HCl 10 mg 06/29/21 10:40 Hydralazine Hcl 20 Mg/Ml Vial IV PUSH Q8H PRN Blood Pressure - High Hydrocortisone 1 applic 06/27/21 09:00 07/04/21 09:29 Hydrocortisone 2.5% Cream 30 Gm Tube TOPICAL 1 applic BID BASILAI Administration Ampicillin Sodium 1 gm in 50 mls @ 100 mls/hr 06/28/21 18:00 07/04/21 05:29 Ampicillin 1 Gm/Ns 50 Ml IVPB 100 mls/hr Q6HR BASILIA Administration Lansoprazole 30 mg 07/04/21 07:45 07/04/21 09:28 Lansoprazole Oral Susp 30 Mg/10 Ml Oral.Susp FEED TUBE 30 mg DAILY@0630 BASILIA Administration Levetiracetam 1,000 mg 07/04/21 09:00 07/04/21 09:28 Levetiracetam Oral Priscilla 500 Mg/5 Ml Udc FEED TUBE 1,000 mg Q12HR BASILIA Administration Lorazepam 1 mg 06/27/21 15:27 Lorazepam Inj (*Crx) 2 Mg/Ml Vial IV PUSH Q6H PRN Seizure Activity Magnesium Citrate 296 ml 06/27/21 07:40 Magnesium Citrate 300 Ml Btl PO DAILY PRN Constipation Magnesium Hydroxide 30 ml 06/27/21 07:40 Magnesium Hydroxide Susp 30 Ml Udc PO HS PRN Constipation Nitroglycerin 0.4 mg 06/27/21 07:40 Nitroglycerin Sl 0.4 Mg Tablet SUBLINGUAL Q5M PRN Chest Pain Non-Formulary Medication 118 ml 06/27/21 07:40 Sodium Phosphates [Fleet Enema] RECTAL DAILY PRN Constipation Ondansetron HCl 4 mg 06/27/21 09:42 Ondansetron Inj 4 Mg/2 Ml Vial IV PUSH Q4H PRN Nausea And Vomiting Perflutren Lipid Microsphere 0 ml 06/27/21 12:50 Perflutren Lipid Microspheres 1.5 Ml Vial Diluted To 10 Ml Total Volume IV PUSH ONCE PRN adequate visualiza
[2021-07-04 14:00] VITALS: BP 141/59; PULSE 59; RESP 18; TEMP 37.2; O2SAT 98
--- NOTE | 2021-07-04 14:06 | PM.DS ---
DS: Admitting Diagnosis Discharge Date 07/04/21 Admitting Diagnosis Seizure DS: Discharge Diagnosis Discharge Diagnosis (1) Breakthrough seizure: Code(s): G40.919 - Epilepsy, unspecified, intractable, without status epilepticus Status: Acute Assessment and Plan: Patient brought to the ED after sustaining a seizure for about 20 minutes. Patient presumably receiving his medications at the half-way. There was concern for recurrence of his metastatic melanoma. The increasing seizure activity may be related to the abnormal findings noted on recent MR imaging and/or from UTI. He received a total of 2 mg Ativan and 1 g of Keppra on admission (don't see Versed). Keppra increased to 1gm IV Q12h. He had one further seizure since admission. Neurology consulted and appreciate their recommendations. He was on fall and seizure precautions. He had PT/OT but patient refusing at times. (2) Chest pain: Code(s): R07.9 - Chest pain, unspecified Status: Acute Assessment and Plan: Patient was complaining of chest pain on 06/28 but his history was unreliable. We checked EKG which showed normal sinus rhythm and borderline T-wave changes. Echo was suboptimal but no obvious segmental wall motion abnormalities. EF was 55-60%. Troponin was elevated to 0.05 but flat and probably more likely related to the prolonged seizure then from cardiac etiology. (3) Dysphagia: Code(s): R13.10 - Dysphagia, unspecified Status: Acute Assessment and Plan: He was witnessed having choking episodes. CXR showing mild elevation of the right hemidiaphragm with a mild infiltrate the right lung base possibly atelectasis. Modified barium swallow showed intermittent silent aspiration with thin liquids and pureed trials. Patient was kept NPO. IV fluids were started. Speech therapy was concerned that the patient's overall swallow ability could potentially be even worse outside of controlled testing. Probably related to recent changes noted by MR and/or worsening dementia. Spoke with patient's about choices. NGT feeding was offered but, given his current condition, that his dysphagia would be more long standing and recommended either hospice/oral feedings vs PEG placement. decided to proceed with PEG feeding tube. GI was consulted and patient had PEG placed on 07/01/21. Nml EGD. Patient was started on Tube Feedings which he toelrated well. (4) Abnormal brain CT: Code(s): R90.89 - Other abnormal findings on diagnostic imaging of central nervous system Status: Acute Assessment and Plan: CT brain here showing stable findings but recent brain MR at [facility] demonstrated interval increase enhancement since 2019 to the right temporal lobe region with a small nearby nodule of the right inferior gyrus concerning for interval progression over radiation necrosis. He is to have a repeat MR on 07/12/21 to further evaluate. (5) Urinary tract infection: Code(s): N39.0 - Urinary tract infection, site not specified Status: Acute Assessment and Plan: UA noted. UCx growing Enterococcus. Was started on vancomycin but sensitive to ampicillin so changed to ampicillin. Continue to complete a course. (6) Chronic kidney disease: Code(s): N18.9 - Chronic kidney disease, unspecified Status: Acute Assessment and Plan: Creatinine was normal 1 year ago in May. Baseline creatinine has climbed to 1.4-1.6 range. Creatinine on admission was 1.6 but improved to 1.2 and stable. (7) Dementia: Code(s): F03.90 - Unspecified dementia without behavioral disturbance Status: Acute Assessment and Plan: Patient alert but confused. reports cognitive decline since his diagnosis several years ago. (8) Benign essential hypertension: Code(s): I10 - Essential (primary) hypertension Status: Chronic Assessment and Plan: HTN was diet controlled since
--- NOTE | 2021-07-04 14:14 | WPDGIPROGNO ---
Progress Note: A&P Assessment and Plan (1) Silent aspiration: Code(s): T17.900A - Unspecified foreign body in respiratory tract, part unspecified causing asphyxiation, initial encounter Status: Acute Assessment and Plan: s/p G-tube and he has been tolerating tube feeding no issues he is being discharged soon (2) Dementia: Code(s): F03.90 - Unspecified dementia without behavioral disturbance Status: Acute (3) Abnormal brain CT: Code(s): R90.89 - Other abnormal findings on diagnostic imaging of central nervous system Status: Acute (4) Breakthrough seizure: Code(s): G40.919 - Epilepsy, unspecified, intractable, without status epilepticus Status: Acute Assessment and Plan: follow with neurology on meds (5) Metastatic melanoma: Code(s): C79.9 - Secondary malignant neoplasm of unspecified site Status: Acute Subjective Date/time seen: 07/04/21 14:14 Interval history: tolerating tube feeding at goal. Review of Systems Review of Systems: All systems reviewed & are unremarkable except as noted in HPI and below Exam Const: General: comfortable and no acute distress Other: awake and alert but gets confused HENMT: General nose exam: Normal nares present Eyes: Sclera: sclerae normal Neck: Neck: supple Resp: Auscultation: clear to auscultation bilaterally Cardio: Rate: regular rate GI: GI Palp: Yes Soft to palpation and No Tenderness to palpation present (GI) Auscultation: normal bowel sounds Other: G-tube in position, no pain Skin: General skin exam: no rashes or lesions noted Neuro: Speech: normal speech Extrem: General: normal to inspection Objective Data Vital Signs Vital Signs: Vital Signs - 24 hr 07/03/21 22:00 07/04/21 01:31 07/04/21 06:00 Temperature 97.6 F 98.2 F Pulse Rate 59 L 66 Respiratory Rate 16 16 Blood Pressure 140/97 H 168/88 H Pulse Oximetry 99 98 99 07/04/21 08:00 Temperature Pulse Rate 66 Respiratory Rate 16 Blood Pressure Pulse Oximetry 99 Intake/Output Intake/Output: Intake & Output 07/01/21 07/02/21 07/03/21 07/04/21 23:59 23:59 23:59 23:59 Intake Total 1450 1450 300 50 Output Total 1 1 Balance 1449 1450 300 49 Meds/Results Medications: Active Medications Generic Name Dose Route Start Last Admin Trade Name Freq PRN Reason Stop Dose Admin Acetaminophen 650 mg 07/01/21 17:05 07/03/21 02:43 Acetaminophen 325 Mg Tablet FEED TUBE 650 mg Q4H PRN Administration Pain, Mild Alprazolam 0.25 mg 07/01/21 17:05 07/02/21 21:29 Alprazolam (*Crx) 0.25 Mg Tablet FEED TUBE 0.25 mg TID PRN Administration anxiety Amlodipine Besylate 5 mg 07/03/21 09:00 07/04/21 09:29 Amlodipine Besylate 5 Mg Tablet FEED TUBE 5 mg QAM BASILIA Administration Aspirin 81 mg 06/27/21 09:00 07/04/21 09:29 Aspirin 81 Mg Enteric Tablet PO 81 mg DAILY BASILIA Administration Bisacodyl 10 mg 06/27/21 07:40 Bisacodyl 10 Mg Suppository RECTAL DAILY PRN Constipation Enoxaparin Sodium 40 mg 06/28/21 09:00 07/04/21 09:28 Enoxaparin 40 Mg/0.4 Ml Syringe SUB-Q 40 mg DAILY BASILIA Administration Folic Acid 1 mg 07/03/21 09:00 07/04/21 09:29 Folic Acid 1 Mg Tablet FEED TUBE 1 mg DAILY BASILIA Administration Hydralazine HCl 10 mg 06/29/21 10:40 Hydralazine Hcl 20 Mg/Ml Vial IV PUSH Q8H PRN Blood Pressure - High Hydrocortisone 1 applic 06/27/21 09:00 07/04/21 09:29 Hydrocortisone 2.5% Cream 30 Gm Tube TOPICAL 1 applic BID BASILIA Administration Ampicillin Sodium 1 gm in 50 mls @ 100 mls/hr 06/28/21 18:00 07/04/21 13:13 Ampicillin 1 Gm/Ns 50 Ml IVPB 100 mls/hr Q6HR BASILIA Administration Lansoprazole 30 mg 07/04/21 07:45 07/04/21 09:28 Lansoprazole Oral Susp 30 Mg/10 Ml Oral.Susp FEED TUBE 30 mg DAILY@0630 BASILIA Administration Levetiracetam 1,000 mg 07/04/21 09:00 07/04/21 09:28 Levetiracetam O
[2021-07-04 16:21] LABS: EDCOVIDSCREEN Negative (Negative)
== END 2021-07-04 16:57 | DRG 101 ==
LOC: ANHED 10:06 → ANH3MEDSUR 11:45
PROVIDERS: Internal Medicine Gastroenterology; Physician Assistant; Student in an Organized Health Care Education/Training Program; Admitting Provider Student in an Organized Health Care Education/Training Program; Emergency Provider Emergency Medicine; PCP Family Medicine; Visit Provider Internal Medicine
PROC: 0DJ08ZZ Inspection of Upper Intestinal Tract, Via Natural or Artificial Opening Endoscopic (ICD-10-PCS; CPT 43235; principal; 2021-07-01 16:15)
PROC: 0DH63UZ Insertion of Feeding Device into Stomach, Percutaneous Approach (ICD-10-PCS; CPT 43246; 2021-07-01 16:15)
DX: G40.909 Epilepsy, unspecified, not intractable, without status epilepticus (principal); N39.0 Urinary tract infection, site not specified; B95.2 Enterococcus as the cause of diseases classified elsewhere; Z20.822 Contact with and (suspected) exposure to COVID-19; J44.9 Chronic obstructive pulmonary disease, unspecified; F41.9 Anxiety disorder, unspecified; N40.0 Benign prostatic hyperplasia without lower urinary tract symptoms; D64.9 Anemia, unspecified; M19.90 Unspecified osteoarthritis, unspecified site; E55.9 Vitamin D deficiency, unspecified; K21.9 Gastro-esophageal reflux disease without esophagitis; I12.9 Hypertensive chronic kidney disease with stage 1 through stage 4 chronic kidney disease, or unspecified chronic kidney disease; N18.9 Chronic kidney disease, unspecified; F03.90 Unspecified dementia, unspecified severity, without behavioral disturbance, psychotic disturbance, mood disturbance, and anxiety; T17.900A Unspecified foreign body in respiratory tract, part unspecified causing asphyxiation, initial encounter; R90.89 Other abnormal findings on diagnostic imaging of central nervous system; R07.89 Other chest pain; R13.10 Dysphagia, unspecified; F17.210 Nicotine dependence, cigarettes, uncomplicated; R62.7 Adult failure to thrive; K59.00 Constipation, unspecified; F32.A Depression, unspecified; Z66 Do not resuscitate; Z85.820 Personal history of malignant melanoma of skin; Z79.82 Long term (current) use of aspirin; Z86.19 Personal history of other infectious and parasitic diseases; Z86.73 Personal history of transient ischemic attack (TIA), and cerebral infarction without residual deficits; Z99.3 Dependence on wheelchair; Z85.118 Personal history of other malignant neoplasm of bronchus and lung; Z68.20 Body mass index [BMI] 20.0-20.9, adult
CPT/HCPCS: 36415; 43246; 51701; 70450; 71045; 80048; 80053; 80069; 81001; 82550; 82948; 83735; 84100; 84439; 84443; 84480; 84484; 85025; 85027; 87077; 87086; 87088; 87186; 87426; 92611; 93005; 93308; 96361; 96365; 96366; 96367; 96372; 96375; 96376; 97162; 97165; 99285; A9270; C9113; C9803; G0378; J0131; J0290; J0696; J1650; J1953; J2060; J2704; J3370; J3475; J3480; J7030; J7120; U0003; U0005

== ENCOUNTER 2021-08-28 11:23 | Emergency (ER) | payer MEDICARE, OTHER, SELFPAY ==
[2021-08-28 11:23] VITALS: BP 164/85; PULSE 80; RESP 16; TEMP 36.4; O2SAT 96
[2021-08-28 12:30] VITALS: BP 144/86; PULSE 80; RESP 14; O2SAT 97
--- NOTE | 2021-08-28 12:44 | ED.GENADULT ---
HPI - General Adult General Chief complaint: Recheck/Abnormal Lab/Rx Stated complaint: blood around g tube Time Seen by Provider: 08/28/21 11:52 History of Present Illness HPI narrative: Patient is a 66-year-old female with a history of Alzheimer's here, was crossing for evaluation at request of his for possible blood around his G-tube. History is limited due to patient's mental status, he is here by himself and is unable to provide any relevant history. States that he is asymptomatic and is pain-free. Related Data Home Medications Medication Instructions Recorded Confirmed tamsulosin 0.4 mg capsule (Flomax) 0.4 mg PO DAILY 06/08/20 06/26/21 nitroglycerin 0.4 mg sublingual 0.4 mg sublingual Q5-15M PRN Chest 06/10/21 06/26/21 tablet Pain bisacodyl 10 mg rectal suppository 10 mg RECTAL DAILY PRN Constipation 06/26/21 06/26/21 hydrocortisone 2.5 % topical cream 1 applic topical BID 06/26/21 06/26/21 sodium phosphates 19 gram-7 118 ml RECTAL DAILY PRN 06/26/21 06/26/21 gram/118 mL enema (Fleet Enema) Constipation Allergies Allergy/AdvReac Type Severity Reaction Status Date / Time No Known Allergies Allergy Verified 08/28/21 11:29 Review of Systems Review of Systems: ROS unobtainable: Yes unobtainable due to mental status PMFSH Past Medical History Medical History Alcohol-induced pancreatitis (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 Chronic obstructive pulmonary disease Dementia Gastroesophageal reflux disease Hepatitis C History of alcohol abuse Metastatic malignant melanoma (2012) Status post resection of brain metastases x2 with adjuvant CyberKnife therapy. He had immunotherapy for an endobronchial lesion in 2014 in addition to radiation. is unsure if he has primary melanoma of the lung though she reports no skin lesions were found. Nicotine abuse Osteoarthritis Seizure disorder Silent aspiration Vitamin D deficiency Surgical History Surgical History History of craniotomy Resection of metastatic melanoma x2 at [facility]. History of endoscopic retrograde cholangiopancreatography With insertion and subsequent removal of a biliary stent. History of hemorrhoidectomy History of vasectomy Family History Family History Father Diabetes mellitus Mother Lung cancer Social History Social History Social History: Surrogate decision maker: Keila Robbins, . Code status: Do not resuscitate. 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 Spiritual care concerns: No Exam Narrative: APPEARANCE: Well appearing, no pain in distress, well-nourished. Head: Normocephalic and atraumatic. EYES: PERRLA/EOMI, conjunctivae clear NOSE: No nasal drainage EARS: External ear normal in appearance THROAT: Oropharynx is clear. Mucous membranes are moist. NECK: Supple. No adenopathy, no masses. RESPIRATORY: Airway patent, respirations nonlabored. Clear to auscultation bilaterally, no rales, rhonchi, wheezing. CARDIOVASCULAR: Regular rate and rhythm without murmurs, rubs, or gallops. ABDOMINAL: G-tube in place, no surrounding erythema, no blood noted. Normoactive bowel sounds. Soft, nontender, nondistended. No rebound tenderness or guarding. MUSCULOSKELETAL: Extremities are warm an
--- NOTE | 2021-08-28 14:31 | PC.NURSE ---
PT CHANGED AND TUBE TAPED TO ABD PRIOR TO DEPT THE ED
== END 2021-08-28 13:10 ==
PROVIDERS: Emergency Provider Emergency Medicine; PCP Family Medicine
DX: Z43.1 Encounter for attention to gastrostomy (principal); G30.9 Alzheimer's disease, unspecified; F02.80 Dementia in other diseases classified elsewhere, unspecified severity, without behavioral disturbance, psychotic disturbance, mood disturbance, and anxiety; I12.9 Hypertensive chronic kidney disease with stage 1 through stage 4 chronic kidney disease, or unspecified chronic kidney disease; N18.9 Chronic kidney disease, unspecified; J44.9 Chronic obstructive pulmonary disease, unspecified; G40.909 Epilepsy, unspecified, not intractable, without status epilepticus; D64.9 Anemia, unspecified; N40.0 Benign prostatic hyperplasia without lower urinary tract symptoms; K21.9 Gastro-esophageal reflux disease without esophagitis; M19.90 Unspecified osteoarthritis, unspecified site; E55.9 Vitamin D deficiency, unspecified; F17.210 Nicotine dependence, cigarettes, uncomplicated; Z85.820 Personal history of malignant melanoma of skin; Z86.73 Personal history of transient ischemic attack (TIA), and cerebral infarction without residual deficits; Z86.19 Personal history of other infectious and parasitic diseases; Z66 Do not resuscitate; Z79.82 Long term (current) use of aspirin
CPT/HCPCS: 99282

== ENCOUNTER 2021-09-06 09:28 | Outpatient (CLI) | payer MEDICARE, OTHER, SELFPAY ==
--- NOTE | ~2021-09-06 | XR_ITS ---
EXAMINATION: XR barium swallow modified DATE: 09/06/2021 10:18 INDICATION: Dysphagia. TECHNIQUE: The patient was given barium-containing material of multiple consistencies to swallow by t he speech pathologist while I performed fluoroscopy. Fluoroscopy exposure time was 2.9 minutes. The n umber of fluoroscopy images saved to the PACS was 1. Dose-area product was 1.93 Gy-cm^2. FINDINGS: Laryngeal penetration is noted. There was improvement with the chin tuck maneuver. IMPRESSION: 1. Laryngeal penetration. 2. Please refer to the speech therapy report for recommendations. Reviewed, dictated and finalized at location A.
--- NOTE | 2021-09-09 10:02 | STOPEVAL ---
MODIFIED BARIUM SWALLOW EVALUATION: Thank you for referring Jovany Robbins to [facility].? Attending Provider: Jadiel Garcia MD FAX: [phone] Modified Barium Swallow Evaluation Recent Swallowing History Reports Dysphagia Yes History of Dysphagia Yes History of Related Medical Diagnosis CVA Other Factors Impacting Dysphagia Neurological Impairment History of Pneumonia Yes Intake Method Prior to Swallow Gastrostomy,NPO Evaluation Consistency Mildly Thick Uncontrolled 1 Other Amount with chin tuck Method of Presentation Straw Oral Preparatory Symptoms Within Functional Limits Oral Phase Symptoms Within Functional Limits Pharyngeal Phase Symptoms Within Functional Limits Severity of Vallecular Residue None - 0% No Residue Severity of Pyriform Sinus Residue None - 0% No Residue 8 Point Laryngeal Penetration-Aspiration Material Does Not Enter Airway Scale Thin Uncontrolled 1 Other Amount with chin tuck Method of Presentation Straw Oral Preparatory Symptoms Within Functional Limits Oral Phase Symptoms Within Functional Limits Pharyngeal Phase Symptoms Aspiration,Laryngeal Penetration,Reduced Laryngeal Closure,Reduced Laryngeal Elevation Severity of Vallecular Residue Moderate - 25-50 % Epiglottic Ligament Covered 8 Point Laryngeal Penetration-Aspiration Material Enters Airway Below Scale Vocal Cords, Not Ejected Despite Effort Aspiration Severity Moderate Cervical/Esophageal Symptoms Within Functional Limits Solid Consistency Other Amount bite size and crumbled pieces of cracker Method of Presentation Spoon Oral Preparatory Phase Comments prolonged mastication Oral Phase Symptoms Slow Oral Transit Pharyngeal Phase Symptoms Within Functional Limits Severity of Vallecular Residue None - 0% No Residue Severity of Pyriform Sinus Residue None - 0% No Residue 8 Point Laryngeal Penetration-Aspiration Material Does Not Enter Airway Scale Cervical/Esophageal Symptoms Within Functional Limits Mixed Consistency Other Amount with chin tuck Method of Presentation Spoon Oral Preparatory Phase Comments slow mastication Oral Phase Symptoms Slow Oral Transit Pharyngeal Phase Symptoms Within Functional Limits Severity of Vallecular Residue None - 0% No Residue Severity of Pyriform Sinus Residue None - 0% No Residue 8 Point Laryngeal Penetration-Aspiration Material Does Not Enter Airway Scale Cervical/Esophageal Symptoms Within Functional Limits Pureed Consistency Other Amount with chin tuck Method
== END 2021-09-06 09:29 | disposition home or self-care (01) ==
LOC: ANHIMG 09:37
PROVIDERS: PCP Family Medicine; Visit Provider Family Medicine
DX: R13.12 Dysphagia, oropharyngeal phase (principal)
CPT/HCPCS: 92611

== ENCOUNTER 2021-10-04 17:07 | Inpatient (IN) | payer MEDICARE, SELFPAY ==
--- NOTE | ~2021-10-04 | XR_ITS ---
EXAMINATION: XR chest 2V Exam Date/Time: 10/04/2021 17:40 CDT HISTORY: chest pain Comparison: 06/26/2021. RESULT: Lines, tubes, and devices: Vascular calcification and/or stents in the upper abdomen. Lungs and pleura: Emphysematous change, otherwise clear. Cardiomediastinal silhouette: Stable. Other: No acute osseous or upper abdominal finding. IMPRESSION: No acute cardiopulmonary process. Reviewed, dictated and finalized at location K.
--- NOTE | ~2021-10-04 | CT_ITS ---
EXAMINATION: CT orbit BI wo con DATE: 10/04/2021 19:23 INDICATION: LEFT EYE INJURY . TECHNIQUE: Computed tomography (CT) of the orbits was performed without intravenous contrast. Automat ed exposure control and iterative reconstruction technique were employed. The dose-length product was 159.53 mGy-cm. COMPARISON: 05/19/2016 FINDINGS: Soft Tissues: No significant superficial soft tissue swelling. Facial bones: No acute fracture. No lytic or blastic process. Eyes: The globes are intact. The soft tissue planes of the orbits are maintained. Paranasal Sinuses: Minimal right frontal mucosal thickening, otherwise the visualized aerated spaces are clear. Foreign Bodies: No radiopaque foreign bodies. Other Findings: None. IMPRESSION: No evidence of acute osseous finding in the orbits. Reviewed, dictated and finalized at location K.
--- NOTE | ~2021-10-04 | CT_ITS ---
EXAMINATION: CT brain wo con DATE: 10/04/2021 19:23 INDICATION: possible left eye injury . TECHNIQUE: Computed tomography (CT) of the head was performed without intravenous contrast. The mA wa s adjusted according to patient size. Iterative reconstruction technique was employed. The dose-lengt h product was 605.33 mGy-cm. COMPARISON: 06/26/2021. FINDINGS: No acute intracranial hemorrhage or extra-axial fluid collection. No hydrocephalus, mass, or herniation. No acute ischemic infarct. Unremarkable dural venous sinus attenuation. No acute osseous abnormality. The aerated spaces are clear. Left temporoparietal craniotomy. Increased size and density of the presumed neoplastic lesion in the right atherosclerotic calcifications. Moderate atrophy and severe chronic white matter change. Tempor al lobe. IMPRESSION: No acute intracranial process. Enlarging right temporal primary/metastatic lesion. Please refer to th e report of the CT orbit examination performed concurrently. Reviewed, dictated and finalized at location K. IMPRESSION: No acute intracranial process. Enlarging right temporal primary/metastatic lesi on. Please refer to the report of the CT orbit examination performed concurrent ly.
[2021-10-04 17:08] VITALS: BP 170/82; PULSE 54; RESP 14; TEMP 36.8; O2SAT 100
--- NOTE | 2021-10-04 17:13 | ECG_ITS ---
Measurements Intervals [place] Rate: 50 P: 75 MA: 169 QRS: 64 QRSD: 94 T: 79 QT: 489 QTc: 450 Interpretive Statements SINUS BRADYCARDIA LOW QRS VOLTAGE IN EXTREMITY LEADS [QRS DEFLECTION < 0.5 mV IN LIMB LEADS] COMPARED TO ECG 06/27/2021 11:59:21 SINUS BRADYCARDIA NOW PRESENT Electronically Signed On 10-05-2021 18:07:37 CDT by Elizabeth Ortega M.D.
[2021-10-04 17:34] LABS: Basophils Absolute Auto 0.1 K/mm3 (0.0-0.1); Basophils Percent Auto 0.8 % (0.2-1.2); Eosinophils Absolute Auto 0.7 K/mm3 (0-0.3); Eosinophils Percent Auto 7.2 % (0-4.4); Hematocrit 35.3 % (42.0-52.0); Hemoglobin 11.7 g/dL (14.0-18.0); Immature Granulocyte Absolute 0.04 K/mm3 (0.00-0.031); Immature Granulocyte Percent A 0.4 % (0-0.5); Lymphocytes Absolute Auto 1.53 K/mm3 (0.9-3.2); Lymphocytes Percent Auto 16.1 % (18.3-44.2); Mean Corpuscular HGB Conc 33.1 g/dl (32-36); Mean Corpuscular Hemoglobin 29.6 pg (26-34); Mean Corpuscular Volume 89.4 fl (80-100); Mean Platelet Volume 9.8 fl (7.4-10.4); Monocytes Absolute Auto 0.7 K/mm3 (0.1-0.6); Monocytes Percent Auto 6.8 % (2.6-8.5); Neutrophils Absolute Auto 6.5 K/mm3 (1.3-6.7); Neutrophils Percent Auto 68.7 % (45.5-73.1); Platelet Count Result 285 k/mm3 (150-375); Red Blood Count 3.95 M/mm3 (4.6-6.20); Red Cell Distribution Width 13.3 % (11.5-14.5); White Blood Count 9.5 K/mm3 (4.5-10.0)
--- NOTE | 2021-10-04 17:39 | ED.EYEPROB ---
HPI - Eye Problem General Chief complaint: Eye Problems <BETSEY Keyes Last Filed: 10/04/21 20:36> Stated complaint: blood shot eye <BETSEY Keyes Last Filed: 10/04/21 20:36> Time Seen by Provider: 10/04/21 17:11 <BETSEY Keyes Last Filed: 10/04/21 20:36> Source: patient, family and EMS <BETSEY Keyes Last Filed: 10/04/21 20:36> Mode of arrival: EMS <BETSEY Keyes Last Filed: 10/04/21 20:36> Limitations: dementia <BETSEY Keyes Last Filed: 10/04/21 20:36> History of Present Illness HPI Narrative: This is a 66 year old male that presents to the ER for redness to the left eye noted today. Reports no recent injury or trauma. Patient does not have any complaints currently. History limited due to his dementia. Denies fever or visual changes. <BETSEY Keyes Last Filed: 10/04/21 20:36> Related Data Home medications: Home Medications Medication Instructions Recorded Confirmed tamsulosin 0.4 mg capsule (Flomax) 0.4 mg PO DAILY 06/08/20 06/26/21 nitroglycerin 0.4 mg sublingual 0.4 mg sublingual Q5-15M PRN Chest 06/10/21 06/26/21 tablet Pain bisacodyl 10 mg rectal suppository 10 mg RECTAL DAILY PRN Constipation 06/26/21 06/26/21 hydrocortisone 2.5 % topical cream 1 applic topical BID 06/26/21 06/26/21 sodium phosphates 19 gram-7 118 ml RECTAL DAILY PRN 06/26/21 06/26/21 gram/118 mL enema (Fleet Enema) Constipation <BETSEY Keyes Last Filed: 10/04/21 20:36> Allergies/adverse reactions: Allergies Allergy/AdvReac Type Severity Reaction Status Date / Time No Known Allergies Allergy Verified 10/04/21 17:14 <BETSEY Keyes Last Filed: 10/04/21 20:36> Review of Systems Review of Systems: CONSTITUTIONAL: Denies fever EYES: Reports redness and discharge. Denies visual changes CARDIOVASCULAR: Denies chest pain, or edema. RESPIRATORY: Denies dyspnea. GASTROINTESTINAL: Denies vomiting <BETSEY Keyes Last Filed: 10/04/21 20:36> All systems reviewed & are unremarkable except as noted in HPI and below <BETSEY Keyes Last Filed: 10/04/21 20:36> [facility] Past Medical History Medical History: Medical History Alcohol-induced pancreatitis (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 Chronic obstructive pulmonary disease Dementia Gastroesophageal reflux disease Hepatitis C History of alcohol abuse Metastatic malignant melanoma (2012) Status post resection of brain metastases x2 with adjuvant CyberKnife therapy. He had immunotherapy for an endobronchial lesion in 2014 in addition to radiation. is unsure if he has primary melanoma of the lung though she reports no skin lesions were found. Nicotine abuse Osteoarthritis Seizure disorder Silent aspiration Vitamin D deficiency <BETSEY Keyes Last Filed: 10/04/21 20:36> Surgical History Surgical History: Surgical History History of craniotomy Resection of metastatic melanoma x2 at [facility]. History of endoscopic retrograde cholangiopancreatography With insertion and subsequent removal of a biliary stent. History of hemorrhoidectomy History of vasectomy <BETSEY Keyes Last Filed: 10/04/21 20:36> Family History Family History: Family History Father Diabetes mellitus Mother Lung cancer <BETSEY Keyes Last Filed: 10/04/21 20:36> Social History Social History: Social History (Updated 10/04/21 @ 19:51 by Ramya Acosta NP) Social History: Surrogate decision maker: Keila Robbins, .0 children Code status: Do not resu
[2021-10-04 17:45] LABS: INR 1.1; Prothrombin Time 13.6 Seconds (11.1-14.7)
[2021-10-04 17:48] LABS: Alanine Aminotransferase 14 U/L (6-50); Albumin Level 4.7 g/dL (3.5-5.1); Alkaline Phosphatase 84 U/L (38-126); Anion Gap 13 mmol/L (8-16); Aspartate Amino Transferase 36 U/L (17-59); Bilirubin,Total 0.5 mg/dL (0.2-1.3); Blood Urea Nitrogen 19 mg/dL (9-20); Calcium 9.5 mg/dL (8.4-10.2); Carbon Dioxide 30 mmol/L (22-30); Chloride 94 mmol/L (98-107); Estimated CRCL calculation 31 ml/min; Estimated Glomerular Filt Rate 40; Glucose 84 mg/dL (65-110); Lipase 61 U/L (23-300); Potassium 3.3 mmol/L (3.4-5.0); Sodium 137 mmol/L (137-145)
[2021-10-04 17:56] LABS: Troponin I < 0.012 ng/mL (0.000-0.034)
[2021-10-04] MEDS: SODIUM CHLORIDE 0.9% IV 1,000 ML 999 ML IV CONT (19:01)
[2021-10-04] MEDS: POTASSIUM CHLORIDE INJ 40 MEQ in SODIUM CHLORIDE 0.9% IV 500 ML 130 MEQ IVPB (19:03)
[2021-10-04 19:06] VITALS: BP 154/79; PULSE 53; RESP 18; O2SAT 100
--- NOTE | 2021-10-04 19:41 | PM.IMHP ---
H&P: HPI History of Present Illness Date/Time: 10/04/21 19:41 Chief Complaint: eye problem Narrative: This is a 66-year-old male patient who resides at [facility]. The patient came to the emergency room today with complaints of bloodshot eye to the left eye. The patient has dementia. He denies any fever or visual changes. The patient does have some crusting to that left eye. A laceration to his left lower extremity. The bleeding was controlled and I placed Steri-Strips the left lower extremity. The is at the bedside answering questions. We questioned the patient about possibly falling. The patient stated he only goes from the wheelchair to the bed and does not typically walk. He is not sure if he fell or not. The patient was also complaining of left elbow pain. The patient had dried red crusted lining on his tongue and his teeth. The patient's stated that she has special toothpaste for him and she cleanses mouth. His mucous membranes were moist when I checked him. Patient's H&H is 11.7 and 35.3. Potassium was slightly low at 3.3. Creatinine 1.70. Troponins negative x2. The patient was given a tetanus shot in the emergency room. He was given IV fluids and supplemented with potassium. He was also started on eyedrops to left eye. Patient is being admitted to observation status on the date of service of 10/04/2021. Review of Systems Review of Systems: See HPI All systems reviewed & are unremarkable except as noted in HPI and below Constitutional: Constitutional: Reports as per HPI and Reports no additional constitutional complaints Eyes: Eyes: Reports as per HPI and Reports no additional eye complaints ENT: Reports system reviewed and no additional complaints, except as documented and Reports Normal hearing present Cardiovascular: Cardiovascular: Reports no additional cardiovascular complaints Respiratory: Respiratory: Reports no additional respiratory complaints and Reports no additional respiratory complaints Gastrointestinal: Gastrointestinal: Reports as per HPI and Reports no additional gastrointestinal complaints Musculoskeletal: Musculoskeletal: Reports no additional musculoskeletal complaints Integumentary/Breasts: Skin/Breast: Reports system reviewed and no additional complaints, except as docu and Reports as per HPI Neurologic: Reports system reviewed and no additional complaints, except as documented, Reports as per HPI and Reports Normal hearing present Psychiatric: Psychiatric: Reports no additional psychiatric complaints and Reports as per HPI Endocrine: Endocrine: Reports no additional endocrine complaints Hematologic/Lymphatic: Hematologic/Lymphatic: Reports no additional hematologic/lymphatic complaints Allergic/Immunologic: Allergic/Immunologic: Reports no additional allergic/immunologic complaints [facility] Past Medical History Medical History (Updated 10/04/21 @ 23:47 by Ramya Acosta NP) Alcohol-induced pancreatitis (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 Chronic obstructive pulmonary disease Dementia Gastroesophageal reflux disease Hepatitis C History of alcohol abuse Metastatic malignant melanoma (2012) Status post resection of brain metastases x2 with adjuvant CyberKnife therapy. He had immunotherapy for an endobronchial lesion in 2014 in addition to radiation. is unsure if he has primary melanoma of the lung though she reports no skin lesions were found. Nicotine abuse Osteoarthritis Seizure disorder Silent aspiration Vitamin D deficiency Surgical History Surgical History History of craniotomy Resection of metastatic melanoma x2 at [facility]. History of endoscopic retrograde cholangiopancreatography With insertion and subs
--- NOTE | 2021-10-04 20:23 | PC.NURSE ---
Patient's - Keila Robbins [phone]
[2021-10-04 20:36] LABS: Troponin I 0.014 ng/mL (0.000-0.034)
[2021-10-04] MEDS: TETANUS,DIPHTHERIA,AC PERTUSSIS ADULT (0.5 ML) BOOSTRIX IM (20:41)
[2021-10-04 20:42] VITALS: BP 150/79; PULSE 54; RESP 14; O2SAT 99
[2021-10-04] MEDS: ERYTHROMYCIN OPHTH OINTMENT 1 GM TUBE 1 APPLIC LEFT EYE (21:00)
[2021-10-04 21:04] VITALS: PULSE 59; RESP 20; O2SAT 100
[2021-10-04 21:37] VITALS: BP 172/60; PULSE 58; RESP 18; TEMP 36.3; O2SAT 100; BMI 17.9
[2021-10-04 23:59] LABS: Troponin I 0.015 ng/mL (0.000-0.034)
[2021-10-05] VITALS (9 sets, daily range): BP systolic 132–134; BP diastolic 63–81; PULSE 47–58; RESP 18; TEMP 36.2–36.6; O2SAT 94–100; BMI 17.9
[2021-10-05] MEDS: SODIUM CHLORIDE 0.9% IV 1,000 ML 125 ML IV CONT (05:18)
[2021-10-05] MEDS: ERYTHROMYCIN OPHTH OINTMENT 1 GM TUBE 1 APPLIC LEFT EYE ×2 (05:18→20:45)
[2021-10-05 06:24] LABS: Basophils Absolute Auto 0.1 K/mm3 (0.0-0.1); Basophils Percent Auto 1.2 % (0.2-1.2); Eosinophils Absolute Auto 0.7 K/mm3 (0-0.3); Eosinophils Percent Auto 7.9 % (0-4.4); Hematocrit 35.6 % (42.0-52.0); Hemoglobin 11.4 g/dL (14.0-18.0); Immature Granulocyte Absolute 0.09 K/mm3 (0.00-0.031); Lymphocytes Absolute Auto 1.31 K/mm3 (0.9-3.2); Lymphocytes Percent Auto 15.1 % (18.3-44.2); Mean Corpuscular Hemoglobin 29.5 pg (26-34); Mean Platelet Volume 10.1 fl (7.4-10.4); Monocytes Absolute Auto 0.6 K/mm3 (0.1-0.6); Monocytes Percent Auto 6.9 % (2.6-8.5); Neutrophils Absolute Auto 5.9 K/mm3 (1.3-6.7); Neutrophils Percent Auto 67.9 % (45.5-73.1); Platelet Count Result 242 k/mm3 (150-375); Red Blood Count 3.87 M/mm3 (4.6-6.20); Red Cell Distribution Width 13.4 % (11.5-14.5); White Blood Count 8.7 K/mm3 (4.5-10.0)
[2021-10-05 06:41] LABS: Lactic Acid Reflex 1.2 mmol/L (0.7-2.0)
[2021-10-05 06:45] LABS: Alanine Aminotransferase 11 U/L (6-50); Albumin Level 4.3 g/dL (3.5-5.1); Alkaline Phosphatase 76 U/L (38-126); Anion Gap 11 mmol/L (8-16); Aspartate Amino Transferase 23 U/L (17-59); Bilirubin,Total 0.5 mg/dL (0.2-1.3); Blood Urea Nitrogen 14 mg/dL (9-20); Calcium 9.3 mg/dL (8.4-10.2); Carbon Dioxide 27 mmol/L (22-30); Chloride 105 mmol/L (98-107); Estimated CRCL calculation 32 ml/min; Estimated Glomerular Filt Rate 43; Glucose 84 mg/dL (65-110); Lactate Dehydrogenase 166 U/L (120-246); Magnesium 1.8 mg/dL (1.6-2.3); Potassium 3.2 mmol/L (3.4-5.0); Sodium 143 mmol/L (137-145)
[2021-10-05] MEDS: LANSOPRAZOLE ORAL SUSP 30 MG/10 ML ORAL.SUSP FEED TUBE (09:50)
[2021-10-05] MEDS: SCOPOLAMINE 1.5 MG PATCH TRANSDERM (09:50)
[2021-10-05] MEDS: SERTRALINE HCL 50 MG TABLET 100 MG FEED TUBE (10:01)
[2021-10-05] MEDS: THIAMINE HCL 100 MG TABLET FEED TUBE (10:01)
[2021-10-05] MEDS: ASPIRIN 81 MG ENTERIC TABLET BY MOUTH (10:01)
[2021-10-05] MEDS: METOPROLOL SUCCINATE EXT REL 50 MG TABCR BY MOUTH (10:02)
[2021-10-05] MEDS: VITAMIN B COMPLEX CAPSULE 1 CAP FEED TUBE (10:02)
[2021-10-05] MEDS: FOLIC ACID 1 MG TABLET FEED TUBE (10:03)
[2021-10-05] MEDS: levETIRAcetam ORAL SOL 500 MG/5 ML UDC 1000 MG FEED TUBE ×2 (10:03→20:45)
[2021-10-05] MEDS: amLODIPine BESYLATE 5 MG TABLET FEED TUBE (10:04)
--- NOTE | 2021-10-05 11:08 | PM.IMPN ---
Progress Note: A&P Assessment and Plan (1) Acute kidney injury: Code(s): N17.9 - Acute kidney failure, unspecified Status: Acute Assessment and Plan: -patient appears dehydrated -avoid nephrotoxic medication -continue IV fluids -monitor BMP daily patient is currently on a scopolamine patch (2) Conjunctivitis: Qualifiers: Acute conjunctivitis type: bacterial Conjunctivitis type: acute Laterality: left Qualified Code(s): H10.32 - Unspecified acute conjunctivitis, left eye Code(s): H10.9 - Unspecified conjunctivitis Status: Acute Assessment and Plan: -patient was started on antibiotics for the left eye.? may consider deescalation (3) Subconjunctival hemorrhage of left eye: Code(s): H11.32 - Conjunctival hemorrhage, left eye Status: Acute Assessment and Plan: -the left eye appears injected. Patient has normal vision and denies any falls. -orbit CT was negative. (4) Acute hypokalemia: Code(s): E87.6 - Hypokalemia Status: Acute Assessment and Plan: -replace as necessary. -potassium 3.3 (5) Silent aspiration: Code(s): T17.900A - Unspecified foreign body in respiratory tract, part unspecified causing asphyxiation, initial encounter Status: Acute Assessment and Plan: -patient has a G-tube but is no longer receiving G-tube feedings -patient is on pureed diet with thickened honey liquids (6) Dementia: Code(s): F03.90 - Unspecified dementia without behavioral disturbance Status: Acute Assessment and Plan: -on sertraline (7) Acute dehydration: Code(s): E86.0 - Dehydration Status: Acute Assessment and Plan: -gently hydrate (8) Benign essential hypertension: Code(s): I10 - Essential (primary) hypertension Status: Chronic Assessment and Plan: -continue Norvasc -continue metoprolol (9) GERD (gastroesophageal reflux disease): Qualifiers: Esophagitis presence: without esophagitis Qualified Code(s): K21.9 - Gastro-esophageal reflux disease without esophagitis Code(s): K21.9 - Gastro-esophageal reflux disease without esophagitis Status: Chronic Assessment and Plan: -continue with lansoprazole (10) Metastatic malignant melanoma: Onset Date: 2012 Code(s): C43.9 - Malignant melanoma of skin, unspecified Status: Acute Assessment and Plan: - patient has had an abnormal brain scan, neurology has followed the patient in the past. 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 Patient was started on Keppra and June of 2021 Subjective Date/time seen: 10/05/21 11:08 patient is a poor historian. He required to be woke up with verbal stimuli at bedside. Patient is intermittently confused. He is unaware why he is at the hospital. Patient does follow neurology due to an abnormal brain scan. Patient has recurrence of his metastatic melanoma. Patient has had prior seizures in the past therefore his Keppra will continue during his hospitalization. PT and OT will evaluate and treat. Continue IV fluids due to VIVIANE. Review of Systems Review of Systems: All systems reviewed & are unremarkable except as noted in HPI and below Exam Narrative: General: No acute distress. flat affect Mental Status: Awake, alert and oriented to person, Disoriented place, and time with clear speech. Skin: Skin in warm, dry and intact without rashes or lesions. Head: Normocephalic and atraumatic. Eyes: Conjunctivae are clear without exudates or hemorrhage to the right eye, hemorrhage to the left eye. Sclera is non-icteric. EOM are intact, PERRLA. Ears: The external ear and canal are non-tender and without swelling or discharge. Nose: Nasal mucosa is pink and moist. Septum midline. Nares patent bilaterally. Throat: Oral mucosa pink and moist with poor dentition. Tongue midline. Neck: The neck supple without adenopathy
--- NOTE | 2021-10-05 12:26 | PCSTNOTE ---
Consistencies trialed bedside include honey thickened liquids by spoon and by cup. Patient unable to feed or drink by himself. Weak cough and watering eyes noted after uncontrolled bolus of honey thickened liquids. Patient unable to swallow pureed consistency, held in mouth and spit out when prompted. Patient has peg-tube. Recommend NPO at this time. Patient's swallowing should be reevaluated when he is more alert and stronger. Thank you for the referral of this patient.
[2021-10-06] VITALS (11 sets, daily range): BP systolic 145–153; BP diastolic 69–89; PULSE 48–60; RESP 16–18; TEMP 36.3–36.8; O2SAT 100
[2021-10-06] MEDS: ERYTHROMYCIN OPHTH OINTMENT 1 GM TUBE 1 APPLIC LEFT EYE ×5 (05:17→20:08)
[2021-10-06] MEDS: SODIUM CHLORIDE 0.9% IV 1,000 ML 125 ML IV CONT ×3 (05:17→21:21)
[2021-10-06 06:14] LABS: Alanine Aminotransferase 9 U/L (6-50); Albumin Level 3.7 g/dL (3.5-5.1); Alkaline Phosphatase 65 U/L (38-126); Anion Gap 12 mmol/L (8-16); Aspartate Amino Transferase 23 U/L (17-59); Bilirubin,Total 0.5 mg/dL (0.2-1.3); Blood Urea Nitrogen 13 mg/dL (9-20); Calcium 8.8 mg/dL (8.4-10.2); Carbon Dioxide 21 mmol/L (22-30); Chloride 107 mmol/L (98-107); Estimated CRCL calculation 37 ml/min; Estimated Glomerular Filt Rate 51; Glucose 82 mg/dL (65-110); Potassium 3.3 mmol/L (3.4-5.0); Sodium 140 mmol/L (137-145)
--- NOTE | 2021-10-06 06:30 | PM.IMPN ---
Progress Note: A&P Assessment and Plan (1) Acute kidney injury: Code(s): N17.9 - Acute kidney failure, unspecified Status: Acute Assessment and Plan: -patient appears mildly dehydrated -avoid nephrotoxic medication -continue IV fluids -monitor BMP daily patient is currently on a scopolamine patch (2) Conjunctivitis: Qualifiers: Acute conjunctivitis type: bacterial Conjunctivitis type: acute Laterality: left Qualified Code(s): H10.32 - Unspecified acute conjunctivitis, left eye Code(s): H10.9 - Unspecified conjunctivitis Status: Acute Assessment and Plan: -patient was started on antibiotics for the left eye.? may consider deescalation (3) Subconjunctival hemorrhage of left eye: Code(s): H11.32 - Conjunctival hemorrhage, left eye Status: Acute Assessment and Plan: -the left eye appears injected. Patient has normal vision and denies any falls. -orbit CT was negative. (4) Acute hypokalemia: Code(s): E87.6 - Hypokalemia Status: Acute Assessment and Plan: -replace as necessary. -potassium 3.3 (5) Silent aspiration: Code(s): T17.900A - Unspecified foreign body in respiratory tract, part unspecified causing asphyxiation, initial encounter Status: Acute Assessment and Plan: patient failed speech therapy evaluation. Patient has been made NPO and will return to tube feedings. Registered dietitian consulted, appreciate assistance and recommendations (6) Dementia: Code(s): F03.90 - Unspecified dementia without behavioral disturbance Status: Acute Assessment and Plan: -on sertraline (7) Acute dehydration: Code(s): E86.0 - Dehydration Status: Acute Assessment and Plan: -gently hydrate (8) Benign essential hypertension: Code(s): I10 - Essential (primary) hypertension Status: Chronic Assessment and Plan: -continue Norvasc -continue metoprolol (9) GERD (gastroesophageal reflux disease): Qualifiers: Esophagitis presence: without esophagitis Qualified Code(s): K21.9 - Gastro-esophageal reflux disease without esophagitis Code(s): K21.9 - Gastro-esophageal reflux disease without esophagitis Status: Chronic Assessment and Plan: -continue with lansoprazole (10) Metastatic malignant melanoma: Onset Date: 2012 Code(s): C43.9 - Malignant melanoma of skin, unspecified Status: Acute Assessment and Plan: - patient has had an abnormal brain scan, neurology has followed the patient in the past. 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 Patient was started on Keppra and June of 2021 Subjective Date/time seen: 10/06/21 06:30 Patient appears to be more alert and oriented this morning. He remains incontinent. Patient has VIVIANE with slight improvement creatinine of 1.4. Patient required 40 mEq of oral potassium potassium was 3.3 today. Patient remains on IV fluids until renal function is back to baseline. Re-evaluate tomorrow possible discharge later in the week. Review of Systems Review of Systems: All systems reviewed & are unremarkable except as noted in HPI and below Exam Narrative: General: No acute distress. flat affect Mental Status: Awake, alert and oriented to person, Disoriented place, and time with clear speech. Skin: Skin in warm, dry and intact without rashes or lesions. Head: Normocephalic and atraumatic. Eyes: Conjunctivae are clear without exudates or hemorrhage to the right eye, hemorrhage to the left eye. Sclera is non-icteric. EOM are intact, PERRLA. Ears: The external ear and canal are non-tender and without swelling or discharge. Nose: Nasal mucosa is pink and moist. Septum midline. Nares patent bilaterally. Throat: Oral mucosa pink and moist with poor dentition. Tongue midline. Neck: The neck supple without adenopathy. Trachea midline. No JVD. Cardiac: S1 and S
[2021-10-06 07:23] LABS: Basophils Absolute Auto 0.1 K/mm3 (0.0-0.1); Basophils Percent Auto 0.9 % (0.2-1.2); Eosinophils Absolute Auto 0.6 K/mm3 (0-0.3); Eosinophils Percent Auto 6.6 % (0-4.4); Hematocrit 35.3 % (42.0-52.0); Hemoglobin 11.4 g/dL (14.0-18.0); Immature Granulocyte Absolute 0.03 K/mm3 (0.00-0.031); Immature Granulocyte Percent A 0.3 % (0-0.5); Immature Platelet Fraction Pct 6.1 % (0.9-11.2); Lymphocytes Absolute Auto 1.18 K/mm3 (0.9-3.2); Lymphocytes Percent Auto 13.3 % (18.3-44.2); Mean Corpuscular HGB Conc 32.3 g/dl (32-36); Mean Corpuscular Hemoglobin 29.6 pg (26-34); Mean Corpuscular Volume 91.7 fl (80-100); Mean Platelet Volume 10.5 fl (7.4-10.4); Monocytes Absolute Auto 0.6 K/mm3 (0.1-0.6); Neutrophils Absolute Auto 6.4 K/mm3 (1.3-6.7); Neutrophils Percent Auto 71.9 % (45.5-73.1); Platelet Count Result 170 k/mm3 (150-375); Red Blood Count 3.85 M/mm3 (4.6-6.20); Red Cell Distribution Width 13.3 % (11.5-14.5); White Blood Count 8.9 K/mm3 (4.5-10.0)
[2021-10-06] MEDS: LANSOPRAZOLE ORAL SUSP 30 MG/10 ML ORAL.SUSP FEED TUBE (07:51)
[2021-10-06] MEDS: VITAMIN B COMPLEX CAPSULE 1 CAP FEED TUBE (09:04)
[2021-10-06] MEDS: FOLIC ACID 1 MG TABLET FEED TUBE (09:04)
[2021-10-06] MEDS: SERTRALINE HCL 50 MG TABLET 100 MG FEED TUBE (09:04)
[2021-10-06] MEDS: ASPIRIN 81 MG ENTERIC TABLET BY MOUTH (09:04)
[2021-10-06] MEDS: amLODIPine BESYLATE 5 MG TABLET FEED TUBE (09:04)
[2021-10-06] MEDS: levETIRAcetam ORAL SOL 500 MG/5 ML UDC 1000 MG FEED TUBE ×2 (09:04→20:08)
[2021-10-06] MEDS: THIAMINE HCL 100 MG TABLET FEED TUBE (09:05)
[2021-10-06] MEDS: POTASSIUM CHLORIDE 20 MEQ TABLET 40 MEQ PO (09:07)
--- NOTE | 2021-10-06 09:10 | PCDIET ---
Tube feeding note: Pt failed swallow yesterday and speech recommended NPO until patient is more alert. Existing G-tube. Recommend continuous feeding: Glucerna 1.2 @ goal rate 75 ml/h with flushes 100 ml q 6 hours. Providing 1980 kcals (100% EER), 99 g protein, 1593 ml free water from formula. Total water with flushes: 1993 ml/h. Monitoring tolerance, labs, swallow. FU 1 day. Katiuska Rsahid MS RD LDN
[2021-10-07] VITALS (11 sets, daily range): BP systolic 137–155; BP diastolic 68–88; PULSE 55–63; RESP 16–20; TEMP 36.2–36.8; O2SAT 96–100
[2021-10-07] MEDS: SODIUM CHLORIDE 0.9% IV 1,000 ML 125 ML IV CONT ×3 (04:50→20:40)
[2021-10-07] MEDS: ERYTHROMYCIN OPHTH OINTMENT 1 GM TUBE 1 APPLIC LEFT EYE ×5 (04:52→20:41)
[2021-10-07] MEDS: LANSOPRAZOLE ORAL SUSP 30 MG/10 ML ORAL.SUSP FEED TUBE (04:54)
[2021-10-07 05:48] LABS: Basophils Absolute Auto 0.1 K/mm3 (0.0-0.1); Basophils Percent Auto 0.6 % (0.2-1.2); Eosinophils Absolute Auto 0.5 K/mm3 (0-0.3); Eosinophils Percent Auto 5.4 % (0-4.4); Hematocrit 30.7 % (42.0-52.0); Hemoglobin 9.9 g/dL (14.0-18.0); Immature Granulocyte Absolute 0.03 K/mm3 (0.00-0.031); Immature Granulocyte Percent A 0.4 % (0-0.5); Lymphocytes Absolute Auto 1.11 K/mm3 (0.9-3.2); Lymphocytes Percent Auto 13.4 % (18.3-44.2); Mean Corpuscular HGB Conc 32.2 g/dl (32-36); Mean Corpuscular Hemoglobin 29.6 pg (26-34); Mean Corpuscular Volume 91.9 fl (80-100); Mean Platelet Volume 10.3 fl (7.4-10.4); Monocytes Absolute Auto 0.6 K/mm3 (0.1-0.6); Neutrophils Absolute Auto 6.1 K/mm3 (1.3-6.7); Neutrophils Percent Auto 73.2 % (45.5-73.1); Platelet Count Result 200 k/mm3 (150-375); Red Blood Count 3.34 M/mm3 (4.6-6.20); Red Cell Distribution Width 13.4 % (11.5-14.5); White Blood Count 8.3 K/mm3 (4.5-10.0)
[2021-10-07 05:53] LABS: Alanine Aminotransferase 9 U/L (6-50); Albumin Level 3.8 g/dL (3.5-5.1); Alkaline Phosphatase 71 U/L (38-126); Anion Gap 8 mmol/L (8-16); Aspartate Amino Transferase 22 U/L (17-59); Bilirubin,Total 0.3 mg/dL (0.2-1.3); Blood Urea Nitrogen 12 mg/dL (9-20); Calcium 8.1 mg/dL (8.4-10.2); Carbon Dioxide 26 mmol/L (22-30); Chloride 108 mmol/L (98-107); Estimated CRCL calculation 40 ml/min; Estimated Glomerular Filt Rate 55; Glucose 105 mg/dL (65-110); Potassium 3.7 mmol/L (3.4-5.0); Sodium 142 mmol/L (137-145)
[2021-10-07] MEDS: levETIRAcetam ORAL SOL 500 MG/5 ML UDC 1000 MG FEED TUBE ×2 (08:36→20:41)
[2021-10-07] MEDS: METOPROLOL SUCCINATE EXT REL 50 MG TABCR BY MOUTH (08:37)
[2021-10-07] MEDS: amLODIPine BESYLATE 5 MG TABLET FEED TUBE (08:37)
[2021-10-07] MEDS: SERTRALINE HCL 50 MG TABLET 100 MG FEED TUBE (08:37)
[2021-10-07] MEDS: ASPIRIN 81 MG ENTERIC TABLET BY MOUTH (08:37)
[2021-10-07] MEDS: FOLIC ACID 1 MG TABLET FEED TUBE (08:37)
[2021-10-07] MEDS: THIAMINE HCL 100 MG TABLET FEED TUBE (08:37)
[2021-10-07] MEDS: VITAMIN B COMPLEX CAPSULE 1 CAP FEED TUBE (08:38)
--- NOTE | 2021-10-07 09:04 | PCNFU ---
Nutrition Follow-Up Complete: Inadequate oral intake related to swallowing difficulty as evidenced by speech report, need for full tube feeding Goal: Tolerate tube feeding - Goal being met Adequate oral intake - not able to meet goal due to swallowing difficulty. Speech is following Pt current nutrition is Glucerna 1.2 @ goal rate 75 ml/g, 100 ml flushes q 6 hours. 1980 kcals, 99 g protein, 1593 ml free water. Total water 1993 ml/day with flushes. Nutrition recommendation: Continue current tube feeding and flushes. No changes recommended. Last recorded weight is 56.6 kg. Bowel Motility: Loose, diarrhea. 4x yesterday, only 1 time today so far. Labs Reviewed: Alb 3.8, Na 142, K+ 3.7, Creat 1.4 Meds Noted: Folic acid Skin:Dry, flaky Additional Notes: Communication with MEHRDAD Pratt. Verified TF formula and rate. Flushes are being given as ordered. Monitoring swallowing ability, tube feeding tolerance, PO intake, labs, weights, meds, skin. Follow up in 4 days.
--- NOTE | 2021-10-07 14:01 | PM.IMPN ---
Progress Note: A&P Assessment and Plan (1) Acute kidney injury: Code(s): N17.9 - Acute kidney failure, unspecified Status: Acute Assessment and Plan: -patient appears mildly dehydrated -avoid nephrotoxic medication -continue IV fluids -monitor BMP daily patient is currently on a scopolamine patch 10/07/2021 interval history: 66-year-old male resident of [facility] presented with left eye subconjunctival hemorrhage and conjunctivitis being treated with of antibiotic, also upon present patient was dehydrated with elevated serum creatinine 1.7 patient is gently hydrated and creatinine is trending down to 1.3 to his baseline will continue to monitor, today patient work with physical therapy currently sitting in the chair is feeling better compared to when he arrived will continue to monitor patient will benefit with rehab (2) Conjunctivitis: Qualifiers: Acute conjunctivitis type: bacterial Conjunctivitis type: acute Laterality: left Qualified Code(s): H10.32 - Unspecified acute conjunctivitis, left eye Code(s): H10.9 - Unspecified conjunctivitis Status: Acute Assessment and Plan: -patient was started on antibiotics for the left eye.? may consider deescalation (3) Subconjunctival hemorrhage of left eye: Code(s): H11.32 - Conjunctival hemorrhage, left eye Status: Acute Assessment and Plan: -the left eye appears injected. Patient has normal vision and denies any falls. -orbit CT was negative. (4) Acute hypokalemia: Code(s): E87.6 - Hypokalemia Status: Acute Assessment and Plan: -replace as necessary. -potassium 3.3, today 3.7 will monitor and supplement (5) Silent aspiration: Code(s): T17.900A - Unspecified foreign body in respiratory tract, part unspecified causing asphyxiation, initial encounter Status: Acute Assessment and Plan: patient failed speech therapy evaluation. Patient has been made NPO and will return to tube feedings. Registered dietitian consulted, appreciate assistance and recommendations (6) Dementia: Code(s): F03.90 - Unspecified dementia without behavioral disturbance Status: Acute Assessment and Plan: -on sertraline (7) Acute dehydration: Code(s): E86.0 - Dehydration Status: Acute Assessment and Plan: -gently hydrate (8) Benign essential hypertension: Code(s): I10 - Essential (primary) hypertension Status: Chronic Assessment and Plan: -continue Norvasc -continue metoprolol (9) GERD (gastroesophageal reflux disease): Qualifiers: Esophagitis presence: without esophagitis Qualified Code(s): K21.9 - Gastro-esophageal reflux disease without esophagitis Code(s): K21.9 - Gastro-esophageal reflux disease without esophagitis Status: Chronic Assessment and Plan: -continue with lansoprazole (10) Metastatic malignant melanoma: Onset Date: 2012 Code(s): C43.9 - Malignant melanoma of skin, unspecified Status: Acute Assessment and Plan: - patient has had an abnormal brain scan, neurology has followed the patient in the past. 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 Patient was started on Keppra and June of 2021 Subjective Date/time seen: 10/07/21 14:01 10/07/2021 interval history: 66-year-old male resident of [facility] presented with left eye subconjunctival hemorrhage and conjunctivitis being treated with of antibiotic, also upon present patient was dehydrated with elevated serum creatinine 1.7 patient is gently hydrated and creatinine is trending down to 1.3 to his baseline will continue to monitor, today patient work with physical therapy currently sitting in the chair is feeling better compared to when he arrived will continue to monitor patient will benefit with rehab Review of Systems Review of Systems: All systems reviewed & are unremarkable except
[2021-10-08] VITALS (10 sets, daily range): BP systolic 147–159; BP diastolic 68–75; PULSE 56–109; RESP 16–18; TEMP 36.3–37.1; O2SAT 97–100
[2021-10-08] MEDS: SODIUM CHLORIDE 0.9% IV 1,000 ML 125 ML IV CONT ×3 (04:57→19:59)
[2021-10-08] MEDS: ERYTHROMYCIN OPHTH OINTMENT 1 GM TUBE 1 APPLIC LEFT EYE ×5 (05:00→20:00)
[2021-10-08] MEDS: LANSOPRAZOLE ORAL SUSP 30 MG/10 ML ORAL.SUSP FEED TUBE (06:22)
[2021-10-08] MEDS: amLODIPine BESYLATE 5 MG TABLET FEED TUBE (09:32)
[2021-10-08] MEDS: ASPIRIN 81 MG CHEWABLE TABLET FEED TUBE (09:32)
[2021-10-08] MEDS: FOLIC ACID 1 MG TABLET FEED TUBE (09:33)
[2021-10-08] MEDS: levETIRAcetam ORAL SOL 500 MG/5 ML UDC 1000 MG FEED TUBE ×2 (09:33→19:59)
[2021-10-08] MEDS: METOPROLOL TARTRATE 25 MG TABLET FEED TUBE ×2 (09:33→20:00)
[2021-10-08] MEDS: THIAMINE HCL 100 MG TABLET FEED TUBE (09:35)
[2021-10-08] MEDS: VITAMIN B COMPLEX CAPSULE 1 CAP FEED TUBE (09:35)
[2021-10-08] MEDS: SERTRALINE HCL 50 MG TABLET 100 MG FEED TUBE (09:35)
[2021-10-08] MEDS: SCOPOLAMINE 1.5 MG PATCH TRANSDERM (09:35)
--- NOTE | 2021-10-08 10:18 | PM.IMPN ---
Progress Note: A&P Assessment and Plan (1) Acute kidney injury: Code(s): N17.9 - Acute kidney failure, unspecified Status: Acute Assessment and Plan: -patient appears mildly dehydrated -avoid nephrotoxic medication -continue IV fluids -monitor BMP daily patient is currently on a scopolamine patch 10/07/2021 interval history: 66-year-old male [facility] presented with left eye subconjunctival hemorrhage and conjunctivitis being treated with of antibiotic, also upon present patient was dehydrated with elevated serum creatinine 1.7 patient is gently hydrated and creatinine is trending down to 1.3 to his baseline will continue to monitor, today patient work with physical therapy currently sitting in the chair is feeling better compared to when he arrived will continue to monitor patient will benefit with rehab. 10/08/2021 interval history: 66-year-old male resident [facility] presented with left eye subconjunctival hemorrhage and conjunctivitis being treated with of optic antibiotic, and left eys is improving, also upon present patient was dehydrated with elevated serum creatinine 1.7 patient is gently hydrated and creatinine is trending down to 1.3 to his baseline will continue to monitor, today patient worked with physical therapy currently lying in the bed is feeling better compared to when he arrived will continue to monitor patient will benefit with rehab. will dod discharge planning on Sunday. (2) Conjunctivitis: Qualifiers: Acute conjunctivitis type: bacterial Conjunctivitis type: acute Laterality: left Qualified Code(s): H10.32 - Unspecified acute conjunctivitis, left eye Code(s): H10.9 - Unspecified conjunctivitis Status: Acute Assessment and Plan: -patient was started on antibiotics for the left eye.? may consider deescalation (3) Subconjunctival hemorrhage of left eye: Code(s): H11.32 - Conjunctival hemorrhage, left eye Status: Acute Assessment and Plan: -the left eye appears injected. Patient has normal vision and denies any falls. -orbit CT was negative. (4) Acute hypokalemia: Code(s): E87.6 - Hypokalemia Status: Acute Assessment and Plan: -replace as necessary. -potassium 3.3, today 3.7 will monitor and supplement (5) Silent aspiration: Code(s): T17.900A - Unspecified foreign body in respiratory tract, part unspecified causing asphyxiation, initial encounter Status: Acute Assessment and Plan: patient failed speech therapy evaluation. Patient has been made NPO and will return to tube feedings. Registered dietitian consulted, appreciate assistance and recommendations (6) Dementia: Code(s): F03.90 - Unspecified dementia without behavioral disturbance Status: Acute Assessment and Plan: -on sertraline (7) Acute dehydration: Code(s): E86.0 - Dehydration Status: Acute Assessment and Plan: -gently hydrate (8) Benign essential hypertension: Code(s): I10 - Essential (primary) hypertension Status: Chronic Assessment and Plan: -continue Norvasc -continue metoprolol (9) GERD (gastroesophageal reflux disease): Qualifiers: Esophagitis presence: without esophagitis Qualified Code(s): K21.9 - Gastro-esophageal reflux disease without esophagitis Code(s): K21.9 - Gastro-esophageal reflux disease without esophagitis Status: Chronic Assessment and Plan: -continue with lansoprazole (10) Metastatic malignant melanoma: Onset Date: 2012 Code(s): C43.9 - Malignant melanoma of skin, unspecified Status: Acute Assessment and Plan: - patient has had an abnormal brain scan, neurology has followed the patient in the past. 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 Patient was started on Keppra and June of 2021 Subjective Date/time seen: 10/08/21 10:18 10/08/2021
[2021-10-08] MEDS: ACETAMINOPHEN ELIXIR 325 MG/10.15 ML UDC 650 MG FEED TUBE (18:06)
[2021-10-09] VITALS (9 sets, daily range): BP systolic 141–155; BP diastolic 68–75; PULSE 45–66; RESP 12–18; TEMP 36.7–37; O2SAT 98–100
[2021-10-09] MEDS: LANSOPRAZOLE ORAL SUSP 30 MG/10 ML ORAL.SUSP FEED TUBE (06:27)
[2021-10-09] MEDS: ERYTHROMYCIN OPHTH OINTMENT 1 GM TUBE 1 APPLIC LEFT EYE ×4 (06:27→21:10)
[2021-10-09] MEDS: SODIUM CHLORIDE 0.9% IV 1,000 ML 125 ML IV CONT (06:28)
[2021-10-09] MEDS: ASPIRIN 81 MG CHEWABLE TABLET FEED TUBE (10:06)
[2021-10-09] MEDS: levETIRAcetam ORAL SOL 500 MG/5 ML UDC 1000 MG FEED TUBE ×2 (10:07→21:10)
[2021-10-09] MEDS: amLODIPine BESYLATE 5 MG TABLET FEED TUBE (10:07)
[2021-10-09] MEDS: FOLIC ACID 1 MG TABLET FEED TUBE (10:07)
[2021-10-09] MEDS: VITAMIN B COMPLEX CAPSULE 1 CAP FEED TUBE (10:08)
[2021-10-09] MEDS: THIAMINE HCL 100 MG TABLET FEED TUBE (10:08)
[2021-10-09] MEDS: SERTRALINE HCL 50 MG TABLET 100 MG FEED TUBE (10:08)
--- NOTE | 2021-10-09 10:23 | PM.IMPN ---
Progress Note: A&P Assessment and Plan (1) Acute kidney injury: Code(s): N17.9 - Acute kidney failure, unspecified Status: Acute Assessment and Plan: -patient appears mildly dehydrated -avoid nephrotoxic medication -continue IV fluids -monitor BMP daily patient is currently on a scopolamine patch 10/07/2021 interval history: 66-year-old male resident of [facility] presented with left eye subconjunctival hemorrhage and conjunctivitis being treated with of antibiotic, also upon present patient was dehydrated with elevated serum creatinine 1.7 patient is gently hydrated and creatinine is trending down to 1.3 to his baseline will continue to monitor, today patient work with physical therapy currently sitting in the chair is feeling better compared to when he arrived will continue to monitor patient will benefit with rehab. 10/08/2021 interval history: 66-year-old male resident of [facility] presented with left eye subconjunctival hemorrhage and conjunctivitis being treated with of optic antibiotic, and left eys is improving, also upon present patient was dehydrated with elevated serum creatinine 1.7 patient is gently hydrated and creatinine is trending down to 1.3 to his baseline will continue to monitor, today patient worked with physical therapy currently lying in the bed is feeling better compared to when he arrived will continue to monitor patient will benefit with rehab. will dod discharge planning on Sunday. 10/09/2021 interval history: 66-year-old male resident of [facility] presented with left eye subconjunctival hemorrhage and conjunctivitis being treated with of antibiotic, and left eye is improving, also upon present patient dehydrated with elevated serum creatinine 1.7 patient is gently hydrated with IV fluids and creatinine is trending down to 1.3 to his baseline will continue to monitor, today patient worked with physical therapy currently sitting in the chair and he is feeling better compared to when he arrived will continue to monitor patient will benefit with rehab. will do discharge planning on Sunday. (2) Conjunctivitis: Qualifiers: Acute conjunctivitis type: bacterial Conjunctivitis type: acute Laterality: left Qualified Code(s): H10.32 - Unspecified acute conjunctivitis, left eye Code(s): H10.9 - Unspecified conjunctivitis Status: Acute Assessment and Plan: -patient was started on antibiotics for the left eye.? may consider deescalation (3) Subconjunctival hemorrhage of left eye: Code(s): H11.32 - Conjunctival hemorrhage, left eye Status: Acute Assessment and Plan: -the left eye appears injected. Patient has normal vision and denies any falls. -orbit CT was negative. (4) Acute hypokalemia: Code(s): E87.6 - Hypokalemia Status: Acute Assessment and Plan: -replace as necessary. -potassium 3.3, today 3.7 will monitor and supplement (5) Silent aspiration: Code(s): T17.900A - Unspecified foreign body in respiratory tract, part unspecified causing asphyxiation, initial encounter Status: Acute Assessment and Plan: patient failed speech therapy evaluation. Patient has been made NPO and will return to tube feedings. Registered dietitian consulted, appreciate assistance and recommendations (6) Dementia: Code(s): F03.90 - Unspecified dementia without behavioral disturbance Status: Acute Assessment and Plan: -on sertraline (7) Acute dehydration: Code(s): E86.0 - Dehydration Status: Acute Assessment and Plan: -gently hydrate (8) Benign essential hypertension: Code(s): I10 - Essential (primary) hypertension Status: Chronic Assessment and Plan: -continue Norvasc -continue metoprolol (9) GERD (gastroesophageal reflux disease): Qualifiers: Esophagitis presence: without esophagitis Qualified Code(s): K21.9 - Gastro-esoph
[2021-10-09] MEDS: METOPROLOL TARTRATE 25 MG TABLET FEED TUBE (21:10)
[2021-10-10 04:30] VITALS: BP 147/66; PULSE 64; RESP 16; TEMP 36.6; O2SAT 96
[2021-10-10] MEDS: ERYTHROMYCIN OPHTH OINTMENT 1 GM TUBE 1 APPLIC LEFT EYE ×4 (05:02→23:27)
[2021-10-10 05:23] LABS: Hematocrit 29.5 % (42.0-52.0); Hemoglobin 9.7 g/dL (14.0-18.0); Mean Corpuscular HGB Conc 32.9 g/dl (32-36); Mean Corpuscular Volume 91.3 fl (80-100); Platelet Count Result 177 k/mm3 (150-375); Red Blood Count 3.23 M/mm3 (4.6-6.20); Red Cell Distribution Width 13.8 % (11.5-14.5); White Blood Count 11.1 K/mm3 (4.5-10.0)
[2021-10-10 05:46] LABS: Anion Gap 11 mmol/L (8-16); Blood Urea Nitrogen 25 mg/dL (9-20); Calcium 9.2 mg/dL (8.4-10.2); Carbon Dioxide 22 mmol/L (22-30); Chloride 104 mmol/L (98-107); Estimated CRCL calculation 43 ml/min; Estimated Glomerular Filt Rate 60; Glucose 104 mg/dL (65-110); Potassium 4.5 mmol/L (3.4-5.0); Sodium 137 mmol/L (137-145)
[2021-10-10] MEDS: LANSOPRAZOLE ORAL SUSP 30 MG/10 ML ORAL.SUSP FEED TUBE (06:32)
[2021-10-10] MEDS: SODIUM CHLORIDE 0.9% IV 1,000 ML 75 ML IV CONT ×2 (07:48→23:29)
[2021-10-10 08:00] VITALS: PULSE 61; RESP 16; O2SAT 96
[2021-10-10] MEDS: FOLIC ACID 1 MG TABLET FEED TUBE (09:09)
[2021-10-10] MEDS: levETIRAcetam ORAL SOL 500 MG/5 ML UDC 1000 MG FEED TUBE ×2 (09:09→23:27)
[2021-10-10] MEDS: amLODIPine BESYLATE 5 MG TABLET FEED TUBE (09:09)
[2021-10-10 09:10] VITALS: PULSE 61
[2021-10-10] MEDS: METOPROLOL TARTRATE 25 MG TABLET FEED TUBE ×2 (09:10→23:27)
[2021-10-10] MEDS: SERTRALINE HCL 50 MG TABLET 100 MG FEED TUBE (09:10)
[2021-10-10] MEDS: THIAMINE HCL 100 MG TABLET FEED TUBE (09:11)
[2021-10-10] MEDS: ASPIRIN 81 MG CHEWABLE TABLET FEED TUBE (09:12)
--- NOTE | 2021-10-10 10:04 | PM.IMPN ---
Progress Note: A&P Assessment and Plan (1) Acute kidney injury: Code(s): N17.9 - Acute kidney failure, unspecified Status: Acute Assessment and Plan: -patient appears mildly dehydrated -avoid nephrotoxic medication -continue IV fluids of normal saline at 75 mL/hour as patient's BUN increased today. Will recheck renal function tomorrow. -monitor BMP daily patient is currently on a scopolamine patch (2) Conjunctivitis: Qualifiers: Acute conjunctivitis type: bacterial Conjunctivitis type: acute Laterality: left Qualified Code(s): H10.32 - Unspecified acute conjunctivitis, left eye Code(s): H10.9 - Unspecified conjunctivitis Status: Acute Assessment and Plan: -patient's left eye appears greatly improved. Will continue 1 additional day of erythromycin antibiotics and discontinue tomorrow. (3) Subconjunctival hemorrhage of left eye: Code(s): H11.32 - Conjunctival hemorrhage, left eye Status: Acute Assessment and Plan: -the left eye appears injected. Patient has normal vision and denies any falls. -orbit CT was negative. -the hemorrhage appears to be resolving nicely. (4) Acute hypokalemia: Code(s): E87.6 - Hypokalemia Status: Resolved Assessment and Plan: -now resolved with potassium of 4.5. -continue tube feeds. (5) Silent aspiration: Code(s): T17.900A - Unspecified foreign body in respiratory tract, part unspecified causing asphyxiation, initial encounter Status: Acute Assessment and Plan: - patient failed speech therapy evaluation. Patient has been made NPO and will return to tube feedings. -dietitian is following. -current tube feeding is Glucerna 1.2 at rate of 75 mL/hour. Patient also received tube feeding flushes of 100 mL of free water q.6 hours. (6) Dementia: Code(s): F03.90 - Unspecified dementia without behavioral disturbance Status: Chronic Assessment and Plan: -on sertraline -patient continues to appear demented. He is not posing immediate harm risk to himself. (7) Acute dehydration: Code(s): E86.0 - Dehydration Status: Acute Assessment and Plan: -gently hydrate continued with normal saline at 75 mL/hour. (8) Benign essential hypertension: Code(s): I10 - Essential (primary) hypertension Status: Chronic Assessment and Plan: -continue Norvasc -continue metoprolol -continue to monitor blood pressure (9) GERD (gastroesophageal reflux disease): Qualifiers: Esophagitis presence: without esophagitis Qualified Code(s): K21.9 - Gastro-esophageal reflux disease without esophagitis Code(s): K21.9 - Gastro-esophageal reflux disease without esophagitis Status: Chronic Assessment and Plan: -continue with lansoprazole (10) Metastatic malignant melanoma: Onset Date: 2012 Code(s): C43.9 - Malignant melanoma of skin, unspecified Status: Acute Assessment and Plan: - patient has had an abnormal brain scan, neurology has followed the patient in the past. Mass is enlarging according to CT scan, and the mass has been known to cause seizures. -continue Keppra - seizure precautions -no notable seizure activity since patient has been in this hospitalization. Time Spent With Patient Time with patient: 15 - 25 minutes Subjective Date/time seen: 10/10/21 9408 This patient was examined at the bedside today in interval assessment. He was found to be lying on his right side. He arouses to verbal and tactile stimulation, however he did not answer questions appropriately this morning. He had obvious dryness of his oral mucosa. His BUN increased to 25 today although his acute VIVIANE with his creatinine had resolved. Patient is currently receiving free water with tube feed flushes 100 mL every 6 hours and receiving Glucerna 1.2 with a rate of 75 mL/hour. Secondary to his. I am restarting IV fluids at no
[2021-10-10 14:22] VITALS: BP 139/57; PULSE 61; RESP 14; TEMP 36.4; O2SAT 96
[2021-10-10] MEDS: VITAMIN B COMPLEX CAPSULE 1 CAP FEED TUBE (16:36)
[2021-10-10] MEDS: ONDANSETRON HCL ODT 4 MG TABLET BY MOUTH (18:12)
[2021-10-10] MEDS: ACETAMINOPHEN ELIXIR 325 MG/10.15 ML UDC 650 MG FEED TUBE (18:16)
[2021-10-10 20:00] VITALS: PULSE 59; RESP 16; O2SAT 93
[2021-10-10 22:06] VITALS: BP 131/60; PULSE 59; RESP 16; TEMP 36.3; O2SAT 93
[2021-10-11] MEDS: ERYTHROMYCIN OPHTH OINTMENT 1 GM TUBE 1 APPLIC LEFT EYE (06:05)
[2021-10-11] MEDS: LANSOPRAZOLE ORAL SUSP 30 MG/10 ML ORAL.SUSP FEED TUBE (06:06)
[2021-10-11 06:14] VITALS: BP 134/69; PULSE 76; RESP 16; TEMP 37; O2SAT 93
--- NOTE | 2021-10-11 07:33 | PM.DS ---
DS: Admitting Diagnosis Discharge Date 10/11/2021 Admitting Diagnosis VIVIANE Conjunctivitis Subconjunctival hemorrhage of left eye Acute Hypokalemia Aspiration Dementia Acute Dehydration HTN GERD Metastatic malignant melanoma DS: Discharge Diagnosis Discharge Diagnosis (1) Acute kidney injury: Code(s): N17.9 - Acute kidney failure, unspecified Status: Resolved Assessment and Plan: -Resolved. Pt. renal function has returned to baseline and he is stable for discharge today. (2) Conjunctivitis: Qualifiers: Acute conjunctivitis type: bacterial Conjunctivitis type: acute Laterality: left Qualified Code(s): H10.32 - Unspecified acute conjunctivitis, left eye Code(s): H10.9 - Unspecified conjunctivitis Status: Acute Assessment and Plan: -Pt. has completed a full 7 day course of Erythromycin abx eye ointment and is stable for discharge today. As he does still have some drainage from the left eye, abx will be changed to cipro for an additional 7 days. (3) Subconjunctival hemorrhage of left eye: Code(s): H11.32 - Conjunctival hemorrhage, left eye Status: Acute Assessment and Plan: - Resolving without incident or complications. (4) Acute hypokalemia: Code(s): E87.6 - Hypokalemia Status: Resolved Assessment and Plan: -continue tube feeds. (5) Silent aspiration: Code(s): T17.900A - Unspecified foreign body in respiratory tract, part unspecified causing asphyxiation, initial encounter Status: Acute Assessment and Plan: - patient failed speech therapy evaluation. Patient has been made NPO and will return to tube feedings. -dietitian is following. -current tube feeding is Glucerna 1.2 at rate of 75 mL/hour. Patient also received tube feeding flushes of 100 mL of free water q.6 hours. (6) Dementia: Code(s): F03.90 - Unspecified dementia without behavioral disturbance Status: Chronic Assessment and Plan: -on sertraline -patient continues to appear demented. He is not posing immediate harm risk to himself. (7) Acute dehydration: Code(s): E86.0 - Dehydration Status: Resolved Assessment and Plan: - Resolved without any additional complications. (8) Benign essential hypertension: Code(s): I10 - Essential (primary) hypertension Status: Chronic Assessment and Plan: -continue Norvasc -continue metoprolol -continue to monitor blood pressure - Stable (9) GERD (gastroesophageal reflux disease): Qualifiers: Esophagitis presence: without esophagitis Qualified Code(s): K21.9 - Gastro-esophageal reflux disease without esophagitis Code(s): K21.9 - Gastro-esophageal reflux disease without esophagitis Status: Chronic Assessment and Plan: -continue with lansoprazole (10) Metastatic malignant melanoma: Onset Date: 2012 Code(s): C43.9 - Malignant melanoma of skin, unspecified Status: Acute Assessment and Plan: - patient has had an abnormal brain scan, neurology has followed the patient in the past. Mass is enlarging according to CT scan, and the mass has been known to cause seizures. -continue Keppra - seizure precautions -no notable seizure activity since patient has been in this hospitalization. DS: Summary Hospital Course Reason for hospitalization: VIVINAE, Dehydration with left eye infection Hospital Course: This 66 year old male patient with significant PMH of dementia, HTN, CVA, CKD, COPD, GERD, Hepatitis C, ETOH Abuse, Metastatic malignant Melanoma, OA, Silent Aspiration, and Vitamin D Deficiency who resides at [facility] as a alf patient, presented to emergency room on September 2021 for evaluation having bloodshot eye. Left eye. In addition he laceration to his extremity from an underground injury. His laceration to his left flores was repaired emergency and he his tetanus shot was updat
[2021-10-11 08:05] LABS: Hematocrit 30.6 % (42.0-52.0); Immature Platelet Fraction Pct 8.7 % (0.9-11.2); Mean Corpuscular HGB Conc 32.7 g/dl (32-36); Mean Corpuscular Hemoglobin 29.5 pg (26-34); Mean Corpuscular Volume 90.3 fl (80-100); Mean Platelet Volume 11.4 fl (7.4-10.4); Platelet Count Result 140 k/mm3 (150-375); Red Blood Count 3.39 M/mm3 (4.6-6.20); Red Cell Distribution Width 13.9 % (11.5-14.5); White Blood Count 11.4 K/mm3 (4.5-10.0)
[2021-10-11 08:09] LABS: Anion Gap 10 mmol/L (8-16); Blood Urea Nitrogen 28 mg/dL (9-20); Calcium 8.8 mg/dL (8.4-10.2); Carbon Dioxide 25 mmol/L (22-30); Chloride 106 mmol/L (98-107); Estimated CRCL calculation 37 ml/min; Estimated Glomerular Filt Rate 51; Glucose 123 mg/dL (65-110); Magnesium 1.9 mg/dL (1.6-2.3); Potassium 4.5 mmol/L (3.4-5.0); Sodium 141 mmol/L (137-145)
[2021-10-11 10:59] VITALS: PULSE 75
[2021-10-11] MEDS: THIAMINE HCL 100 MG TABLET FEED TUBE (10:59)
[2021-10-11] MEDS: METOPROLOL TARTRATE 25 MG TABLET FEED TUBE (10:59)
[2021-10-11] MEDS: FOLIC ACID 1 MG TABLET FEED TUBE (10:59)
[2021-10-11] MEDS: ASPIRIN 81 MG CHEWABLE TABLET FEED TUBE (10:59)
[2021-10-11] MEDS: amLODIPine BESYLATE 5 MG TABLET FEED TUBE (10:59)
[2021-10-11] MEDS: SERTRALINE HCL 50 MG TABLET 100 MG FEED TUBE (11:00)
[2021-10-11] MEDS: VITAMIN B COMPLEX CAPSULE 1 CAP FEED TUBE (11:01)
[2021-10-11] MEDS: SCOPOLAMINE 1.5 MG PATCH TRANSDERM (11:02)
[2021-10-11] MEDS: levETIRAcetam ORAL SOL 500 MG/5 ML UDC 1000 MG FEED TUBE (12:12)
[2021-10-11 12:37] LABS: EDCOVIDSCREEN Negative (Negative)
--- NOTE | 2021-10-11 13:43 | PCNFU ---
Nutrition Follow-Up Complete: Inadequate oral intake related to swallowing difficulty as evidenced by 0% intake for breakfast, nursing report that patient is holding food in his mouth and not swallowing. Goal: Meet nutritional needs via tube feeding. Pt has achieved goal. Pt current nutrition is NPO, Tubefeeding. Last recorded weight is 56.6 kg. Weight is stable. Bowel Motility: +BM Labs Reviewed: Hgb:10.0, Hct:30.6, GFR:51, BUN:28, Cr:1.4, Glu: 123 Meds Noted: Lopressor, Prevacid, Norvasc, Dulcolax, Folic acid Skin: WNL Additional Notes: Pt is on continuous tubefeed Glucerna 1.2 @ 75 mL/hr with 100 mL water flush Q6 hours: 1,650 total mL, 1,980 kcals, 99 grams protein, 1,728 mL free water. Nutritional needs are met. Pt is tolerating tubefeed. Continue with current order. Monitor tube feeding tolerance and follow up every Sunday/Sunday.
--- NOTE | 2021-10-11 14:01 | PCNSR ---
On 10/11/21, the student, Krystyna Maria, provided care and completed [facility] documentation on this patient. I have reviewed the student's documentation and agree with the findings.
[2021-10-11 14:28] VITALS: BP 137/73; PULSE 67; RESP 18; TEMP 36.9; O2SAT 93
== END 2021-10-11 15:00 | DRG 683 ==
LOC: ANHED 20:36 → ANH2MED 20:49
PROVIDERS: Family Medicine; Nurse Practitioner; Nurse Practitioner Family; Admitting Provider Internal Medicine; Emergency Provider Emergency Medicine; PCP Family Medicine; Visit Provider Nurse Practitioner Adult Health
DX: N17.9 Acute kidney failure, unspecified (principal); C79.31 Secondary malignant neoplasm of brain; Z20.822 Contact with and (suspected) exposure to COVID-19; H10.32 Unspecified acute conjunctivitis, left eye; H11.32 Conjunctival hemorrhage, left eye; K21.9 Gastro-esophageal reflux disease without esophagitis; F03.90 Unspecified dementia, unspecified severity, without behavioral disturbance, psychotic disturbance, mood disturbance, and anxiety; E86.0 Dehydration; E87.6 Hypokalemia; E55.9 Vitamin D deficiency, unspecified; M19.90 Unspecified osteoarthritis, unspecified site; J44.9 Chronic obstructive pulmonary disease, unspecified; T17.900A Unspecified foreign body in respiratory tract, part unspecified causing asphyxiation, initial encounter; S81.812A Laceration without foreign body, left lower leg, initial encounter; X58.XXXA Exposure to other specified factors, initial encounter; N40.0 Benign prostatic hyperplasia without lower urinary tract symptoms; F41.9 Anxiety disorder, unspecified; I12.9 Hypertensive chronic kidney disease with stage 1 through stage 4 chronic kidney disease, or unspecified chronic kidney disease; N18.9 Chronic kidney disease, unspecified; D64.9 Anemia, unspecified; G40.909 Epilepsy, unspecified, not intractable, without status epilepticus; C43.9 Malignant melanoma of skin, unspecified; Z66 Do not resuscitate; F17.210 Nicotine dependence, cigarettes, uncomplicated; Z86.73 Personal history of transient ischemic attack (TIA), and cerebral infarction without residual deficits; Z86.19 Personal history of other infectious and parasitic diseases; Z93.1 Gastrostomy status
CPT/HCPCS: 36415; 70450; 70480; 71046; 80048; 80053; 83605; 83615; 83690; 83735; 84443; 84484; 85025; 85027; 85055; 85610; 85730; 87426; 90471; 90715; 92610; 93005; 96361; 96374; 97161; 97166; 97530; 97535; 99285; A9270; C9803; G0378; J3480; J7030; J7040

== ENCOUNTER 2021-10-12 09:03 | Inpatient (IN) | payer MEDICARE, SELFPAY ==
[2021-10-12] VITALS (47 sets, daily range): BP systolic 102–160; BP diastolic 61–112; PULSE 77–102; RESP 15–30; TEMP 36.3–37; O2SAT 80–100; BMI 19.5
--- NOTE | ~2021-10-12 | CT_ITS ---
EXAMINATION: CTA chest PE protocol DATE: 10/12/2021 15:50 INDICATION: Hypoxia. TECHNIQUE: Computed tomography angiography (CTA) of the chest was performed with 100 mL Omnipaque-350 intravenous contrast timed to evaluate the pulmonary arteries. Coronal maximum intensity projection 3D-reconstructions were created by the technologist. Automated exposure control and iterative reconst ruction technique were employed. The dose-length product was 373.77 mGy-cm. COMPARISON: Chest CT 06/10/2021, 03/26/15 FINDINGS: There are moderate-sized pleural effusions. There is moderate emphysema. There is dependent atelectasis bilaterally. A calcified right lung nodule is consistent with old granulomatous disease. There are perihilar airspace opacities in right middle lobe with volume loss and bronchiectasis, lik joseph changes of radiation therapy. Again seen is a 9 mm nodule in anterior segment right upper lobe. T he heart size is normal. There are coronary artery calcifications. No pericardial effusion. There is no pulmonary embolus. There is mild chronic anterior wedging of multiple vertebral bodies. There is m ild thoracic spondylosis. IMPRESSION: 1. No pulmonary embolus. 2. Moderate-sized pleural effusions. 3. Stable right upper lobe pulmonary nodule, consistent with metastatic disease. 4. Stable radiation fibrosis in right middle lobe. 5. Moderate emphysema. Reviewed, dictated and finalized at location A. IMPRESSION: 1. No pulmonary embolus. 2. Moderate-sized pleural effusions. 3. Stable right upper lobe pulmonary nodule, consistent with metastatic disease . 4. Stable radiation fibrosis in right middle lobe. 5. Moderate emphysema.
--- NOTE | ~2021-10-12 | XR_ITS ---
XR chest 1V portable 10/13/2021 10:31 Indication: Follow-up infiltrates Procedure: AP portable chest Comparison: Comparison to multiple prior studies sequentially, with oldest reviewed study dated 10/12. Findings: Diffuse bilateral airspace disease has progressed which may represent edema or pneumonia. F ocal consolidation in the right middle lobe, most likely radiation fibrosis. Small pleural effusions. No pneumothorax. Impression: 1: Progression of diffuse bilateral airspace disease which may represent edema and/or pneumonia. 2: Small pleural effusions. 3: Focal consolidation right middle lobe, most likely radiation therapy fibrosis. Reviewed, dictated and finalized at location B. Impression: 1: Progression of diffuse bilateral airspace disease which may represent edema and/or pneumonia. 2: Small pleural effusions. 3: Focal consolidation right middle lobe, most likely radiation therapy fibros is.
--- NOTE | ~2021-10-12 | XR_ITS ---
EXAMINATION: XR chest 1V portable INDICATION: Shortness of breath TECHNIQUE: Portable AP chest at 0958 hours COMPARISON: 10/04/2021 FINDINGS: There has been interval development of airspace opacities in the left lung base. Again note d are right perihilar airspace opacities. There are small pleural effusions. There is no pneumothorax . The cardiomediastinal silhouette is stable. IMPRESSION: 1. Developing airspace opacities of the left lung base, likely pneumonia. 2. Small pleural effusions. Reviewed, dictated and finalized at location A.
--- NOTE | 2021-10-12 09:08 | ECG_ITS ---
Measurements Intervals [place] Rate: 88 P: 26 [place]: 136 QRS: 53 QRSD: 85 T: 74 QT: 374 QTc: 454 Interpretive Statements SINUS RHYTHM WITH SINUS ARRHYTHMIA ANTEROSEPTAL MYOCARDIAL INFARCTION , OF INDETERMINATE AGE [40+ ms Q WAVE IN V1-V4] LATERAL ST ABNORMALITY, CONSIDER ISCHEMIA ABNORMAL ECG Electronically Signed On 10-12-2021 10:48:58 CDT by Justin Castillo M.D.
[2021-10-12 09:20] LABS: Basophils Percent Auto 0.2 % (0.2-1.2); Hematocrit 32.6 % (42.0-52.0); Hemoglobin 10.4 g/dL (14.0-18.0); Immature Granulocyte Absolute 0.12 K/mm3 (0.00-0.031); Immature Granulocyte Percent A 0.6 % (0-0.5); Lymphocytes Percent Auto 4.2 % (18.3-44.2); Mean Corpuscular HGB Conc 31.9 g/dl (32-36); Mean Corpuscular Hemoglobin 29.9 pg (26-34); Mean Corpuscular Volume 93.7 fl (80-100); Mean Platelet Volume 11.7 fl (7.4-10.4); Monocytes Absolute Auto 1.5 K/mm3 (0.1-0.6); Monocytes Percent Auto 7.7 % (2.6-8.5); Neutrophils Absolute Auto 16.5 K/mm3 (1.3-6.7); Neutrophils Percent Auto 87.3 % (45.5-73.1); Platelet Count Result 189 k/mm3 (150-375); Red Blood Count 3.48 M/mm3 (4.6-6.20); Red Cell Distribution Width 14.1 % (11.5-14.5); White Blood Count 18.9 K/mm3 (4.5-10.0)
[2021-10-12] MEDS: ALBUTEROL SULFATE NEB 2.5 MG/3 ML INH 5 MG INHALATION (09:20)
[2021-10-12] MEDS: IPRATROPIUM BR 0.02% INH SOLN 0.5 MG/2.5 ML VIAL 1 MG INHALATION (09:20)
[2021-10-12 09:42] LABS: Base Excess ABG 1.7 mEq/l (+/-2.0); Carboxyhemoglobin 0.3 % THb (0-2.0); Fractional Inspired Oxygen 100 %; HCO3 ABG 24.7 mEq/l (22.0-26.0); Methemoglobin ABG 0.2 %THb (0-1.5); Oxygen Content ABG 13.8 %vol (16.0-22.0); Oxygen Saturation ABG 96.1 % (95.0-100.0); Oxyhemoglobin 93.9 % THb (90.0-100.0); PCO2 ABG 33.2 mmHg (35.0-45.0); PO2 ABG 74.8 mmHg (80.0-100.0); PO2 FiO2 Ratio Arterial Blood 0.75 %; Reduced Hemoglobin 5.6 %THb (0-5.0); Total Hemoglobin 10.4 g/dL (12.0-18.0)
[2021-10-12 09:42] LABS: Alanine Aminotransferase 24 U/L (6-50); Albumin Level 4.2 g/dL (3.5-5.1); Alkaline Phosphatase 83 U/L (38-126); Anion Gap 14 mmol/L (8-16); Aspartate Amino Transferase 57 U/L (17-59); Bilirubin,Total 0.8 mg/dL (0.2-1.3); Blood Urea Nitrogen 39 mg/dL (9-20); Calcium 9.6 mg/dL (8.4-10.2); Carbon Dioxide 24 mmol/L (22-30); Chloride 104 mmol/L (98-107); Estimated Glomerular Filt Rate 43; Glucose 173 mg/dL (65-110); Magnesium 2.2 mg/dL (1.6-2.3); Sodium 142 mmol/L (137-145)
[2021-10-12 09:43] LABS: Device NON-INVASIVE VENT; Modified Allen's Test Pass; Site Drawn LEFT RADIAL
[2021-10-12 09:44] LABS: Non-Invasive Expiratory Pressure 8 CMH2O; Non-Invasive Inspiratory Pressure 15 CMH2O; Non-Invasive Vent Rate 16 /MIN
[2021-10-12 10:00] LABS: NT Pro B Type Natriuretic Pept > 35000 pg/mL (5-100)
--- NOTE | 2021-10-12 10:01 | ECG_ITS ---
Measurements Intervals [place] Rate: 86 P: 105 [place]: 173 QRS: -36 QRSD: 79 T: -38 QT: 394 QTc: 471 Interpretive Statements SINUS RHYTHM WITH FREQUENT SUPRAVENTRICULAR PREMATURE COMPLEXES SIGNIFICANT ARTIFACT LIMITS INTERPRETATION CANNOT RULE OUT ANTEROSEPTAL INFARCTION, AGE UNDETERMINED NONSPECIFIC T-WAVE ABNORMALITY. INDETERMINATE AXIS ABNORMAL ECG Electronically Signed On 10-12-2021 10:51:31 CDT by Justin Castillo M.D.
[2021-10-12 10:32] LABS: Lactic Acid Reflex 2.4 mmol/L (0.7-2.0)
[2021-10-12 10:48] LABS: Appearance Urine Clear (Clear); Bilirubin Urine Negative (Negative); Blood Urine 2+ (Negative); Color Urine Yellow (Yellow); Glucose Urine UA Negative (Negative); Ketones Urine Negative (Negative); Leukocyte Esterase Ur Negative LEU/UL (Negative); Nitrate Urine Negative (Negative); Protein Urine 2+ mg/dL (Negative); Urobilinogen Urine 0.2 mg/dL (<2.0)
--- NOTE | 2021-10-12 10:48 | ED.SOB ---
HPI - SOB/Dyspnea General Chief Complaint: Shortness of Breath/Dyspnea Stated Complaint: shotness of breath Time Seen by Provider: 10/12/21 09:08 History of Present Illness HPI Narrative: 66-year-old male states that yesterday he started having some chest discomfort, and then this morning was having quite a lot of difficulty breathing. When EMS arrived he was hypoxic and quite dyspneic. correction unable to provide other history. Related Data Home Medications Medication Instructions Recorded Confirmed nitroglycerin 0.4 mg sublingual 0.4 mg sublingual Q5-15M PRN Chest 06/10/21 10/04/21 tablet Pain bisacodyl 10 mg rectal suppository 10 mg RECTAL DAILY PRN Constipation 06/26/21 10/04/21 hydrocortisone 2.5 % topical cream 1 applic topical BID 06/26/21 10/04/21 sodium phosphates 19 gram-7 118 ml RECTAL DAILY PRN 06/26/21 10/04/21 gram/118 mL enema (Fleet Enema) Constipation acetaminophen 325 mg tablet (Mapap 650 mg feeding tube Q4H PRN Fever 10/04/21 10/04/21 (acetaminophen)) Or Pain lansoprazole 30 mg capsule,delayed 30 mg feeding tube DAILY 10/04/21 10/04/21 release levetiracetam 100 mg/mL oral 1,000 mg feeding tube BID 10/04/21 10/04/21 solution metoprolol succinate 50 mg capsule 50 mg feeding tube DAILY 10/04/21 10/04/21 sprinkle, ext. release 24 hr scopolamine base 1 mg over 3 days See Rx Instructions .Route .COMPLEX 10/04/21 10/04/21 transdermal patch Allergies Allergy/AdvReac Type Severity Reaction Status Date / Time No Known Allergies Allergy Verified 10/12/21 10:42 Review of Systems Review of Systems: CONST: No fever. HEENT: No sore throat C/V: chest pain yesterday RESP: Difficulty breathing GI: No nausea/vomiting : No dysuria. M/S: No joint pain. SKIN: No rash. NEURO: [No focal numbness or weakness] PSYCH: [No depression] PMFSH Past Medical History Medical History Alcohol-induced pancreatitis (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 Chronic obstructive pulmonary disease Dementia Gastroesophageal reflux disease Hepatitis C History of alcohol abuse Metastatic malignant melanoma (2012) Status post resection of brain metastases x2 with adjuvant CyberKnife therapy. He had immunotherapy for an endobronchial lesion in 2014 in addition to radiation. is unsure if he has primary melanoma of the lung though she reports no skin lesions were found. Nicotine abuse Osteoarthritis Seizure disorder Silent aspiration Vitamin D deficiency Surgical History Surgical History History of craniotomy Resection of metastatic melanoma x2 at [facility]. History of endoscopic retrograde cholangiopancreatography With insertion and subsequent removal of a biliary stent. History of hemorrhoidectomy History of vasectomy Family History Family History Father Diabetes mellitus Mother Lung cancer Social History Social History Social History: Surrogate decision maker: Keila Robbins, . They have no biological children Code status: Do not resuscitate. 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 Spiritual care concerns: No Exam Narrative: EXAMINATION OF ORGAN SYSTEMS/BODY AREAS: Constitutional: Vital signs per nursing GENERAL: Dyspnea, leaning forward, in respiratory distress HEAD: Normal wi
[2021-10-12] MEDS: ASPIRIN 81 MG CHEWABLE TABLET 324 MG PO (10:49)
[2021-10-12 10:53] LABS: Mucus Urine Rare /lpf; RBC Urine 21-50 /hpf (0-2); Squamous Epithelial Cell Urine Rare /hpf (Few); WBC Urine 0-3 /hpf
[2021-10-12 10:55] LABS: Add Urine Microscopic? YES
[2021-10-12 10:56] LABS: Procalcitonin 0.3 ng/mL
[2021-10-12 11:00] LABS: CRP 21.8 mg/dL (<1.0)
[2021-10-12 11:52] LABS: SARS-CoV-2 RNA PCR Negative
--- NOTE | 2021-10-12 12:13 | PC.NURSE ---
EDP at bedside to update patient's on plan of care.
--- NOTE | 2021-10-12 13:03 | PC.NURSE ---
Hall held for now as patient appears much more comfortable and less restless.
[2021-10-12 13:18] LABS: Reflex Lactic Acid Yes or No Add Lactic
--- NOTE | 2021-10-12 13:45 | ADMGEN ---
Addendum entered by Sejal Jackson RN 10/12/21 16:19: This patient, Jovany Robbins, was admitted to IMU status, and placed in Intensive Care Unit-1. Patient/family oriented to hospital policies and general routines including ID bracelet, bed and alarms, visiting hours, pain management, procedures, bathroom and other care routines, personal items, smoking policy, room service/diet, and visiting hours. Valuables list has been completed. Information on how to activate the Rapid Response Team has been discussed. Patient/Family are encouraged to report perceived risks to care and to ask questions if they do not understand what they are told or what they should do. Original Note: This patient, Jovany Robbins, was admitted to Intensive Care Unit-1. Patient/family oriented to hospital policies and general routines including ID bracelet, bed and alarms, visiting hours, pain management, procedures, bathroom and other care routines, personal items, smoking policy, room service/diet, and visiting hours. Information on how to activate the Rapid Response Team has been discussed. Patient/Family are encouraged to report perceived risks to care and to ask questions if they do not understand what they are told or what they should do.
[2021-10-12 14:48] LABS: Lactic Acid 2.6 mmol/L (0.7-2.0)
[2021-10-12 14:52] LABS: INR 1.3; Prothrombin Time 15.4 Seconds (11.1-14.7)
[2021-10-12 14:53] LABS: Partial Thromboplastin Time 35.4 SECONDS (22.3-36.8)
[2021-10-12 15:02] LABS: D Dimer 1.26 ug/mL (<0.48)
[2021-10-12 15:07] LABS: Procalcitonin 0.4 ng/mL
[2021-10-12 15:11] LABS: CRP 23.3 mg/dL (<1.0)
--- NOTE | 2021-10-12 15:15 | ECHO_ITS ---
Patient Info Name: Jovany Robbins Age: 66 years : 1955 Gender: Male Ht: 70 in Wt: 136 lbs BSA: 1.74 m2 HR: 86 bpm BP: 131 / 72 mmHg Heart Rhythm: Sinus Rhythm Exam Date: 10/12/2021 4:22 PM Exam Location: [facility] Patient Status: Inpatient Admit Date: 10/12/2021 Staff Ordering Physician: Neena Gurrola PA-C Vmware Architect: Mauro Lawler RDCS Attending Provider: Brigida Guerrero DO Referring Physician: Galileo ROCHE; Exam Type: CA echo doppler color flow Study Info Indications R07.9 - Chest pain, unspecified Complete two-dimensional, color flow and Doppler transthoracic echocardiogram is performed. Summary 1. Complete two-dimensional, color flow and Doppler transthoracic echocardiogram is performed. 2. Left ventricular chamber dimension is normal. 3. Left ventricular systolic function is mildly reduced, estimated at 45-50%. 4. There is mildly increased left ventricular wall thickness. 5. The left ventricular diastolic function is indeterminate. 6. The apical septum, and apical cap are akinetic. 7. The basal inferoseptal, mid inferoseptal, and mid anteroseptal are hypokinetic. 8. Left atrial chamber dimension is mildly enlarged. 9. There is mild mitral valve regurgitation. 10. The mitral valve annulus is mildly calcified. 11. There is mild tricuspid valve regurgitation. Left Ventricle Left ventricular chamber dimension is normal. Left ventricular systolic function is mildly reduced, estimated at 45-50%. There is mildly increased left ventricular wall thickness. The left ventricular diastolic function is indeterminate. The apical septum, and apical cap are akinetic. The basal inferoseptal, mid inferoseptal, and mid anteroseptal are hypokinetic. The inferior wall, and anterior wall are not visualized. All other chowdhury appear normal. Right Ventricle Right ventricular chamber dimension is normal. Right ventricular systolic function is normal. Left Atria Left atrial chamber dimension is mildly enlarged. Right Atria Right atrial chamber dimension is normal. Atrial Septum Intact interatrial septum visualized by color flow imaging. Aortic Valve The aortic valve is not well visualized. There is mild aortic valve sclerosis. There is no aortic valve stenosis. There is trace aortic valve regurgitation. Pulmonic Valve The pulmonic valve is not well visualized. There is no pulmonic valve stenosis. Mitral Valve The mitral valve has thickened leaflets. There is no mitral valve stenosis. There is mild mitral valve regurgitation. The mitral valve annulus is mildly calcified. Tricuspid Valve The tricuspid valve leaflets are normal. There is no significant tricuspid valve stenosis. There is mild tricuspid valve regurgitation. Pericardium/Pleural The pericardium appears normal. There is no pericardial effusion. Aorta The aortic root size at the sinus of Valsalva is normal. Tricuspid Valve Name Value Normal TV Regurgitation Doppler TR Peak Velocity 294 cm/s TR Peak Gradient 35 mmHg Estimated PAP/RSVP RA Pressure
--- NOTE | 2021-10-12 17:00 | PM.IMHP ---
H&P: HPI History of Present Illness Date/Time: 10/12/21 14:00 Chief Complaint: Shortness of breath. Narrative: This is a chronically ill 66-year-old male with history of stroke, dysphagia status post G-tube, dementia, hypertension, chronic kidney disease, chronic obstructive pulmonary disease, malignant melanoma, and other comorbidities who presented to the emergency department via EMS from [facility] for evaluation of shortness of breath. He was discharged from this hospital yesterday after a week-long stay in which he was admitted for dehydration and hypokalemia. He was rehydrated and started back on tube feeds as he failed a swallow study once again. saw him last evening at the long-term at which time she remarks that he appeared sad, depressed, and uncomfortable. He mentioned chest pain briefly however when she began to question him about it, he then stated that he had abdominal pain that he could not further qualify. goes on to say that it is not unusual for him to complain of random pains which pass quickly. This morning long-term staff found the patient to be short of breath and he was hypoxic with an SpO2 in the 70s. He was placed on 4 L nasal cannula and emergency services were summoned. On EMS arrival he was still hypoxic in the 70s to 80s and he was started on CPAP. On arrival to the ER he was afebrile with stable blood pressures. Pertinent labs include: WBC 18.9, BUN 39, creatinine 1.60, lactic acid 2.4, CRP 23.3, troponin 4.80, proBNP greater than 35,000. Chest x-ray showed developing airspace opacities of the left lung base, likely pneumonia and small pleural effusions and a subsequent CTA of the chest showed no evidence of pulmonary embolism, moderate size pleural effusions, moderate emphysema, and stable right upper lobe nodule and radiation fibrosis. At the time my evaluation he has no specific complaints though he is not a very good historian, and fact he could not recall why he was brought to the ER today. He seems a bit short of breath on high-flow nasal cannula though he denies feelings of shortness of breath. He does specifically deny fever, sinus congestion, sore throat, chest pain, pleuritic pain, palpitations, abdominal pain, nausea, vomiting, diarrhea, and dysuria. Review of Systems Review of Systems: Twelve systems were reviewed but the accuracy of such is questionable given his dementia. He is not able to provide a great history with regards to what brought him to the hospital today. He states no to every question and asked of him today. PENDING SALE TO [facility] Past Medical History Medical History (Updated 10/12/21 @ 20:55 by Neena Gurrola PA-C) Alcohol-induced pancreatitis (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 Chronic obstructive pulmonary disease Dementia Gastroesophageal reflux disease Hepatitis C History of alcohol abuse Metastatic malignant melanoma (2012) Status post resection of brain metastases x2 with adjuvant CyberKnife therapy. He had immunotherapy for an endobronchial lesion in 2014 in addition to radiation. is unsure if he has primary melanoma of the lung though she reports no skin lesions were found. Nicotine abuse Osteoarthritis Seizure disorder Silent aspiration Vitamin D deficiency Surgical History Surgical History History of craniotomy Resection of metastatic melanoma x2 at [facility]. History of endoscopic retrograde cholangiopancreatography With insertion and subsequent removal of a biliary stent. History of hemorrhoidectomy History of vasectomy Family History Family History Father Diabetes mellitus Mother Lung cancer Social History Social History (Reviewed 10/12/21 @ 20:4
[2021-10-12] MEDS: FUROSEMIDE INJ 40 MG/4 ML VIAL IV PUSH (21:52)
[2021-10-12] MEDS: METOPROLOL TARTRATE 25 MG TABLET FEED TUBE (22:41)
[2021-10-12] MEDS: levETIRAcetam ORAL SOL 500 MG/5 ML UDC 1000 MG FEED TUBE (22:41)
[2021-10-12] MEDS: CIPROFLOXACIN HCL 0.3% OP SOLN 2.5 ML BTL 2 DROP LEFT EYE (22:42)
[2021-10-13] VITALS (28 sets, daily range): BP systolic 108–148; BP diastolic 57–91; PULSE 68–91; RESP 21–35; TEMP 36.3–36.9; O2SAT 86–97; BMI 19.0
[2021-10-13] MEDS: IPRATROPIUM BR 0.02% INH SOLN 0.5 MG/2.5 ML VIAL INHALATION ×3 (01:21→17:25)
[2021-10-13] MEDS: ALBUTEROL SULFATE NEB 2.5 MG/3 ML INH INHALATION ×3 (01:21→17:25)
[2021-10-13 04:19] LABS: Hematocrit 28.2 % (42.0-52.0); Mean Corpuscular HGB Conc 31.9 g/dl (32-36); Mean Corpuscular Hemoglobin 30.5 pg (26-34); Mean Corpuscular Volume 95.6 fl (80-100); Platelet Count Result 157 k/mm3 (150-375); Red Blood Count 2.95 M/mm3 (4.6-6.20); Red Cell Distribution Width 14.1 % (11.5-14.5); White Blood Count 14.4 K/mm3 (4.5-10.0)
[2021-10-13 04:26] LABS: Alanine Aminotransferase 24 U/L (6-50); Albumin Level 3.9 g/dL (3.5-5.1); Alkaline Phosphatase 62 U/L (38-126); Anion Gap 16 mmol/L (8-16); Aspartate Amino Transferase 46 U/L (17-59); Blood Urea Nitrogen 41 mg/dL (9-20); Calcium 9.4 mg/dL (8.4-10.2); Carbon Dioxide 25 mmol/L (22-30); Chloride 103 mmol/L (98-107); Estimated CRCL calculation 30 ml/min; Estimated Glomerular Filt Rate 36; Glucose 140 mg/dL (65-110); Magnesium 2.1 mg/dL (1.6-2.3); Potassium 4.7 mmol/L (3.4-5.0); Sodium 144 mmol/L (137-145)
[2021-10-13] MEDS: CIPROFLOXACIN HCL 0.3% OP SOLN 2.5 ML BTL 2 DROP LEFT EYE ×6 (06:28→16:32)
[2021-10-13] MEDS: LANSOPRAZOLE ORAL SUSP 30 MG/10 ML ORAL.SUSP FEED TUBE (06:29)
[2021-10-13] MEDS: levETIRAcetam ORAL SOL 500 MG/5 ML UDC 1000 MG FEED TUBE (08:38)
[2021-10-13] MEDS: THIAMINE HCL 100 MG TABLET FEED TUBE (08:39)
[2021-10-13] MEDS: SERTRALINE HCL 50 MG TABLET 100 MG FEED TUBE (08:39)
[2021-10-13] MEDS: FOLIC ACID 1 MG TABLET FEED TUBE (08:39)
[2021-10-13] MEDS: ASPIRIN 81 MG CHEWABLE TABLET FEED TUBE (08:40)
[2021-10-13] MEDS: METOPROLOL TARTRATE 25 MG TABLET FEED TUBE (08:40)
[2021-10-13] MEDS: amLODIPine BESYLATE 5 MG TABLET FEED TUBE (08:40)
--- NOTE | 2021-10-13 09:42 | PM.IMPN ---
Progress Note: A&P Assessment and Plan (1) Acute respiratory failure with hypoxia: Code(s): J96.01 - Acute respiratory failure with hypoxia Status: Acute Assessment and Plan: Acute respiratory failure likely related to pneumonia, pulmonary edema -patient was given Lasix on 10/12 without much improvement in the chest x-ray -10/13 chest x-ray: Progression of diffuse bilateral airspace disease may represent edema and/or pneumonia, small pleural effusion, focal consolidation of the right middle lobe most likely radiation therapy fibrosis -will repeat Lasix -patient currently on vancomycin, levofloxacin and cefepime (10/12) -10/12 sputum culture: Negative -10/12 blood culture: Negative x2 -10/13 urine cultures pending -continue bronchodilators (2) Pneumonia: Code(s): J18.9 - Pneumonia, unspecified organism Status: Acute Assessment and Plan: As above (3) Non-ST elevated myocardial infarction (non-STEMI): Code(s): I21.4 - Non-ST elevation (NSTEMI) myocardial infarction Status: Acute Assessment and Plan: Elevated troponins with EKG showing septal Q-waves and ST depression in V4 to V6 10/13/2021 echocardiogram: Shows EF of 40-45% with hypokinesis of apical cap, apical septum, mid inferior septum, mid anteroseptum. -appreciate cardiology evaluation and recommendation -the presser first discussed with patient's Keila, she was updated that the patient was having heart attack and they did discuss risk on benefits of cardiac catheterization but the did not want to proceed with invasive procedures. (4) Chronic kidney disease: Code(s): N18.9 - Chronic kidney disease, unspecified Status: Acute Assessment and Plan: Patient with chronic kidney disease with worsening creatinine could be related to NSTEMI, medications at home (amlodipine, metoprolol), patient also had contrast I CT scan on 10/12 -will give albumin -patient with NSTEMI, wall motion abnormalities, EF of 40-45%, proBNP > 35,000, also checks x-ray with bilateral infiltrates -will be cautious with IV fluids -continue to monitor renal function, electrolytes and urine output -Chowdhury in place (5) Metastatic malignant melanoma: Onset Date: 2012 Code(s): C43.9 - Malignant melanoma of skin, unspecified Status: Acute Assessment and Plan: Stable lung nodule on CT scan of the chest. -10/04/2021 CT scan of the head showed enlarging right temporal primary/metastatic lesion (6) Dysphagia: Code(s): R13.10 - Dysphagia, unspecified Status: Acute Assessment and Plan: Patient has a PEG tube Additional Plan DVT prophylaxis: SCDs Nutrition: Will restart tube feeds today Code Status: Do not resuscitate/do not intubate Will discuss with when she comes in today about goals of care Due to a high probability of clinically significant, life threatening deterioration, the patient required my highest level of preparedness to intervene emergently and I personally spent this critical care time directly and personally managing the patient. This critical care time included obtaining a history; examining the patient; pulse oximetry; ordering and review of studies; arranging urgent treatment with development of a management plan; evaluation of patient's response to treatment; frequent reassessment; and discussions with other providers. It was exclusive of separately billable procedures and treating other patients and teaching time. Please see Assessment and Plan section and the rest of the note for further information on patient assessment and treatment Subjective Date/time seen: 10/13/21 09:42 Interval history: 66-year-old male with history of stroke, dysphagia status post G-tube, dementia, essential hypertension, chronic kidney disease, COPD, malignant melanoma was discharged to [facility] from [facility] on 10/11 where he was treated for dehydration and hypok
--- NOTE | 2021-10-13 09:58 | PM.CNCAR ---
Assessment and Plan Assessment and plan (1) Non-ST elevated myocardial infarction (non-STEMI): Code(s): I21.4 - Non-ST elevation (NSTEMI) myocardial infarction Status: Acute Plan - NSTEMI - dementia - COPD - melanoma with Mets to the brain. this 66-year-old patient multiple medical problems including dementia, metastatic, brain Mets, COPD year, dysphagia, stroke who presents also shortness of breath possibly chest pain. There ischemic changes on EKG elevated troponins. Patient cannot do any medical decisions given his dementia periods I called his claudia and explained that patient is probably having a heart attack and we discussed risks and benefits of cardiac catheterization but she states that he she is not interested invasive procedures. I agree with her to completely. at this time we might try baby aspirin however I would avoid anticoagulation given bleeding risk. History of Present Illness History of Present Illness Consult date/time: date of kviillv90/18/22 09:58 Requesting physician: Quinn Sandoval MD Consult reason: Other ( elevated troponins) Reason For Visit: elev trop,aspiration pna Narrative: this 66-year-old patient with past history of dementia, stroke, dysphagia status post G-tube, history of malignant melanoma, hypertension, he does have stable brain Mets who was just discharged from the hospital couple days ago after week-long admission for dehydration and hypokalemia. He was in assisted and apparently complained of brief shortness of breath and then it is not clear if he was having chest pain or abdominal pain. Then the next day they found that he had oxygen saturation in the 70s and when EMS arrived they found also oxygen saturation 70s to 80s. Placed on oxygen was brought in here to the hospital. We were consulted for elevated troponins. overnight he apparently did not sleep. he is requiring high oxygen Requirements. He does have advanced dementia cannot provide much history. No family on bedside at this time. EKG reviewed And analyzed myself shows sinus rhythm, septal Q-waves, ST depression V4 to V6. echocardiogram during this admission ejection fraction 45-50% hypokinesis of the apical cap, apical septum, mid inferoseptum, mid anteroseptum. White cell count 18.9 k, hemoglobin 9 serum creatinine 1.4, 1.6 and then 1.9 today( baseline around 1.2-1.4) CTA of the thorax ruled out pulmonary embolism, stable right upper lobe nodule likely metastatic, moderate pleural effusions, moderate emphysema, stable fibrosis in the right lung. troponins 4.8, 5.8, 6.2 Review of Systems Review of Systems: patient has advanced dementia. No family on bedside at this time. ROS unobtainable: Yes unobtainable due to mental status Constitutional: Comments: tired, PMFSH Past Medical History Medical History Alcohol-induced pancreatitis (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 Chronic obstructive pulmonary disease Dementia Gastroesophageal reflux disease Hepatitis C History of alcohol abuse Metastatic malignant melanoma (2012) Status post resection of brain metastases x2 with adjuvant CyberKnife therapy. He had immunotherapy for an endobronchial lesion in 2014 in addition to radiation. is unsure if he has primary melanoma of the lung though she reports no skin lesions were found. Nicotine abuse Osteoarthritis Seizure disorder Silent aspiration Vitamin D deficiency Surgical History Surgical History History of craniotomy Resection of metastatic melanoma x2 at [facility]. History of endoscopic retrograde cholangiopancreatography With insertion and subsequent removal of a bilia
--- NOTE | 2021-10-13 10:04 | ECG_ITS ---
Measurements Intervals [place] Rate: 74 P: 54 KS: 136 QRS: 32 QRSD: 84 T: -60 QT: 393 QTc: 436 Interpretive Statements SINUS RHYTHM LOW QRS VOLTAGE IN EXTREMITY LEADS [QRS DEFLECTION < 0.5 mV IN LIMB LEADS] ANTEROSEPTAL MYOCARDIAL INFARCTION [40+ ms Q WAVE IN V1-V4], OF INDETERMINATE AGE MODERATE T-WAVE ABNORMALITY, CONSIDER LATERAL ISCHEMIA [-0.1+ mV T WAVE IN I/aVL/V5/V6] ABNORMAL ECG Electronically Signed On 10-13-2021 13:54:32 CDT by Justin Castillo M.D.
--- NOTE | 2021-10-13 10:31 | PM.CNPUL ---
Assessment and Plan Assessment and plan (1) Acute respiratory failure with hypoxia: Code(s): J96.01 - Acute respiratory failure with hypoxia Status: Acute Assessment and Plan: 66-year-old man with a history of metastatic melanoma with lung nodules status post treatment up until 2019 at which time he refused additional treatment, COPD with severe apical predominant panlobular emphysema on no oxygen, a history of failed swallow study and NPO on tube feedings with dementia. Patient resides at [facility] in has no oxygen ordered at [facility]. Patient presents now with acute hypoxic respiratory failure (7.49/33/75), ST depressions on his EKG, positive troponins, bilateral pleural effusions, elevated BNP, focal akinesis and hypokinesis on echo and pulmonary congestion on his chest x-ray and CT scan. He has no pulmonary embolism, he does have more focal infiltrates in the lingula and left lower lobe concerning for possible aspiration and/or infection. Does not appear that patient has metastatic melanoma has progressed on his current CT angiogram of the chest. suspect hypoxic respiratory failure is related to non ST elevation SD with fluid overload, possible aspiration and/or infection, bilateral pleural effusions with compressive atelectasis and COPD. Family did not wish for cardiac catheterization. Patient is on an aspirin. Patient is been given Lasix and agree with diuresis as tolerated by his cardiac and renal systems per the supervisor [employer] team. Patient is on broad-spectrum antibiotics including vancomycin, Levaquin and cefepime for possible aspiration and or infection. agree with broad-spectrum antibiotics as patient was recently hospitalized and lives in a facility. I hear no wheezes at this time and agree with albuterol and ipratropium nebulizers and will increase frequency to q.4 hours. of note patient was is on no inhaled medicines at his living facility. At this time I do not see a need for inhaled or systemic steroids. Patient is DNR. Will follow with you. History of Present Illness History of Present Illness Consult date: 10/13/21 Chief complaint: elev trop,aspiration pna Narrative: 10/13/2021: This is a new pulmonary consult for COPD, metastatic cancer and respiratory failure. Patient unable to give accurate history. From the chart. This is a chronically ill 66-year-old male with history of stroke, dysphagia status post G-tube, dementia, hypertension, chronic kidney disease, chronic obstructive pulmonary disease, malignant melanoma with brain mets s/p chemotherapy with refusal of additional treatment in 2019who presented to the emergency department via EMS from [facility] on 10/12 for evaluation of shortness of breath. He was discharged from this hospital 10/12 for VIVIANE from dehydration. He was rehydrated and started back on tube feeds as he failed a swallow study once again. [facility] at which time she remarks that he appeared sad, depressed, and uncomfortable. He mentioned chest pain briefly however when she began to question him about it, he then stated that he had abdominal pain that he could not further qualify. goes on to say that it is not unusual for him to complain of random pains which pass quickly. This morning [facility] staff found the patient to be short of breath and he was hypoxic with an SpO2 in the 70s. He was placed on 4 L nasal cannula and emergency services were summoned.? On EMS arrival he was still hypoxic in the 70s to 80s and he was started on CPAP. On arrival to the ER he was afebrile with stable blood pressures. Pertinent labs include: WBC 18.9, BUN 39, creatinine 1.60, lactic acid 2.4, CRP 23.3, troponin 4.80, proBNP greater than 35,000. Chest x-ray showed developing airspace opacities of the left lung base, likely pneumonia and small pleural effusions (new since 10/04/2021) and a subsequent CTA of the chest showed no juan c
--- NOTE | 2021-10-13 12:58 | PCNSR ---
On 10/13/21, the student, Krystyna Maria, provided care and completed [facility] documentation on this patient. I have reviewed the student's documentation and agree with the findings.
--- NOTE | 2021-10-13 19:44 | PM.EVENT ---
Event Note Event Note Event Note: Call received from [facility] nurseFlaquita shortly after 19:00. The patient's has opted for hospice and Flaquita requests medications to be ordered for patient's comfort including morphine drip, p.r.n. Ativan, and scopolamine patches. Case discussed with Dr. Kumari, Flaquita had previously spoken with Dr. Avina as well. Chart reviewed, patient known to myself from admission last evening. Orders entered. <Neena Gurrola PA-C - Last Filed: 10/13/21 19:47> Call received from [facility] nurseFlaquita shortly after 19:00. The patient's has opted for hospice and Flaquita requests medications to be ordered for patient's comfort including morphine drip, p.r.n. Ativan, and scopolamine patches. Case discussed with Dr. Kmuari, Flaquita had previously spoken with Dr. Avina as well. Chart reviewed, patient known to myself from admission last evening. Orders entered. Case discussed with Neena, agree with plan. Comfort care orders placed as above. <Trae Kumari DO - Last Filed: 10/13/21 23:15>
[2021-10-14 02:22] VITALS: PULSE 74; RESP 17; O2SAT 91
[2021-10-14 21:37] LABS: Pneumococcal Antigen Urine Not Detected (Not Detected)
[2021-10-15 16:39] LABS: Legionella pneumophila Ag Ur Not Detected (Not Detected)
--- NOTE | 2021-10-16 07:11 | PM.DS ---
DS: Admitting Diagnosis Discharge Date 10/13/21 Admitting Diagnosis Shortness of breath DS: Discharge Diagnosis Discharge Diagnosis (1) Acute respiratory failure with hypoxia: Code(s): J96.01 - Acute respiratory failure with hypoxia Status: Acute Assessment and Plan: Acute respiratory failure likely related to pneumonia, pulmonary edema -patient was given Lasix on 10/12 without much improvement in the chest x-ray -10/13 chest x-ray: Progression of diffuse bilateral airspace disease may represent edema and/or pneumonia, small pleural effusion, focal consolidation of the right middle lobe most likely radiation therapy fibrosis -will repeat Lasix -patient currently on vancomycin, levofloxacin and cefepime (10/12) -10/12 sputum culture: Negative -10/12 blood culture: Negative x2 -10/13 urine cultures pending -continue bronchodilators (2) Pneumonia: Code(s): J18.9 - Pneumonia, unspecified organism Status: Acute Assessment and Plan: As above (3) Non-ST elevated myocardial infarction (non-STEMI): Code(s): I21.4 - Non-ST elevation (NSTEMI) myocardial infarction Status: Acute Assessment and Plan: Elevated troponins with EKG showing septal Q-waves and ST depression in V4 to V6 10/13/2021 echocardiogram: Shows EF of 40-45% with hypokinesis of apical cap, apical septum, mid inferior septum, mid anteroseptum. -appreciate cardiology evaluation and recommendation -the dispatcher service discussed with patient's Keila, she was updated that the patient was having heart attack and they did discuss risk on benefits of cardiac catheterization but the did not want to proceed with invasive procedures. (4) Chronic kidney disease: Code(s): N18.9 - Chronic kidney disease, unspecified Status: Acute Assessment and Plan: Patient with chronic kidney disease with worsening creatinine could be related to NSTEMI, medications at home (amlodipine, metoprolol), patient also had contrast I CT scan on 10/12 -will give albumin -patient with NSTEMI, wall motion abnormalities, EF of 40-45%, proBNP > 35,000, also checks x-ray with bilateral infiltrates -will be cautious with IV fluids -continue to monitor renal function, electrolytes and urine output -[place]ow[place] in place (5) Metastatic malignant melanoma: Onset Date: 2012 Code(s): C43.9 - Malignant melanoma of skin, unspecified Status: Acute Assessment and Plan: Stable lung nodule on CT scan of the chest. -10/04/2021 CT scan of the head showed enlarging right temporal primary/metastatic lesion (6) Dysphagia: Code(s): R13.10 - Dysphagia, unspecified Status: Acute Assessment and Plan: Patient has a PEG tube DS: Summary Hospital Course Hospital Course: This is a chronically ill 66-year-old male with history of stroke, dysphagia status post G-tube, dementia, hypertension, chronic kidney disease, chronic obstructive pulmonary disease, malignant melanoma, and other comorbidities who presented to the emergency department via EMS from [facility] for evaluation of shortness of breath. He was discharged from this hospital yesterday after a week-long stay in which he was admitted for dehydration and hypokalemia. He was rehydrated and started back on tube feeds as he failed a swallow study once again. saw him last evening at the correction at which time she remarks that he appeared sad, depressed, and uncomfortable. He mentioned chest pain briefly however when she began to question him about it, he then stated that he had abdominal pain that he could not further qualify. goes on to say that it is not unusual for him to complain of random pains which pass quickly. This morning correction staff found the patient to be short of breath and he was hypoxic with an SpO2 in the 70s. He was placed on 4 L nasal cannula and emergency services were summoned.? On EMS arrival he was still hypoxic in the 70s to 80s and h
[2021-10-16 22:09] LABS: Pneumococcal Antigen Urine Not Detected (Not Detected)
[2021-10-17 20:16] LABS: Legionella pneumophila Ag Ur Not Detected (Not Detected)
== END 2021-10-13 20:45 | disposition hospice, home (50) | DRG 189 ==
LOC: ANHED 11:12 → ANHICU 13:06
PROVIDERS: Physician Assistant; Admitting Provider Student in an Organized Health Care Education/Training Program; Emergency Provider Emergency Medicine; PCP Family Medicine; Visit Provider Student in an Organized Health Care Education/Training Program
DX: J96.01 Acute respiratory failure with hypoxia (principal); I21.4 Non-ST elevation (NSTEMI) myocardial infarction; J69.0 Pneumonitis due to inhalation of food and vomit; J18.9 Pneumonia, unspecified organism; C79.31 Secondary malignant neoplasm of brain; J70.1 Chronic and other pulmonary manifestations due to radiation; J90 Pleural effusion, not elsewhere classified; R13.10 Dysphagia, unspecified; I12.9 Hypertensive chronic kidney disease with stage 1 through stage 4 chronic kidney disease, or unspecified chronic kidney disease; N18.9 Chronic kidney disease, unspecified; M19.90 Unspecified osteoarthritis, unspecified site; G40.909 Epilepsy, unspecified, not intractable, without status epilepticus; K21.9 Gastro-esophageal reflux disease without esophagitis; E55.9 Vitamin D deficiency, unspecified; F03.90 Unspecified dementia, unspecified severity, without behavioral disturbance, psychotic disturbance, mood disturbance, and anxiety; Z20.822 Contact with and (suspected) exposure to COVID-19; N40.0 Benign prostatic hyperplasia without lower urinary tract symptoms; C43.9 Malignant melanoma of skin, unspecified; J43.9 Emphysema, unspecified; D64.9 Anemia, unspecified; Z66 Do not resuscitate; Z86.73 Personal history of transient ischemic attack (TIA), and cerebral infarction without residual deficits; Z86.19 Personal history of other infectious and parasitic diseases; Z87.891 Personal history of nicotine dependence; Z93.1 Gastrostomy status; Z51.5 Encounter for palliative care
CPT/HCPCS: 36415; 36600; 71045; 71275; 80053; 81001; 82375; 82805; 83050; 83605; 83735; 83880; 84145; 84443; 84484; 85025; 85027; 85380; 85610; 85730; 86140; 87040; 87070; 87081; 87086; 87205; 87449; 87899; 93005; 93306; 94002; 94003; 94640; 99285; A9270; C9803; J0692; J1940; J1956; J3370; Q9967; U0003; U0005

== ENCOUNTER 2021-10-13 19:30 | HOS | payer OTHER, MEDICARE, SELFPAY ==
[2021-10-13] MEDS: MORPHINE SULFATE INJ (*CRX) 50 MG in SODIUM CHLORIDE 0.9% IV 95 ML IV CONT (22:40)
[2021-10-13] MEDS: SCOPOLAMINE 1.5 MG PATCH TRANSDERM (22:41)
[2021-10-13] MEDS: LORazepam INJ (*CRX) 2 MG/ML VIAL IV PUSH (22:45)
--- NOTE | 2021-10-13 23:04 | PC.NURSE ---
Addendum entered by Ana Constantino RN 10/13/21 23:10: Morphine drip has been started and gave ativan for comfort. Pt looks comfortable while still on bipap. Spoke with pt's spouse, Keila, and updated on pt status. She would like for the pt to stay on bipap overnight until she gets back to the hospital in the morning as long as the pt looks comfortable. Original Note: Morphine drip has been started and gave ativan for comfort. Pt looks comfortable while still on bipap. Spoke with pt's spouse, Jessie, and updated on pt status. She would like for the pt to stay on bipap overnight until she gets back to the hospital in the morning as long as the pt looks comfortable.
[2021-10-14 08:00] VITALS: BP 121/68; PULSE 71; RESP 18; TEMP 36.2; O2SAT 88
--- NOTE | 2021-10-14 08:54 | PC.NURSE ---
0802- WAS CALLED AND UPDATED ON PATIENTS CONDITION. WILL BE REMOVING BIPAP AROUND 1000.
[2021-10-14] MEDS: LORazepam INJ (*CRX) 2 MG/ML VIAL IV PUSH (09:31)
--- NOTE | 2021-10-14 10:09 | PM.IMPN ---
Progress Note: A&P Assessment and Plan (1) Acute respiratory failure with hypoxia: Code(s): J96.01 - Acute respiratory failure with hypoxia Status: Acute Assessment and Plan: Acute respiratory failure likely related to pneumonia, pulmonary edema -patient was given Lasix on 10/12 without much improvement in the chest x-ray -10/13 chest x-ray: Progression of diffuse bilateral airspace disease may represent edema and/or pneumonia, small pleural effusion, focal consolidation of the right middle lobe most likely radiation therapy fibrosis -will repeat Lasix -patient currently on vancomycin, levofloxacin and cefepime (10/12) -10/12 sputum culture: Negative -10/12 blood culture: Negative x2 -10/13 urine cultures pending -continue bronchodilators (2) Pneumonia: Code(s): J18.9 - Pneumonia, unspecified organism Status: Acute Assessment and Plan: As above (3) Non-ST elevated myocardial infarction (non-STEMI): Code(s): I21.4 - Non-ST elevation (NSTEMI) myocardial infarction Status: Acute Assessment and Plan: Elevated troponins with EKG showing septal Q-waves and ST depression in V4 to V6 10/13/2021 echocardiogram: Shows EF of 40-45% with hypokinesis of apical cap, apical septum, mid inferior septum, mid anteroseptum. -appreciate cardiology evaluation and recommendation -the hammerer tab discussed with patient's Keila, she was updated that the patient was having heart attack and they did discuss risk on benefits of cardiac catheterization but the did not want to proceed with invasive procedures. (4) Chronic kidney disease: Code(s): N18.9 - Chronic kidney disease, unspecified Status: Acute Assessment and Plan: Patient with chronic kidney disease with worsening creatinine could be related to NSTEMI, medications at home (amlodipine, metoprolol), patient also had contrast I CT scan on 10/12 -will give albumin -patient with NSTEMI, wall motion abnormalities, EF of 40-45%, proBNP > 35,000, also checks x-ray with bilateral infiltrates -will be cautious with IV fluids -continue to monitor renal function, electrolytes and urine output -Chowdhury in place (5) Metastatic malignant melanoma: Onset Date: 2012 Code(s): C43.9 - Malignant melanoma of skin, unspecified Status: Acute Assessment and Plan: Stable lung nodule on CT scan of the chest. -10/04/2021 CT scan of the head showed enlarging right temporal primary/metastatic lesion (6) Dysphagia: Code(s): R13.10 - Dysphagia, unspecified Status: Acute Assessment and Plan: Patient has a PEG tube Additional Plan DVT prophylaxis: SCDs Nutrition: Will restart tube feeds today Code Status: Do not resuscitate/do not intubate Will discuss with when she comes in today about goals of care Due to a high probability of clinically significant, life threatening deterioration, the patient required my highest level of preparedness to intervene emergently and I personally spent this critical care time directly and personally managing the patient. This critical care time included obtaining a history; examining the patient; pulse oximetry; ordering and review of studies; arranging urgent treatment with development of a management plan; evaluation of patient's response to treatment; frequent reassessment; and discussions with other providers. It was exclusive of separately billable procedures and treating other patients and teaching time. Please see Assessment and Plan section and the rest of the note for further information on patient assessment and treatment Subjective Date/time seen: 10/14/21 10:09 Objective Data Vital Signs Vital Signs: Vital Signs - 24 hr 10/13/21 23:28 10/14/21 08:00 10/14/21 08:00 Temperature 97.2 F L Pulse Rate 71 Respiratory Rate 18 Blood Pressure 121/68 Pulse Oximetry 88 L Oxygen Delivery BiPAP BiPAP Fraction of Inspired Oxygen 100 100
--- NOTE | 2021-10-14 12:19 | PC.NURSE ---
1045- AT BEDSIDE. UPDATES GIVEN.
--- NOTE | 2021-10-14 15:44 | PC.NURSE ---
1530-PATIENT TRANSFERRED TO ROOM 318 PER BED. REPORT GIVEN TO MEHRDAD CANSECO. ALL QUESTIONS ANSWERED. AT BEDSIDE.
--- NOTE | 2021-10-14 17:47 | PM.IMHP ---
H&P: HPI History of Present Illness Date/Time: 10/14/21 17:47 Chief Complaint: Hospice care Narrative: 66-year-old male with history of stroke, dysphagia with G-tube placement, dementia, melanoma, COPD and other comorbidities presented to the hospital from [facility] for shortness of breath. He was thought to have aspiration pneumonia. He was placed on supplemental oxygen with some improvement. He eventually required BiPAP and was unable to be weaned. He was noted to have an NSTEMI as well. Due to metastatic brain lesions, anticoagulation was unable to be given. He ultimately decompensated significantly. Family refused cardiac catheterization. He was unable to be weaned from BiPAP. Therefore hospice care was chosen. Patient is being admitted for comfort care at this time. Review of Systems Review of Systems: ROS unobtainable: Yes unobtainable due to mental status PMFSH Past Medical History Medical History Alcohol-induced pancreatitis (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 Chronic obstructive pulmonary disease Dementia Gastroesophageal reflux disease Hepatitis C History of alcohol abuse Metastatic malignant melanoma (2012) Status post resection of brain metastases x2 with adjuvant CyberKnife therapy. He had immunotherapy for an endobronchial lesion in 2014 in addition to radiation. is unsure if he has primary melanoma of the lung though she reports no skin lesions were found. Nicotine abuse Osteoarthritis Seizure disorder Silent aspiration Vitamin D deficiency Surgical History Surgical History History of craniotomy Resection of metastatic melanoma x2 at [facility]. History of endoscopic retrograde cholangiopancreatography With insertion and subsequent removal of a biliary stent. History of hemorrhoidectomy History of vasectomy Family History Family History Father Diabetes mellitus Mother Lung cancer Social History Social History Social History: Surrogate decision maker: Keila Robbins, . Code status: Do not resuscitate. Smoking packs per day: 1 Smoking cigarettes per day: 20.0 Years smoked: 40 Smoking pack-years: 40.00 Smoking status: Former smoker Alcohol intake: former Drinks per week: 42 Substance use: never Additional living arrangements comments: Resident of [facility]. 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 Spiritual care concerns: No Meds Home Medications and Allergies Home Medications Medication Instructions Recorded Confirmed Type nitroglycerin 0.4 mg sublingual 0.4 mg sublingual Q5-15M PRN Chest 06/10/21 10/12/21 History tablet Pain bisacodyl 10 mg rectal suppository 10 mg RECTAL Q12H PRN Constipation 06/26/21 10/12/21 History hydrocortisone 2.5 % topical cream 1 applic topical BID 06/26/21 10/12/21 History sodium phosphates 19 gram-7 118 ml RECTAL DAILY PRN 06/26/21 10/12/21 History gram/118 mL enema (Fleet Enema) Constipation amlodipine 5 mg tablet (Norvasc) 5 mg feeding tube QAM #30 tabs 07/04/21 10/12/21 Rx aspirin 81 mg tablet,delayed 81 mg feeding tube DAILY #0 tabs 07/04/21 10/12/21 Rx release (Adult Low Dose Aspirin) folic acid 1 mg tablet 1 mg feeding tube DAILY #0 tabs 07/04/21 10/12/21 Rx magnesium hydroxide 400 mg/5 mL 30 ml feeding tube HS PRN 07/04/21 10/12/21 Rx oral suspension Constipation #0 mL ondansetron HCl 4 mg tablet 4 mg feeding tube Q8H PRN Nausea 07/04/21 10/12/21 Rx #0 tabs sertraline 100 mg tablet 100 mg feeding tube DAILY #0 tabs 07/04/21 10/12/21 Rx thiamine HC
--- NOTE | 2021-10-14 18:12 | PC.NURSE ---
This patient, Jovany Robbins, was received from ICU-1 on 10/14/21 at 1545. Patient/family oriented to unit policies and routines
--- NOTE | 2021-10-27 05:34 | PM.DDS ---
Discharge Summary Date and Time Date of : 10/14/21 Time of : 17:50 Provider Pronounced By: Toma Garnett RN Probable Cause of Probable Cause of : cardiac arrest 2/ NSTEMI Summary Hospital Course: This is a chronically ill 66-year-old male with history of stroke, dysphagia status post G-tube, dementia, hypertension, chronic kidney disease, chronic obstructive pulmonary disease, malignant melanoma, and other comorbidities who presented to the emergency department via EMS from [facility] for evaluation of shortness of breath. He was discharged from this hospital yesterday after a week-long stay in which he was admitted for dehydration and hypokalemia. He was rehydrated and started back on tube feeds as he failed a swallow study once again. saw him last evening at the detention at which time she remarks that he appeared sad, depressed, and uncomfortable. He mentioned chest pain briefly however when she began to question him about it, he then stated that he had abdominal pain that he could not further qualify. goes on to say that it is not unusual for him to complain of random pains which pass quickly. This morning detention staff found the patient to be short of breath and he was hypoxic with an SpO2 in the 70s. He was placed on 4 L nasal cannula and emergency services were summoned.? On EMS arrival he was still hypoxic in the 70s to 80s and he was started on CPAP. On arrival to the ER he was afebrile with stable blood pressures. Pertinent labs include: WBC 18.9, BUN 39, creatinine 1.60, lactic acid 2.4, CRP 23.3, troponin 4.80, proBNP greater than 35,000. Chest x-ray showed developing airspace opacities of the left lung base, likely pneumonia and small pleural effusions and a subsequent CTA of the chest showed no evidence of pulmonary embolism, moderate size pleural effusions, moderate emphysema, and stable right upper lobe nodule and radiation fibrosis. At the time my evaluation he has no specific complaints though he is not a very good historian, and fact he could not recall why he was brought to the ER today. He seems a bit short of breath on high-flow nasal cannula though he denies feelings of shortness of breath. He does specifically deny fever, sinus congestion, sore throat, chest pain, pleuritic pain, palpitations, abdominal pain, nausea, vomiting, diarrhea, and dysuria. He was thought to have aspiration pneumonia.? He was placed on supplemental oxygen with some improvement.? He eventually required BiPAP and was unable to be weaned.? He was noted to have an NSTEMI as well.? Due to metastatic brain lesions, anticoagulation was unable to be given.? He ultimately decompensated significantly.? Family refused cardiac catheterization.? He was unable to be weaned from BiPAP.? Therefore hospice care was chosen.? Patient October 14, 2021 at 5:50 p.m. Additional Data Confirmation of as documented by pronouncing clinician: Pupillary Reflex, Palpable Pulses, Response to Stimuli, Heart Tones and Breath Sounds Name of Provider Notified: Dr Santos Time Provider Notified: 18:35 Provider Requests Autopsy: No Family Requests Autopsy: No Icu Manager Notified: Yes Date [facility] Notified of : 10/14/21 Time [facility] Notified of : 18:15
== END 2021-10-14 17:50 | disposition expired | DRG 951 ==
LOC: ANH3MEDSUR 10-18 13:45 → ANH3MED 10-18 13:45 → ANHICU 10-18 13:45
PROVIDERS: Admitting Provider Internal Medicine; PCP Family Medicine; Visit Provider Student in an Organized Health Care Education/Training Program
DX: Z51.5 Encounter for palliative care (principal); I21.4 Non-ST elevation (NSTEMI) myocardial infarction; J69.0 Pneumonitis due to inhalation of food and vomit; C79.31 Secondary malignant neoplasm of brain; C80.1 Malignant (primary) neoplasm, unspecified; N40.0 Benign prostatic hyperplasia without lower urinary tract symptoms; I12.9 Hypertensive chronic kidney disease with stage 1 through stage 4 chronic kidney disease, or unspecified chronic kidney disease; N18.9 Chronic kidney disease, unspecified; J44.9 Chronic obstructive pulmonary disease, unspecified; K21.9 Gastro-esophageal reflux disease without esophagitis; M19.90 Unspecified osteoarthritis, unspecified site; G40.909 Epilepsy, unspecified, not intractable, without status epilepticus; E55.9 Vitamin D deficiency, unspecified; F41.9 Anxiety disorder, unspecified; F03.90 Unspecified dementia, unspecified severity, without behavioral disturbance, psychotic disturbance, mood disturbance, and anxiety; Z66 Do not resuscitate; Z86.19 Personal history of other infectious and parasitic diseases; Z87.891 Personal history of nicotine dependence; I46.2 Cardiac arrest due to underlying cardiac condition; Z86.73 Personal history of transient ischemic attack (TIA), and cerebral infarction without residual deficits; R13.10 Dysphagia, unspecified
CPT/HCPCS: A9270; J2060; J2270